=== PATIENT | male | born 1955 | race Two or more races ===

== ENCOUNTER 2020-10-28 10:43 | Emergency (ER) | payer MEDICARE, OTHER, SELFPAY ==
[2020-10-28 11:03] LABS: Glucose, Whole Blood 488 mg/dL (60-115)
[2020-10-28 11:08] VITALS: BP 146/73; PULSE 92; RESP 16; TEMP 36.8; O2SAT 98; BMI 29.0
[2020-10-28 11:12] VITALS: BP 146/73; PULSE 92; RESP 16; TEMP 36.8; O2SAT 98
--- NOTE | 2020-10-28 11:16 | CT_ITS ---
CT HEAD WITHOUT CONTRAST CLINICAL INFORMATION: Fall. Altered mental status. COMPARISON: None available. TECHNIQUE: Contiguous axial imaging was performed from the skull base to vertex without intravenous administration of contrast. This CT examination was performed using dose optimization techniques as appropriate, variously including the following: *Automated exposure control *Adjustment of mA and/or kV according to patient size (this includes techniques or standardized protocols for targeted exams where dose is matched to indication/reason for exam; i.e. extremities or head) *Use of iterative reconstruction technique FINDINGS: There is global cerebral volume loss and there is moderate chronic microangiopathy. There is no intracranial hemorrhage, hydrocephalus, extra-axial surface collection, midline shift, or other herniation pattern. Paul to white matter differentiation is diffusely maintained without evidence of an evolved acute territorial infarct. The basilar cisterns are preserved. No significant soft tissue abnormality. No acute osseous abnormality. The paranasal sinuses and the mastoid air cells are well aerated. Right-sided glaucoma reservoir. CT/CT head/brain wo con IMPRESSION: - No acute intracranial abnormality. - There is global cerebral volume loss and there is moderate chronic microangiopathy.
--- NOTE | 2020-10-28 11:16 | XR_ITS ---
EXAMINATION: XR KNEE, LEFT CLINICAL INFORMATION: Left knee pain status post fall COMPARISON: None TECHNIQUE: Four views of the left knee. FINDINGS: There is some soft tissue swelling seen about the anterior patella. No acute fracture or dislocation is evident. No effusion is seen. There is minimal spurring at the patellofemoral joint. There is a small calcific density seen about the medial joint space which may be related to medial collateral ligament injury which may be acute or chronic in nature with no definite adjacent soft tissue swelling likely making making this a chronic injury.. Prominent vascular calcifications are seen. XR/XR knee LT 4V IMPRESSION: No definite acute fracture or dislocation of the left knee with no left knee effusion. Small calcific density medial aspect of the left distal femur which may be secondary to medial collateral ligament injury.
--- NOTE | 2020-10-28 11:17 | ECG_ITS ---
Test Reason : AMS Blood Pressure : / mmHG Vent. Rate : 093 BPM Atrial Rate : 093 BPM P-R Int : 148 ms QRS Dur : 100 ms QT Int : 372 ms P-R-T Axes : 045 035 106 degrees QTc Int : 462 ms Normal sinus rhythm Low voltage QRS T wave abnormality, consider lateral ischemia Abnormal ECG When compared with ECG of 23-MAY-2002 09:19, Vent. rate has increased BY 31 BPM T wave inversion now evident in Lateral leads Referred By: Ricardo Briggs Electronically Signed By:AISHA UP MD
--- NOTE | 2020-10-28 11:17 | XR_ITS ---
EXAMINATION: XR CHEST CLINICAL INFORMATION: Fall COMPARISON: None TECHNIQUE: AP upright view of the chest was obtained. FINDINGS: No significant abnormality is noted involving the heart, lungs, mediastinum, bony thorax or soft tissues. XR/XR chest 1V IMPRESSION: No acute disease.
[2020-10-28] MEDS: 0.9 % Sodium Chloride 1,000 ML 999 ML IV ×2 (12:08→13:57)
[2020-10-28 12:14] LABS: MANUAL DIFF FLAG NO
[2020-10-28 12:18] LABS: Basophils Percent Auto 0.3 % (0-2); Eosinophils Absolute Auto 0.1 X10*3/uL (0.0-0.4); Eosinophils Percent Auto 0.4 % (0-4); Hematocrit 46.5 % (42-52); Hemoglobin 16.6 g/dl (14.0-18.0); Imm Gran Abs Auto 0.05 X10*3/uL (0.00-0.03); Imm Gran Pct Auto 0.4 % (0.0-0.4); Lymphocytes Absolute Auto 1.9 X10*3/uL (1.2-4.9); Lymphocytes Percent Auto 14.9 % (20-40); Mean Corpuscular HGB Conc 35.7 g/dl (31.0-36.0); Mean Corpuscular Hemoglobin 30.2 pg (27.0-33.0); Mean Corpuscular Volume 84.5 fL (80-98); Mean Platelet Volume 11.5 fL (9.4-12.4); Monocytes Absolute Auto 1.1 X10*3/uL (0.1-1.2); Monocytes Percent Auto 8.5 % (2-11); Neutrophils Absolute Auto 9.5 X10*3/uL (2.0-8.3); Neutrophils Percent Auto 75.5 % (45-73); Platelet Count 300 X10*3/uL (160-400); Red Cell Distribution Width 11.5 % (11.0-16.0); White Blood Count 12.7 X10*3/uL (4.8-10.8)
[2020-10-28 12:32] LABS: Prothrombin Time 11.7 SEC (10.8-13.0)
[2020-10-28 12:47] LABS: Acetaminophen LAB < 1 mcg/mL (<30); Alanine Aminotransferase 28 U/L (0-40); Albumin Level 4.6 g/dL (3.5-5.0); Alkaline Phosphatase 72 U/L (39-117); Anion Gap 20 (12-20); Aspartate Amino Transferase 18 U/L (5-37); Bilirubin Total 0.9 mg/dL (0.0-1.0); Blood Urea Nitrogen 28 mg/dL (9-16); Calcium 10.5 mg/dL (8.4-10.2); Carbon Dioxide 25 mmol/L (22-29); Chloride 92 mmol/L (96-108); Creatinine Clr Calc Pharmacy 41.6; Estimated Glomerular Filt Rate 39; Glucose Random 484 mg/dL (60-115); Sodium 132 mmol/L (135-145); Total Protein 7.9 g/dL (6.5-8.0)
[2020-10-28 12:48] LABS: Troponin-I High Sensitivity 9.1 ng/L (<3.5-35.0)
--- NOTE | 2020-10-28 13:49 | ED_ITS ---
HPI - General Adult General Chief complaint: Altered Mental Status Stated complaint: HBS Time Seen by Provider: 10/28/20 11:07 Source: EMS Mode of arrival: EMS Limitations: other (Poor historian) History of Present Illness HPI narrative: Mr. Arevalo is a 65-year-old male who goes by the name of Denis is a history of diabetes who apparently was at his house and had a fall. He is vague and poor historian mostly history gathered from his her daughter and granddaughter who report to me that he has a history of being very forgetful ?I think he might have dementia? he is part of a day program however that has been disrupted due to COVID-19 this morning he lives next door to his ex- who has a very good relationship with and they actually are to get her most of the time he went over there are 5 collecting morning to look for his wallet which is somewhat unusual and he fell. States after the fall he also reported to family that his blood sugars elevated that prompted them to bring to the emergency room. Although this altogether not too unusual for his blood sugars to be in the high 300s today was for e.d. at home. He reports he has not taking his medication today. Patient again very vague historian is alert and oriented x3 but somewhat slow to response. However family reports this is his baseline. He does have a abrasion to left side of forehead and left knee. Onset (ago): day(s) Location: head Severity: moderate Associated symptoms: denies other symptoms Treatments prior to arrival: none Related Data Allergies Allergy/AdvReac Type Severity Reaction Status Date / Time No Known Allergies Allergy Verified 10/28/20 11:16 Review of Systems Review of Systems: Constitutional: No Weight loss, No Fever, No Chills, No Night Sweats, No Fatigue, No Malaise ENT/Mouth: No Hearing loss, No Ear Pain, No Nasal Congestion, No Sinus Pain, No Hoarseness, No sore throat, No Rhinorrhea, No Swallowing Difficulty Eyes: No Eye Pain, No Swelling, No Redness, No Foreign Body, No Discharge, No Vision Changes Cardiovascular: No Chest Pain, No SOB, No Dyspnea on Exertion, No Orthopnea, No Edema, No Palpitations Respiratory: No Cough, No Sputum, No Wheezing, No Smoke Exposure, No Dyspnea Gastrointestinal: No Nausea, No Vomiting, No Diarrhea, No Constipation, No abdominal Pain, No Hematochezia, No Melena Genitourinary: No Dysuria, No Urinary Frequency, No Hematuria, No Urinary Incontinence, No Urgency, No Flank Pain Musculoskeletal: No joint pain, No Myalgias, No Joint Swelling Skin: No Skin Lesions, No rash Neuro: No Weakness, No Numbness, No Paresthesias, No Loss of Consciousness, No Dizziness, No Headache Psych: No Anxiety/Panic, No Depression, No SI/HI/AH/VH Heme/Lymph: No Bruising, No Bleeding,No Lymphadenopathy Endocrine: No Polyuria, No Polydipsia, No Temperature Intolerance Yes all other systems are reviewed and are negative [facility] Social History Social History Alcohol intake: never Smoked in Last 30 Days: No Use of substances other than those prescribed or required for medical reasons: No Advance Directives: Yes Advance Directives Information Provided: Yes Advance Directives on File: No Physical Exam Vital Signs: Vital Signs: Last Vital Signs Temp 98.3 F 10/28/20 16:35 Pulse 96 10/28/20 16:35 Resp 18 10/28/20 16:35 BP 181/84 H 10/28/20 16:35 Pulse Ox 98 10/28/20 16:35 Body Mass Index 29.0 Reviewed Const: General: cooperative and healthy appearing; No acute distress or intoxicated appearing Nutritional Appearance: average body habitus Orientation/consciousness: patient oriented x3 HENMT: Head: Yes normal to inspection Head images: 1. Slight area of abrasion. No swelling or erythema. Ears: hearing grossly normal bilaterally Eyes: General: appearance normal, both eyes and all related structures Visual Krueger: normal visual krueger by confrontation Neck: Neck: Yes normal visual inspection, No positive Brudzinski's sign, No positive Kernig's sign and No tender Thyroid: Thyroid normal Chest: Chest palpation & inspection: normal inspection of the chest Resp: Effort & Inspection: normal respiratory effort Cardio: Jugular venous distension: no JVD Rate: regular rate Rhythm: regular rhythm Heart sounds: S1 normal heart sound present and S2 normal heart sound present GI: Inspection: Yes normal to inspection Percussion: Yes normal to percussion Auscultation: normal bowel sounds : General: Yes no CVA tenderness Back/Spine/Pelvis: Back: no CVA tenderness Skin: General skin exam: no rashes or lesions noted Neuro: General: patient oriented x3 Extrem: General: Yes normal to inspection Upper/lower leg/hip images: 1. Abrasion NIH Stroke Scale Internal: Initial- Upon Arrival Level of Consciousness: Alert Level of Consciousness Questions: Answers both questions correctly Level of Consciousness Commands: Performs both tasks correctly Best Gaze: Normal Visual: No visual loss Facial Palsy: Normal Motor Arm (Right): No drift Motor Arm (Left): No drift Motor Leg (Right): No drift Motor Leg (Left): No drift Limb Ataxia: Absent Sensory: Normal Best Language: No aphasia Dysarthia: Normal Extinction and Inattention: No abnormality Score: 0 Course Course Course Narrative: Labs consistent with hyperosmolar hyperglycemia without evidence of diabetic ketoacidosis also [place] under sure if he has underlying CKD family is unsure of this most of the care is delivered by PCP and otherwise relatively independent they do get involved with his daily ADLs he was in a day program. He was given 2 L of fluid his glucose as well as his renal function improved. He is unsteady on his feet he was able to walk about 10 ft in the ED but very unsteady for this reason I brought in the daughter and the along with case management [facility] and recommended short-term rehab however patient adamantly declines this states he will be fine daughter is concerned that if we keep him here against his will for short-term rehab that he may have behavior outburst. States they will stay with him at all times in the meantime healthcare proxy was completed by [facility]. Consult place VNA services at home. I did instruct the patient is risk of going home and suffering a fall and worsening his condition resulting in serious life altering injury. He verbalized understanding. Shared decision making with patient as well as the family to bring him back if he changes mind or if anything happens. Medical Decision Making Lab Data Result diagrams: 10/28/20 11:56 10/28/20 15:11 Labs: Lab Results 10/28/20 10/28/20 10/28/20 Range/Units 10:59 11:56 11:56 WBC 12.7 H (4.8-10.8) X10*3/uL RBC 5.50 (4.60-5.80) X10*6/uL Hgb 16.6 (14.0-18.0) g/dl Hct 46.5 (42-52) % MCV 84.5 (80-98) fL MCH 30.2 (27.0-33.0) pg MCHC 35.7 (31.0-36.0) g/dl RDW 11.5 (11.0-16.0) % Plt Count 300 (160-400) X10*3/uL MPV 11.5 (9.4-12.4) fL Immature Gran % (Auto) 0.4 (0.0-0.4) % Neut % (Auto) 75.5 H (45-73) % Lymph % (Auto) 14.9 L (20-40) % [place] % (Auto) 8.5 (2-11) % Eos % (Auto) 0.4 (0-4) % Baso % (Auto) 0.3 (0-2) % Lymph # (Auto) 1.9 (1.2-4.9) X10*3/uL [place] # (Auto) 1.1 (0.1-1.2) X10*3/uL Eos # (Auto) 0.1 (0.0-0.4) X10*3/uL Baso # (Auto) 0.0 (0.0-0.2) X10*3/uL Abs Immat Gran (auto) 0.05 H (0.00-0.03) X10*3/uL Absolute Neuts (auto) 9.5 H (2.0-8.3) X10*3/uL Absolute Nucleated RBC 0.000 (0.0-0.012) X10*3/uL Nucleated RBC % (auto) 0.0 (0.0-0.2) /100WBC PT (10.8-13.0) SEC INR (0.9-1.1) APTT (24.1-38.0) SEC Sodium 132 L (135-145) mmol/L Potassium 5.0 (3.3-5.1) mmol/L Chloride 92 L (96-108) mmol/L Carbon Dioxide 25 (22-29) mmol/L Anion Gap 20 (12-20) BUN 28 H (9-16) mg/dL Creatinine 1.75 H (0.5-1.4) mg/dL Estim Creat Clear Calc 41.6 Estimated GFR 39 POC Glucose 488 H* (60-115) mg/dL Random Glucose 484 H* (60-115) mg/dL Calcium 10.5 H (8.4-10.2) mg/dL Total Bilirubin 0.9 (0.0-1.0) mg/dL AST 18 (5-37) U/L ALT 28 (0-40) U/L Alkaline Phosphatase 72 (39-117) U/L Troponin I High Sens (<3.5-35.0) ng/L Total Protein 7.9 (6.5-8.0) g/dL Albumin 4.6 (3.5-5.0) g/dL Urine Color Urine Appearance Urine pH (5.0-8.0) Ur Specific [place] (1.005-1.025) Urine Protein (NEG-TRACE) MG/DL Urine Glucose (UA) (NEG) MG/DL Urine Ketones (NEG) MG/DL Urine Blood (NEG) Urine Nitrite (NEG) Ur Leukocyte Esterase (NEG) Urine RBC (0) /HPF Urine WBC (0-4) /HPF Ur Squamous Epith Cells /LPF Amorphous Sediment /LPF Urine Bacteria /LPF Urine Opiates Screen (Not Detect) Acetaminophen < 1 (<30) mcg/mL Ur Barbiturates Screen (Not Detect) Ur Phencyclidine Scrn (Not Detect) Ur Amphetamines Screen (Not Detect) U Benzodiazepines Scrn (Not Detect) Urine Cocaine Screen (Not Detect) U Marijuana (THC) Screen (Not Detect) 10/28/20 10/28/20 10/28/20 Range/Units 11:56 11:56 13:59 WBC (4.8-10.8) X10*3/uL RBC (4.60-5.80) X10*6/uL Hgb (14.0-18.0) g/dl Hct (42-52) % MCV (80-98) fL MCH (27.0-33.0) pg MCHC (31.0-36.0) g/dl RDW (11.0-16.0) % Plt Count (160-400) X10*3/uL MPV (9.4-12.4) fL Immature Gran % (Auto) (0.0-0.4) % Neut % (Auto) (45-73) % Lymph % (Auto) (20-40) % [place] % (Auto) (2-11) % Eos % (Auto) (0-4) % Baso % (Auto) (0-2) % Lymph # (Auto) (1.2-4.9) X10*3/uL [place] # (Auto) (0.1-1.2) X10*3/uL Eos # (Auto) (0.0-0.4) X10*3/uL Baso # (Auto) (0.0-0.2) X10*3/uL Abs Immat Gran (auto) (0.00-0.03) X10*3/uL Absolute Neuts (auto) (2.0-8.3) X10*3/uL Absolute Nucleated RBC (0.0-0.012) X10*3/uL Nucleated RBC % (auto) (0.0-0.2) /100WBC PT 11.7 (10.8-13.0) SEC INR 1.0 (0.9-1.1) APTT 37.0 (24.1-38.0) SEC Sodium (135-145) mmol/L Potassium (3.3-5.1) mmol/L Chloride (96-108) mmol/L Carbon Dioxide (22-29) mmol/L Anion Gap (12-20) BUN (9-16) mg/dL Creatinine (0.5-1.4) mg/dL Estim Creat Clear Calc Estimated GFR POC Glucose (60-115) mg/dL Random Glucose (60-115) mg/dL Calcium (8.4-10.2) mg/dL Total Bilirubin (0.0-1.0) mg/dL AST (5-37) U/L ALT (0-40) U/L Alkaline Phosphatase (39-117) U/L Troponin I High Sens 9.1 (<3.5-35.0) ng/L Total Protein (6.5-8.0) g/dL Albumin (3.5-5.0) g/dL Urine Color YELLOW Urine Appearance CLEAR Urine pH 5.5 (5.0-8.0) Ur Specific [place] 1.025 (1.005-1.025) Urine Protein 2+ H (NEG-TRACE) MG/DL Urine Glucose (UA) >=1000 H (NEG) MG/DL Urine Ketones NEG (NEG) MG/DL Urine Blood 2+ H (NEG) Urine Nitrite NEG (NEG) Ur Leukocyte Esterase NEG (NEG) Urine RBC 5-9 H (0) /HPF Urine WBC 0-2 (0-4) /HPF Ur Squamous Epith Cells TRACE /LPF Amorphous Sediment 1+ /LPF Urine Bacteria NONE /LPF Urine Opiates Screen (Not Detect) Acetaminophen (<30) mcg/mL Ur Barbiturates Screen (Not Detect) Ur Phencyclidine Scrn (Not Detect) Ur Amphetamines Screen (Not Detect) U Benzodiazepines Scrn (Not Detect) Urine Cocaine Screen (Not Detect) U Marijuana (THC) Screen (Not Detect) 10/28/20 10/28/20 10/28/20 Range/Units 13:59 14:50 15:11 WBC (4.8-10.8) X10*3/uL RBC (4.60-5.80) X10*6/uL Hgb (14.0-18.0) g/dl Hct (42-52) % MCV (80-98) fL MCH (27.0-33.0) pg MCHC (31.0-36.0) g/dl RDW (11.0-16.0) % Plt Count (160-400) X10*3/uL MPV (9.4-12.4) fL Immature Gran % (Auto) (0.0-0.4) % Neut % (Auto) (45-73) % Lymph % (Auto) (20-40) % [place] % (Auto) (2-11) % Eos % (Auto) (0-4) % Baso % (Auto) (0-2) % Lymph # (Auto) (1.2-4.9) X10*3/uL [place] # (Auto) (0.1-1.2) X10*3/uL Eos # (Auto) (0.0-0.4) X10*3/uL Baso # (Auto) (0.0-0.2) X10*3/uL Abs Immat Gran (auto) (0.00-0.03) X10*3/uL Absolute Neuts (auto) (2.0-8.3) X10*3/uL Absolute Nucleated RBC (0.0-0.012) X10*3/uL Nucleated RBC % (auto) (0.0-0.2) /100WBC PT (10.8-13.0) SEC INR (0.9-1.1) APTT (24.1-38.0) SEC Sodium 136 (135-145) mmol/L Potassium 4.3 (3.3-5.1) mmol/L Chloride 100 (96-108) mmol/L Carbon Dioxide 26 (22-29) mmol/L Anion Gap 14 (12-20) BUN 24 H (9-16) mg/dL Creatinine 1.38 (0.5-1.4) mg/dL Estim Creat Clear Calc 52.8 Estimated GFR 52 POC Glucose 333 H (60-115) mg/dL Random Glucose 339 H (60-115) mg/dL Calcium 8.7 D (8.4-10.2) mg/dL Total Bilirubin (0.0-1.0) mg/dL AST (5-37) U/L ALT (0-40) U/L Alkaline Phosphatase (39-117) U/L Troponin I High Sens (<3.5-35.0) ng/L Total Protein (6.5-8.0) g/dL Albumin (3.5-5.0) g/dL Urine Color Urine Appearance Urine pH (5.0-8.0) Ur Specific [place] (1.005-1.025) Urine Protein (NEG-TRACE) MG/DL Urine Glucose (UA) (NEG) MG/DL Urine Ketones (NEG) MG/DL Urine Blood (NEG) Urine Nitrite (NEG) Ur Leukocyte Esterase (NEG) Urine RBC (0) /HPF Urine WBC (0-4) /HPF Ur Squamous Epith Cells /LPF Amorphous Sediment /LPF Urine Bacteria /LPF Urine Opiates Screen Not Detected (Not Detect) Acetaminophen (<30) mcg/mL Ur Barbiturates Screen Not Detected (Not Detect) Ur Phencyclidine Scrn Not Detected (Not Detect) Ur Amphetamines Screen Not Detected (Not Detect) U Benzodiazepines Scrn Not Detected (Not Detect) Urine Cocaine Screen Not Detected (Not Detect) U Marijuana (THC) Screen Not Detected (Not Detect) Imaging Data Head CT: Radiologist's impression: [address] [id number] Scan ReportSigned Patient: Ludwin Arevalo BMR#: [id number]: [id number]:[id number]/Sex: 65 / MADM Date: 10/28/20Loc: Deanna Dr: Ordering Physician: Ricardo Briggs NP Date of Service: 10/28/20 Procedure(s): CT head/brain wo con Accession Number(s): [id number] cc: Ricardo Briggs FASHION ILLUSTRATOR~ CT HEAD WITHOUT CONTRAST CLINICAL INFORMATION: Fall. Altered mental status. COMPARISON: None available. TECHNIQUE: Contiguous axial imaging was performed from the skull base to vertex without intravenous administration of contrast. This CT examination was performed using dose optimization techniques as appropriate, variously including the following: *Automated exposure control *Adjustment of mA and/or kV according to patient size (this includes techniques or standardized protocols for targeted exams where dose is matched to indication/reason for exam; i.e. extremities or head) *Use of iterative reconstruction technique FINDINGS: There is global cerebral volume loss and there is moderate chronic microangiopathy. There is no intracranial hemorrhage, hydrocephalus, extra-axial surface collection, midline shift, or other herniation pattern. Paul to white matter differentiation is diffusely maintained without evidence of an evolved acute territorial infarct. The basilar cisterns are preserved. No significant soft tissue abnormality. No acute osseous abnormality. The paranasal sinuses and the mastoid air cells are well aerated. Right-sided glaucoma reservoir. CT/CT head/brain wo con IMPRESSION: - No acute intracranial abnormality. - There is global cerebral volume loss and there is moderate chronic microangiopathy. Dictated By:JOSY REMY MDSigned By:<Electronically signed by JOSY REMY MD in OV>10/28/20 1155 DD/ 1116TD/TT: Physical Sciences Instructor: SYEDA Left knee x-ray: Radiologist's impression: [address] [id number] ReportSigned Patient: Ludwin Arevalo BMR#: [id number]: cct:[id number]/Sex: 65 / MADM Date: 10/28/20Loc: HO.EDAttending Dr: Ordering Physician: Ricardo Briggs NP Date of Service: 10/28/20 Procedure(s): XR knee LT 4V Accession Number(s): [id number] cc: Ricardo Briggs FASHION ILLUSTRATOR~ EXAMINATION: XR KNEE, LEFT CLINICAL INFORMATION: Left knee pain status post fall COMPARISON: None TECHNIQUE: Four views of the left knee. FINDINGS: There is some soft tissue swelling seen about the anterior patella. No acute fracture or dislocation is evident. No effusion is seen. There is minimal spurring at the patellofemoral joint. There is a small calcific density seen about the medial joint space which may be related to medial collateral ligament injury which may be acute or chronic in nature with no definite adjacent soft tissue swelling likely making making this a chronic injury.. Prominent vascular calcifications are seen. XR/XR knee LT 4V IMPRESSION: No definite acute fracture or dislocation of the left knee with no left knee effusion. Small calcific density medial aspect of the left distal femur which may be secondary to medial collateral ligament injury. Dictated By:CORY GEE V MDSigned By:<Electronically signed by CORY GEE MD in OV>10/28/20 1157 DD/ 1116TD/TT: Physical Sciences Instructor: ZAINAB Chest x-ray: Radiologist's impression: [address] [id number] ReportSigned Patient: Ludwin Arevalo BMR#: [id number]: 4Acct:[id number]/Sex: 65 / MADM Date: 10/28/20Loc: ANA.EDAttending Dr: Ordering Physician: Ricardo Briggs NP Date of Service: 10/28/20 Procedure(s): XR chest 1V Accession Number(s): [id number] cc: Ricardo Briggs FASHION ILLUSTRATOR~ EXAMINATION: XR CHEST CLINICAL INFORMATION: Fall COMPARISON: None TECHNIQUE: AP upright view of the chest was obtained. FINDINGS: No significant abnormality is noted involving the heart, lungs, mediastinum, bony thorax or soft tissues. XR/XR chest 1V IMPRESSION: No acute disease. Dictated By:CORY GEE V MDSigned By:<Electronically signed by CORY GEE MD in OV>10/28/20 1145 DD/ 1117TD/TT: Physical Sciences Instructor: ZAINAB ECG Data Interpretation: Normal sinus rhythm Low voltage QRS T wave abnormality, consider lateral ischemia Abnormal ECG When compared with ECG of 23-MAY-2002 09:19, Vent. rate has increased BY 31 BPM T wave inversion now evident in Lateral leads Discharge Plan Discharge Clinical Impression: Hyperglycemia, Fall, Abnormal gait, Contusion Patient Disposition: Home, Self-Care Instructions: Fall Prevention (ED), Fall Prevention for Older Adults (ED), Diabetic Hyperglycemia (ED) Additional Instructions: Today we have recommended stay in the hospital for further evaluation and treatment including the need for evaluation by our case management team and the need for possible physical therapy You have declined this You have agreed to stay with family at all times We have put a referral for home VNA services to assess her needs at home Follow-up with her primary care doctor closely Monitor sugar closely Take medication prescribed Return if any concerns or worsening symptoms Thank you Referrals: Physician,Unknown [Primary Care Provider] - 2 days
[2020-10-28 13:51] VITALS: BP 160/98; PULSE 98; RESP 15; O2SAT 99
[2020-10-28 14:16] LABS: Glucose Urine UA >=1000 MG/DL (NEG); Leukocyte Esterase Urine NEG (NEG); Nitrite Urine NEG (NEG); PH 5.5 (5.0-8.0); Specific Gravity - Urine 1.025 (1.005-1.025); Urine Blood 2+ (NEG); Urine Ketones NEG (NEG); Urine Protein 2+ MG/DL (NEG-TRACE)
[2020-10-28 14:17] LABS: Appearance Urine CLEAR; Color Urine YELLOW
[2020-10-28 14:26] LABS: Amorphous Sediment Urine 1+ /LPF; Squamous Epithelial Cell Urine TRACE /LPF; WBC Urine 0-2 /HPF (0-4)
[2020-10-28 14:40] LABS: Amphetamine Screen Urine Not Detected (Not Detect); Barbiturates, Urine Not Detected (Not Detect); Benzodiazepines Screen Urine Not Detected (Not Detect); Cannabinoid Screen Urine Not Detected (Not Detect); Cocaine Screen Urine Not Detected (Not Detect); Opiate Screen Urine Not Detected (Not Detect); Phencyclidine Screen Urine Not Detected (Not Detect)
[2020-10-28 14:53] LABS: Glucose, Whole Blood 333 mg/dL (60-115)
[2020-10-28 15:28] VITALS: BP 193/91; PULSE 90; RESP 17; TEMP 36.8; O2SAT 98
[2020-10-28 15:51] LABS: Anion Gap 14 (12-20); Blood Urea Nitrogen 24 mg/dL (9-16); Calcium 8.7 mg/dL (8.4-10.2); Carbon Dioxide 26 mmol/L (22-29); Chloride 100 mmol/L (96-108); Creatinine Clr Calc Pharmacy 52.8; Estimated Glomerular Filt Rate 52; Glucose Random 339 mg/dL (60-115); Potassium 4.3 mmol/L (3.3-5.1); Sodium 136 mmol/L (135-145)
[2020-10-28 16:35] VITALS: BP 181/84; PULSE 96; RESP 18; TEMP 36.8; O2SAT 98
--- NOTE | 2020-10-28 17:08 | PC.NURSE ---
Provider and family to bedside, family states they will stay with pt and follow with PCP and VNA as directed. Pt has unsteady gait, Pt refusing case management, family also refuses case management for placement. Family states they will stay with pt and are aware that his gait is unsteady. Family exited and await pt's discharge and will take hime home via private car.
--- NOTE | 2020-10-28 17:34 | MHC.CM.ED ---
CM Requested to see pt with Ricadro AUTOPSY PATHOLOGIST regarding PT with str vs VNA. Pt initally very unsteady when standing. AUTOPSY PATHOLOGIST and CM both recommended pt stay overnight for PT evaluation and possible STR. Pt adamantly refusing to stay overnight and definitely refusing STR, despite family encouragement. Ricardo AUTOPSY PATHOLOGIST states that patient ambulated, a bit unsteadily, but was able to ambulate 10 feet. CM did not witness ambulation. Family states they will stay with pt 17/04 or he will stay with ex- and family will be with him. AUTOPSY PATHOLOGIST explained how important it was for someone to stay with pt. Pt agreeable to HCP and to VNA referral. State HCP, daughterNeris ([phone]/ [phone]. Completed, signed and uploaded in [employer] and in [employer]. Pt states PCP is Dr. Azam Sanford in [place]. F2F completed and referral placed to NA. DaughterNeris and ex-, Tatyana Arevalo agree with plan of care. CM following for d/c needs. Pt to be d/c home with family
== END 2020-10-28 17:11 | disposition home or self-care (01) ==
PROVIDERS: Nurse Practitioner Primary Care; Emergency Provider Emergency Medicine; PCP Internal Medicine Hospice and Palliative Medicine
DX: E11.65 Type 2 diabetes mellitus with hyperglycemia (principal); R26.9 Unspecified abnormalities of gait and mobility; Z91.81 History of falling; S80.02XA Contusion of left knee, initial encounter; S00.81XA Abrasion of other part of head, initial encounter; W01.0XXA Fall on same level from slipping, tripping and stumbling without subsequent striking against object, initial encounter; N18.9 Chronic kidney disease, unspecified; Y93.9 Activity, unspecified; Y92.019 Unspecified place in single-family (private) house as the place of occurrence of the external cause; Y99.9 Unspecified external cause status
CPT/HCPCS: 36415; 70450; 71045; 73564; 80048; 80053; 80307; 81001; 82947; 84484; 85025; 85610; 85730; 90471; 90715; 93005; 96360; 96361; 99284; G0480

== ENCOUNTER 2020-10-29 15:32 | Emergency (ER) | payer MEDICARE, OTHER, SELFPAY ==
[2020-10-29 15:46] VITALS: BP 173/90; BP 180/100; PULSE 100; PULSE 96; RESP 20; TEMP 37.6; O2SAT 97; O2SAT 98; BMI 27.8
--- NOTE | 2020-10-29 16:11 | ED_ITS ---
HPI - Chest Pain General Chief Complaint: Chest Pain Stated Complaint: fall chest pain Time Seen by Provider: 10/29/20 16:10 Source: patient Mode of arrival: EMS Limitations: no limitations History of Present Illness HPI narrative: Patient with memory loss question early dementia , diabetes was seen here yesterday after mechanical fall head CT was negative head abrasion on the left knee sent home today he comes complaining of sore throat nonspecific complaints no fever no cough no chest pain also the abrasion on the left knee is getting slightly red patient received nitroglycerin and aspirin 324 mg by EMS patient denied any chest pain on arrival Related Data Previous Rx's Medication Instructions Recorded amoxicillin-pot clavulanate 1 tab PO BID #20 tab 10/29/20 [Augmentin] donepezil [Aricept] 10 mg PO BEDTIME #30 tab 10/29/20 Allergies Allergy/AdvReac Type Severity Reaction Status Date / Time No Known Allergies Allergy Verified 10/28/20 11:16 Review of Systems Review of Systems: Constitutional : No Weight loss, No Fever, No Chills ENT/Mouth : No sore throat, No Rhinorrhea Eyes: No Eye Pain, No Swelling Cardiovascular : No Chest Pain, no palpitations Respiratory : No Cough, No Sputum, no shortness of breath Gastrointestinal : no Nausea, No Vomiting, No Diarrhea, No abdominal Pain, no black stools Genitourinary : No Dysuria, No Urinary Frequency Musculoskeletal : No joint pain, No Myalgias, No Joint Swelling Skin : Abrasion on left knee is open slightly infected with surrounding erythema and purulent base abrasion to left forehead Neuro : No Weakness, No Numbness, No Dizziness, No Headache Psych : No Anxiety/Panic, No Depression Heme/Lymph: +Bruising, No Lymphadenopathy Endocrine : No Polyuria, No Polydipsia All other systems reviewed and are negative [facility] Social History Social History Alcohol intake: never Smoking Status: Never smoker Use of substances other than those prescribed or required for medical reasons: No Advance Directives: No Advance Directives Information Provided: Yes Physical Exam Vital Signs: Vital Signs: Last Vital Signs Temp 99.6 F 10/29/20 17:22 Pulse 96 10/29/20 17:22 Resp 18 10/29/20 17:22 BP 103/72 10/29/20 17:22 Pulse Ox 99 10/29/20 17:22 Body Mass Index 27.8 Appearance: Alert. Oriented X3. No acute distress. Eyes: Pupils equal, round and reactive to light. ENT: Pharynx normal. Neck: Normal inspection. Neck supple. CVS: Normal heart rate and rhythm. Pulses normal. Respiratory: No respiratory distress. Breath sounds normal. Abdomen: Soft and nontender. Bowel sounds are present, no mass palpable, no CVA tenderness Skin: Skin warm and dry. Normal skin color. Normal skin turgor. Extremities: No lower extremity edema. Neuro: Oriented X 3. No motor deficit. No sensory deficit. Extrem: Elbow/forearm/wrist images: 1. Deep abrasion with purulent base and surrounding erythema Course Course Course Narrative: Patient has early dementia came in for weakness spoke to the family do not want any placement at this time will take care of him at home follow-up with neurologist will start him on Aricept 10 mg daily also has a infected abrasion left knee after the fall will start him on Augmentin. Family aware that they will follow-up with neurologist for further workup MDM - Chest Pain Lab Data Result diagrams: 10/29/20 17:03 10/29/20 17:03 Labs: Lab Results 10/29/20 10/29/20 10/29/20 Range/Units 17:03 17:03 17:03 WBC 13.3 H (4.8-10.8) X10*3/uL RBC 4.88 (4.60-5.80) X10*6/uL Hgb 15.0 (14.0-18.0) g/dl Hct 41.9 L (42-52) % MCV 85.9 (80-98) fL MCH 30.7 (27.0-33.0) pg MCHC 35.8 (31.0-36.0) g/dl RDW 11.7 (11.0-16.0) % Plt Count 260 (160-400) X10*3/uL MPV 11.0 (9.4-12.4) fL Immature Gran % (Auto) 0.4 (0.0-0.4) % Neut % (Auto) 75.4 H (45-73) % Lymph % (Auto) 16.3 L (20-40) % [place] % (Auto) 7.2 (2-11) % Eos % (Auto) 0.5 (0-4) % Baso % (Auto) 0.2 (0-2) % Lymph # (Auto) 2.2 (1.2-4.9) X10*3/uL [place] # (Auto) 1.0 (0.1-1.2) X10*3/uL Eos # (Auto) 0.1 (0.0-0.4) X10*3/uL Baso # (Auto) 0.0 (0.0-0.2) X10*3/uL Abs Immat Gran (auto) 0.05 H (0.00-0.03) X10*3/uL Absolute Neuts (auto) 10.1 H (2.0-8.3) X10*3/uL Absolute Nucleated RBC 0.000 (0.0-0.012) X10*3/uL Nucleated RBC % (auto) 0.0 (0.0-0.2) /100WBC Sodium 133 L (135-145) mmol/L Potassium 4.4 (3.3-5.1) mmol/L Chloride 97 (96-108) mmol/L Carbon Dioxide 26 (22-29) mmol/L Anion Gap 14 (12-20) BUN 18 H (9-16) mg/dL Creatinine 1.24 (0.5-1.4) mg/dL Estim Creat Clear Calc 59.6 Estimated GFR 58 Random Glucose 264 H (60-115) mg/dL Calcium 9.1 (8.4-10.2) mg/dL Total Bilirubin 0.2 (0.0-1.0) mg/dL Direct Bilirubin 0.2 (0.0-0.5) mg/dL AST 44 H D (5-37) U/L ALT 28 (0-40) U/L Alkaline Phosphatase 64 (39-117) U/L Troponin I High Sens 12.9 (<3.5-35.0) ng/L Total Protein 6.7 (6.5-8.0) g/dL Albumin 3.9 (3.5-5.0) g/dL Discharge Plan Discharge Clinical Impression: Weakness Abrasion of knee, left Qualifiers: Encounter type: initial encounter Qualified Code(s): S80.212A - Abrasion, left knee, initial encounter Dementia Qualifiers: Dementia type: Alzheimer's Alzheimer's disease onset: late-onset Dementia behavioral disturbance: without behavioral disturbance Qualified Code(s): G30.1 - Alzheimer's disease with late onset Patient Disposition: Home, Self-Care Instructions: Alzheimer Disease (DC), Abrasion (ED), Weakness (ED) Additional Instructions: Drink plenty of fluids continue taking medications. Follow-up with neurolog ist/PCP Local care of wound as advised Prescriptions: New donepezil [Aricept] 10 mg tablet 10 mg PO BEDTIME Qty: 30 RF: 0 amoxicillin-pot clavulanate [Augmentin] 875-125 mg tablet 1 tab PO BID Qty: 20 RF: 0
--- NOTE | 2020-10-29 16:26 | ECG_ITS ---
Test Reason : CP Blood Pressure : / mmHG Vent. Rate : 099 BPM Atrial Rate : 099 BPM P-R Int : 142 ms QRS Dur : 100 ms QT Int : 438 ms P-R-T Axes : 051 -06 081 degrees QTc Int : 562 ms Normal sinus rhythm T wave abnormality, consider lateral ischemia Prolonged QT Abnormal ECG When compared with ECG of 28-OCT-2020 11:49, QT has lengthened Referred By: Phil De La Cruz Electronically Signed By:BO STEINBERG
[2020-10-29 17:09] LABS: Basophils Percent Auto 0.2 % (0-2); Eosinophils Absolute Auto 0.1 X10*3/uL (0.0-0.4); Eosinophils Percent Auto 0.5 % (0-4); Hematocrit 41.9 % (42-52); Imm Gran Abs Auto 0.05 X10*3/uL (0.00-0.03); Imm Gran Pct Auto 0.4 % (0.0-0.4); Lymphocytes Absolute Auto 2.2 X10*3/uL (1.2-4.9); Lymphocytes Percent Auto 16.3 % (20-40); Mean Corpuscular HGB Conc 35.8 g/dl (31.0-36.0); Mean Corpuscular Hemoglobin 30.7 pg (27.0-33.0); Mean Corpuscular Volume 85.9 fL (80-98); Monocytes Percent Auto 7.2 % (2-11); Neutrophils Absolute Auto 10.1 X10*3/uL (2.0-8.3); Neutrophils Percent Auto 75.4 % (45-73); Platelet Count 260 X10*3/uL (160-400); Red Blood Count 4.88 X10*6/uL (4.60-5.80); Red Cell Distribution Width 11.7 % (11.0-16.0); White Blood Count 13.3 X10*3/uL (4.8-10.8)
[2020-10-29 17:10] LABS: MANUAL DIFF FLAG NO
[2020-10-29 17:22] VITALS: BP 103/72; PULSE 96; RESP 18; TEMP 37.6; O2SAT 99
[2020-10-29 17:37] LABS: Alanine Aminotransferase 28 U/L (0-40); Albumin Level 3.9 g/dL (3.5-5.0); Alkaline Phosphatase 64 U/L (39-117); Anion Gap 14 (12-20); Aspartate Amino Transferase 44 U/L (5-37); Bilirubin Direct 0.2 mg/dL (0.0-0.5); Bilirubin Total 0.2 mg/dL (0.0-1.0); Blood Urea Nitrogen 18 mg/dL (9-16); Calcium 9.1 mg/dL (8.4-10.2); Carbon Dioxide 26 mmol/L (22-29); Chloride 97 mmol/L (96-108); Creatinine Clr Calc Pharmacy 59.6; Estimated Glomerular Filt Rate 58; Glucose Random 264 mg/dL (60-115); Potassium 4.4 mmol/L (3.3-5.1); Sodium 133 mmol/L (135-145); Total Protein 6.7 g/dL (6.5-8.0)
[2020-10-29] MEDS: Amoxicillin/Potassium Clav 875 MG TABLET PO (17:55)
--- NOTE | 2020-10-29 18:00 | PC.NURSE ---
spoke with pt's daughter, daughter is concern that pt lives by himself and not taking care of himself, that he does not take his medications appropriately especially his diabetic medications, that he is having falls at home and just overly weak. dr schafer aware of this concern and spoke with case management as well supportable pt was i the ed yesterday for the fall but refused to go to rehab
--- NOTE | 2020-10-29 18:10 | PC.NURSE ---
son's phone number [phone]
[2020-10-29 19:03] LABS: Troponin-I High Sensitivity 12.9 ng/L (<3.5-35.0)
== END 2020-10-29 19:55 | disposition home or self-care (01) ==
PROVIDERS: Emergency Provider Internal Medicine
DX: S80.212A Abrasion, left knee, initial encounter (principal); M25.562 Pain in left knee; G30.1 Alzheimer's disease with late onset; R07.9 Chest pain, unspecified; R53.1 Weakness; W01.0XXA Fall on same level from slipping, tripping and stumbling without subsequent striking against object, initial encounter; Y93.9 Activity, unspecified; Y92.9 Unspecified place or not applicable; Y99.9 Unspecified external cause status; Z23 Encounter for immunization
CPT/HCPCS: 36415; 80048; 80076; 84484; 85025; 87071; 87880; 90471; 90715; 93005; 99284

== ENCOUNTER 2020-11-03 13:07 | Inpatient (IN) | payer MEDICARE, OTHER, SELFPAY ==
[2020-11-03] VITALS (10 sets, daily range): BP systolic 130–179; BP diastolic 55–83; PULSE 86–96; RESP 12–21; TEMP 36.4–36.7; O2SAT 97–99; BMI 26.9; BMI 28.0
--- NOTE | ~2020-11-03 | XR_ITS ---
EXAMINATION: XR CHEST CLINICAL INFORMATION: Weakness COMPARISON: Previous chest x-ray October 28, 2020 TECHNIQUE: 2 views of the chest were obtained. FINDINGS: The cardiac and mediastinal contours are normal. The lungs are clear. There is no pleural effusion or pneumothorax. There are mild degenerative changes of the spine. There is evidence of previous surgery to the left shoulder. XR/XR chest 2V IMPRESSION: No evidence for acute disease in the chest.
[2020-11-03 13:35] LABS: Glucose, Whole Blood > 600 mg/dL (60-115)
[2020-11-03 13:35] LABS: Glucose, Whole Blood > 600 mg/dL (60-115)
--- NOTE | 2020-11-03 13:48 | ECG_ITS ---
Test Reason : DYSPNEA Blood Pressure : / mmHG Vent. Rate : 090 BPM Atrial Rate : 090 BPM P-R Int : 154 ms QRS Dur : 094 ms QT Int : 398 ms P-R-T Axes : 064 029 032 degrees QTc Int : 486 ms Normal sinus rhythm Prolonged QT Abnormal ECG When compared with ECG of 29-OCT-2020 15:45, T wave inversion no longer evident in Lateral leads QT has shortened Referred By: Terrie Capps Electronically Signed By:BO STEINBERG
--- NOTE | 2020-11-03 13:52 | ED_ITS ---
HPI - General Adult General Chief complaint: General Medical Stated complaint: HYPERGLYCEMIA Time Seen by Provider: 11/03/20 13:15 Source: EMS Mode of arrival: EMS Limitations: no limitations History of Present Illness HPI narrative: 65-year-old male with a past medical history of diabetes and dementia here with high blood sugars. History is limited from the patient as he is confused. Per stepdaughter who is health care proxy tells me the patient was seen here October 30 for high blood sugar and altered mental status. He was discharged home and was living with her for short time. However he left her house and went back to his own house. While he was there she tells me he ate little food and drink a little water and was not taking his insulin for 3 days. When she went to his house this morning he had several episodes of vomiting. She tells me that she could not get his insulin glucometer to work and therefore she did not give him his insulin today. She tells me he has many medications and she finds it difficult to manage at home and she is concerned that he may not be safe at home at this time. She was also worried that he is increasingly disoriented and confused from his baseline. Related Data Previous Rx's Medication Instructions Recorded amoxicillin-pot clavulanate 1 tab PO BID #20 tab 10/29/20 [Augmentin] donepezil [Aricept] 10 mg PO BEDTIME #30 tab 10/29/20 Allergies Allergy/AdvReac Type Severity Reaction Status Date / Time No Known Allergies Allergy Verified 11/03/20 13:31 Review of Systems Review of Systems: Yes all other systems are reviewed and are negative Constitutional: Constitutional: Reports no additional constitutional complaints, Denies body ache(s), Denies chills, Denies fever(s), Denies headache(s) and Denies weakness Eyes: Eyes: Reports no additional eye complaints and Denies change in vision ENT: Reports system reviewed and no additional complaints, except as documented, Denies dizziness, Denies headache(s), Denies nasal congestion, Denies nasal discharge and Denies neck pain Cardiovascular: Cardiovascular: Reports no additional cardiovascular complaints, Denies chest pain, Denies leg edema and Denies dyspnea Respiratory: Respiratory: Reports no additional respiratory complaints, Denies cough and Denies dyspnea Gastrointestinal: Gastrointestinal: Reports no additional gastrointestinal complaints, Denies abdominal pain, Denies diarrhea, Reports nausea and Reports vomiting Genitourinary: Genitourinary: Denies urinary incontinence Musculoskeletal: Musculoskeletal: Reports no additional musculoskeletal complaints, Denies back pain, Denies arthralgias, Denies joint swelling, Denies neck pain, Denies numbness and Denies tingling Integumentary/Breasts: Skin/Breast: Reports system reviewed and no additional complaints, except as docu and Denies rash Neurologic: Reports system reviewed and no additional complaints, except as documented, Denies Abnormal speech present, Reports confusion, Denies dizziness, Denies headache(s), Denies numbness, Denies tingling and Denies weakness Psychiatric: Psychiatric: Reports confusion PMFSH Past Medical History Attestation statement: The following information was validated with the patient. Source: old records reviewed and nursing notes reviewed Medical History (Updated 11/03/20 @ 15:38 by Terrie Capps NP) Dementia Diabetes Social History Social History Alcohol intake: never Smoking Status: Never smoker Smoked in Last 30 Days: No Use of substances other than those prescribed or required for medical reasons: No Advance Directives: No Advance Directives Information Provided: No Physical Exam Vital Signs: Vital Signs: Last Vital Signs Temp 98.0 F 11/03/20 13:31 Pulse 87 11/03/20 15:32 Resp 18 11/03/20 15:32 BP 169/83 H 11/03/20 15:32 Pulse Ox 99 11/03/20 15:32 Body Mass Index 28.0 Const: General: confusion Orientation/consciousness: oriented to person, oriented to place and confusion Limitations: no limitations HENMT: Head: Yes normal to inspection Ears: hearing grossly normal bilaterally General nose exam: Normal external nose present Face and sinus: Yes normal facial exam Mouth: Normal oral and palatal mucosa present Throat: Yes posterior oropharynx normal Eyes: General: appearance normal, both eyes and all related structures Pupils: Equal, round and reactive pupils present Neck: Neck: Yes normal visual inspection Chest: Chest palpation & inspection: normal inspection of the chest Resp: Effort & Inspection: normal respiratory effort Auscultation: clear to auscultation bilaterally Cardio: Rate: regular rate Rhythm: regular rhythm Peripheral pulses: Peripheral pulses 2+ throughout GI: Inspection: Yes normal to inspection Palpation (GI): Soft to palpation and nontender Auscultation: normal bowel sounds Back/Spine/Pelvis: Thoracic/Lumbar Spine: thoracic and lumbar spine normal to inspection Skin: General skin exam: no rashes or lesions noted Neuro: General: oriented to person, oriented to place and confusion Cranial nerves: Yes Equal, round and reactive pupils present Cognition (Neuro): normal cognition Speech: No Abnormal speech present Gait exam (Neuro): Normal gait present Motor exam (neuro): 5/5 motor strength present throughout Extrem: General: Yes normal to inspection Course Course Course Narrative: 65-year-old male with past medical history of diabetes and dementia here with high blood sugars and increasing confusion from baseline. Patient is a limited historian due to his confusion. Per family he has been noncompliant with his insulin for the last 3 days with little to eat or drink and has had increasing confusion from his baseline. On arrival the patient is alert and oriented x2, poor historian. Spoke to granddaughter Neris who tells me she is concerned for patient's safety at home and he will need placement if not admitted. Will check labs, EKG, chest x-ray, UA. Patient is only mildly confused and did have a CT October 29. There is no reports of recent falls or injuries I do not think that he needs additional imaging of his head today. 1530-labs are consistent with DKA. Venous blood sugar 731 with a gap of 29 and a bicarb of 15. Corrected sodium 137. Potassium 5.5, SULTANA. VBG is pending. Mildly elevated lactic acid which is secondary to dehydration and diabetic ketoacidosis and not from infection. Fluids ordered. Insulin drip ordered. Discussed with the welding machine feeder Dr. Trinidad who will admit patient. Step-daughter Neris [phone] updated on patient. Medical Decision Making MDM Narrative Medical decision making narrative: Progressive dementia, noncompliance of medication, ACS, underlying infection Lab Data Result diagrams: 11/03/20 14:14 11/03/20 14:14 Labs: Lab Results 11/03/20 11/03/20 11/03/20 Range/Units 13:26 13:28 14:06 WBC (4.8-10.8) X10*3/uL RBC (4.60-5.80) X10*6/uL Hgb (14.0-18.0) g/dl Hct (42-52) % MCV (80-98) fL MCH (27.0-33.0) pg MCHC (31.0-36.0) g/dl RDW (11.0-16.0) % Plt Count (160-400) X10*3/uL MPV (9.4-12.4) fL Immature Gran % (Auto) (0.0-0.4) % Neut % (Auto) (45-73) % Lymph % (Auto) (20-40) % [place] % (Auto) (2-11) % Eos % (Auto) (0-4) % Baso % (Auto) (0-2) % Lymph # (Auto) (1.2-4.9) X10*3/uL [place] # (Auto) (0.1-1.2) X10*3/uL Eos # (Auto) (0.0-0.4) X10*3/uL Baso # (Auto) (0.0-0.2) X10*3/uL Abs Immat Gran (auto) (0.00-0.03) X10*3/uL Absolute Neuts (auto) (2.0-8.3) X10*3/uL Absolute Nucleated RBC (0.0-0.012) X10*3/uL Nucleated RBC % (auto) (0.0-0.2) /100WBC PT (10.8-13.0) SEC INR (0.9-1.1) VBG pH (7.32-7.43) VBG pCO2 mmHg VBG pO2 mmHg VBG HCO3 mmol/L VBG O2 Saturation % VBG Base Excess mmol/L Sodium (135-145) mmol/L Potassium (3.3-5.1) mmol/L Chloride (96-108) mmol/L Carbon Dioxide (22-29) mmol/L Anion Gap (12-20) BUN (9-16) mg/dL Creatinine (0.5-1.4) mg/dL Estim Creat Clear Calc Estimated GFR POC Glucose > 600 H* > 600 H* (60-115) mg/dL Random Glucose (60-115) mg/dL Lactic Acid (0.5-2.0) mmol/L Calcium (8.4-10.2) mg/dL Magnesium (1.6-2.6) mg/dL Total Bilirubin (0.0-1.0) mg/dL Direct Bilirubin (0.0-0.5) mg/dL AST (5-37) U/L ALT (0-40) U/L Alkaline Phosphatase (39-117) U/L Troponin I High Sens (<3.5-35.0) ng/L Total Protein (6.5-8.0) g/dL Albumin (3.5-5.0) g/dL Urine Color Urine Appearance Urine pH (5.0-8.0) Ur Specific [place] (1.005-1.025) Urine Protein (NEG-TRACE) MG/DL Urine Glucose (UA) (NEG) MG/DL Urine Ketones (NEG) MG/DL Urine Blood (NEG) Urine Nitrite (NEG) Ur Leukocyte Esterase (NEG) Urine RBC (0) /HPF Urine WBC (0-4) /HPF Ur Squamous Epith Cells /LPF Urine Bacteria /LPF Acetone, Qual (Negative) COVID-19 ([facility]) Negative (Negative) COVID-19 Clin Com See Note 11/03/20 11/03/20 11/03/20 Range/Units 14:14 14:14 14:14 WBC 9.0 (4.8-10.8) X10*3/uL RBC 4.78 (4.60-5.80) X10*6/uL Hgb 14.4 (14.0-18.0) g/dl Hct 42.7 (42-52) % MCV 89.3 (80-98) fL MCH 30.1 (27.0-33.0) pg MCHC 33.7 (31.0-36.0) g/dl RDW 11.6 (11.0-16.0) % Plt Count 304 (160-400) X10*3/uL MPV 11.8 (9.4-12.4) fL Immature Gran % (Auto) 0.4 (0.0-0.4) % Neut % (Auto) 79.0 H (45-73) % Lymph % (Auto) 12.8 L (20-40) % [place] % (Auto) 7.5 (2-11) % Eos % (Auto) 0.0 (0-4) % Baso % (Auto) 0.3 (0-2) % Lymph # (Auto) 1.2 (1.2-4.9) X10*3/uL [place] # (Auto) 0.7 (0.1-1.2) X10*3/uL Eos # (Auto) 0.0 (0.0-0.4) X10*3/uL Baso # (Auto) 0.0 (0.0-0.2) X10*3/uL Abs Immat Gran (auto) 0.04 H (0.00-0.03) X10*3/uL Absolute Neuts (auto) 7.1 (2.0-8.3) X10*3/uL Absolute Nucleated RBC 0.000 (0.0-0.012) X10*3/uL Nucleated RBC % (auto) 0.0 (0.0-0.2) /100WBC PT (10.8-13.0) SEC INR (0.9-1.1) VBG pH (7.32-7.43) VBG pCO2 mmHg VBG pO2 mmHg VBG HCO3 mmol/L VBG O2 Saturation % VBG Base Excess mmol/L Sodium 127 L (135-145) mmol/L Potassium 5.5 H D (3.3-5.1) mmol/L Chloride 89 L (96-108) mmol/L Carbon Dioxide 15 L (22-29) mmol/L Anion Gap 29 H (12-20) BUN 63 H D (9-16) mg/dL Creatinine 2.58 H (0.5-1.4) mg/dL Estim Creat Clear Calc 27.8 Estimated GFR 25 POC Glucose (60-115) mg/dL Random Glucose 731 H* (60-115) mg/dL Lactic Acid (0.5-2.0) mmol/L Calcium 8.5 D (8.4-10.2) mg/dL Magnesium (1.6-2.6) mg/dL Total Bilirubin 0.4 (0.0-1.0) mg/dL Direct Bilirubin 0.2 (0.0-0.5) mg/dL AST 10 D (5-37) U/L ALT 20 (0-40) U/L Alkaline Phosphatase 74 (39-117) U/L Troponin I High Sens 5.7 D (<3.5-35.0) ng/L Total Protein 6.3 L (6.5-8.0) g/dL Albumin 3.6 (3.5-5.0) g/dL Urine Color Urine Appearance Urine pH (5.0-8.0) Ur Specific [place] (1.005-1.025) Urine Protein (NEG-TRACE) MG/DL Urine Glucose (UA) (NEG) MG/DL Urine Ketones (NEG) MG/DL Urine Blood (NEG) Urine Nitrite (NEG) Ur Leukocyte Esterase (NEG) Urine RBC (0) /HPF Urine WBC (0-4) /HPF Ur Squamous Epith Cells /LPF Urine Bacteria /LPF Acetone, Qual (Negative) COVID-19 ([facility]) (Negative) COVID-19 Clin Com 11/03/20 11/03/20 11/03/20 Range/Units 14:14 14:15 14:15 WBC (4.8-10.8) X10*3/uL RBC (4.60-5.80) X10*6/uL Hgb (14.0-18.0) g/dl Hct (42-52) % MCV (80-98) fL MCH (27.0-33.0) pg MCHC (31.0-36.0) g/dl RDW (11.0-16.0) % Plt Count (160-400) X10*3/uL MPV (9.4-12.4) fL Immature Gran % (Auto) (0.0-0.4) % Neut % (Auto) (45-73) % Lymph % (Auto) (20-40) % [place] % (Auto) (2-11) % Eos % (Auto) (0-4) % Baso % (Auto) (0-2) % Lymph # (Auto) (1.2-4.9) X10*3/uL [place] # (Auto) (0.1-1.2) X10*3/uL Eos # (Auto) (0.0-0.4) X10*3/uL Baso # (Auto) (0.0-0.2) X10*3/uL Abs Immat Gran (auto) (0.00-0.03) X10*3/uL Absolute Neuts (auto) (2.0-8.3) X10*3/uL Absolute Nucleated RBC (0.0-0.012) X10*3/uL Nucleated RBC % (auto) (0.0-0.2) /100WBC PT 11.9 (10.8-13.0) SEC INR 1.0 (0.9-1.1) VBG pH (7.32-7.43) VBG pCO2 mmHg VBG pO2 mmHg VBG HCO3 mmol/L VBG O2 Saturation % VBG Base Excess mmol/L Sodium (135-145) mmol/L Potassium (3.3-5.1) mmol/L Chloride (96-108) mmol/L Carbon Dioxide (22-29) mmol/L Anion Gap (12-20) BUN (9-16) mg/dL Creatinine (0.5-1.4) mg/dL Estim Creat Clear Calc Estimated GFR POC Glucose (60-115) mg/dL Random Glucose (60-115) mg/dL Lactic Acid 2.5 H* (0.5-2.0) mmol/L Calcium (8.4-10.2) mg/dL Magnesium 3.0 H (1.6-2.6) mg/dL Total Bilirubin (0.0-1.0) mg/dL Direct Bilirubin (0.0-0.5) mg/dL AST (5-37) U/L ALT (0-40) U/L Alkaline Phosphatase (39-117) U/L Troponin I High Sens (<3.5-35.0) ng/L Total Protein (6.5-8.0) g/dL Albumin (3.5-5.0) g/dL Urine Color Urine Appearance Urine pH (5.0-8.0) Ur Specific [place] (1.005-1.025) Urine Protein (NEG-TRACE) MG/DL Urine Glucose (UA) (NEG) MG/DL Urine Ketones (NEG) MG/DL Urine Blood (NEG) Urine Nitrite (NEG) Ur Leukocyte Esterase (NEG) Urine RBC (0) /HPF Urine WBC (0-4) /HPF Ur Squamous Epith Cells /LPF Urine Bacteria /LPF Acetone, Qual Moderate H (Negative) COVID-19 ([facility]) (Negative) COVID-19 Clin Com 02/09/21 02/09/21 Range/Units 14:50 15:50 WBC (4.8-10.8) X10*3/uL RBC (4.60-5.80) X10*6/uL Hgb (14.0-18.0) g/dl Hct (42-52) % MCV (80-98) fL MCH (27.0-33.0) pg MCHC (31.0-36.0) g/dl RDW (11.0-16.0) % Plt Count (160-400) X10*3/uL MPV (9.4-12.4) fL Immature Gran % (Auto) (0.0-0.4) % Neut % (Auto) (45-73) % Lymph % (Auto) (20-40) % [place] % (Auto) (2-11) % Eos % (Auto) (0-4) % Baso % (Auto) (0-2) % Lymph # (Auto) (1.2-4.9) X10*3/uL [place] # (Auto) (0.1-1.2) X10*3/uL Eos # (Auto) (0.0-0.4) X10*3/uL Baso # (Auto) (0.0-0.2) X10*3/uL Abs Immat Gran (auto) (0.00-0.03) X10*3/uL Absolute Neuts (auto) (2.0-8.3) X10*3/uL Absolute Nucleated RBC (0.0-0.012) X10*3/uL Nucleated RBC % (auto) (0.0-0.2) /100WBC PT (10.8-13.0) SEC INR (0.9-1.1) VBG pH 7.25 L (7.32-7.43) VBG pCO2 27 mmHg VBG pO2 59 mmHg VBG HCO3 12 mmol/L VBG O2 Saturation 81.0 % VBG Base Excess -12.9 mmol/L Sodium (135-145) mmol/L Potassium (3.3-5.1) mmol/L Chloride (96-108) mmol/L Carbon Dioxide (22-29) mmol/L Anion Gap (12-20) BUN (9-16) mg/dL Creatinine (0.5-1.4) mg/dL Estim Creat Clear Calc Estimated GFR POC Glucose (60-115) mg/dL Random Glucose (60-115) mg/dL Lactic Acid (0.5-2.0) mmol/L Calcium (8.4-10.2) mg/dL Magnesium (1.6-2.6) mg/dL Total Bilirubin (0.0-1.0) mg/dL Direct Bilirubin (0.0-0.5) mg/dL AST (5-37) U/L ALT (0-40) U/L Alkaline Phosphatase (39-117) U/L Troponin I High Sens (<3.5-35.0) ng/L Total Protein (6.5-8.0) g/dL Albumin (3.5-5.0) g/dL Urine Color YELLOW Urine Appearance CLEAR Urine pH 5.5 (5.0-8.0) Ur Specific [place] 1.020 (1.005-1.025) Urine Protein TRACE (NEG-TRACE) MG/DL Urine Glucose (UA) >=1000 H (NEG) MG/DL Urine Ketones >=80 (NEG) MG/DL Urine Blood TRACE (NEG) Urine Nitrite NEG (NEG) Ur Leukocyte Esterase NEG (NEG) Urine RBC 0 (0) /HPF Urine WBC 0 (0-4) /HPF Ur Squamous Epith Cells NONE /LPF Urine Bacteria TRACE /LPF Acetone, Qual (Negative) COVID-19 ([facility]) (Negative) COVID-19 Clin Com Imaging Data Chest x-ray: Attestation: I personally reviewed and interpreted this imaging study as follows: Radiologist's impression: EXAMINATION: XR CHEST CLINICAL INFORMATION: Weakness COMPARISON: Previous chest x-ray October 28, 2020 TECHNIQUE: 2 views of the chest were obtained. FINDINGS: The cardiac and mediastinal contours are normal. The lungs are clear. There is no pleural effusion or pneumothorax. There are mild degenerative changes of the spine. There is evidence of previous surgery to the left shoulder. XR/XR chest 2V IMPRESSION: No evidence for acute disease in the chest. ECG Data Attestation: I personally reviewed and interpreted this ECG as follows: Interpretation: Normal sinus rhythm with a rate of 90, normal NM, normal QRS, prolonged QTC 486 Critical Care Time Critical Care Time Critical Care Time: Yes Total Critical Care Time: 30 Attestation: Hyperglycemia requiring insulin drip, discussion with family several times, discussion with welding machine feeder for admission Discharge Plan Discharge Clinical Impression: DKA (diabetic ketoacidoses), SULTANA (acute kidney injury) Patient Disposition: Admitted As Inpatient
[2020-11-03 14:25] LABS: MANUAL DIFF FLAG NO
[2020-11-03 14:27] LABS: Basophils Percent Auto 0.3 % (0-2); Hematocrit 42.7 % (42-52); Hemoglobin 14.4 g/dl (14.0-18.0); Imm Gran Abs Auto 0.04 X10*3/uL (0.00-0.03); Imm Gran Pct Auto 0.4 % (0.0-0.4); Lymphocytes Absolute Auto 1.2 X10*3/uL (1.2-4.9); Lymphocytes Percent Auto 12.8 % (20-40); Mean Corpuscular HGB Conc 33.7 g/dl (31.0-36.0); Mean Corpuscular Hemoglobin 30.1 pg (27.0-33.0); Mean Corpuscular Volume 89.3 fL (80-98); Mean Platelet Volume 11.8 fL (9.4-12.4); Monocytes Absolute Auto 0.7 X10*3/uL (0.1-1.2); Monocytes Percent Auto 7.5 % (2-11); Neutrophils Absolute Auto 7.1 X10*3/uL (2.0-8.3); Platelet Count 304 X10*3/uL (160-400); Red Blood Count 4.78 X10*6/uL (4.60-5.80); Red Cell Distribution Width 11.6 % (11.0-16.0)
[2020-11-03 14:32] LABS: Prothrombin Time 11.9 SEC (10.8-13.0)
[2020-11-03 14:43] LABS: COVID-19 Test Negative (Negative); IDNOW Serial# 9DD0AD1C
[2020-11-03 14:55] LABS: Lactic Acid 2.5 mmol/L (0.5-2.0)
[2020-11-03 15:04] LABS: Glucose Urine UA >=1000 MG/DL (NEG); Leukocyte Esterase Urine NEG (NEG); Nitrite Urine NEG (NEG); PH 5.5 (5.0-8.0); Urine Blood TRACE (NEG); Urine Ketones >=80 MG/DL (NEG); Urine Protein TRACE MG/DL (NEG-TRACE)
[2020-11-03 15:05] LABS: Troponin-I High Sensitivity 5.7 ng/L (<3.5-35.0)
[2020-11-03 15:07] LABS: Appearance Urine CLEAR; Color Urine YELLOW
[2020-11-03 15:08] LABS: Alanine Aminotransferase 20 U/L (0-40); Albumin Level 3.6 g/dL (3.5-5.0); Alkaline Phosphatase 74 U/L (39-117); Anion Gap 29 (12-20); Aspartate Amino Transferase 10 U/L (5-37); Bilirubin Direct 0.2 mg/dL (0.0-0.5); Bilirubin Total 0.4 mg/dL (0.0-1.0); Blood Urea Nitrogen 63 mg/dL (9-16); Calcium 8.5 mg/dL (8.4-10.2); Carbon Dioxide 15 mmol/L (22-29); Chloride 89 mmol/L (96-108); Creatinine Clr Calc Pharmacy 27.8; Estimated Glomerular Filt Rate 25; Potassium 5.5 mmol/L (3.3-5.1); Sodium 127 mmol/L (135-145); Total Protein 6.3 g/dL (6.5-8.0)
[2020-11-03 15:09] LABS: Acetone, serum QL Moderate (Negative)
[2020-11-03 15:10] LABS: Bacteria Urine TRACE /LPF; RBC Urine 0 /HPF (0); WBC Urine 0 /HPF (0-4)
[2020-11-03 15:11] LABS: Glucose Random 731 mg/dL (60-115)
--- NOTE | 2020-11-03 15:32 | PC.NURSE ---
PT FOUND OUT OF BED, SATURATED WITH URINE, STILL USING URINAL WITH CYU OUT. STEADY ON FEET BUT NEEDING FREQUENT REDIRECTION TO RETURN AND STAY IN BED. PT AWARE OF PLAN FOR ADMISSION.
[2020-11-03] MEDS: Insulin Regular, Human 100 UNIT/ML 3 ML VIAL 10 UNIT IVPUSH (15:42)
[2020-11-03 16:06] LABS: PCO2 VBG 27 mmHg; pH VBG 7.25 (7.32-7.43)
[2020-11-03 16:07] LABS: Base Excess VBG -12.9 mmol/L; HCO3 VBG 12 mmol/L; PO2 VBG 59 mmHg
[2020-11-03] MEDS: Insulin Regular/NS 100 UNIT/100 ML PLAST..BAG 8 UNIT IVCONT (16:10)
--- NOTE | 2020-11-03 16:13 | P.HPCC_ITS ---
History of Present Illness Date of Service: 11/03/20 Chief Complaint: Weakness 65-year-old insulin-dependent type 2 diabetic stopped all medication and markedly diminished oral intake presents with weakness but afebrile and was noticed to be more confused than usual superimposed on his chronic dementia and in the emergency room noted to have severe metabolic disarray namely positive anion gap metabolic acidosis with significant urine ketones and and acute on chronic stage IV renal failure with pseudo hyponatremia and significant hyperkalemia all apparently due to diabetic ketoacidosis and marked volume deple tion Review of Systems Review of Systems: Yes Unobtainable due to mental status COUNTS INCLUDE 234 BEDS AT THE [facility] Past Medical History Medical History (Updated 11/03/20 @ 16:21 by Soha Trinidad MD) Dementia Diabetes Social History Social History Alcohol intake: never Smoking Status: Never smoker Smoked in Last 30 Days: No Use of substances other than those prescribed or required for medical reasons: No Advance Directives: No Advance Directives Information Provided: No Meds Allergies Allergy/AdvReac Type Severity Reaction Status Date / Time No Known Allergies Allergy Verified 11/03/20 13:31 Active Medications: Current Medications Generic Name Dose Route Start Last Admin Trade Name Freq PRN Reason Stop Dose Admin Sodium Chloride 2,400 mls @ 999 mls/hr 11/03/20 15:17 11/03/20 15:42 Ns IV 11/03/20 17:41 999 mls/hr .[id number] STA Administration Insulin Human Regular 100 unit in 100 mls @ 8 mls/hr 11/03/20 15:30 11/03/20 16:10 Myxredlin IVCONT 8 mls/hr .[id number] TRAMAINE Administration Protocol Sodium Chloride 1,000 mls @ 150 mls/hr 11/03/20 16:15 Ns IVCONT .[id number] [facility] Pharmacy Consult 1 each 11/03/20 15:20 Consult Rx Perform Med Rec MISCELLANE ONCE PRN Consult order Physical Exam Vital Signs: Vital Signs: Last Vital Signs Temp 98.0 F 11/03/20 13:31 Pulse 87 11/03/20 15:32 Resp 18 11/03/20 15:32 BP 169/83 H 11/03/20 15:32 Pulse Ox 99 02/09/21 15:32 Body Mass Index 28.0 On exam while receiving his 2nd L of normal saline he is awake and responsive and neurologically nonfocal but very little verbal capability Cardiac include bedside echo shows flat neck veins adequate bilateral carotid upstrokes excellent LV and RV systolic function and dimension with no pericardial effusion and no valve disease Chest percussed equally with clear chest x-ray EKG normal sinus rhythm otherwise within normal limits Abdomen soft benign no organomegaly and good bowel sounds Skin without active wound in other words no cellulitis no pressure sore no acrocyanosis Results Labs CBC and Chem 7: 11/03/20 14:14 11/03/20 14:14 Labs: Laboratory Results - last 24 hr 11/03/20 11/03/20 11/03/20 13:26 13:28 14:06 MCV MCH MCHC RDW Plt Count MPV Immature Gran % (Auto) Neut % (Auto) Lymph % (Auto) [place] % (Auto) Eos % (Auto) Baso % (Auto) Lymph # (Auto) [place] # (Auto) Eos # (Auto) Baso # (Auto) Abs Immat Gran (auto) Absolute Neuts (auto) Absolute Nucleated RBC Nucleated RBC % (auto) PT INR VBG pH VBG pCO2 VBG pO2 VBG HCO3 VBG O2 Saturation VBG Base Excess Anion Gap Estim Creat Clear Calc Estimated GFR POC Glucose > 600 H* > 600 H* Random Glucose Lactic Acid Calcium Magnesium Total Bilirubin Direct Bilirubin AST ALT Alkaline Phosphatase Troponin I High Sens Total Protein Albumin Urine Color Urine Appearance Urine pH Ur Specific [place] Urine Protein Urine Glucose (UA) Urine Ketones Urine Blood Urine Nitrite Ur Leukocyte Esterase Urine RBC Urine WBC Ur Squamous Epith Cells Urine Bacteria Acetone, Qual COVID-19 (KATINA) Negative COVID-19 Clin Com See Note 11/03/20 11/03/20 11/03/20 14:14 14:14 14:14 MCV 89.3 MCH 30.1 MCHC 33.7 RDW 11.6 Plt Count 304 MPV 11.8 Immature Gran % (Auto) 0.4 Neut % (Auto) 79.0 H Lymph % (Auto) 12.8 L [place] % (Auto) 7.5 Eos % (Auto) 0.0 Baso % (Auto) 0.3 Lymph # (Auto) 1.2 [place] # (Auto) 0.7 Eos # (Auto) 0.0 Baso # (Auto) 0.0 Abs Immat Gran (auto) 0.04 H Absolute Neuts (auto) 7.1 Absolute Nucleated RBC 0.000 Nucleated RBC % (auto) 0.0 PT INR VBG pH VBG pCO2 VBG pO2 VBG HCO3 VBG O2 Saturation VBG Base Excess Anion Gap 29 H Estim Creat Clear Calc 27.8 Estimated GFR 25 POC Glucose Random Glucose 731 H* Lactic Acid Calcium 8.5 D Magnesium Total Bilirubin 0.4 Direct Bilirubin 0.2 AST 10 D ALT 20 Alkaline Phosphatase 74 Troponin I High Sens 5.7 D Total Protein 6.3 L Albumin 3.6 Urine Color Urine Appearance Urine pH Ur Specific [place] Urine Protein Urine Glucose (UA) Urine Ketones Urine Blood Urine Nitrite Ur Leukocyte Esterase Urine RBC Urine WBC Ur Squamous Epith Cells Urine Bacteria Acetone, Qual COVID-19 (KATINA) COVIntegrated Ordering Systems 11/03/20 11/03/20 11/03/20 14:14 14:15 14:15 MCV MCH MCHC RDW Plt Count MPV Immature Gran % (Auto) Neut % (Auto) Lymph % (Auto) [place] % (Auto) Eos % (Auto) Baso % (Auto) Lymph # (Auto) [place] # (Auto) Eos # (Auto) Baso # (Auto) Abs Immat Gran (auto) Absolute Neuts (auto) Absolute Nucleated RBC Nucleated RBC % (auto) PT 11.9 INR 1.0 VBG pH VBG pCO2 VBG pO2 VBG HCO3 VBG O2 Saturation VBG Base Excess Anion Gap Estim Creat Clear Calc Estimated GFR POC Glucose Random Glucose Lactic Acid 2.5 H* Calcium Magnesium 3.0 H Total Bilirubin Direct Bilirubin AST ALT Alkaline Phosphatase Troponin I High Sens Total Protein Albumin Urine Color Urine Appearance Urine pH Ur Specific [place] Urine Protein Urine Glucose (UA) Urine Ketones Urine Blood Urine Nitrite Ur Leukocyte Esterase Urine RBC Urine WBC Ur Squamous Epith Cells Urine Bacteria Acetone, Qual Moderate H COVID-19 (KATINA) COVIDAthersys 11/03/20 11/03/20 14:50 15:50 MCV MCH MCHC RDW Plt Count MPV Immature Gran % (Auto) Neut % (Auto) Lymph % (Auto) [place] % (Auto) Eos % (Auto) Baso % (Auto) Lymph # (Auto) [place] # (Auto) Eos # (Auto) Baso # (Auto) Abs Immat Gran (auto) Absolute Neuts (auto) Absolute Nucleated RBC Nucleated RBC % (auto) PT INR VBG pH 7.25 L VBG pCO2 27 VBG pO2 59 VBG HCO3 12 VBG O2 Saturation 81.0 VBG Base Excess -12.9 Anion Gap Estim Creat Clear Calc Estimated GFR POC Glucose Random Glucose Lactic Acid Calcium Magnesium Total Bilirubin Direct Bilirubin AST ALT Alkaline Phosphatase Troponin I High Sens Total Protein Albumin Urine Color YELLOW Urine Appearance CLEAR Urine pH 5.5 Ur Specific [place] 1.020 Urine Protein TRACE Urine Glucose (UA) >=1000 H Urine Ketones >=80 Urine Blood TRACE Urine Nitrite NEG Ur Leukocyte Esterase NEG Urine RBC 0 Urine WBC 0 Ur Squamous Epith Cells NONE Urine Bacteria TRACE Acetone, Qual COVID-19 (KATINA) COVID-19 Clin Com Imaging Radiologist's Impressions: Impressions Chest X-Ray 11/03/20 13:48 IMPRESSION: No evidence for acute disease in the chest. Assessment and Plan (1) DKA (diabetic ketoacidoses): Status: Acute (2) SULTANA (acute kidney injury): Status: Acute (3) Acute hyperkalemia: Status: Acute (4) Acute hyponatremia: Status: Acute So plan is to aggressively hydrate initially with normal saline until potassium is normal and a sodium repairs into the mid 130s may switch to Ringer's lactate with possible potassium repletion at that point Follow blood gases and chemistries and 1 more repeat lactate to prove it is due to DKA
[2020-11-03 16:20] LABS: Reflex Lactate? Lactic Acid Added
--- NOTE | 2020-11-03 17:16 | PC.NURSE ---
late entry 1645: pt found to have urinated over bedrail, pulled both iv's, easily redirected, iv's reestablished, #20 each a/c and alatorre inserted. pt is alert. POC at 1700 was high and insulin drip titrated up to 12units/hr.
[2020-11-03 17:35] LABS: Glucose, Whole Blood > 600 mg/dL (60-115)
[2020-11-03] MEDS: Thiamine HCL 200 MG/2 ML VIAL 100 MG IVPUSH (17:49)
[2020-11-03 18:11] LABS: Glucose, Whole Blood 497 mg/dL (60-115)
--- NOTE | 2020-11-03 18:40 | PC.NURSE ---
ARRIVED VIA STRETCHER FROM ED AT 1730 W/ INSULIN GTT RUNNING AT 12 UNITS/HR, Q1HR POC. CALLED STEPDAUGHTER FOR ADMISSION QUESTIONS. PT ALERT TO SELF AND PLACE ONLY. LEFT KNEE NOTED TO HAVE ABRASIONS (INTACT/HEALING) FROM PREVIOUS FALL (VERIFIED WITH STEPDAUGHTER). TELESITTER PLACED BEDSIDE FOR SAFETY.
[2020-11-03 19:04] LABS: Glucose, Whole Blood 459 mg/dL (60-115)
[2020-11-03] MEDS: 0.9 % Sodium Chloride 1,000 ML 150 ML IVCONT (19:32)
[2020-11-03 20:14] LABS: Glucose, Whole Blood 365 mg/dL (60-115)
[2020-11-03 20:21] LABS: Base Excess VBG -7.6 mmol/L; HCO3 VBG 18 mmol/L; PCO2 VBG 36 mmHg; PO2 VBG 44 mmHg; pH VBG 7.29 (7.32-7.43)
[2020-11-03 20:45] LABS: Lactic Acid 2.2 mmol/L (0.5-2.0)
[2020-11-03 20:49] LABS: Anion Gap 23 (12-20); Blood Urea Nitrogen 56 mg/dL (9-16); Calcium 8.8 mg/dL (8.4-10.2); Carbon Dioxide 14 mmol/L (22-29); Chloride 100 mmol/L (96-108); Creatinine Clr Calc Pharmacy 33.4; Estimated Glomerular Filt Rate 31; Glucose Random 457 mg/dL (60-115); Sodium 132 mmol/L (135-145)
[2020-11-03 21:30] LABS: Glucose, Whole Blood 282 mg/dL (60-115)
[2020-11-03 22:17] LABS: Reflex Lactate? Lactic Acid Added
[2020-11-03 22:38] LABS: Glucose, Whole Blood 252 mg/dL (60-115)
[2020-11-03] MEDS: LORazepam 2 MG/ML VIAL 0.5 MG IVPUSH (23:18)
[2020-11-03 23:32] LABS: Glucose, Whole Blood 179 mg/dL (60-115)
[2020-11-04] VITALS (27 sets, daily range): BP systolic 111–194; BP diastolic 40–89; PULSE 76–128; RESP 11–20; TEMP 36.3–37.1; O2SAT 95–100; BMI 27.8
[2020-11-04] MEDS: KCl 20 mEq in 5% Dex/0.45% Sod 20 MEQ/1,000 ML IV.SOLN 150 MEQ IVCONT
[2020-11-04 01:07] LABS: Glucose, Whole Blood 164 mg/dL (60-115)
[2020-11-04 01:33] LABS: Anion Gap 12 (12-20); Blood Urea Nitrogen 46 mg/dL (9-16); Calcium 8.2 mg/dL (8.4-10.2); Carbon Dioxide 24 mmol/L (22-29); Chloride 105 mmol/L (96-108); Estimated Glomerular Filt Rate 40; Glucose Random 170 mg/dL (60-115); Sodium 137 mmol/L (135-145)
[2020-11-04 01:39] LABS: pH VBG 7.38 (7.32-7.43)
[2020-11-04 01:40] LABS: Base Excess VBG -2.5 mmol/L; HCO3 VBG 22 mmol/L; PCO2 VBG 36 mmHg; PO2 VBG 61 mmHg
[2020-11-04 02:01] LABS: Glucose, Whole Blood 148 mg/dL (60-115)
[2020-11-04 03:02] LABS: Glucose, Whole Blood 158 mg/dL (60-115)
[2020-11-04 03:45] LABS: Glucose, Whole Blood 187 mg/dL (60-115)
[2020-11-04] MEDS: Insulin Regular/NS 100 UNIT/100 ML PLAST..BAG IVCONT (04:25)
[2020-11-04 05:46] LABS: MANUAL DIFF FLAG NO
[2020-11-04 05:50] LABS: Basophils Percent Auto 0.4 % (0-2); Eosinophils Absolute Auto 0.1 X10*3/uL (0.0-0.4); Eosinophils Percent Auto 1.2 % (0-4); Hematocrit 40.8 % (42-52); Imm Gran Abs Auto 0.06 X10*3/uL (0.00-0.03); Imm Gran Pct Auto 0.5 % (0.0-0.4); Lymphocytes Absolute Auto 1.8 X10*3/uL (1.2-4.9); Lymphocytes Percent Auto 15.6 % (20-40); Mean Corpuscular HGB Conc 34.3 g/dl (31.0-36.0); Mean Corpuscular Hemoglobin 30.1 pg (27.0-33.0); Mean Corpuscular Volume 87.7 fL (80-98); Mean Platelet Volume 11.2 fL (9.4-12.4); Neutrophils Absolute Auto 8.3 X10*3/uL (2.0-8.3); Neutrophils Percent Auto 73.3 % (45-73); Platelet Count 267 X10*3/uL (160-400); Red Blood Count 4.65 X10*6/uL (4.60-5.80); Red Cell Distribution Width 11.8 % (11.0-16.0); White Blood Count 11.3 X10*3/uL (4.8-10.8)
[2020-11-04 05:57] LABS: Base Excess VBG -4.5 mmol/L; HCO3 VBG 20 mmol/L; PCO2 VBG 37 mmHg; PO2 VBG 46 mmHg; pH VBG 7.34 (7.32-7.43)
[2020-11-04 06:01] LABS: Glucose, Whole Blood 233 mg/dL (60-115)
[2020-11-04 06:17] LABS: Anion Gap 16 (12-20); Blood Urea Nitrogen 39 mg/dL (9-16); Calcium 8.2 mg/dL (8.4-10.2); Carbon Dioxide 17 mmol/L (22-29); Chloride 106 mmol/L (96-108); Estimated Glomerular Filt Rate 42; Glucose Random 243 mg/dL (60-115); Magnesium 2.5 mg/dL (1.6-2.6); Phosphorus 2.3 mg/dL (2.7-4.5); Potassium 4.2 mmol/L (3.3-5.1); Sodium 135 mmol/L (135-145)
--- NOTE | 2020-11-04 06:22 | PC.NURSE ---
ASSUMED CARE OF PT AT 1900. PT IS CONFUSED AND FORGETFUL. ON INSULIN DRIP PER DKA PROTOCOL AND ROSS QUINTANILLA ALSO OVERSEEING THE INSULIN DRIP AND DIRECTING CARE. PLEASE SEE INSULIN INFUSION FLOW SHEET. CHEM PROFILE AND VBG DRAWN AT 1999 AND 99 AND REVIEWED BY ROSS MAYEN. IV CHANGED FROM NS AT 150/HR TO D5 1/2 NS WITH 20 MEQ KCL AT 150/HR. PT TAKING PO FLUIDS. NO N OR V. URINE OUTPUT GOOD. VITAL SIGNS STABLE. MONITOR SHOWS SR-ST, NO ECTOPY NOTED.
[2020-11-04] MEDS: Acetaminophen 325 MG TABLET 650 MG PO (06:41)
[2020-11-04] MEDS: Haloperidol Lactate 5 MG/ML VIAL 1 MG IVPUSH (06:48)
[2020-11-04] MEDS: KCl 20 mEq in 5 % Dex/Lact Rin 20 MEQ/1,000 ML IV.SOLN 100 MEQ IVCONT (06:48)
[2020-11-04 07:22] LABS: Glucose, Whole Blood 287 mg/dL (60-115)
[2020-11-04 08:11] LABS: Glucose, Whole Blood 271 mg/dL (60-115)
[2020-11-04 09:00] LABS: Glucose, Whole Blood 238 mg/dL (60-115)
--- NOTE | 2020-11-04 09:02 | MHC.CDI.CONC ---
CDI Concurrent Query Service Date: 12/29/21 Documentation Clarification: Please clarify if you are treating a probable/suspected/likely or confirmed: Metabolic encephalopathy Toxic encephalopathy Please specify if known or other Provider Response: Metabolic Encephalopathy PLEASE DO NOT DELETE/MODIFY EXISTING CONTENT Additional information is needed in order to code to the highest accuracy and appropriate Severity of Illness (SOI). Please clarify the information noted below in your progress notes and discharge summary. Risk Factors/Clinical Indicators/Treatments ED: 11/03 - increasingly disoriented and confused from baseline. Noncompliant with insulin. LA mildly elevated from DKA and dehydration not infection. More confused than usual, severe metabolic disarray namely positive anion metabolic acidosis, significant urine ketones, pseudohyponatremia and hyperkalemia, DKA and volume depletion. CDS: Dora Atkinson [facility], CDIS Contact Number: [phone]. [phone] Please Review the information above and exercise your independent professional judgment in responding to the query. If you concur, pleas document in the PROGRESS NOTES and DISCHARGE SUMMARY. If you do not agree with the query, please document in the query above. Agree with probable metabolic encephalopathy superimposed on chronic dementia on the basis of mild diabetic ketoacidosis with dehydration and acute renal insufficiency largely really resolved with initial IV push of insulin and IV fluid bolus THIS QUERY IS PART OF THE PERMANENT MEDICAL RECORD
[2020-11-04 10:14] LABS: Glucose, Whole Blood 154 mg/dL (60-115)
[2020-11-04 11:05] LABS: Glucose, Whole Blood 131 mg/dL (60-115)
[2020-11-04 12:06] LABS: Glucose, Whole Blood 120 mg/dL (60-115)
--- NOTE | 2020-11-04 12:08 | MHC.CM.PN ---
Attempted to meet with patient in regards to discharge planning. Patient is currently confused. Spoke with patient's HCP, Ayla Reinosona via telephone at [phone]. When patient was discharged from the ER, ANIYAHA never called [facility]. T/W explained ALEXIA went to see the patient, and [facility] was already at the home and patient was active with their agency. At this time, he is not active. However a new referral has been made to [facility] and they are able to accept patient. After discharge from the ER, patient was staying with [facility]. He returned to his apartment 3 days prior to admission. He did not take his meds at that time. Per [facility], at discharge patient will be living with her manager maritime at [address] [place] [address] in [place]. [facility] has been provided this address. IMM explained and sent via certified mail. [facility] will provide transportation when medically stable. [facility] has no problem administering patient's oral medication. However, she has never given insulin and is requesting training with his prior to patient being discharged. She reports patient's glucometer is broken. She will bring it to the hospital when she comes for insulin education. Continue to monitor for d/c needs.
[2020-11-04 12:47] LABS: Anion Gap 12 (12-20); Blood Urea Nitrogen 35 mg/dL (9-16); Carbon Dioxide 25 mmol/L (22-29); Chloride 107 mmol/L (96-108); Creatinine Clr Calc Pharmacy 49.3; Estimated Glomerular Filt Rate 49; Glucose Random 122 mg/dL (60-115); Potassium 4.3 mmol/L (3.3-5.1); Sodium 140 mmol/L (135-145)
--- NOTE | 2020-11-04 12:54 | P.PNCC_ITS ---
Subjective Subjective Date of Service: 11/04/20 Interval History: 65-year-old with progressive and chronic dementia unable to understand to care for himself and is a longstanding diabetic who did not take medication for a while and oral intake became poor he became weak and was admitted for hyperglycemia with glucose in the 700s and the a positive anion gap metabolic acidosis consistent with diabetic ketoacidosis was treated with IV insulin and IV fluids and current bicarb is 25 with gap completely closed glucose well controlled renal function largely repair to baseline with a creati nine of 1.45 Physical Exam Vital Signs: Vital Signs: Last Vital Signs Temp 98.6 F 11/04/20 12:00 Pulse 90 11/04/20 12:00 Resp 15 11/04/20 12:00 BP 164/77 H 11/04/20 12:00 Pulse Ox 95 11/04/20 12:00 Body Mass Index 27.8 Const: Other: 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 due to degree of chronic dementia Cardiac exam with normal S1 and normal S2 and no gallops and no neck vein distension and good bilateral carotid upstrokes Chest is clear with no adventitious sounds Abdomen benign soft with good bowel sounds and no organomegaly Skin intact with no wounds and no acrocyanosis Objective Data Labs CBC & Chem 7: 11/04/20 05:39 11/04/20 11:47 Labs: Laboratory Results - last 24 hr 11/03/20 11/03/20 11/03/20 13:26 13:28 14:06 WBC RBC Hgb Hct MCV MCH MCHC RDW Plt Count MPV Immature Gran % (Auto) Neut % (Auto) Lymph % (Auto) [place] % (Auto) Eos % (Auto) Baso % (Auto) Lymph # (Auto) [place] # (Auto) Eos # (Auto) Baso # (Auto) Abs Immat Gran (auto) Absolute Neuts (auto) Absolute Nucleated RBC Nucleated RBC % (auto) PT INR VBG pH VBG pCO2 VBG pO2 VBG HCO3 VBG O2 Saturation VBG Base Excess Sodium Potassium Chloride Carbon Dioxide Anion Gap BUN Creatinine Estim Creat Clear Calc Estimated GFR POC Glucose > 600 H* > 600 H* Random Glucose Lactic Acid Calcium Phosphorus Magnesium Total Bilirubin Direct Bilirubin AST ALT Alkaline Phosphatase Troponin I High Sens Total Protein Albumin Urine Color Urine Appearance Urine pH Ur Specific [place] Urine Protein Urine Glucose (UA) Urine Ketones Urine Blood Urine Nitrite Ur Leukocyte Esterase Urine RBC Urine WBC Ur Squamous Epith Cells Urine Bacteria Acetone, Qual COVID-19 (KATINA) Negative COVID-19 Clin Com See Note 11/03/20 11/03/20 11/03/20 14:14 14:14 14:14 WBC 9.0 RBC 4.78 Hgb 14.4 Hct 42.7 MCV 89.3 MCH 30.1 MCHC 33.7 RDW 11.6 Plt Count 304 MPV 11.8 Immature Gran % (Auto) 0.4 Neut % (Auto) 79.0 H Lymph % (Auto) 12.8 L [place] % (Auto) 7.5 Eos % (Auto) 0.0 Baso % (Auto) 0.3 Lymph # (Auto) 1.2 [place] # (Auto) 0.7 Eos # (Auto) 0.0 Baso # (Auto) 0.0 Abs Immat Gran (auto) 0.04 H Absolute Neuts (auto) 7.1 Absolute Nucleated RBC 0.000 Nucleated RBC % (auto) 0.0 PT INR VBG pH VBG pCO2 VBG pO2 VBG HCO3 VBG O2 Saturation VBG Base Excess Sodium 127 L Potassium 5.5 H D Chloride 89 L Carbon Dioxide 15 L Anion Gap 29 H BUN 63 H D Creatinine 2.58 H Estim Creat Clear Calc 27.8 Estimated GFR 25 POC Glucose Random Glucose 731 H* Lactic Acid Calcium 8.5 D Phosphorus Magnesium Total Bilirubin 0.4 Direct Bilirubin 0.2 AST 10 D ALT 20 Alkaline Phosphatase 74 Troponin I High Sens 5.7 D Total Protein 6.3 L Albumin 3.6 Urine Color Urine Appearance Urine pH Ur Specific [place] Urine Protein Urine Glucose (UA) Urine Ketones Urine Blood Urine Nitrite Ur Leukocyte Esterase Urine RBC Urine WBC Ur Squamous Epith Cells Urine Bacteria Acetone, Qual COVID-19 (KATINA) COVID-19 Clin Com 11/03/20 11/03/20 11/03/20 14:14 14:15 14:15 WBC RBC Hgb Hct MCV MCH MCHC RDW Plt Count MPV Immature Gran % (Auto) Neut % (Auto) Lymph % (Auto) [place] % (Auto) Eos % (Auto) Baso % (Auto) Lymph # (Auto) [place] # (Auto) Eos # (Auto) Baso # (Auto) Abs Immat Gran (auto) Absolute Neuts (auto) Absolute Nucleated RBC Nucleated RBC % (auto) PT 11.9 INR 1.0 VBG pH VBG pCO2 VBG pO2 VBG HCO3 VBG O2 Saturation VBG Base Excess Sodium Potassium Chloride Carbon Dioxide Anion Gap BUN Creatinine Estim Creat Clear Calc Estimated GFR POC Glucose Random Glucose Lactic Acid 2.5 H* Calcium Phosphorus Magnesium 3.0 H Total Bilirubin Direct Bilirubin AST ALT Alkaline Phosphatase Troponin I High Sens Total Protein Albumin Urine Color Urine Appearance Urine pH Ur Specific [place] Urine Protein Urine Glucose (UA) Urine Ketones Urine Blood Urine Nitrite Ur Leukocyte Esterase Urine RBC Urine WBC Ur Squamous Epith Cells Urine Bacteria Acetone, Qual Moderate H COVID-19 (KATINA) COVID-19 [employer] 11/03/20 11/03/20 11/03/20 14:50 15:50 17:03 WBC RBC Hgb Hct MCV MCH MCHC RDW Plt Count MPV Immature Gran % (Auto) Neut % (Auto) Lymph % (Auto) [place] % (Auto) Eos % (Auto) Baso % (Auto) Lymph # (Auto) [place] # (Auto) Eos # (Auto) Baso # (Auto) Abs Immat Gran (auto) Absolute Neuts (auto) Absolute Nucleated RBC Nucleated RBC % (auto) PT INR VBG pH 7.25 L VBG pCO2 27 VBG pO2 59 VBG HCO3 12 VBG O2 Saturation 81.0 VBG Base Excess -12.9 Sodium Potassium Chloride Carbon Dioxide Anion Gap BUN Creatinine Estim Creat Clear Calc Estimated GFR POC Glucose > 600 H* Random Glucose Lactic Acid Calcium Phosphorus Magnesium Total Bilirubin Direct Bilirubin AST ALT Alkaline Phosphatase Troponin I High Sens Total Protein Albumin Urine Color YELLOW Urine Appearance CLEAR Urine pH 5.5 Ur Specific [place] 1.020 Urine Protein TRACE Urine Glucose (UA) >=1000 H Urine Ketones >=80 Urine Blood TRACE Urine Nitrite NEG Ur Leukocyte Esterase NEG Urine RBC 0 Urine WBC 0 Ur Squamous Epith Cells NONE Urine Bacteria TRACE Acetone, Qual COVID-19 (KATINA) COVID-19 [employer] 11/03/20 11/03/20 11/03/20 18:07 19:01 20:10 WBC RBC Hgb Hct MCV MCH MCHC RDW Plt Count MPV Immature Gran % (Auto) Neut % (Auto) Lymph % (Auto) [place] % (Auto) Eos % (Auto) Baso % (Auto) Lymph # (Auto) [place] # (Auto) Eos # (Auto) Baso # (Auto) Abs Immat Gran (auto) Absolute Neuts (auto) Absolute Nucleated RBC Nucleated RBC % (auto) PT INR VBG pH VBG pCO2 VBG pO2 VBG HCO3 VBG O2 Saturation VBG Base Excess Sodium 132 L Potassium 5.0 Chloride 100 Carbon Dioxide 14 L Anion Gap 23 H BUN 56 H Creatinine 2.15 H Estim Creat Clear Calc 33.4 Estimated GFR 31 POC Glucose 497 H* 459 H* Random Glucose 457 H* Lactic Acid Calcium 8.8 Phosphorus Magnesium Total Bilirubin Direct Bilirubin AST ALT Alkaline Phosphatase Troponin I High Sens Total Protein Albumin Urine Color Urine Appearance Urine pH Ur Specific [place] Urine Protein Urine Glucose (UA) Urine Ketones Urine Blood Urine Nitrite Ur Leukocyte Esterase Urine RBC Urine WBC Ur Squamous Epith Cells Urine Bacteria Acetone, Qual COVID-19 (KATINA) COVID-[employer] 11/03/20 11/03/20 11/03/20 20:10 20:10 20:10 WBC RBC Hgb Hct MCV MCH MCHC RDW Plt Count MPV Immature Gran % (Auto) Neut % (Auto) Lymph % (Auto) [place] % (Auto) Eos % (Auto) Baso % (Auto) Lymph # (Auto) [place] # (Auto) Eos # (Auto) Baso # (Auto) Abs Immat Gran (auto) Absolute Neuts (auto) Absolute Nucleated RBC Nucleated RBC % (auto) PT INR VBG pH 7.29 L VBG pCO2 36 VBG pO2 44 VBG HCO3 18 VBG O2 Saturation 68.0 VBG Base Excess -7.6 Sodium Potassium Chloride Carbon Dioxide Anion Gap BUN Creatinine Estim Creat Clear Calc Estimated GFR POC Glucose 365 H* Random Glucose Lactic Acid 2.2 H* Calcium Phosphorus Magnesium Total Bilirubin Direct Bilirubin AST ALT Alkaline Phosphatase Troponin I High Sens Total Protein Albumin Urine Color Urine Appearance Urine pH Ur Specific [place] Urine Protein Urine Glucose (UA) Urine Ketones Urine Blood Urine Nitrite Ur Leukocyte Esterase Urine RBC Urine WBC Ur Squamous Epith Cells Urine Bacteria Acetone, Qual COVID-19 (KATINA) COVID-19 [employer] 11/03/20 11/03/20 11/03/20 21:26 22:33 23:26 WBC RBC Hgb Hct MCV MCH MCHC RDW Plt Count MPV Immature Gran % (Auto) Neut % (Auto) Lymph % (Auto) [place] % (Auto) Eos % (Auto) Baso % (Auto) Lymph # (Auto) [place] # (Auto) Eos # (Auto) Baso # (Auto) Abs Immat Gran (auto) Absolute Neuts (auto) Absolute Nucleated RBC Nucleated RBC % (auto) PT INR VBG pH VBG pCO2 VBG pO2 VBG HCO3 VBG O2 Saturation VBG Base Excess Sodium Potassium Chloride Carbon Dioxide Anion Gap BUN Creatinine Estim Creat Clear Calc Estimated GFR POC Glucose 282 H 252 H 179 H Random Glucose Lactic Acid Calcium Phosphorus Magnesium Total Bilirubin Direct Bilirubin AST ALT Alkaline Phosphatase Troponin I High Sens Total Protein Albumin Urine Color Urine Appearance Urine pH Ur Specific [place] Urine Protein Urine Glucose (UA) Urine Ketones Urine Blood Urine Nitrite Ur Leukocyte Esterase Urine RBC Urine WBC Ur Squamous Epith Cells Urine Bacteria Acetone, Qual COVID-19 (KATINA) COVID-[employer] 11/04/20 11/04/20 11/04/20 00:50 00:52 01:17 WBC RBC Hgb Hct MCV MCH MCHC RDW Plt Count MPV Immature Gran % (Auto) Neut % (Auto) Lymph % (Auto) [place] % (Auto) Eos % (Auto) Baso % (Auto) Lymph # (Auto) [place] # (Auto) Eos # (Auto) Baso # (Auto) Abs Immat Gran (auto) Absolute Neuts (auto) Absolute Nucleated RBC Nucleated RBC % (auto) PT INR VBG pH 7.38 VBG pCO2 36 VBG pO2 61 VBG HCO3 22 VBG O2 Saturation 89.0 VBG Base Excess -2.5 Sodium 137 Potassium 4.0 Chloride 105 Carbon Dioxide 24 Anion Gap 12 BUN 46 H Creatinine 1.71 H Estim Creat Clear Calc 42.0 Estimated GFR 40 POC Glucose 164 H Random Glucose 170 H D Lactic Acid Calcium 8.2 L D Phosphorus Magnesium Total Bilirubin Direct Bilirubin AST ALT Alkaline Phosphatase Troponin I High Sens Total Protein Albumin Urine Color Urine Appearance Urine pH Ur Specific [place] Urine Protein Urine Glucose (UA) Urine Ketones Urine Blood Urine Nitrite Ur Leukocyte Esterase Urine RBC Urine WBC Ur Squamous Epith Cells Urine Bacteria Acetone, Qual COVID-19 (KATINA) COVID-[employer] 11/04/20 11/04/20 11/04/20 01:57 02:58 03:41 WBC RBC Hgb Hct MCV MCH MCHC RDW Plt Count MPV Immature Gran % (Auto) Neut % (Auto) Lymph % (Auto) [place] % (Auto) Eos % (Auto) Baso % (Auto) Lymph # (Auto) [place] # (Auto) Eos # (Auto) Baso # (Auto) Abs Immat Gran (auto) Absolute Neuts (auto) Absolute Nucleated RBC Nucleated RBC % (auto) PT INR VBG pH VBG pCO2 VBG pO2 VBG HCO3 VBG O2 Saturation VBG Base Excess Sodium Potassium Chloride Carbon Dioxide Anion Gap BUN Creatinine Estim Creat Clear Calc Estimated GFR POC Glucose 148 H 158 H 187 H Random Glucose Lactic Acid Calcium Phosphorus Magnesium Total Bilirubin Direct Bilirubin AST ALT Alkaline Phosphatase Troponin I High Sens Total Protein Albumin Urine Color Urine Appearance Urine pH Ur Specific [place] Urine Protein Urine Glucose (UA) Urine Ketones Urine Blood Urine Nitrite Ur Leukocyte Esterase Urine RBC Urine WBC Ur Squamous Epith Cells Urine Bacteria Acetone, Qual COVID-19 (KATINA) [employer] 11/04/20 11/04/20 11/04/20 05:39 05:39 05:39 WBC 11.3 H RBC 4.65 Hgb 14.0 Hct 40.8 L MCV 87.7 MCH 30.1 MCHC 34.3 RDW 11.8 Plt Count 267 MPV 11.2 Immature Gran % (Auto) 0.5 H Neut % (Auto) 73.3 H Lymph % (Auto) 15.6 L [place] % (Auto) 9.0 Eos % (Auto) 1.2 Baso % (Auto) 0.4 Lymph # (Auto) 1.8 [place] # (Auto) 1.0 Eos # (Auto) 0.1 Baso # (Auto) 0.0 Abs Immat Gran (auto) 0.06 H Absolute Neuts (auto) 8.3 Absolute Nucleated RBC 0.000 Nucleated RBC % (auto) 0.0 PT INR VBG pH 7.34 VBG pCO2 37 VBG pO2 46 VBG HCO3 20 VBG O2 Saturation 74.0 VBG Base Excess -4.5 Sodium 135 Potassium 4.2 Chloride 106 Carbon Dioxide 17 L Anion Gap 16 BUN 39 H Creatinine 1.66 H Estim Creat Clear Calc 43.0 Estimated GFR 42 POC Glucose Random Glucose 243 H D Lactic Acid Calcium 8.2 L Phosphorus 2.3 L Magnesium 2.5 Total Bilirubin Direct Bilirubin AST ALT Alkaline Phosphatase Troponin I High Sens Total Protein Albumin Urine Color Urine Appearance Urine pH Ur Specific [place] Urine Protein Urine Glucose (UA) Urine Ketones Urine Blood Urine Nitrite Ur Leukocyte Esterase Urine RBC Urine WBC Ur Squamous Epith Cells Urine Bacteria Acetone, Qual COVID-19 (KATINA) COVID-19 [employer] 11/04/20 11/04/2021 05:58 07:07 08:08 WBC RBC Hgb Hct MCV MCH MCHC RDW Plt Count MPV Immature Gran % (Auto) Neut % (Auto) Lymph % (Auto) [place] % (Auto) Eos % (Auto) Baso % (Auto) Lymph # (Auto) [place] # (Auto) Eos # (Auto) Baso # (Auto) Abs Immat Gran (auto) Absolute Neuts (auto) Absolute Nucleated RBC Nucleated RBC % (auto) PT INR VBG pH VBG pCO2 VBG pO2 VBG HCO3 VBG O2 Saturation VBG Base Excess Sodium Potassium Chloride Carbon Dioxide Anion Gap BUN Creatinine Estim Creat Clear Calc Estimated GFR POC Glucose 233 H 287 H 271 H Random Glucose Lactic Acid Calcium Phosphorus Magnesium Total Bilirubin Direct Bilirubin AST ALT Alkaline Phosphatase Troponin I High Sens Total Protein Albumin Urine Color Urine Appearance Urine pH Ur Specific [place] Urine Protein Urine Glucose (UA) Urine Ketones Urine Blood Urine Nitrite Ur Leukocyte Esterase Urine RBC Urine WBC Ur Squamous Epith Cells Urine Bacteria Acetone, Qual COVID-19 (KATINA) COVID-[employer] 11/04/20 11/04/20 11/04/20 08:57 10:10 11:02 WBC RBC Hgb Hct MCV MCH MCHC RDW Plt Count MPV Immature Gran % (Auto) Neut % (Auto) Lymph % (Auto) [place] % (Auto) Eos % (Auto) Baso % (Auto) Lymph # (Auto) [place] # (Auto) Eos # (Auto) Baso # (Auto) Abs Immat Gran (auto) Absolute Neuts (auto) Absolute Nucleated RBC Nucleated RBC % (auto) PT INR VBG pH VBG pCO2 VBG pO2 VBG HCO3 VBG O2 Saturation VBG Base Excess Sodium Potassium Chloride Carbon Dioxide Anion Gap BUN Creatinine Estim Creat Clear Calc Estimated GFR POC Glucose 238 H 154 H 131 H Random Glucose Lactic Acid Calcium Phosphorus Magnesium Total Bilirubin Direct Bilirubin AST ALT Alkaline Phosphatase Troponin I High Sens Total Protein Albumin Urine Color Urine Appearance Urine pH Ur Specific [place] Urine Protein Urine Glucose (UA) Urine Ketones Urine Blood Urine Nitrite Ur Leukocyte Esterase Urine RBC Urine WBC Ur Squamous Epith Cells Urine Bacteria Acetone, Qual COVID-19 (KATINA) COVID-[employer] 11/04/20 11/04/20 11:47 12:03 WBC RBC Hgb Hct MCV MCH MCHC RDW Plt Count MPV Immature Gran % (Auto) Neut % (Auto) Lymph % (Auto) [place] % (Auto) Eos % (Auto) Baso % (Auto) Lymph # (Auto) [place] # (Auto) Eos # (Auto) Baso # (Auto) Abs Immat Gran (auto) Absolute Neuts (auto) Absolute Nucleated RBC Nucleated RBC % (auto) PT INR VBG pH VBG pCO2 VBG pO2 VBG HCO3 VBG O2 Saturation VBG Base Excess Sodium 140 Potassium 4.3 Chloride 107 Carbon Dioxide 25 Anion Gap 12 BUN 35 H Creatinine 1.45 H Estim Creat Clear Calc 49.3 Estimated GFR 49 POC Glucose 120 H Random Glucose 122 H D Lactic Acid Calcium 8.0 L Phosphorus Magnesium Total Bilirubin Direct Bilirubin AST ALT Alkaline Phosphatase Troponin I High Sens Total Protein Albumin Urine Color Urine Appearance Urine pH Ur Specific [place] Urine Protein Urine Glucose (UA) Urine Ketones Urine Blood Urine Nitrite Ur Leukocyte Esterase Urine RBC Urine WBC Ur Squamous Epith Cells Urine Bacteria Acetone, Qual COVID-19 (KATINA) COVID-19 Clin Com Microbiology Microbiology Results: Microbiology 11/03/20 14:16 Blood - Venous Blood Culture - Preliminary Progress Note: A&P Assessment and plan (1) Acute hyponatremia: Status: Acute (2) Acute hyperkalemia: Status: Acute (3) DKA (diabetic ketoacidoses): Status: Acute (4) SULTANA (acute kidney injury): Status: Acute Assessment and Plan: At this point I can stop the IV insulin drip and change him to subcutaneous Time Spent With Patient Time: Total time spent is greater than 50% in coordination of care (as documented) at patient's floor/unit and/or counseling patient: Total time spent with greater than 50% in coordination of care (as documented) at patient's floor/unit and/or counseling patient:: 25
--- NOTE | 2020-11-04 12:59 | PC.NURSE ---
Addendum entered by Marisela Jacques RN 11/04/20 14:46: FAMILY UPDATED ON PTS CONDITION THROUGHOUT THE DAY, UPDATED ON PTS TRANSFER TO MED SURG AND GAVE NEW UNIT PHONE NUMBER. Original Note: INSULIN GTT AND IV FLUIDS TURNED OFF AT 1257.
[2020-11-04] MEDS: Lactated Ringers 1,000 ML 80 ML IVCONT (13:16)
[2020-11-04] MEDS: 0.9 % Sodium Chloride Flush 3 ML SYRINGE IVFLUSH ×2 (16:08→16:27)
[2020-11-04 16:23] LABS: Glucose, Whole Blood 293 mg/dL (60-115)
[2020-11-04] MEDS: Insulin Glargine,Hum.rec.anlog 100 UNIT/ML 10 ML VIAL 15 UNIT SUBCUT (16:26)
[2020-11-04] MEDS: Insulin Lispro 100 UNIT/ML 3 ML VIAL SUBCUT ×2 (17:33→21:00)
--- NOTE | 2020-11-04 17:38 | PC.NURSE ---
P-elevated BP 172/80, pulse [address] I-Dr. Wynne notified E-will monitor
[2020-11-04 20:26] LABS: Glucose, Whole Blood 289 mg/dL (60-115)
--- NOTE | 2020-11-04 20:26 | PC.NURSE ---
Addendum entered by Jaimie Laura RN 11/04/20 22:12: dose of Hydralazine was administered ,with no effect ,last BP 185/79 pulse 102,Dr. Burch was made aware,awaiting Lisinopril order,will monitor Original Note: P-BP elevated 188/87 pulse 99 I-Dr. Burch notified E-will monitor
[2020-11-04] MEDS: hydrALAZINE HCl 20 MG/ML VIAL 5 MG IVPUSH (20:58)
[2020-11-05] VITALS (7 sets, daily range): BP systolic 140–187; BP diastolic 65–89; PULSE 84–95; RESP 16–20; TEMP 36.3–37.2; O2SAT 96–98; BMI 28.2
[2020-11-05] MEDS: Lactated Ringers 1,000 ML 80 ML IVCONT (04:00)
[2020-11-05 07:25] LABS: Glucose, Whole Blood 245 mg/dL (60-115)
[2020-11-05] MEDS: Insulin Glargine,Hum.rec.anlog 100 UNIT/ML 10 ML VIAL 15 UNIT SUBCUT (07:39)
[2020-11-05] MEDS: Insulin Lispro 100 UNIT/ML 3 ML VIAL SUBCUT ×4 (07:39→21:52)
[2020-11-05] MEDS: 0.9 % Sodium Chloride Flush 3 ML SYRINGE IVFLUSH (07:55)
[2020-11-05 08:53] LABS: MANUAL DIFF FLAG NO
[2020-11-05 08:59] LABS: Basophils Percent Auto 0.4 % (0-2); Eosinophils Absolute Auto 0.1 X10*3/uL (0.0-0.4); Eosinophils Percent Auto 0.8 % (0-4); Hematocrit 41.1 % (42-52); Hemoglobin 13.9 g/dl (14.0-18.0); Imm Gran Pct Auto 1.3 % (0.0-0.4); Lymphocytes Absolute Auto 1.8 X10*3/uL (1.2-4.9); Lymphocytes Percent Auto 23.3 % (20-40); Mean Corpuscular HGB Conc 33.8 g/dl (31.0-36.0); Mean Corpuscular Hemoglobin 29.8 pg (27.0-33.0); Mean Corpuscular Volume 88.2 fL (80-98); Mean Platelet Volume 11.3 fL (9.4-12.4); Monocytes Absolute Auto 0.7 X10*3/uL (0.1-1.2); Monocytes Percent Auto 8.8 % (2-11); Neutrophils Percent Auto 65.4 % (45-73); Platelet Count 230 X10*3/uL (160-400); Red Blood Count 4.66 X10*6/uL (4.60-5.80); Red Cell Distribution Width 11.7 % (11.0-16.0); White Blood Count 7.6 X10*3/uL (4.8-10.8)
[2020-11-05 09:24] LABS: Estimated Average Glucose 298 mg/dL
[2020-11-05 09:28] LABS: Anion Gap 16 (12-20); Blood Urea Nitrogen 18 mg/dL (9-16); Carbon Dioxide 21 mmol/L (22-29); Chloride 103 mmol/L (96-108); Creatinine Clr Calc Pharmacy 55.8; Estimated Glomerular Filt Rate 56; Magnesium 1.9 mg/dL (1.6-2.6); Phosphorus 2.1 mg/dL (2.7-4.5); Potassium 4.6 mmol/L (3.3-5.1); Sodium 135 mmol/L (135-145)
[2020-11-05 09:40] LABS: Glucose Random 389 mg/dL (60-115)
[2020-11-05] MEDS: Cholecalciferol (Vitamin D3) 25 MCG TABLET 50 MCG PO (10:07)
[2020-11-05] MEDS: Loratadine 10 MG TABLET PO (10:07)
[2020-11-05] MEDS: Insulin Glargine,Hum.rec.anlog 100 UNIT/ML 10 ML VIAL SUBCUT (10:07)
[2020-11-05] MEDS: Escitalopram Oxalate 20 MG TABLET PO (10:07)
[2020-11-05] MEDS: Aspirin Enteric Coated 81 MG TABLET.DR PO (10:07)
--- NOTE | 2020-11-05 10:48 | PC.NURSE ---
F/C anton'pascual. DTV at 1700
[2020-11-05] MEDS: Brimonidine Tartrate 0.2% Oph 5 ML BOTTLE 1 DROP EYE-BOTH ×2 (11:10→21:56)
[2020-11-05 11:34] LABS: Glucose, Whole Blood 377 mg/dL (60-115)
--- NOTE | 2020-11-05 11:43 | HO.PM.IMPN ---
Subjective Subjective Date of Service: 11/05/20 Interval History: denies chest pain, dyspnea, abd pain, nausea, or vomiting denies insulin nonadherence but his A1c suggests otherwise not a reliable historian Physical Exam Vital Signs: Vital Signs: Last Vital Signs Temp 97.8 F 11/05/20 11:16 Pulse 87 11/05/20 11:16 Resp 18 11/05/20 11:16 BP 178/81 H 11/05/20 11:16 Pulse Ox 98 11/05/20 11:16 Body Mass Index 28.2 Gen: in no acute distress HEENT: sclera anicteric, moist mucus membranes Neck: supple Lungs: clear to auscultation bilaterally Heart: regular rate and rhythm, no murmurs Abd: soft, non-tender, non-distended Ext: no edema Skin: warm/well-perfused Neuro: disoriented Psych: impaired insight Objective Data Current Medications Generic Name Dose Route Start Last Admin Trade Name Freq PRN Reason Stop Dose Admin Aspirin 81 mg 11/05/20 09:00 11/05/20 10:07 Aspirin Enteric Coated 81 Mg Tablet. PO 81 mg DAILY TRAMAINE Administration Atorvastatin Calcium 20 mg 11/05/20 21:00 Atorvastatin Calcium 20 Mg Tablet PO BEDTIME TRAMAINE Brimonidine Tartrate 1 drop 11/05/20 09:00 11/05/20 11:10 Brimonidine Tartrate 0.2% Oph 5 Ml Bottle EYE-BOTH 1 drop BID TRAMAINE Administration Donepezil HCl 10 mg 11/05/20 21:00 Donepezil Hcl 10 Mg Tablet PO BEDTIME TRAMAINE Escitalopram Oxalate 20 mg 11/05/20 09:00 11/05/20 10:07 Escitalopram Oxalate 20 Mg Tablet PO 20 mg DAILY TRAMAINE Administration Lactated Ringer's 1,000 mls @ 80 mls/hr 11/04/20 13:15 11/05/20 04:00 Lr IVCONT 80 mls/hr .[id number] [facility] Administration Insulin Glargine 20 unit 11/05/20 15:00 Insulin Glargine,Hum.Rec.Anlog 100 Unit/Ml 10 Ml Vial SUBCUT BID@0800,1500 [facility] Insulin Human Lispro 0 unit 11/04/20 16:30 11/05/20 07:39 Insulin Lispro 100 Unit/Ml 3 Ml Vial SUBCUT 4 unit QIDACHS [facility] Administration Protocol Lisinopril 20 mg 11/04/20 22:20 11/05/20 07:59 Lisinopril 20 Mg Tablet PO 20 mg DAILY TRAMAINE Administration Protocol Loratadine 10 mg 11/05/20 09:00 11/05/20 10:07 Loratadine 10 Mg Tablet PO 10 mg DAILY TRAMAINE Administration Melatonin 6 mg 11/05/20 21:00 Melatonin 3 Mg Tablet PO BEDTIME [facility] Pharmacy Consult 1 each 11/03/20 15:20 Consult Rx Perform Med Rec MISCELLANE ONCE PRN Consult order Sodium Chloride 3 ml 11/04/20 16:00 11/05/20 07:55 0.9 % Sodium Chloride Flush 3 Ml Syringe IVFLUSH 3 ml QSHIFT [facility] Administration Vitamin D 50 mcg 11/05/20 09:00 11/05/20 10:07 Cholecalciferol (Vitamin D3) 25 Mcg Tablet PO 50 mcg DAILY TRAMAINE Administration Labs CBC & Chem 7: 11/05/20 08:46 11/05/20 08:49 Labs: Laboratory Results - last 24 hr 11/04/20 11/04/20 11/04/20 11:47 12:03 16:15 WBC RBC Hgb Hct MCV MCH MCHC RDW Plt Count MPV Immature Gran % (Auto) Neut % (Auto) Lymph % (Auto) [place] % (Auto) Eos % (Auto) Baso % (Auto) Lymph # (Auto) [place] # (Auto) Eos # (Auto) Baso # (Auto) Abs Immat Gran (auto) Absolute Neuts (auto) Absolute Nucleated RBC Nucleated RBC % (auto) Sodium 140 Potassium 4.3 Chloride 107 Carbon Dioxide 25 Anion Gap 12 BUN 35 H Creatinine 1.45 H Estim Creat Clear Calc 49.3 Estimated GFR 49 POC Glucose 120 H 293 H Random Glucose 122 H D Estimat Average Glucose Hemoglobin A1c % Calcium 8.0 L Phosphorus Magnesium 11/04/20 11/05/20 11/05/20 20:21 07:17 08:46 WBC 7.6 RBC 4.66 Hgb 13.9 L Hct 41.1 L MCV 88.2 MCH 29.8 MCHC 33.8 RDW 11.7 Plt Count 230 MPV 11.3 Immature Gran % (Auto) 1.3 H Neut % (Auto) 65.4 Lymph % (Auto) 23.3 [place] % (Auto) 8.8 Eos % (Auto) 0.8 Baso % (Auto) 0.4 Lymph # (Auto) 1.8 [place] # (Auto) 0.7 Eos # (Auto) 0.1 Baso # (Auto) 0.0 Abs Immat Gran (auto) 0.10 H Absolute Neuts (auto) 5.0 Absolute Nucleated RBC 0.000 Nucleated RBC % (auto) 0.0 Sodium Potassium Chloride Carbon Dioxide Anion Gap BUN Creatinine Estim Creat Clear Calc Estimated GFR POC Glucose 289 H 245 H Random Glucose Estimat Average Glucose Hemoglobin A1c % Calcium Phosphorus Magnesium 11/05/20 11/05/20 11/05/20 08:46 08:49 11:15 WBC RBC Hgb Hct MCV MCH MCHC RDW Plt Count MPV Immature Gran % (Auto) Neut % (Auto) Lymph % (Auto) [place] % (Auto) Eos % (Auto) Baso % (Auto) Lymph # (Auto) [place] # (Auto) Eos # (Auto) Baso # (Auto) Abs Immat Gran (auto) Absolute Neuts (auto) Absolute Nucleated RBC Nucleated RBC % (auto) Sodium 135 Potassium 4.6 Chloride 103 Carbon Dioxide 21 L Anion Gap 16 BUN 18 H Creatinine 1.29 Estim Creat Clear Calc 55.8 Estimated GFR 56 POC Glucose 377 H* Random Glucose 389 H* Estimat Average Glucose 298 Hemoglobin A1c % 12.0 Calcium 8.0 L Phosphorus 2.1 L Magnesium 1.9 Microbiology Microbiology Results: Microbiology 11/03/20 14:16 Blood - Venous Blood Culture - Final Coag negative Staphylococcus 11/03/20 14:14 Blood - Venous Blood Culture - Preliminary No growth after 24 hours. Assessment and Plan (1) DKA (diabetic ketoacidoses): Status: Acute (2) SULTANA (acute kidney injury): Status: Acute (3) Acute hyperkalemia: Status: Acute Assessment and Plan: hospital d#3 65yo M with uncontrolled DM2, HTN, dementia admitted to ICU for DKA precipitated by nonadherence with insulin x3-4d stepped down to M/S 11/04/20 # uncontrolled DM2, A1c 12 - basal/bolus insulin, diabetic diet, diabetes teaching. also on sitalgiptin + MTF as outpt # DKA # hyperK # SULTANA - resolved after fluids and insulin drip # hypoNa - pseudohyponatremia due to hyperglycemia, resolved # HTN - continue lisinopril # HLD - continue statin # dementia - continue donepezil, escitalopram # dispo - pt lives alone. pt needs 17/04 care. PT roxie Albert updated pt's daughter Neris Vance by phone [phone]. She says pt does his own thing and she was unaware of the diagnosis of dementia, though pt is on donepezil.
--- NOTE | 2020-11-05 11:54 | P.F2F_ITS ---
Service Date Service Date: 11/05/20 Encounter Date of encounter: 11/05/20 Reasons for Services Signs and symptoms assessed: uncontrolled DM2 balance/weakness issues cognitive impairment Reason for custodial: neurological assessment, administration of IV, SQ, or IM injection, diabetic teaching, monitoring of unstable blood sugar, medication management, medication treatment and teach disease management Reason for physical therapy: home safety and mobility, therapeutic exercises, gait/transfer training, assess need for DME, ADL training and energy conservation MD Overseeing Care: Azam Sanford Homebound: Leaving the home is medically contraindicated at this time without the asist of a device and/or another person due th the listed conditions above and below. Reason homebound: unsteady gait / fall risk, cognitively impaired / unsafe and weakness related to hospital stay Homebound supporting statement: Pt was [place] [facility] [place] for DKA related to nonadherence to insulin due to cognitive impairment. Certification: Based on the above findings, I certify that this patient is confined to the home and needs intermittent custodial care, physical the rapy and/or speech therapy, or continues to need occupational therapy. The patient is under my care, and I have initiated the establishment of the plan of care. The patient will be followed by a physician who will periodically review the plan of care.
[2020-11-05 13:28] LABS: Glucose, Whole Blood 496 mg/dL (60-115)
--- NOTE | 2020-11-05 14:17 | MHC.PIE ---
[address] Wynne notified. IV insulin ordered. 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
[2020-11-05 14:20] LABS: PCO2 VBG 29 mmHg; PO2 VBG 68 mmHg; pH VBG 7.38 (7.32-7.43)
[2020-11-05] MEDS: Insulin Regular, Human 100 UNIT/ML 3 ML VIAL 10 UNIT IVPUSH (14:20)
[2020-11-05 14:21] LABS: Base Excess VBG -5.7 mmol/L; HCO3 VBG 17 mmol/L
[2020-11-05 14:37] LABS: Acetone, serum QL Small (Negative)
[2020-11-05 14:44] LABS: Anion Gap 16 (12-20); Blood Urea Nitrogen 20 mg/dL (9-16); Calcium 8.3 mg/dL (8.4-10.2); Carbon Dioxide 21 mmol/L (22-29); Chloride 100 mmol/L (96-108); Creatinine Clr Calc Pharmacy 52.9; Estimated Glomerular Filt Rate 52; Potassium 4.4 mmol/L (3.3-5.1); Sodium 133 mmol/L (135-145)
[2020-11-05] MEDS: Insulin Glargine,Hum.rec.anlog 100 UNIT/ML 10 ML VIAL 20 UNIT SUBCUT (14:47)
[2020-11-05 14:48] LABS: Glucose, Whole Blood 453 mg/dL (60-115)
[2020-11-05 14:57] LABS: Glucose Random 513 mg/dL (60-115)
[2020-11-05 16:01] LABS: Glucose, Whole Blood 307 mg/dL (60-115)
[2020-11-05] MEDS: 0.9 % Sodium Chloride 1,000 ML 125 ML IVCONT (16:21)
[2020-11-05 17:30] LABS: Glucose, Whole Blood 351 mg/dL (60-115)
[2020-11-05 19:00] LABS: Glucose, Whole Blood 306 mg/dL (60-115)
[2020-11-05 20:21] LABS: Glucose, Whole Blood 241 mg/dL (60-115)
[2020-11-05 21:16] LABS: Glucose, Whole Blood 215 mg/dL (60-115)
[2020-11-05] MEDS: Melatonin 3 MG TABLET 6 MG PO (21:53)
[2020-11-05] MEDS: Insulin Glargine,Hum.rec.anlog 100 UNIT/ML 10 ML VIAL 25 UNIT SUBCUT (21:53)
[2020-11-05] MEDS: Donepezil HCl 10 MG TABLET PO (21:53)
[2020-11-05] MEDS: Atorvastatin Calcium 20 MG TABLET PO (21:53)
[2020-11-06] MEDS: 0.9 % Sodium Chloride 1,000 ML 125 ML IVCONT ×2 (01:23→09:54)
[2020-11-06 03:35] VITALS: BP 177/90; PULSE 77; RESP 16; TEMP 36.3; O2SAT 97
[2020-11-06 04:30] LABS: Glucose, Whole Blood 271 mg/dL (60-115)
[2020-11-06 06:00] VITALS: BMI 28.5
[2020-11-06 06:43] LABS: Anion Gap 13 (12-20); Blood Urea Nitrogen 14 mg/dL (9-16); Carbon Dioxide 25 mmol/L (22-29); Chloride 104 mmol/L (96-108); Creatinine Clr Calc Pharmacy 76.1; Estimated Glomerular Filt Rate > 60; Glucose Random 198 mg/dL (60-115); Potassium 3.9 mmol/L (3.3-5.1); Sodium 138 mmol/L (135-145)
[2020-11-06 07:14] VITALS: BP 185/94; PULSE 75; RESP 18; TEMP 36.4; O2SAT 99
[2020-11-06 07:26] LABS: Glucose, Whole Blood 177 mg/dL (60-115)
[2020-11-06] MEDS: Cholecalciferol (Vitamin D3) 25 MCG TABLET 50 MCG PO (07:47)
[2020-11-06] MEDS: amLODIPine Besylate 5 MG TABLET PO (07:47)
[2020-11-06] MEDS: Escitalopram Oxalate 20 MG TABLET PO (07:48)
[2020-11-06] MEDS: Aspirin Enteric Coated 81 MG TABLET.DR PO (07:48)
[2020-11-06] MEDS: Insulin Glargine,Hum.rec.anlog 100 UNIT/ML 10 ML VIAL 25 UNIT SUBCUT (07:48)
[2020-11-06] MEDS: Loratadine 10 MG TABLET PO (07:48)
[2020-11-06] MEDS: Insulin Lispro 100 UNIT/ML 3 ML VIAL SUBCUT ×2 (07:49→11:42)
[2020-11-06] MEDS: Brimonidine Tartrate 0.2% Oph 5 ML BOTTLE 1 DROP EYE-BOTH (07:50)
[2020-11-06 11:15] VITALS: BP 191/88; PULSE 75; RESP 18; TEMP 36.4; O2SAT 100
[2020-11-06 11:37] LABS: Glucose, Whole Blood 260 mg/dL (60-115)
--- NOTE | 2020-11-06 13:11 | PM.DS ---
DS: Providers Provider Date of Service: 11/06/20 Date of admission: 11/03/20 16:06 Primary care physician: Azam Sanford DO DS: Diagnosis Discharge Diagnosis (1) DKA (diabetic ketoacidoses): Status: Acute (2) SULTANA (acute kidney injury): Status: Acute (3) Acute hyperkalemia: Status: Acute (4) Uncontrolled type 2 diabetes mellitus: Status: Acute (5) Metabolic encephalopathy: Status: Acute DS: Medications Discharge Medications Home Medications: Home Medications Medication Instructions Recorded Confirmed aspirin 81 mg PO DAILY 11/03/20 11/03/20 atorvastatin 20 mg PO BEDTIME 11/03/20 11/03/20 brimonidine 1 drp OPHTHALMIC (EYE) BID 11/03/20 11/03/20 cholecalciferol (vitamin D3) 50 mcg PO DAILY 11/03/20 11/03/20 [Vitamin D3] escitalopram oxalate 20 mg PO DAILY 11/03/20 11/03/20 latanoprost 1 drp OPHTHALMIC-LEFT QPM 11/03/20 11/03/20 loratadine 10 mg PO DAILY 11/03/20 11/03/20 melatonin 6 mg PO BEDTIME 11/03/20 11/03/20 Previous Rx's Medication Instructions Recorded donepezil [Aricept] 10 mg PO BEDTIME #30 tab 10/29/20 Januvia 100 mg PO DAILY #30 tab 11/06/20 Lantus Solostar U-100 Insulin 46 unit SUBCUT BID #10 ea 11/06/20 amlodipine 5 mg PO DAILY #30 tab 11/06/20 blood pressure monitor [Blood #1 ea 11/06/20 Pressure Kit] blood sugar diagnostic [FreeStyle #100 ea 11/06/20 Lite Strips] blood-glucose meter [FreeStyle #1 ea 11/06/20 Lite Meter] insulin lispro [Humalog KwikPen 16 unit SUBCUT BID #4 ea 11/06/20 Insulin] lancets [FreeStyle Lancets] #100 ea 11/06/20 lisinopril 20 mg PO DAILY #30 tab 11/06/20 metformin 1,000 mg PO BID #60 tab 11/06/20 pen needle, diabetic #100 ea 11/06/20 DS: Summary Hospital Course Hospital Course: from documentation by emergency department ROSS Capps, 11/04/20: Per stepdaughter who is health care proxy tells me the patient was seen here October 30 for high blood sugar and altered mental status. He was discharged home and was living with her for short time. However he left her house and went back to his own house. While he was there she tells me he ate little food and drink a little water and was not taking his insulin for 3 days. When she went to his house this morning he had several episodes of vomiting. She tells me that she could not get his insulin glucometer to work and therefore she did not give him his insulin today. She tells me he has many medications and she finds it difficult to manage at home and she is concerned that he may not be safe at home at this time. She was also worried that he is increasingly disoriented and confused from his baseline. 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 Soha Trinidad, 11/04/20: 65-year-old insulin-dependent type 2 diabetic stopped all medication and markedly diminished oral intake presents with weakness but afebrile and was noticed to be more confused than usual superimposed on his chronic dementia and in the emergency room noted to have severe metabolic disarray namely positive anion gap metabolic acidosis with significant urine ketones and and acute on chronic stage IV renal failure with pseudo hyponatremia and significant hyperkalemia all apparently due to diabetic ketoacidosis and marked volume depletion The patient was admitted to the ICU for DKA clearly precipitated by non-adherence with insulin. He was given insulin infusion and IV fluids. Hyperkalemia resolved and creatinine returned to baseline. He was transitioned to subcutaneous basal/bolus insulin and stepped down to the medical/surgical floor. A1c was 12 indicating longstanding poor glycemic control. His mental status improved to baseline; he does have a history of dementia. Given concerns about his ability to care for himself, he was discharged to the home of his stepfather. VNA services will be arranged and he will be referred to [facility] Endocrinology. He was counseled on the importance of glycemic control. Amlodipine was added to lisinopril for control of his blood pressure. Time Spent with Patient Time attestation: Total time spent providing and/or coordinating discharge services: 40 Discharge coordination time: Greater than 30 minutes Physical Exam Vital Signs: Vital Signs: Last Vital Signs Temp 97.6 F 11/06/20 11:15 Pulse 75 11/06/20 11:15 Resp 18 11/06/20 11:15 BP 191/88 H 11/06/20 11:15 Pulse Ox 100 11/06/20 11:15 Body Mass Index 28.5 Gen: in no acute distress HEENT: sclera anicteric, moist mucus membranes Neck: supple Lungs: clear to auscultation bilaterally Heart: regular rate and rhythm, no murmurs Abd: soft, non-tender, non-distended Ext: no edema Skin: warm/well-perfused Neuro: alert and oriented x3, no focal findings Psych: appropriate affect DS: Data Data Completed and Pending Labs on day of discharge: Laboratory Results WBC 7.6 X10*3/uL (4.8-10.8) 11/05/20 08:46 RBC 4.66 X10*6/uL (4.60-5.80) 11/05/20 08:46 Hgb 13.9 g/dl (14.0-18.0) L 11/05/20 08:46 Hct 41.1 % (42-52) L 11/05/20 08:46 MCV 88.2 fL (80-98) 11/05/20 08:46 MCH 29.8 pg (27.0-33.0) 11/05/20 08:46 MCHC 33.8 g/dl (31.0-36.0) 11/05/20 08:46 RDW 11.7 % (11.0-16.0) 11/05/20 08:46 Plt Count 230 X10*3/uL (160-400) 11/05/20 08:46 MPV 11.3 fL (9.4-12.4) 11/05/20 08:46 Immature Gran % (Auto) 1.3 % (0.0-0.4) H 11/05/20 08:46 Neut % (Auto) 65.4 % (45-73) 11/05/20 08:46 Lymph % (Auto) 23.3 % (20-40) 11/05/20 08:46 [place] % (Auto) 8.8 % (2-11) 11/05/20 08:46 Eos % (Auto) 0.8 % (0-4) 11/05/20 08:46 Baso % (Auto) 0.4 % (0-2) 11/05/20 08:46 Lymph # (Auto) 1.8 X10*3/uL (1.2-4.9) 11/05/20 08:46 [place] # (Auto) 0.7 X10*3/uL (0.1-1.2) 11/05/20 08:46 Eos # (Auto) 0.1 X10*3/uL (0.0-0.4) 11/05/20 08:46 Baso # (Auto) 0.0 X10*3/uL (0.0-0.2) 11/05/20 08:46 Abs Immat Gran (auto) 0.10 X10*3/uL (0.00-0.03) H 11/05/20 08:46 Absolute Neuts (auto) 5.0 X10*3/uL (2.0-8.3) 11/05/20 08:46 Absolute Nucleated RBC 0.000 X10*3/uL (0.0-0.012) 11/05/20 08:46 Nucleated RBC % (auto) 0.0 /100WBC (0.0-0.2) 11/05/20 08:46 PT 11.9 SEC (10.8-13.0) 11/03/20 14:15 INR 1.0 (0.9-1.1) 11/03/20 14:15 VBG pH 7.38 (7.32-7.43) 11/05/20 14:10 VBG pCO2 29 mmHg 11/05/20 14:10 VBG pO2 68 mmHg 11/05/20 14:10 VBG HCO3 17 mmol/L 11/05/20 14:10 VBG O2 Saturation 93.0 % 11/05/20 14:10 VBG Base Excess -5.7 mmol/L 11/05/20 14:10 Sodium 138 mmol/L (135-145) 11/06/20 05:38 Potassium 3.9 mmol/L (3.3-5.1) 11/06/20 05:38 Chloride 104 mmol/L (96-108) 11/06/20 05:38 Carbon Dioxide 25 mmol/L (22-29) 11/06/20 05:38 Anion Gap 13 (12-20) 11/06/20 05:38 BUN 14 mg/dL (9-16) 11/06/20 05:38 Creatinine 0.95 mg/dL (0.5-1.4) 11/06/20 05:38 Estim Creat Clear Calc 76.1 11/06/20 05:38 Estimated GFR > 60 11/06/20 05:38 POC Glucose 260 mg/dL (60-115) H 11/06/20 11:14 Random Glucose 198 mg/dL (60-115) H D 11/06/20 05:38 Estimat Average Glucose 298 mg/dL 11/05/20 08:46 Hemoglobin A1c % 12.0 % 11/05/20 08:46 Lactic Acid 2.2 mmol/L (0.5-2.0) H* 11/03/20 20:10 Calcium 8.0 mg/dL (8.4-10.2) L 11/06/20 05:38 Phosphorus 2.1 mg/dL (2.7-4.5) L 11/05/20 08:49 Magnesium 1.9 mg/dL (1.6-2.6) 11/05/20 08:49 Total Bilirubin 0.4 mg/dL (0.0-1.0) 11/03/20 14:14 Direct Bilirubin 0.2 mg/dL (0.0-0.5) 11/03/20 14:14 AST 10 U/L (5-37) D 11/03/20 14:14 ALT 20 U/L (0-40) 11/03/20 14:14 Alkaline Phosphatase 74 U/L (39-117) 11/03/20 14:14 Troponin I High Sens 5.7 ng/L (<3.5-35.0) D 11/03/20 14:14 Total Protein 6.3 g/dL (6.5-8.0) L 11/03/20 14:14 Albumin 3.6 g/dL (3.5-5.0) 11/03/20 14:14 Urine Color YELLOW 11/03/20 14:50 Urine Appearance CLEAR 11/03/20 14:50 Urine pH 5.5 (5.0-8.0) 11/03/20 14:50 Ur Specific [place] 1.020 (1.005-1.025) 11/03/20 14:50 Urine Protein TRACE MG/DL (NEG-TRACE) 11/03/20 14:50 Urine Glucose (UA) >=1000 MG/DL (NEG) H 11/03/20 14:50 Urine Ketones >=80 MG/DL (NEG) 11/03/20 14:50 Urine Blood TRACE (NEG) 11/03/20 14:50 Urine Nitrite NEG (NEG) 11/03/20 14:50 Ur Leukocyte Esterase NEG (NEG) 11/03/20 14:50 Urine RBC 0 /HPF (0) 11/03/20 14:50 Urine WBC 0 /HPF (0-4) 11/03/20 14:50 Ur Squamous Epith Cells NONE /LPF 11/03/20 14:50 Urine Bacteria TRACE /LPF 11/03/20 14:50 Acetone, Qual Small (Negative) H 11/05/20 14:10 COVID-19 (KATINA) Negative (Negative) 11/03/20 14:06 COVID-19 Clin Com See Note 11/03/20 14:06 Impressions Chest X-Ray 11/03/20 13:48 IMPRESSION: No evidence for acute disease in the chest. Discharge Plan Discharge Patient Disposition: Home Health Service Referrals: [facility] ph: [phone] [Other] Azam Sanford DO [Primary Care Provider] - Robin Latham MD [Physician] - (A1c 12 ) Discharge Medications: New amlodipine 5 mg Tablet 5 mg PO DAILY Qty: 30 RF: 0 (DME) pen needle, diabetic 31 gauge x 3/16 needle See Rx Instructions .ROUTE .MEDSUPPLY Qty: 100 RF: 11 (DME) FreeStyle Lite Strips Strip See Rx Instructions .ROUTE .MEDSUPPLY Qty: 100 RF: 0 (DME) blood-glucose meter [FreeStyle Lite Meter] Kit See Rx Instructions .ROUTE .MEDSUPPLY Qty: 1 RF: 0 (DME) lancets [FreeStyle Lancets] 28 gauge misc See Rx Instructions .ROUTE .MEDSUPPLY Qty: 100 RF: 11 (DME) blood pressure monitor [Blood Pressure Kit] Kit See Rx Instructions .ROUTE .MEDSUPPLY Qty: 1 RF: 0 Continued donepezil [Aricept] 10 mg tablet 10 mg PO BEDTIME Qty: 30 RF: 0 latanoprost 0.005 % Drops 1 drp ophthalmic-Left QPM RF: 0 atorvastatin 20 mg Tablet 20 mg PO BEDTIME RF: 0 melatonin 3 mg Tablet 6 mg PO BEDTIME RF: 0 aspirin 81 mg Tablet,Delayed Release (Dr/Ec) 81 mg PO DAILY RF: 0 brimonidine 0.2 % Drops 1 drp OPHTHALMIC (EYE) BID RF: 0 loratadine 10 mg Tablet 10 mg PO DAILY RF: 0 escitalopram oxalate 20 mg Tablet 20 mg PO DAILY RF: 0 cholecalciferol (vitamin D3) [Vitamin D3] 50 mcg (2,000 unit) Capsule 50 mcg PO DAILY RF: 0 lisinopril 20 mg Tablet 20 mg PO DAILY Qty: 30 RF: 0 metformin 1,000 mg Tablet 1,000 mg PO BID Qty: 60 RF: 0 insulin lispro [Humalog KwikPen Insulin] 100 unit/mL Insulin Pen 16 unit SUBCUT BID Qty: 4 RF: 0 Januvia 100 mg Tablet 100 mg PO DAILY Qty: 30 RF: 0 Lantus Solostar U-100 Insulin 100 unit/mL (3 mL) Insulin Pen 46 unit SUBCUT BID Qty: 10 RF: 0 Discontinued amoxicillin-pot clavulanate [Augmentin] 875-125 mg tablet 1 tab PO BID Qty: 20 RF: 0 Discharge Orders: Discharge Order (Routine); Ordered 11/06/20 Ordered By: Lizeth Wynne Diet: diabetic diet and low salt diet Activity on Discharge: As tolerated Stand Alone Forms: Patient Portal Discharge page Care Plan Goals: control of blood sugar and avoidance of complications of diabetes and blood pressure Health Concerns: uncontrolled type 2 diabetes [A1c is 12] non-adherence resulting in diabetic ketoacidosis Plan of Treatment: follow a diabetic diet. avoid sugar and simple carbohydrates/starches take your medication: Januvia 100 mg daily, metformin 1000 mg twice daily, Humalog 16 units twice daily, Lantus 46 units twice daily check your blood sugar every morning; goal is 80-140 check your blood sugar 2 hours after each meal; goal is 80-200 check your A1c in 3 months; goal is 8 or less follow up with your primary care doctor in 1 week follow up with [facility] Endocrinology in 2 weeks: [address] [place] [address], [address], [place] [address] continue lisinopril 20 mg daily; add amlodipine 5 mg daily. check blood pressure daily. Patient Instructions: Insulin Glargine (By injection), Insulin Lispro (By injection), Diabetic Ketoacidosis (DC), Foot Care for People with Diabetes (DC), How to Give an Insulin Injection (DC), Insulin Pens (DC), Hemoglobin A1c (GEN), Type 2 Diabetes in the Older Adult (DC), How to Check your Blood Sugar (DC)
--- NOTE | 2020-11-06 13:20 | MHC.CM.PN ---
pt is being dc'd today. he will be staying at his step daughters [place]. she [place] at [place]. pt is active c [facility], [place] ph: [phone]. this is a PACE program and they will be providing the nsg svcs in the home at [place] for DM teaching / monitoring. a call x2 c message left was made to this agency informing them of pt's dc today, home nsg needs on [place] and my return call contact #. i also spoke c patient's step daughter informing her of [facility] PACE program. at this time i have not heard back from [facility]. cm to cont. to follow.
--- NOTE | 2020-11-06 13:44 | MHC.INPTTRAN ---
needs help with insulin and blood sugars Also had elevated blood pressure, amlodipine added to meds FU with PCP Nash diet no pain
--- NOTE | 2020-11-06 14:10 | MHC.CM.PN ---
pt is being dc'd today. he will be staying at his step daughters for [place] at [place]. she will be [place] him at [place]. pt is active c [facility] , [facility], [place] ph: [phone]. this is a PACE program and they will be providing the nsg svcs in the home at [place] for DM teaching / monitoring. a call was made to this agency , spoke vanessa aragon) informing them of pt's dc today, home nsg needs (vna) on [place] and i faxed a dc summary to them, fax # - [phone]. they will provide all home nsg needs as they authorize and see appropriate. i also spoke c patient's step daughter informing her of [facility] PACE program. cm to cont. to follow
== END 2020-11-06 16:12 | disposition home health service (06) | DRG 637 ==
LOC: HO.ED 15:38 → HO.EDOVER 16:15 → HO.ICU 16:21 → HO.S3 11-04 13:07
PROVIDERS: Family Medicine; Nurse Practitioner Family; Physician Assistant; Admitting Provider Internal Medicine Cardiovascular Disease; Emergency Provider Emergency Medicine Emergency Medical Services; PCP Internal Medicine Hospice and Palliative Medicine; Visit Provider Internal Medicine Cardiovascular Disease
DX: E11.10 Type 2 diabetes mellitus with ketoacidosis without coma (principal); G93.41 Metabolic encephalopathy; N17.9 Acute kidney failure, unspecified; E87.1 Hypo-osmolality and hyponatremia; E87.5 Hyperkalemia; F03.90 Unspecified dementia, unspecified severity, without behavioral disturbance, psychotic disturbance, mood disturbance, and anxiety; Z20.822 Contact with and (suspected) exposure to COVID-19; Z79.4 Long term (current) use of insulin; Z79.82 Long term (current) use of aspirin; Z79.899 Other long term (current) drug therapy
CPT/HCPCS: 36415; 71046; 80048; 80076; 81001; 81003; 82009; 82803; 82947; 83036; 83605; 83735; 84100; 84484; 85025; 85610; 87040; 87147; 87205; 87635; 93005; 96365; 96375; 97110; 97116; 97162; 99285; 99291; J2060; J3411

== ENCOUNTER 2020-11-07 17:29 | Emergency (ER) | payer MEDICARE, OTHER, SELFPAY ==
--- NOTE | ~2020-11-07 | CT_ITS ---
EXAMINATION: CT ABDOMEN AND PELVIS WITHOUT CONTRAST CLINICAL INFORMATION: Painless hematuria. COMPARISON: None TECHNIQUE: Multidetector volumetric imaging was performed from the superior aspect of the liver through the pubic symphysis. Sagittal and coronal reformatted images were obtained on the technologist's workstation. This CT examination was performed using dose optimization techniques as appropriate, variously including the following: *Automated exposure control. *Adjustment of mA and/or kV according to patient size (this includes techniques or standardized protocols for targeted exams where dose is matched to indication/reason for exam; i.e. extremities or head). *Use of iterative reconstruction technique. DLP: 484 mGy-cm FINDINGS: LUNG BASES: The visualized lung bases are unremarkable. LIVER, GALLBLADDER, AND BILIARY TREE: The liver is normal in size, shape, and attenuation. No focal hepatic lesion or biliary ductal dilatation is present. The gallbladder is unremarkable with no evidence of radiopaque gallstones, gallbladder wall thickening, or obvious pericholecystic inflammatory changes. PANCREAS: Mildly atrophic. No associated inflammatory change. SPLEEN: Unremarkable. ADRENAL GLANDS: Unremarkable. KIDNEYS AND URETERS: The kidneys are normal in size, shape, and attenuation. Left mid/lower pole renal stone measuring 0.7 x 0.6 cm and 1085 Hounsfield units. This is located approximately 7.9 cm from the posterior axillary line. No additional renal or ureteral stone. No hydronephrosis or hydroureter. No perinephric stranding. BLADDER: Circumferential urinary bladder wall thickening, most prominent along the dorsal aspect of the bladder. Small amount of intraluminal free air. Findings may represent an infectious or inflammatory process. An underlying lesion cannot be excluded. GASTROINTESTINAL TRACT: Moderate stool throughout the colon. No small or large bowel obstruction. No bowel wall thickening or associated inflammatory change. Unremarkable appendix. PERITONEAL CAVITY: No intra-abdominal free air or free fluid. No intra-abdominal mass or organized fluid collection/abscess. ABDOMINAL WALL: No significant hernia is appreciated. LYMPH NODES: No significant lymphadenopathy. VASCULAR: No abdominal aortic dilatation. Scattered atherosclerotic calcifications. PELVIC VISCERA: Mild prostatomegaly. OSSEOUS STRUCTURES: No concerning lytic or blastic osseous lesion. CT/CT abdomen pelvis wo con IMPRESSION: 1. Wall thickening of the urinary bladder, most prominent dorsally. Mild adjacent inflammatory change. Small amount of air within the bladder lumen. Findings are consistent with cystitis and may be related to an infectious or inflammatory process. An underlying lesion cannot be excluded. 2. No hydronephrosis or hydroureter. Left mid/lower pole renal stone measuring up to 0.7 cm. No additional renal or ureteral stone. 3. Moderate stool burden. No small or large bowel obstruction. No bowel wall thickening or associated inflammatory change. Unremarkable appendix. 4. Mild prostatomegaly.
--- NOTE | ~2020-11-07 | XR_ITS ---
EXAMINATION: PORTABLE CHEST 1 VIEW CLINICAL INFORMATION: Change mental status rule out pneumonia . COMPARISON: 11/03/2020. TECHNIQUE: Portable frontal view of the chest was obtained. FINDINGS: The lungs are hypoexpanded. No focal infiltrate, effusion, edema, or pneumothorax. Cardiac and mediastinal silhouettes are within normal limits for technique. No acute bony abnormality seen. XR/XR chest 1V IMPRESSION: No evidence of acute disease.
[2020-11-07 17:40] VITALS: BP 161/73; PULSE 95; RESP 16; TEMP 36.6; O2SAT 98; BMI 27.9
--- NOTE | 2020-11-07 17:54 | ECG_ITS ---
Test Reason : Change mental status rule out pneumonia Blood Pressure : / mmHG Vent. Rate : 089 BPM Atrial Rate : 089 BPM P-R Int : 134 ms QRS Dur : 102 ms QT Int : 370 ms P-R-T Axes : 049 011 088 degrees QTc Int : 450 ms Normal sinus rhythm Nonspecific T wave abnormality Abnormal ECG When compared with ECG of 03-NOV-2020 14:09, No significant change was found Referred By: Roger Mcclellan Electronically Signed By:AISHA UP MD
--- NOTE | 2020-11-07 18:40 | ED.MALEGU ---
HPI - Male Genitourinary General Chief complaint: Urogenital-Male Stated complaint: Confusion Time Seen by Provider: 11/07/20 17:50 Source: patient and old records reviewed Mode of arrival: ambulatory Limitations: no limitations History of Present Illness HPI Narrative: 65-year-old male with history of insulin-dependent diabetes, DKA, brought in by significant other for increase confusion (patient has baseline confusion), also patient stated that he has been peeing blood for the past day, no no pain, no nausea, no vomiting. Related Data Home Medications Medication Instructions Recorded Confirmed aspirin 81 mg PO DAILY 11/03/20 11/07/20 atorvastatin 20 mg PO BEDTIME 11/03/20 11/07/20 brimonidine 1 drp OPHTHALMIC (EYE) BID 11/03/20 11/07/20 cholecalciferol (vitamin D3) 50 mcg PO DAILY 11/03/20 11/07/20 [Vitamin D3] escitalopram oxalate 20 mg PO DAILY 11/03/20 11/07/20 latanoprost 1 drp OPHTHALMIC-LEFT QPM 11/03/20 11/07/20 loratadine 10 mg PO DAILY 11/03/20 11/07/20 melatonin 6 mg PO BEDTIME 11/03/20 11/07/20 Previous Rx's Medication Instructions Recorded donepezil [Aricept] 10 mg PO BEDTIME #30 tab 10/29/20 Januvia 100 mg PO DAILY #30 tab 11/06/20 Lantus Solostar U-100 Insulin 46 unit SUBCUT BID #10 ea 11/06/20 amlodipine 5 mg PO DAILY #30 tab 11/06/20 blood pressure monitor [Blood #1 ea 11/06/20 Pressure Kit] blood sugar diagnostic [FreeStyle #100 ea 11/06/20 Lite Strips] blood-glucose meter [FreeStyle #1 ea 11/06/20 Lite Meter] insulin lispro [Humalog KwikPen 16 unit SUBCUT BID #4 ea 11/06/20 Insulin] lancets [FreeStyle Lancets] #100 ea 11/06/20 lisinopril 20 mg PO DAILY #30 tab 11/06/20 metformin 1,000 mg PO BID #60 tab 11/06/20 pen needle, diabetic #100 ea 11/06/20 cefuroxime axetil 500 mg PO BID #14 tab 11/07/20 Allergies Allergy/AdvReac Type Severity Reaction Status Date / Time No Known Allergies Allergy Verified 11/07/20 17:45 Review of Systems Review of Systems: All other systems are reviewed and are negative Constitutional: Reports as per HPI and Reports no additional constitutional complaints Eyes: Reports as per HPI and Reports no additional eye complaints Reports system reviewed and no additional complaints, except as documented Cardiovascular: Reports as per HPI and Reports no additional cardiovascular complaints Respiratory: Reports as per HPI and Reports no additional respiratory complaints Gastrointestinal: Reports as per HPI and Reports no additional gastrointestinal complaints Genitourinary: Reports no additional female genitourinary complaints Musculoskeletal: Reports no additional musculoskeletal complaints Skin/Breast: Reports system reviewed and no additional complaints, except as docu Psychiatric: Reports no additional psychiatric complaints Endocrine: Reports no additional endocrine complaints Hematologic/Lymphatic: Reports no additional hematologic/lymphatic complaints Allergic/Immunologic: Reports no additional allergic/immunologic complaints Reports system reviewed and no additional complaints, except as documented and Reports Abnormal speech present [facility] Past Medical History Medical History Dementia Diabetes Uncontrolled type 2 diabetes mellitus Social History Social History Household Members: None Housing: Apartment Alcohol intake: unknown Smoking Status: Unknown if ever smoked Use of substances other than those prescribed or required for medical reasons: Unknown Advance Directives: No Advance Directives Information Provided: Yes service: No Current occupational status: retired Physical Exam Vital Signs: Vital Signs: Last Vital Signs Temp 97.9 F 11/07/20 17:40 Pulse 81 11/07/20 21:22 Resp 13 11/07/20 21:22 BP 192/83 H 11/07/20 21:22 Pulse Ox 100 11/07/20 21:22 Body Mass Index 27.9 Vital signs have been reviewed as normal and appeared to be correct. Blood pressure in the high range. Heart rate normal. Respiration rate normal. Temperature normal. Oxygen saturation normal. Appearance: Alert.No acute distress. Oriented x3, no confusion is appreciated Head: Normal external exam. Normocephalic. Atraumatic. No Reyes signs noted. No raccoon eyes noted Eyes: PERRLA. EOMI. Conjunctiva and sclera normal. Eyelids normal. ENT: TM's Normal. Pharynx normal. Uvula midline. Moist mucous membranes. No trismus noted. No drooling noted. No muffled voice noted. Neck: Normal inspection. Neck supple. FROM. No adenopathy. Thyroid Normal. No meningeal signs. No neck mass noted. CVS: Normal heart rate and rhythm. Heart sound normal. No murmurs noted. Pulses normal throughout. Respiratory: No respiratory distress. Painless inspiration. Breath sounds normal. No wheezes/rales/rhonchi noted. Chest nontender. No accessory muscle usage noted or decreased air movement noted. Abdomen: Soft and nontender. Bowel sounds normal in all 4 quadrants. No distention noted. No organomegaly noted. No visible injury noted. Back: No CVA tenderness. Full range of motion noted. Skin: Skin warm and dry. Normal skin color. Normal skin turgor. No rashes/lesions/lacerations noted. Extremities: No lower extremity edema. Extremities exhibit normal range of motion. Extremities nontender. Neuro: No motor deficit. No sensory deficit. Reflexes normal. Course Course Course Narrative: Assessment and plan. 65-year-old male history of insulin-dependent diabetes and DKA, came in by family for assessment of painless hematuria, CT of the abdomen pelvis is more consistent with cystitis, patient remain in the emergency department now with urinating clear urine. Findings today is not suggesting DKA, patient is not confused. After discussed with the family patient will be going home with p.o. antibiotic and follow up with PCP. MDM - Male Genitourinary Lab Data Attestation: I reviewed the patient's lab results. Result diagrams: 11/07/20 18:54 11/07/20 18:54 Labs: Lab Results 11/07/20 11/07/20 11/07/20 Range/Units 18:54 18:54 18:54 WBC 7.6 (4.8-10.8) X10*3/uL RBC 4.70 (4.60-5.80) X10*6/uL Hgb 14.2 (14.0-18.0) g/dl Hct 41.1 L (42-52) % MCV 87.4 (80-98) fL MCH 30.2 (27.0-33.0) pg MCHC 34.5 (31.0-36.0) g/dl RDW 11.6 (11.0-16.0) % Plt Count 256 (160-400) X10*3/uL MPV 11.5 (9.4-12.4) fL Immature Gran % (Auto) 0.5 H (0.0-0.4) % Neut % (Auto) 64.9 (45-73) % Lymph % (Auto) 23.0 (20-40) % Iron % (Auto) 9.6 (2-11) % Eos % (Auto) 1.7 (0-4) % Baso % (Auto) 0.3 (0-2) % Lymph # (Auto) 1.8 (1.2-4.9) X10*3/uL Iron # (Auto) 0.7 (0.1-1.2) X10*3/uL Eos # (Auto) 0.1 (0.0-0.4) X10*3/uL Baso # (Auto) 0.0 (0.0-0.2) X10*3/uL Abs Immat Gran (auto) 0.04 H (0.00-0.03) X10*3/uL Absolute Neuts (auto) 4.9 (2.0-8.3) X10*3/uL Absolute Nucleated RBC 0.000 (0.0-0.012) X10*3/uL Nucleated RBC % (auto) 0.0 (0.0-0.2) /100WBC Sodium 137 (135-145) mmol/L Potassium 4.1 (3.3-5.1) mmol/L Chloride 100 (96-108) mmol/L Carbon Dioxide 30 H (22-29) mmol/L Anion Gap 11 L (12-20) BUN 17 H (9-16) mg/dL Creatinine 1.12 (0.5-1.4) mg/dL Estim Creat Clear Calc 63.9 Estimated GFR > 60 Random Glucose 117 H D (60-115) mg/dL Lactic Acid (0.5-2.0) mmol/L Calcium 8.9 D (8.4-10.2) mg/dL Total Bilirubin 0.5 (0.0-1.0) mg/dL Direct Bilirubin < 0.2 (0.0-0.5) mg/dL AST 23 D (5-37) U/L ALT 21 (0-40) U/L Alkaline Phosphatase 70 (39-117) U/L Troponin I High Sens 8.1 (<3.5-35.0) ng/L B-Natriuretic Peptide 36 (<100) pg/mL Total Protein 6.5 (6.5-8.0) g/dL Albumin 3.4 L (3.5-5.0) g/dL Lipase 29 (8-78) U/L Urine Color Urine Appearance Urine pH (5.0-8.0) Ur Specific Klemme (1.005-1.025) Urine Protein (NEG-TRACE) MG/DL Urine Glucose (UA) (NEG) MG/DL Urine Ketones (NEG) MG/DL Urine Blood (NEG) Urine Nitrite (NEG) Ur Leukocyte Esterase (NEG) Urine RBC (0) /HPF Urine WBC (0-4) /HPF Ur Squamous Epith Cells /LPF Urine Bacteria /LPF COVID-19 ([facility]) (Negative) COVID-19 Clin Com 11/07/20 11/07/20 11/07/20 Range/Units 18:54 18:54 18:54 WBC (4.8-10.8) X10*3/uL RBC (4.60-5.80) X10*6/uL Hgb (14.0-18.0) g/dl Hct (42-52) % MCV (80-98) fL MCH (27.0-33.0) pg MCHC (31.0-36.0) g/dl RDW (11.0-16.0) % Plt Count (160-400) X10*3/uL MPV (9.4-12.4) fL Immature Gran % (Auto) (0.0-0.4) % Neut % (Auto) (45-73) % Lymph % (Auto) (20-40) % Iron % (Auto) (2-11) % Eos % (Auto) (0-4) % Baso % (Auto) (0-2) % Lymph # (Auto) (1.2-4.9) X10*3/uL Iron # (Auto) (0.1-1.2) X10*3/uL Eos # (Auto) (0.0-0.4) X10*3/uL Baso # (Auto) (0.0-0.2) X10*3/uL Abs Immat Gran (auto) (0.00-0.03) X10*3/uL Absolute Neuts (auto) (2.0-8.3) X10*3/uL Absolute Nucleated RBC (0.0-0.012) X10*3/uL Nucleated RBC % (auto) (0.0-0.2) /100WBC Sodium (135-145) mmol/L Potassium (3.3-5.1) mmol/L Chloride (96-108) mmol/L Carbon Dioxide (22-29) mmol/L Anion Gap (12-20) BUN (9-16) mg/dL Creatinine (0.5-1.4) mg/dL Estim Creat Clear Calc Estimated GFR Random Glucose (60-115) mg/dL Lactic Acid 2.2 H* (0.5-2.0) mmol/L Calcium (8.4-10.2) mg/dL Total Bilirubin (0.0-1.0) mg/dL Direct Bilirubin (0.0-0.5) mg/dL AST (5-37) U/L ALT (0-40) U/L Alkaline Phosphatase (39-117) U/L Troponin I High Sens (<3.5-35.0) ng/L B-Natriuretic Peptide (<100) pg/mL Total Protein (6.5-8.0) g/dL Albumin (3.5-5.0) g/dL Lipase (8-78) U/L Urine Color RED Urine Appearance TURBID Urine pH 6.0 (5.0-8.0) Ur Specific Klemme >= 1.030 H (1.005-1.025) Urine Protein 3+ H (NEG-TRACE) MG/DL Urine Glucose (UA) 100 H (NEG) MG/DL Urine Ketones 15 (NEG) MG/DL Urine Blood 3+ H (NEG) Urine Nitrite POS H (NEG) Ur Leukocyte Esterase NEG (NEG) Urine RBC TNTC H (0) /HPF Urine WBC 1-4 (0-4) /HPF Ur Squamous Epith Cells NONE /LPF Urine Bacteria NONE /LPF COVID-19 ([facility]) Negative (Negative) COVID-19 Clin Com See Note Imaging Data CT scan - abdomen: Radiologist's impression: 1. Wall thickening of the urinary bladder, most prominent dorsally. Mild adjacent inflammatory change. Small amount of air within the bladder lumen. Findings are consistent with cystitis and may be related to an infectious or inflammatory process. An underlying lesion cannot be excluded. 2. No hydronephrosis or hydroureter. Left mid/lower pole renal stone measuring up to 0.7 cm. No additional renal or ureteral stone. 3. Moderate stool burden. No small or large bowel obstruction. No bowel wall thickening or associated inflammatory change. Unremarkable appendix. 4. Mild prostatomegaly. ECG Data Interpretation: Normal sinus rhythm at 89 beats per minutes, normal intervals, nonspecific T-wave changes. Discharge Plan Discharge Clinical Impression: Cystitis Patient Disposition: Home, Self-Care Instructions: Interstitial Cystitis (ED) Prescriptions: New cefuroxime axetil 500 mg tablet 500 mg PO BID Qty: 14 RF: 0 No Action donepezil [Aricept] 10 mg tablet 10 mg PO BEDTIME Qty: 30 RF: 0 latanoprost 0.005 % Drops 1 drp ophthalmic-Left QPM RF: 0 atorvastatin 20 mg Tablet 20 mg PO BEDTIME RF: 0 melatonin 3 mg Tablet 6 mg PO BEDTIME RF: 0 aspirin 81 mg Tablet,Delayed Release (Dr/Ec) 81 mg PO DAILY RF: 0 brimonidine 0.2 % Drops 1 drp OPHTHALMIC (EYE) BID RF: 0 loratadine 10 mg Tablet 10 mg PO DAILY RF: 0 escitalopram oxalate 20 mg Tablet 20 mg PO DAILY RF: 0 cholecalciferol (vitamin D3) [Vitamin D3] 50 mcg (2,000 unit) Capsule 50 mcg PO DAILY RF: 0 amlodipine 5 mg Tablet 5 mg PO DAILY Qty: 30 RF: 0 (DME) pen needle, diabetic 31 gauge x 3/16 needle See Rx Instructions .ROUTE .MEDSUPPLY Qty: 100 RF: 11 (DME) FreeStyle Lite Strips Strip See Rx Instructions .ROUTE .MEDSUPPLY Qty: 100 RF: 0 (DME) blood-glucose meter [FreeStyle Lite Meter] Kit See Rx Instructions .ROUTE .MEDSUPPLY Qty: 1 RF: 0 (DME) lancets [FreeStyle Lancets] 28 gauge misc See Rx Instructions .ROUTE .MEDSUPPLY Qty: 100 RF: 11 lisinopril 20 mg Tablet 20 mg PO DAILY Qty: 30 RF: 0 metformin 1,000 mg Tablet 1,000 mg PO BID Qty: 60 RF: 0 insulin lispro [Humalog KwikPen Insulin] 100 unit/mL Insulin Pen 16 unit SUBCUT BID Qty: 4 RF: 0 Januvia 100 mg Tablet 100 mg PO DAILY Qty: 30 RF: 0 Lantus Solostar U-100 Insulin 100 unit/mL (3 mL) Insulin Pen 46 unit SUBCUT BID Qty: 10 RF: 0 (DME) blood pressure monitor [Blood Pressure Kit] Kit See Rx Instructions .ROUTE .MEDSUPPLY Qty: 1 RF: 0 Referrals: Physician,Unknown [Primary Care Provider] - 2 days
[2020-11-07 19:02] LABS: MANUAL DIFF FLAG NO
[2020-11-07 19:03] LABS: Basophils Percent Auto 0.3 % (0-2); Eosinophils Absolute Auto 0.1 X10*3/uL (0.0-0.4); Eosinophils Percent Auto 1.7 % (0-4); Hematocrit 41.1 % (42-52); Hemoglobin 14.2 g/dl (14.0-18.0); Imm Gran Abs Auto 0.04 X10*3/uL (0.00-0.03); Imm Gran Pct Auto 0.5 % (0.0-0.4); Lymphocytes Absolute Auto 1.8 X10*3/uL (1.2-4.9); Mean Corpuscular HGB Conc 34.5 g/dl (31.0-36.0); Mean Corpuscular Hemoglobin 30.2 pg (27.0-33.0); Mean Corpuscular Volume 87.4 fL (80-98); Mean Platelet Volume 11.5 fL (9.4-12.4); Monocytes Absolute Auto 0.7 X10*3/uL (0.1-1.2); Monocytes Percent Auto 9.6 % (2-11); Neutrophils Absolute Auto 4.9 X10*3/uL (2.0-8.3); Neutrophils Percent Auto 64.9 % (45-73); Platelet Count 256 X10*3/uL (160-400); Red Cell Distribution Width 11.6 % (11.0-16.0); White Blood Count 7.6 X10*3/uL (4.8-10.8)
[2020-11-07 19:23] LABS: Glucose Urine UA 100 MG/DL (NEG); Leukocyte Esterase Urine NEG (NEG); Nitrite Urine POS (NEG); Specific Gravity - Urine >= 1.030 (1.005-1.025); UACC Culture Trigger YES; Urine Blood 3+ (NEG); Urine Ketones 15 MG/DL (NEG); Urine Protein 3+ MG/DL (NEG-TRACE)
[2020-11-07 19:27] LABS: Appearance Urine TURBID; Color Urine RED
[2020-11-07 19:28] LABS: RBC Urine TNTC /HPF (0)
[2020-11-07 19:30] LABS: COVID-19 Test Negative (Negative)
[2020-11-07 19:44] LABS: B Type Natriuretic Peptide 36 pg/mL (<100); Troponin-I High Sensitivity 8.1 ng/L (<3.5-35.0)
--- NOTE | 2020-11-07 19:56 | PC.NURSE ---
RAMAKRISHNA METCALF [phone] DAUGHTER IN LAW. CALLED TO ASK FOR UPDATE, 4TH VISIT IN WEEKS. QUESTIONING IF SHORT TERM REHAB WOULD BE AN OPTION. PT NON COMPLIANT WITH MEDS, AGGRSSIVE THIS MORNING.
[2020-11-07 20:00] LABS: Alanine Aminotransferase 21 U/L (0-40); Albumin Level 3.4 g/dL (3.5-5.0); Alkaline Phosphatase 70 U/L (39-117); Anion Gap 11 (12-20); Aspartate Amino Transferase 23 U/L (5-37); Bilirubin Direct < 0.2 mg/dL (0.0-0.5); Bilirubin Total 0.5 mg/dL (0.0-1.0); Blood Urea Nitrogen 17 mg/dL (9-16); Calcium 8.9 mg/dL (8.4-10.2); Carbon Dioxide 30 mmol/L (22-29); Chloride 100 mmol/L (96-108); Creatinine Clr Calc Pharmacy 63.9; Estimated Glomerular Filt Rate > 60; Glucose Random 117 mg/dL (60-115); Lipase 29 U/L (8-78); Potassium 4.1 mmol/L (3.3-5.1); Sodium 137 mmol/L (135-145); Total Protein 6.5 g/dL (6.5-8.0)
[2020-11-07 20:02] LABS: Lactic Acid 2.2 mmol/L (0.5-2.0)
[2020-11-07 20:04] VITALS: BP 156/69; PULSE 79; RESP 14; O2SAT 100
[2020-11-07] MEDS: 0.9 % Sodium Chloride 1,000 ML 999 ML IVCONT ×2 (20:05→21:24)
--- NOTE | 2020-11-07 20:56 | PC.NURSE ---
pt requested meal, provided with sandwich, chips and diet soda. no trouble swallowing. pt used urinal x 2, urine clear yellow.
[2020-11-07 21:01] LABS: Reflex Lactate? Lactic Acid Added
[2020-11-07 21:22] VITALS: BP 192/83; PULSE 81; RESP 13; O2SAT 100
[2020-11-07] MEDS: cefTRIAXone sodium 1 GM in 0.9 % Sodium Chloride 50 ML IV (21:25)
[2020-11-07] MEDS: Atorvastatin Calcium 20 MG TABLET PO (21:34)
[2020-11-07] MEDS: Donepezil HCl 10 MG TABLET PO (21:35)
[2020-11-07] MEDS: metFORMIN HCl 1,000 MG TABLET 1000 MG PO (21:35)
[2020-11-07 22:05] LABS: ~Lactic Acid-LAB USE ONLY 1.3 mmol/L (0.5-2.0)
[2020-11-07 22:43] VITALS: PULSE 85; RESP 12; O2SAT 99
[2020-11-07 22:44] VITALS: BP 197/97
--- NOTE | 2020-11-07 22:56 | PC.NURSE ---
This RN spoke with pt's step daughter Neris, provided information regarding DC instructions, new RX medication, and plan for follow up with CM and diabetic counseling. Neris expresses understanding of DC teachings.
== END 2020-11-07 23:23 | disposition home or self-care (01) ==
PROVIDERS: Emergency Provider Emergency Medicine
DX: N30.10 Interstitial cystitis (chronic) without hematuria (principal); Z20.822 Contact with and (suspected) exposure to COVID-19; N20.0 Calculus of kidney; E11.9 Type 2 diabetes mellitus without complications; F03.90 Unspecified dementia, unspecified severity, without behavioral disturbance, psychotic disturbance, mood disturbance, and anxiety; Z79.4 Long term (current) use of insulin
CPT/HCPCS: 36415; 71045; 74176; 80048; 80076; 81001; 81003; 83605; 83690; 83880; 84484; 85025; 87040; 87086; 87088; 87186; 87635; 93005; 96361; 96365; 99284; J0696

== ENCOUNTER 2021-03-01 05:08 | Inpatient (IN) | payer MEDICARE, OTHER, SELFPAY ==
[2021-03-01] VITALS (17 sets, daily range): BP systolic 96–191; BP diastolic 49–90; PULSE 82–105; RESP 12–23; TEMP 36.4–37.1; O2SAT 93–99; BMI 28.3
--- NOTE | ~2021-03-01 | XR_ITS ---
EXAMINATION: XR CHEST CLINICAL INFORMATION: Cough. COMPARISON: None TECHNIQUE: Frontal view of the chest was obtained. FINDINGS: No significant abnormality is noted involving the heart, lungs, mediastinum, bony thorax or soft tissues. XR/XR chest 1V IMPRESSION: Unremarkable chest examination.
--- NOTE | ~2021-03-01 | CT_ITS ---
EXAMINATION: CT BRAIN AND CT CERVICAL SPINE WITHOUT CONTRAST. CLINICAL INFORMATION: Fall. COMPARISON: None TECHNIQUE: 5 mm thin axial and reformatted 2 mm thin sagittal and coronal images of brain were obtained. Subsequently axial 3 mm thin and reformatted 2 mm thin sagittal and coronal images of cervical spine were obtained. DLP 1301 FINDINGS: There is no acute intra-axial, extra-axial bleed, masses or midline shift. There is no acute infarction in evolution. The lateral ventricles are symmetrical in size and configuration without enlargement. There is diffuse periventricular hypodensity consistent with chronic small ischemic disease. There is a punctate hypodensity in the left basal ganglia, most likely small calcification small lacunar infarction is seen in genu of left internal capsule. Bone windows reveal no calvarial abnormality. There is no scalp soft tissue abnormality. Bilateral pattern nasal sinuses and mastoid air cells are well-aerated. Cervical spine: On sagittal reconstructed images there is mild straightening of cervical lordosis. The vertebral heights, alignment and disc heights are normal. The craniovertebral junction and the C1-C2 alignment is normal. Moderate superior spurring C1-C2 alignment is noted. There is moderate ventral spondylosis mid and lower cervical spine. There is no visible acute fracture, dislocation or subluxation seen. The prevertebral and paravertebral soft tissues are normal. The lung apices are clear. CT/CT head/brain wo con IMPRESSION: No acute intracranial process seen. Age-related cerebral volume loss with chronic small vessel ischemic changes. There is mild straightening of cervical lordosis. No visible acute fracture, dislocation or subluxation seen. There is moderate ventral spondylosis mid and lower cervical spine..
--- NOTE | ~2021-03-01 | CT_ITS ---
EXAMINATION: CT BRAIN AND CT CERVICAL SPINE WITHOUT CONTRAST. CLINICAL INFORMATION: Fall. COMPARISON: None TECHNIQUE: 5 mm thin axial and reformatted 2 mm thin sagittal and coronal images of brain were obtained. Subsequently axial 3 mm thin and reformatted 2 mm thin sagittal and coronal images of cervical spine were obtained. DLP 1301 FINDINGS: There is no acute intra-axial, extra-axial bleed, masses or midline shift. There is no acute infarction in evolution. The lateral ventricles are symmetrical in size and configuration without enlargement. There is diffuse periventricular hypodensity consistent with chronic small ischemic disease. There is a punctate hypodensity in the left basal ganglia, most likely small calcification small lacunar infarction is seen in genu of left internal capsule. Bone windows reveal no calvarial abnormality. There is no scalp soft tissue abnormality. Bilateral pattern nasal sinuses and mastoid air cells are well-aerated. Cervical spine: On sagittal reconstructed images there is mild straightening of cervical lordosis. The vertebral heights, alignment and disc heights are normal. The craniovertebral junction and the C1-C2 alignment is normal. Moderate superior spurring C1-C2 alignment is noted. There is moderate ventral spondylosis mid and lower cervical spine. There is no visible acute fracture, dislocation or subluxation seen. The prevertebral and paravertebral soft tissues are normal. The lung apices are clear. CT/CT cervical spine wo con IMPRESSION: No acute intracranial process seen. Age-related cerebral volume loss with chronic small vessel ischemic changes. There is mild straightening of cervical lordosis. No visible acute fracture, dislocation or subluxation seen. There is moderate ventral spondylosis mid and lower cervical spine..
[2021-03-01 05:17] LABS: Glucose, Whole Blood > 600 mg/dL (60-115)
[2021-03-01 05:40] LABS: Basophils Percent Auto 0.2 % (0-2); Hematocrit 50.7 % (42-52); Imm Gran Abs Auto 0.05 X10*3/uL (0.00-0.03); Imm Gran Pct Auto 0.4 % (0.0-0.4); Lymphocytes Absolute Auto 1.4 X10*3/uL (1.2-4.9); MANUAL DIFF FLAG NO; Mean Corpuscular HGB Conc 33.5 g/dl (31.0-36.0); Mean Corpuscular Hemoglobin 30.4 pg (27.0-33.0); Mean Corpuscular Volume 90.5 fL (80-98); Mean Platelet Volume 11.4 fL (9.4-12.4); Monocytes Absolute Auto 0.8 X10*3/uL (0.1-1.2); Monocytes Percent Auto 6.4 % (2-11); Neutrophils Absolute Auto 10.2 X10*3/uL (2.0-8.3); Platelet Count 298 X10*3/uL (160-400); Red Cell Distribution Width 11.9 % (11.0-16.0); White Blood Count 12.4 X10*3/uL (4.8-10.8)
[2021-03-01] MEDS: 0.9 % Sodium Chloride 2,000 ML 999 ML IV (05:40)
--- NOTE | 2021-03-01 05:40 | ED.GENADULT ---
HPI - General Adult General Chief complaint: General Medical Stated complaint: HYPERGLYCEMIA Time Seen by Provider: 03/01/21 05:14 Source: patient and musician instrumental Mode of arrival: EMS History of Present Illness HPI narrative: Is a 65-year-old male who is brought in by EMS after having pulled the medical alarm in his apartment building. On arrival EMS noted that patient was minimally responsive and administered 0.4 mg of Narcan as they found him lying on the ground. Due to unknown whether not he had fallen they placed a C-collar as well. Patient denies any pain at this time. Related Data Home Medications Medication Instructions Recorded Confirmed aspirin 81 mg PO DAILY 11/03/20 11/07/20 atorvastatin 20 mg PO BEDTIME 11/03/20 11/07/20 brimonidine 1 drp OPHTHALMIC (EYE) BID 11/03/20 11/07/20 cholecalciferol (vitamin D3) 50 mcg PO DAILY 11/03/20 11/07/20 [Vitamin D3] escitalopram oxalate 20 mg PO DAILY 11/03/20 11/07/20 latanoprost 1 drp OPHTHALMIC-LEFT QPM 11/03/20 11/07/20 loratadine 10 mg PO DAILY 11/03/20 11/07/20 melatonin 6 mg PO BEDTIME 11/03/20 11/07/20 Previous Rx's Medication Instructions Recorded donepezil [Aricept] 10 mg PO BEDTIME #30 tab 10/29/20 Januvia 100 mg PO DAILY #30 tab 11/06/20 Lantus Solostar U-100 Insulin 46 unit SUBCUT BID #10 ea 11/06/20 amlodipine 5 mg PO DAILY #30 tab 11/06/20 blood pressure monitor [Blood #1 ea 11/06/20 Pressure Kit] blood sugar diagnostic [FreeStyle #100 ea 11/06/20 Lite Strips] blood-glucose meter [FreeStyle #1 ea 11/06/20 Lite Meter] insulin lispro [Humalog KwikPen 16 unit SUBCUT BID #4 ea 11/06/20 Insulin] lancets [FreeStyle Lancets] #100 ea 11/06/20 lisinopril 20 mg PO DAILY #30 tab 11/06/20 metformin 1,000 mg PO BID #60 tab 11/06/20 pen needle, diabetic #100 ea 11/06/20 cefuroxime axetil 500 mg PO BID #14 tab 11/07/20 Allergies Allergy/AdvReac Type Severity Reaction Status Date / Time No Known Allergies Allergy Verified 11/07/20 17:45 Review of Systems Review of Systems: Pertinent positives and negatives as stated in HPI 10 point review of systems is otherwise negative. [facility] Past Medical History Source: nursing notes reviewed Medical History Dementia Diabetes Uncontrolled type 2 diabetes mellitus Social History Social History Household Members: None Household Members Other:: lives alone per stepdaughter Housing: Apartment Housing Other:: elderly apartments Do you presently have visiting nurse or other home services: No Alcohol intake: unknown Advance Directives: No Advance Directives Information Provided: No service: No Current occupational status: retired Physical Exam Vital Signs: Vital Signs: Last Vital Signs Temp 98.8 F 03/01/21 05:09 Pulse 105 H 03/01/21 05:32 Resp 22 H 03/01/21 05:32 BP 191/86 H 03/01/21 05:09 Pulse Ox 95 03/01/21 05:32 Body Mass Index 28.3 VITAL SIGNS: Reviewed. GENERAL: Well developed, well nourished, in no acute distress. HEAD: Normocephalic/atraumatic EYES: PERRLA, EOMI EARS: Ext canals without abnormality NOSE: Nares patent bilateral OROPHARYNX: no oral lesions noted, posterior pharynx clear NECK: Supple, no adenopathy LUNGS: Normal breath sounds. No adventitious sounds or accessory muscle use. SpO2<99> CARDIOVASCULAR: Regular rate and rhythm without noted murmurs, no JVD or lower extremity edema. ABDOMEN: Soft, non-tender, non-distended with bowel sounds. MUSCULOSKELETAL: No tenderness, deformities, or effusions noted on gross inspection. EXTREMITIES: No cyanosis, clubbing or edema. SKIN: Inspection of the skin reveals no rashes NEUROLOGIC: Alert and oriented x 2. Strength and sensation to light touch were grossly intact x 4. Course Course Course Narrative: This is a 65-year-old male with history and clinical presentation consistent with DKA, and on review of all investigations the findings are not attributable to sepsis. Patient was treated with subcutaneous insulin as well as starting an insulin drip, fluid resuscitation was initiated and this case was discussed with the clutch inspector who accepts this patient for admission. C-collar was able to be cleared after review head and cervical spine CT. Medical Decision Making Lab Data Result diagrams: 03/01/21 05:27 03/01/21 05:27 Labs: Lab Results 03/01/21 03/01/21 03/01/21 Range/Units 05:12 05:27 05:27 WBC 12.4 H (4.8-10.8) X10*3/uL RBC 5.60 (4.60-5.80) X10*6/uL Hgb 17.0 (14.0-18.0) g/dl Hct 50.7 D (42-52) % MCV 90.5 (80-98) fL MCH 30.4 (27.0-33.0) pg MCHC 33.5 (31.0-36.0) g/dl RDW 11.9 (11.0-16.0) % Plt Count 298 (160-400) X10*3/uL MPV 11.4 (9.4-12.4) fL Immature Gran % (Auto) 0.4 (0.0-0.4) % Neut % (Auto) 82.0 H (45-73) % Lymph % (Auto) 11.0 L (20-40) % [place] % (Auto) 6.4 (2-11) % Eos % (Auto) 0.0 (0-4) % Baso % (Auto) 0.2 (0-2) % Lymph # (Auto) 1.4 (1.2-4.9) X10*3/uL [place] # (Auto) 0.8 (0.1-1.2) X10*3/uL Eos # (Auto) 0.0 (0.0-0.4) X10*3/uL Baso # (Auto) 0.0 (0.0-0.2) X10*3/uL Abs Immat Gran (auto) 0.05 H (0.00-0.03) X10*3/uL Absolute Neuts (auto) 10.2 H (2.0-8.3) X10*3/uL Absolute Nucleated RBC 0.000 (0.0-0.012) X10*3/uL Nucleated RBC % (auto) 0.0 (0.0-0.2) /100WBC PT (10.8-13.0) SEC INR (0.9-1.1) VBG pH (7.32-7.43) VBG pCO2 mmHg VBG pO2 mmHg VBG HCO3 (22-26) mmol/L VBG O2 Saturation % VBG Base Excess mmol/L Sodium 139 (135-145) mmol/L Potassium 5.7 H D (3.3-5.1) mmol/L Chloride 97 (96-108) mmol/L Carbon Dioxide 15 L (22-29) mmol/L Anion Gap 33 H (12-20) BUN 54 H D (9-16) mg/dL Creatinine 2.53 H (0.5-1.4) mg/dL Estim Creat Clear Calc 26.6 Estimated GFR 26 POC Glucose > 600 H* (60-115) mg/dL Random Glucose 684 H* (60-115) mg/dL Lactic Acid (0.5-2.0) mmol/L Calcium 10.0 D (8.4-10.2) mg/dL Magnesium (1.6-2.6) mg/dL Total Bilirubin 0.9 (0.0-1.0) mg/dL AST 11 D (5-37) U/L ALT 23 (0-40) U/L Alkaline Phosphatase 75 (39-117) U/L Total Protein 7.5 (6.5-8.0) g/dL Albumin 4.4 D (3.5-5.0) g/dL Lipase 9 (8-78) U/L Ethyl Alcohol mg/dL COVID-19 (KATINA) (Negative) COVID-19 Clin Com 03/01/21 03/01/21 03/01/21 Range/Units 05:27 05:27 05:27 WBC (4.8-10.8) X10*3/uL RBC (4.60-5.80) X10*6/uL Hgb (14.0-18.0) g/dl Hct (42-52) % MCV (80-98) fL MCH (27.0-33.0) pg MCHC (31.0-36.0) g/dl RDW (11.0-16.0) % Plt Count (160-400) X10*3/uL MPV (9.4-12.4) fL Immature Gran % (Auto) (0.0-0.4) % Neut % (Auto) (45-73) % Lymph % (Auto) (20-40) % [place] % (Auto) (2-11) % Eos % (Auto) (0-4) % Baso % (Auto) (0-2) % Lymph # (Auto) (1.2-4.9) X10*3/uL [place] # (Auto) (0.1-1.2) X10*3/uL Eos # (Auto) (0.0-0.4) X10*3/uL Baso # (Auto) (0.0-0.2) X10*3/uL Abs Immat Gran (auto) (0.00-0.03) X10*3/uL Absolute Neuts (auto) (2.0-8.3) X10*3/uL Absolute Nucleated RBC (0.0-0.012) X10*3/uL Nucleated RBC % (auto) (0.0-0.2) /100WBC PT 13.2 H (10.8-13.0) SEC INR 1.1 (0.9-1.1) VBG pH (7.32-7.43) VBG pCO2 mmHg VBG pO2 mmHg VBG HCO3 (22-26) mmol/L VBG O2 Saturation % VBG Base Excess mmol/L Sodium (135-145) mmol/L Potassium (3.3-5.1) mmol/L Chloride (96-108) mmol/L Carbon Dioxide (22-29) mmol/L Anion Gap (12-20) BUN (9-16) mg/dL Creatinine (0.5-1.4) mg/dL Estim Creat Clear Calc Estimated GFR POC Glucose (60-115) mg/dL Random Glucose (60-115) mg/dL Lactic Acid 2.5 H* (0.5-2.0) mmol/L Calcium (8.4-10.2) mg/dL Magnesium 2.6 (1.6-2.6) mg/dL Total Bilirubin (0.0-1.0) mg/dL AST (5-37) U/L ALT (0-40) U/L Alkaline Phosphatase (39-117) U/L Total Protein (6.5-8.0) g/dL Albumin (3.5-5.0) g/dL Lipase (8-78) U/L Ethyl Alcohol mg/dL COVID-19 (KATINA) (Negative) COVID-19 Clin Com 03/01/21 03/01/21 03/01/21 Range/Units 05:27 05:27 05:36 WBC (4.8-10.8) X10*3/uL RBC (4.60-5.80) X10*6/uL Hgb (14.0-18.0) g/dl Hct (42-52) % MCV (80-98) fL MCH (27.0-33.0) pg MCHC (31.0-36.0) g/dl RDW (11.0-16.0) % Plt Count (160-400) X10*3/uL MPV (9.4-12.4) fL Immature Gran % (Auto) (0.0-0.4) % Neut % (Auto) (45-73) % Lymph % (Auto) (20-40) % [place] % (Auto) (2-11) % Eos % (Auto) (0-4) % Baso % (Auto) (0-2) % Lymph # (Auto) (1.2-4.9) X10*3/uL [place] # (Auto) (0.1-1.2) X10*3/uL Eos # (Auto) (0.0-0.4) X10*3/uL Baso # (Auto) (0.0-0.2) X10*3/uL Abs Immat Gran (auto) (0.00-0.03) X10*3/uL Absolute Neuts (auto) (2.0-8.3) X10*3/uL Absolute Nucleated RBC (0.0-0.012) X10*3/uL Nucleated RBC % (auto) (0.0-0.2) /100WBC PT (10.8-13.0) SEC INR (0.9-1.1) VBG pH 7.21 L (7.32-7.43) VBG pCO2 32 mmHg VBG pO2 123 mmHg VBG HCO3 13 L (22-26) mmol/L VBG O2 Saturation 98.0 % VBG Base Excess -12.8 mmol/L Sodium (135-145) mmol/L Potassium (3.3-5.1) mmol/L Chloride (96-108) mmol/L Carbon Dioxide (22-29) mmol/L Anion Gap (12-20) BUN (9-16) mg/dL Creatinine (0.5-1.4) mg/dL Estim Creat Clear Calc Estimated GFR POC Glucose (60-115) mg/dL Random Glucose (60-115) mg/dL Lactic Acid (0.5-2.0) mmol/L Calcium (8.4-10.2) mg/dL Magnesium (1.6-2.6) mg/dL Total Bilirubin (0.0-1.0) mg/dL AST (5-37) U/L ALT (0-40) U/L Alkaline Phosphatase (39-117) U/L Total Protein (6.5-8.0) g/dL Albumin (3.5-5.0) g/dL Lipase (8-78) U/L Ethyl Alcohol < 10 mg/dL COVID-19 (KATIAN) Negative (Negative) COVID-19 Clin Com See Note Critical Care Time Critical Care Time Critical Care Time: Yes Total Critical Care Time: 30 Attestation: I personally attest to this time spent taking care of the patient. Discharge Plan Discharge Clinical Impression: DKA (diabetic ketoacidoses), SULTANA (acute kidney injury), Dementia Patient Disposition: Admitted As Inpatient
[2021-03-01 05:44] LABS: VBG Base Excess -12.8 mmol/L; VBG HCO3 13 mmol/L (22-26); VBG pCO2 32 mmHg; VBG pH 7.21 (7.32-7.43); VBG pO2 123 mmHg
[2021-03-01 05:44] LABS: Venous Blood Gas Refer to POC result
[2021-03-01 05:45] LABS: INTERNATIONAL NORM RATIO 1.1 (0.9-1.1); Prothrombin Time 13.2 SEC (10.8-13.0)
[2021-03-01 05:53] LABS: COVID-19 Test Negative (Negative); IDNOW Serial# 9DD0AD1C
[2021-03-01 06:01] LABS: Ethanol < 10 mg/dL
[2021-03-01 06:03] LABS: Magnesium 2.6 mg/dL (1.6-2.6)
[2021-03-01 06:17] LABS: Lactic Acid 2.5 mmol/L (0.5-2.0)
[2021-03-01 06:19] LABS: Alanine Aminotransferase 23 U/L (0-40); Albumin Level 4.4 g/dL (3.5-5.0); Alkaline Phosphatase 75 U/L (39-117); Anion Gap 33 (12-20); Aspartate Amino Transferase 11 U/L (5-37); Bilirubin Total 0.9 mg/dL (0.0-1.0); Blood Urea Nitrogen 54 mg/dL (9-16); Carbon Dioxide 15 mmol/L (22-29); Chloride 97 mmol/L (96-108); Creatinine Clr Calc Pharmacy 26.6; Estimated Glomerular Filt Rate 26; Glucose Random 684 mg/dL (60-115); Lipase 9 U/L (8-78); Potassium 5.7 mmol/L (3.3-5.1); Sodium 139 mmol/L (135-145); Total Protein 7.5 g/dL (6.5-8.0)
[2021-03-01] MEDS: Insulin Regular, Human 100 UNIT/ML 3 ML VIAL 10 UNIT SUBCUT (06:42)
--- NOTE | 2021-03-01 06:42 | PC.NURSE ---
PT REMOVED CCOLLAR BY SELF. MEDICATED WITH 10 UNITS INSULIN PER MAR PRIOR TO BE TAKEN TO CT SCAN. AWAITING RETURN FOR ADDITIONAL INTERSTATE BUS DISPATCHER.
[2021-03-01 07:30] LABS: Cancel Lactic Acid Canceled
[2021-03-01] MEDS: Insulin Regular/NS 100 UNIT/100 ML PLAST..BAG 10 UNIT IVCONT ×2 (07:30→14:48)
[2021-03-01] MEDS: Lactated Ringers 2,000 ML 999 ML IV (07:32)
[2021-03-01 07:35] LABS: Glucose Urine UA >=1000 MG/DL (NEG); Leukocyte Esterase Urine NEG (NEG); Nitrite Urine NEG (NEG); PH 5.5 (5.0-8.0); Specific Gravity - Urine 1.025 (1.005-1.025); Urine Blood 1+ (NEG); Urine Ketones >=80 MG/DL (NEG); Urine Protein 2+ MG/DL (NEG-TRACE)
[2021-03-01 07:36] LABS: Appearance Urine CLEAR; Color Urine YELLOW
[2021-03-01 07:41] LABS: Glucose, Whole Blood > 600 mg/dL (60-115)
[2021-03-01 07:45] LABS: Bacteria Urine TRACE /LPF; Squamous Epithelial Cell Urine TRACE /LPF; WBC Urine 0-2 /HPF (0-4)
[2021-03-01 07:55] LABS: Acetone, serum QL Moderate (Negative)
--- NOTE | 2021-03-01 07:55 | PM.CCN ---
Critical Care Event Note Summary Date of Service: 03/01/21 Code activated: No Narrative: This is a remote note. 65 yo M presents to the ED with recurrent DKA, hypovolemia, and SULTANA on that basis. Not septic. Will admit to ICU for metabolic management. Critical Care Time (minutes): 0
[2021-03-01 08:00] LABS: Amphetamine Screen Urine Not Detected (Not Detect); Barbiturates, Urine Not Detected (Not Detect); Benzodiazepines Screen Urine Not Detected (Not Detect); Cannabinoid Screen Urine Not Detected (Not Detect); Cocaine Screen Urine Not Detected (Not Detect); Opiate Screen Urine Not Detected (Not Detect); Phencyclidine Screen Urine Not Detected (Not Detect)
[2021-03-01 08:07] LABS: Cancel Lactic Acid Canceled
[2021-03-01] MEDS: Sodium Chloride 0.45 % 1,000 ML 250 ML IVCONT ×3 (08:07→14:38)
--- NOTE | 2021-03-01 08:12 | ECG_ITS ---
Test Reason : ALTERED MENTAL Blood Pressure : / mmHG Vent. Rate : 104 BPM Atrial Rate : 104 BPM P-R Int : 134 ms QRS Dur : 094 ms QT Int : 380 ms P-R-T Axes : 061 000 088 degrees QTc Int : 499 ms Sinus tachycardia Low voltage QRS Nonspecific ST and T wave abnormality Abnormal ECG When compared with ECG of 07-NOV-2020 18:19, Nonspecific T wave abnormality no longer evident in Inferior leads Referred By: Rebecca Gonzalez Electronically Signed By:AISHA UP MD
[2021-03-01 08:15] LABS: Troponin-I High Sensitivity 12.9 ng/L (<3.5-35.0)
[2021-03-01 08:30] LABS: Glucose, Whole Blood > 600 mg/dL (60-115)
[2021-03-01 08:36] LABS: Glucose, Whole Blood 525 mg/dL (60-115)
[2021-03-01 09:15] LABS: Glucose, Whole Blood 537 mg/dL (60-115)
[2021-03-01 09:15] LABS: Glucose, Whole Blood 588 mg/dL (60-115)
[2021-03-01 10:02] LABS: Glucose, Whole Blood 462 mg/dL (60-115)
[2021-03-01 10:50] LABS: Anion Gap 22 (12-20); Blood Urea Nitrogen 52 mg/dL (9-16); Calcium 9.3 mg/dL (8.4-10.2); Carbon Dioxide 17 mmol/L (22-29); Chloride 107 mmol/L (96-108); Creatinine Clr Calc Pharmacy 29.5; Estimated Glomerular Filt Rate 29; Magnesium 2.7 mg/dL (1.6-2.6); Phosphorus 3.9 mg/dL (2.7-4.5); Potassium 4.3 mmol/L (3.3-5.1); Sodium 142 mmol/L (135-145)
[2021-03-01 11:00] LABS: Glucose, Whole Blood 404 mg/dL (60-115)
--- NOTE | 2021-03-01 11:04 | P.HPCC_ITS ---
History of Present Illness Date of Service: 03/01/21 Mr. Arevalo was admitted to the ICU this morning with DKA. The patient is a 65-year-old insulin-dependent type 2 diabetic w CKD who is noncompliant with meds and has some dementia or cognitive defect. Was admitted to [facility] in Oct with a similar episode. He reportedly lives alone in elderly housing. Per Dr. Mason in the ED, the patient was BIBA to the ED early this morning after having pulled the medical alarm in his apartment building. At the scene, EMS noted that patient was lying on the ground and minimally responsive. Narcan 0.4mg was administered with unclear result. In the ED, the patient denied pain. In the ED the patient was afebrile. Heart rate was 105, blood pressure 191/86, respiratory rate was 22, with a sat of 95% on room air. The general physical exam was unremarkable. And the patient was reportedly alert and oriented x2. Labs in the ED were notable for a white count of 12.4, hemoglobin of 17 (baseline 14), venous pH 7.2, pCO2 32, base excess -12, sodium 139, potassium 5.7, bicarb 15, BUN and creatinine 54/2.5 (baseline 1.0), glucose 684, lactic acid 2.5, normal LFTs, albumin 4.4 (baseline 3.4). Patient was given 2 L of normal saline, subcutaneous insulin, and then started an insulin drip. He was then admitted to the ICU. On my exam, the patient is clearly awake but does not answer my questions. He is fidgeting and pulling at his IVs and his clothing. We gave him 2 mg of Haldol without much effect. Heart rate is about 97, blood pressure 148/70, respiratory rate about 20, with a sat of 95% on room air. No JVD with the head of the bed at 30 degrees. Chest is clear to auscultation, with normal expiratory phase. Heart rate and rhythm are regular with normal-sounding S1-S2 without any murmur or gallop. The abdomen is benign. I do not feel any liver. He has no edema. LABORATORY DATA: Follow-up labs and 07 09 show sodium 142, potassium 4.3, bicarb up to 17, BUN and creatinine down to 52/2.2, glucose down to 499, phosph orus 3.9, magnesium 2.7. IMPRESSION: 1. Underlying dementia. 2. DKA undoubtedly secondary to medication noncompliance. I spoke with the patient's personal physician who confirmed the patient has frequent noncompliance, mainly because of poor understanding and insight. Usual management with fluid resuscitation, intravenous insulin, and electrolytes as needed. 3. No sepsis. 4. Acute kidney injury. Secondary to hypovolemia. Continue volume resuscitation. [facility] Past Medical History Medical History Dementia Diabetes Uncontrolled type 2 diabetes mellitus Social History Social History Household Members: None Household Members Other:: lives alone per stepdaughter Housing: Apartment Housing Other:: elderly apartments Alcohol intake: unknown Advance Directives: No Advance Directives Information Provided: No Do you have thoughts of harming others: None Do you have a plan to hurt others: No Plan Recently lost weight without trying: Unsure Eating poorly because of decreased appetite: No Nutrition Risks: Diabetes new onset/Uncontrolled Poor oral hygiene: No service: No Current occupational status: retired [employer] Allergies Allergy/AdvReac Type Severity Reaction Status Date / Time No Known Allergies Allergy Verified 11/07/20 17:45 Active Medications: Current Medications Generic Name Dose Route Start Last Admin Trade Name Noé PRN Reason Stop Dose Admin Insulin Human Regular 100 unit in 100 mls @ 10 mls/hr 03/01/21 06:30 03/01/21 07:30 Myxredlin IVCONT 10 unit/hr .Q10H TRAMAINE 10 mls/hr Administration Protocol 10 UNIT/HR Sodium Chloride 1,000 mls @ 250 mls/hr 03/01/21 08:00 03/01/21 08:07 IVCONT 250 mls/hr .Q4H TRAMAINE Administration Home Medications Medication Instructions Recorded Confirmed Last Taken Type aspirin 81 mg PO DAILY 11/03/20 03/01/21 02/25/21 History atorvastatin 20 mg PO BEDTIME 11/03/20 03/01/21 02/24/21 History brimonidine 1 drp OPHTHALMIC (EYE) BID 11/03/20 03/01/21 02/25/21 History cholecalciferol (vitamin D3) 50 mcg PO DAILY 11/03/20 03/01/2121 History [Vitamin D3] escitalopram oxalate 20 mg PO DAILY 11/03/20 03/01/21 02/25/21 History latanoprost 1 drp OPHTHALMIC-LEFT QPM 11/03/20 03/01/21 02/24/21 History loratadine 10 mg PO DAILY 11/03/20 03/01/21 02/25/21 History melatonin 6 mg PO BEDTIME 11/03/20 03/01/21 02/24/21 History fluticasone propionate [Flonase] 1 spray INTRANASAL DAILY 03/01/21 03/01/21 02/25/21 History gabapentin 300 mg PO BEDTIME 03/01/21 03/01/21 02/24/21 History insulin lispro [Humalog KwikPen 20 unit SUBCUT BID 03/01/21 03/01/21 02/25/21 History Insulin] lisinopril 40 mg PO DAILY 03/01/21 03/01/21 02/25/21 History Physical Exam Vital Signs: Vital Signs: Last Vital Signs Temp 98.8 F 03/01/21 05:09 Pulse 97 03/01/21 11:00 Resp 21 H 03/01/21 11:00 BP 145/80 H 03/01/21 11:00 Pulse Ox 93 03/01/21 11:00 Body Mass Index 28.3 Results Labs CBC and Chem 7: 03/01/21 05:27 03/01/21 16:46 Labs: Laboratory Results - last 24 hr 03/01/21 03/01/21 03/01/21 05:12 05:13 05:25 MCV MCH MCHC RDW Plt Count MPV Immature Gran % (Auto) Neut % (Auto) Lymph % (Auto) [place] % (Auto) Eos % (Auto) Baso % (Auto) Lymph # (Auto) [place] # (Auto) Eos # (Auto) Baso # (Auto) Abs Immat Gran (auto) Absolute Neuts (auto) Absolute Nucleated RBC Nucleated RBC % (auto) PT INR VBG pH VBG pCO2 VBG pO2 VBG HCO3 VBG O2 Saturation VBG Base Excess Anion Gap Estim Creat Clear Calc Estimated GFR POC Glucose > 600 H* > 600 H* Random Glucose Lactic Acid Calcium Phosphorus Magnesium Total Bilirubin AST ALT Alkaline Phosphatase Troponin I High Sens 12.9 Total Protein Albumin Lipase Urine Color Urine Appearance Urine pH Ur Specific [place] Urine Protein Urine Glucose (UA) Urine Ketones Urine Blood Urine Nitrite Ur Leukocyte Esterase Urine RBC Urine WBC Ur Squamous Epith Cells Urine Bacteria Urine Yeast Urine Opiates Screen Ur Barbiturates Screen Ur Phencyclidine Scrn Ur Amphetamines Screen U Benzodiazepines Scrn Urine Cocaine Screen U Marijuana (THC) Screen Ethyl Alcohol Acetone, Qual COVID-19 (KATINA) COVID-19 [employer] 03/01/21 03/01/21 03/01/21 05:27 05:27 05:27 MCV 90.5 MCH 30.4 MCHC 33.5 RDW 11.9 Plt Count 298 MPV 11.4 Immature Gran % (Auto) 0.4 Neut % (Auto) 82.0 H Lymph % (Auto) 11.0 L [place] % (Auto) 6.4 Eos % (Auto) 0.0 Baso % (Auto) 0.2 Lymph # (Auto) 1.4 [place] # (Auto) 0.8 Eos # (Auto) 0.0 Baso # (Auto) 0.0 Abs Immat Gran (auto) 0.05 H Absolute Neuts (auto) 10.2 H Absolute Nucleated RBC 0.000 Nucleated RBC % (auto) 0.0 PT 13.2 H INR 1.1 VBG pH VBG pCO2 VBG pO2 VBG HCO3 VBG O2 Saturation VBG Base Excess Anion Gap 33 H Estim Creat Clear Calc 26.6 Estimated GFR 26 POC Glucose Random Glucose 684 H* Lactic Acid Calcium 10.0 D Phosphorus Magnesium Total Bilirubin 0.9 AST 11 D ALT 23 Alkaline Phosphatase 75 Troponin I High Sens Total Protein 7.5 Albumin 4.4 D Lipase 9 Urine Color Urine Appearance Urine pH Ur Specific [place] Urine Protein Urine Glucose (UA) Urine Ketones Urine Blood Urine Nitrite Ur Leukocyte Esterase Urine RBC Urine WBC Ur Squamous Epith Cells Urine Bacteria Urine Yeast Urine Opiates Screen Ur Barbiturates Screen Ur Phencyclidine Scrn Ur Amphetamines Screen U Benzodiazepines Scrn Urine Cocaine Screen U Marijuana (THC) Screen Ethyl Alcohol Acetone, Qual COVID-19 (KATINA) COVID-19 [employer] 03/01/21 03/01/21 03/01/21 05:27 05:27 05:27 MCV MCH MCHC RDW Plt Count MPV Immature Gran % (Auto) Neut % (Auto) Lymph % (Auto) [place] % (Auto) Eos % (Auto) Baso % (Auto) Lymph # (Auto) [place] # (Auto) Eos # (Auto) Baso # (Auto) Abs Immat Gran (auto) Absolute Neuts (auto) Absolute Nucleated RBC Nucleated RBC % (auto) PT INR VBG pH VBG pCO2 VBG pO2 VBG HCO3 VBG O2 Saturation VBG Base Excess Anion Gap Estim Creat Clear Calc Estimated GFR POC Glucose Random Glucose Lactic Acid 2.5 H* Calcium Phosphorus Magnesium 2.6 Total Bilirubin AST ALT Alkaline Phosphatase Troponin I High Sens Total Protein Albumin Lipase Urine Color Urine Appearance Urine pH Ur Specific [place] Urine Protein Urine Glucose (UA) Urine Ketones Urine Blood Urine Nitrite Ur Leukocyte Esterase Urine RBC Urine WBC Ur Squamous Epith Cells Urine Bacteria Urine Yeast Urine Opiates Screen Ur Barbiturates Screen Ur Phencyclidine Scrn Ur Amphetamines Screen U Benzodiazepines Scrn Urine Cocaine Screen U Marijuana (THC) Screen Ethyl Alcohol < 10 Acetone, Qual Moderate H COVID-19 (KATINA) COVID-[employer] Com 03/01/21 03/01/21 03/01/21 05:27 05:36 07:17 MCV MCH MCHC RDW Plt Count MPV Immature Gran % (Auto) Neut % (Auto) Lymph % (Auto) [place] % (Auto) Eos % (Auto) Baso % (Auto) Lymph # (Auto) [place] # (Auto) Eos # (Auto) Baso # (Auto) Abs Immat Gran (auto) Absolute Neuts (auto) Absolute Nucleated RBC Nucleated RBC % (auto) PT INR VBG pH 7.21 L VBG pCO2 32 VBG pO2 123 VBG HCO3 13 L VBG O2 Saturation 98.0 VBG Base Excess -12.8 Anion Gap Estim Creat Clear Calc Estimated GFR POC Glucose > 600 H* Random Glucose Lactic Acid Calcium Phosphorus Magnesium Total Bilirubin AST ALT Alkaline Phosphatase Troponin I High Sens Total Protein Albumin Lipase Urine Color Urine Appearance Urine pH Ur Specific [place] Urine Protein Urine Glucose (UA) Urine Ketones Urine Blood Urine Nitrite Ur Leukocyte Esterase Urine RBC Urine WBC Ur Squamous Epith Cells Urine Bacteria Urine Yeast Urine Opiates Screen Ur Barbiturates Screen Ur Phencyclidine Scrn Ur Amphetamines Screen U Benzodiazepines Scrn Urine Cocaine Screen U Marijuana (THC) Screen Ethyl Alcohol Acetone, Qual COVID-19 (KATINA) Negative COVID-19 [employer] Com See Note 03/01/21 03/01/21 03/01/21 07:27 07:27 08:32 MCV MCH MCHC RDW Plt Count MPV Immature Gran % (Auto) Neut % (Auto) Lymph % (Auto) [place] % (Auto) Eos % (Auto) Baso % (Auto) Lymph # (Auto) [place] # (Auto) Eos # (Auto) Baso # (Auto) Abs Immat Gran (auto) Absolute Neuts (auto) Absolute Nucleated RBC Nucleated RBC % (auto) PT INR VBG pH VBG pCO2 VBG pO2 VBG HCO3 VBG O2 Saturation VBG Base Excess Anion Gap Estim Creat Clear Calc Estimated GFR POC Glucose 525 H* Random Glucose Lactic Acid Calcium Phosphorus Magnesium Total Bilirubin AST ALT Alkaline Phosphatase Troponin I High Sens Total Protein Albumin Lipase Urine Color YELLOW Urine Appearance CLEAR Urine pH 5.5 Ur Specific [place] 1.025 Urine Protein 2+ H Urine Glucose (UA) >=1000 H Urine Ketones >=80 Urine Blood 1+ H Urine Nitrite NEG Ur Leukocyte Esterase NEG Urine RBC 1-4 Urine WBC 0-2 Ur Squamous Epith Cells TRACE Urine Bacteria TRACE Urine Yeast 1+ Urine Opiates Screen Not Detected Ur Barbiturates Screen Not Detected Ur Phencyclidine Scrn Not Detected Ur Amphetamines Screen Not Detected U Benzodiazepines Scrn Not Detected Urine Cocaine Screen Not Detected U Marijuana (THC) Screen Not Detected Ethyl Alcohol Acetone, Qual COVID-19 (KATINA) COVID-19 Clin Com 03/01/21 03/01/21 03/01/21 09:07 09:09 09:57 MCV MCH MCHC RDW Plt Count MPV Immature Gran % (Auto) Neut % (Auto) Lymph % (Auto) [place] % (Auto) Eos % (Auto) Baso % (Auto) Lymph # (Auto) [place] # (Auto) Eos # (Auto) Baso # (Auto) Abs Immat Gran (auto) Absolute Neuts (auto) Absolute Nucleated RBC Nucleated RBC % (auto) PT INR VBG pH VBG pCO2 VBG pO2 VBG HCO3 VBG O2 Saturation VBG Base Excess Anion Gap Estim Creat Clear Calc Estimated GFR POC Glucose 537 H* 588 H* 462 H* Random Glucose Lactic Acid Calcium Phosphorus Magnesium Total Bilirubin AST ALT Alkaline Phosphatase Troponin I High Sens Total Protein Albumin Lipase Urine Color Urine Appearance Urine pH Ur Specific [place] Urine Protein Urine Glucose (UA) Urine Ketones Urine Blood Urine Nitrite Ur Leukocyte Esterase Urine RBC Urine WBC Ur Squamous Epith Cells Urine Bacteria Urine Yeast Urine Opiates Screen Ur Barbiturates Screen Ur Phencyclidine Scrn Ur Amphetamines Screen U Benzodiazepines Scrn Urine Cocaine Screen U Marijuana (THC) Screen Ethyl Alcohol Acetone, Qual COVID-19 (KATINA) COVID-19 Clin [facility] 03/01/21 03/01/21 10:15 10:56 MCV MCH MCHC RDW Plt Count MPV Immature Gran % (Auto) Neut % (Auto) Lymph % (Auto) [place] % (Auto) Eos % (Auto) Baso % (Auto) Lymph # (Auto) [place] # (Auto) Eos # (Auto) Baso # (Auto) Abs Immat Gran (auto) Absolute Neuts (auto) Absolute Nucleated RBC Nucleated RBC % (auto) PT INR VBG pH VBG pCO2 VBG pO2 VBG HCO3 VBG O2 Saturation VBG Base Excess Anion Gap 22 H Estim Creat Clear Calc 29.5 Estimated GFR 29 POC Glucose 404 H* Random Glucose 499 H* Lactic Acid Calcium 9.3 D Phosphorus 3.9 Magnesium 2.7 H Total Bilirubin AST ALT Alkaline Phosphatase Troponin I High Sens Total Protein Albumin Lipase Urine Color Urine Appearance Urine pH Ur Specific [place] Urine Protein Urine Glucose (UA) Urine Ketones Urine Blood Urine Nitrite Ur Leukocyte Esterase Urine RBC Urine WBC Ur Squamous Epith Cells Urine Bacteria Urine Yeast Urine Opiates Screen Ur Barbiturates Screen Ur Phencyclidine Scrn Ur Amphetamines Screen U Benzodiazepines Scrn Urine Cocaine Screen U Marijuana (THC) Screen Ethyl Alcohol Acetone, Qual COVID-19 (KATINA) COVID-19 Clin Com Imaging Radiologist's Impressions: Impressions Chest X-Ray 03/01/21 05:14 IMPRESSION: Unremarkable chest examination. Cervical Spine CT 03/01/21 06:24 IMPRESSION: No acute intracranial process seen. Age-related cerebral volume loss with chronic small vessel ischemic changes. There is mild straightening of cervical lordosis. No visible acute fracture, dislocation or subluxation seen. There is moderate ventral spondylosis mid and lower cervical spine.. Head CT 03/01/21 06:24
[2021-03-01] MEDS: Haloperidol Lactate 5 MG/ML VIAL 2 MG IV (11:31)
[2021-03-01 11:45] LABS: Glucose, Whole Blood 457 mg/dL (60-115)
[2021-03-01 12:16] LABS: Glucose, Whole Blood 350 mg/dL (60-115)
[2021-03-01 12:26] LABS: Glucose Random 499 mg/dL (60-115)
[2021-03-01 14:06] LABS: Glucose, Whole Blood 290 mg/dL (60-115)
[2021-03-01 16:00] LABS: Glucose, Whole Blood 149 mg/dL (60-115)
[2021-03-01] MEDS: Lactated Ringers 1,000 ML 150 ML IVCONT (17:08)
[2021-03-01 17:25] LABS: Anion Gap 15 (12-20); Blood Urea Nitrogen 50 mg/dL (9-16); Calcium 9.1 mg/dL (8.4-10.2); Carbon Dioxide 23 mmol/L (22-29); Chloride 109 mmol/L (96-108); Creatinine Clr Calc Pharmacy 38.6; Estimated Glomerular Filt Rate 39; Glucose Random 139 mg/dL (60-115); Magnesium 2.5 mg/dL (1.6-2.6); Potassium 4.1 mmol/L (3.3-5.1); Sodium 143 mmol/L (135-145)
[2021-03-01] MEDS: lisinopriL 40 MG TABLET PO (17:35)
[2021-03-01 17:36] LABS: Phosphorus 2.4 mg/dL (2.7-4.5)
[2021-03-01 19:28] LABS: Glucose, Whole Blood 169 mg/dL (60-115)
[2021-03-01 20:22] LABS: Glucose, Whole Blood 220 mg/dL (60-115)
[2021-03-01] MEDS: Sodium,Potassium Phosphates POWD.PACK 2 PACKET PO (20:49)
[2021-03-01] MEDS: Melatonin 3 MG TABLET 6 MG PO (20:49)
[2021-03-01] MEDS: Insulin Lispro 100 UNIT/ML 3 ML VIAL SUBCUT (20:49)
[2021-03-01] MEDS: Atorvastatin Calcium 20 MG TABLET PO (20:49)
[2021-03-01] MEDS: Brimonidine Tartrate 0.2% Oph 5 ML BOTTLE 1 DROP EYE-BOTH (21:43)
[2021-03-01] MEDS: Latanoprost 0.005 % Ophth Sol 2.5 ML DROPS 1 DROP EYE-LEFT (21:43)
[2021-03-02] VITALS (7 sets, daily range): BP systolic 140–177; BP diastolic 62–85; PULSE 76–87; RESP 16–18; TEMP 36.2–36.8; O2SAT 95–100
[2021-03-02 01:24] LABS: Glucose, Whole Blood 207 mg/dL (60-115)
[2021-03-02] MEDS: Insulin Lispro 100 UNIT/ML 3 ML VIAL SUBCUT ×5 (01:57→20:39)
[2021-03-02] MEDS: Lactated Ringers 1,000 ML 150 ML IVCONT (01:59)
[2021-03-02] MEDS: SITagliptin Phosphate 100 MG TABLET PO (07:42)
[2021-03-02] MEDS: Brimonidine Tartrate 0.2% Oph 5 ML BOTTLE 1 DROP EYE-BOTH ×2 (07:42→20:40)
[2021-03-02] MEDS: Escitalopram Oxalate 20 MG TABLET PO (07:42)
[2021-03-02] MEDS: Loratadine 10 MG TABLET PO (07:42)
[2021-03-02] MEDS: Aspirin Enteric Coated 81 MG TABLET.DR PO (07:42)
[2021-03-02] MEDS: lisinopriL 40 MG TABLET PO (07:42)
[2021-03-02] MEDS: Cholecalciferol (Vitamin D3) 25 MCG TABLET 50 MCG PO (07:42)
[2021-03-02 08:03] LABS: Glucose, Whole Blood 177 mg/dL (60-115)
--- NOTE | 2021-03-02 08:52 | P.PNIM_ITS ---
Subjective Subjective Date of Service: 03/02/21 Interval History: Seen f/u for DKA, treated in ICU and [facility], DKA resolved, confused but proably at baseline Review of Systems Review of Systems: Yes Unobtainable due to mental status Physical Exam Vital Signs: Vital Signs: Last Vital Signs Temp 97.8 F 03/02/21 07:14 Pulse 78 03/02/21 07:42 Resp 17 03/02/21 07:14 BP 159/85 H 03/02/21 07:42 Pulse Ox 95 03/02/21 07:14 Body Mass Index 28.3 Const: Other: General: oriented to self only, no acute distress Resp: CTA bilateral CVS: S1,S2,RRR GI: +BS, NT, no distention Skin: No rash Neuro: motor grossly intact Psych: appropriate affect Objective Data Current Medications Generic Name Dose Route Start Last Admin Trade Name Freq PRN Reason Stop Dose Admin Aspirin 81 mg 03/02/21 09:00 03/02/21 07:42 Aspirin Enteric Coated 81 Mg Tablet. PO 81 mg DAILY TRAMAINE Administration Atorvastatin Calcium 20 mg 03/01/21 21:00 03/01/21 20:49 Atorvastatin Calcium 20 Mg Tablet PO 20 mg BEDTIME TRAMAINE Administration Brimonidine Tartrate 1 drop 03/01/21 21:00 03/02/21 07:42 Brimonidine Tartrate 0.2% Oph 5 Ml Bottle EYE-BOTH 1 drop BID TRAMAINE Administration Escitalopram Oxalate 20 mg 03/02/21 09:00 03/02/21 07:42 Escitalopram Oxalate 20 Mg Tablet PO 20 mg DAILY TRAMAINE Administration Fluticasone Propionate 1 spray 03/02/21 09:00 Fluticasone Propionate Nasal 16 Gm [place] NOSTRIL-B DAILY TRAMAINE Lactated Ringer's 1,000 mls @ 100 mls/hr 03/01/21 17:15 03/02/21 08:40 Lr IVCONT Infused .Q10H TRAMAINE Infusion Insulin Human Lispro 0 unit 03/01/21 19:00 03/02/21 07:41 Insulin Lispro 100 Unit/Ml 3 Ml Vial SUBCUT 4 unit Q6H TRAMAINE Administration Protocol Latanoprost 1 drop 03/01/21 21:00 03/01/21 21:43 Latanoprost 0.005 % Ophth Danielle 2.5 Ml Drops EYE-LEFT 1 drop BEDTIME TRAMAINE Administration Lisinopril 40 mg 03/01/21 17:25 03/02/21 07:42 Lisinopril 40 Mg Tablet PO 40 mg DAILY TRAMAINE Administration Protocol Loratadine 10 mg 03/02/21 09:00 03/02/21 07:42 Loratadine 10 Mg Tablet PO 10 mg DAILY TRAMAINE Administration Melatonin 6 mg 03/01/21 21:00 03/01/21 20:49 Melatonin 3 Mg Tablet PO 6 mg BEDTIME TRAMAINE Administration Sitagliptin Phosphate 100 mg 03/02/21 09:00 03/02/21 07:42 Sitagliptin Phosphate 100 Mg Tablet PO 100 mg DAILY TRAMAINE Administration Vitamin D 50 mcg 03/02/21 09:00 03/02/21 07:42 Cholecalciferol (Vitamin D3) 25 Mcg Tablet PO 50 mcg DAILY TRAMAINE Administration Labs CBC & Chem 7: 03/02/21 10:57 03/02/21 10:57 Microbiology Microbiology Results: Microbiology 03/01/21 05:36 Blood - Venous Blood Culture - Preliminary No growth after 24 hours. 03/01/21 05:34 Blood - Venous Blood Culture - Preliminary No growth after 24 hours. Assessment and Plan (1) DKA (diabetic ketoacidoses): Status: Acute (2) SULTANA (acute kidney injury): Status: Acute (3) Dementia: Status: Acute Assessment and Plan: 65yo M with uncontrolled DM2, HTN, dementia admitted to ICU for DKA precipitated by nonadherence DKA--d/t non-compliance, resolved DM--he is on Metformin, januvia at home--it is not clear if these are his actual meds and if he takes them Will have social investiagate home situation and how he takes meds, he seems pretty demented and I don't hink he has good understanding SULTANA--resolving, continue IVF # hyperK--resolved. # hypoNa - pseudohyponatremia due to hyperglycemia, resolved # HTN - continue lisinopril # HLD - continue statin # dementia--he has been donepezil, escitalopram in past not on med list now # dispo pt's daughter Neris Vance by phone [phone]. S
[2021-03-02] MEDS: Fluticasone Propionate Nasal 16 GM SPRAY 1 SPRAY NOSTRIL-B (09:18)
--- NOTE | 2021-03-02 10:08 | MHC.CM.PN ---
IMM 03/02/21, PT ADMITTED TO ICU W/DKA AND SULTANA, CM MET W/PT WHO IS A&O, PT REPORTS HE LIVES ALONE IN AN ELDER APT AND HAS DAILY VNA FOR DIABETES MANAGEMENT, PT ALSO REPORTS HE HAS A THERAPEUTIC RECREATION SPECIALIST FOR ASISTANCE W/ADL'S AND REPORTS HE CLEANS AND COOKS HIMSELF, CM CONTACTED PT'S STEP DTR/HCP WHO REPORTED HE DOES HAVE A VNA, NO THERAPEUTIC RECREATION SPECIALIST AND THAT PT WAS NOT OPENING DOOR FOR VNA WHO CALLED HER A FEW TIMES IN THE LAST WEEK, PT'S DTR/HCP WOULD LIKE PT TO GO TO [facility] AND NEEDS TO REGAIN HIS STRENGTH BACK. PER DTR SHE AND FAMILY WOULD LIKE HIM TO STAY LOCAL AND ONLY GO FOR A SHORT TIME, CM WILL START REFERRAL PROCESS AND REQUEST PT EVAL IF NOT ORDERED. DTR IS WORKING ON THERAPEUTIC RECREATION SPECIALIST SERVICES FOR PT. D/C PLAN: HOME W/RESUMP OF [facility] DAILY VISITS AND FAMILY VS BLS TRANSPORT PCP: JESSICA SCHMIDT MD AT [facility]
[2021-03-02] MEDS: Lactated Ringers 1,000 ML 100 ML IVCONT ×2 (11:02→20:39)
[2021-03-02 11:17] LABS: MANUAL DIFF FLAG NO
[2021-03-02 11:24] LABS: Glucose, Whole Blood 363 mg/dL (60-115)
[2021-03-02 12:00] LABS: Basophils Percent Auto 0.2 % (0-2); Eosinophils Absolute Auto 0.1 X10*3/uL (0.0-0.4); Eosinophils Percent Auto 1.2 % (0-4); Hematocrit 41.4 % (42-52); Imm Gran Abs Auto 0.04 X10*3/uL (0.00-0.03); Imm Gran Pct Auto 0.4 % (0.0-0.4); Lymphocytes Absolute Auto 2.2 X10*3/uL (1.2-4.9); Lymphocytes Percent Auto 20.9 % (20-40); Mean Corpuscular HGB Conc 33.8 g/dl (31.0-36.0); Mean Corpuscular Hemoglobin 30.6 pg (27.0-33.0); Mean Corpuscular Volume 90.4 fL (80-98); Mean Platelet Volume 11.4 fL (9.4-12.4); Monocytes Absolute Auto 0.7 X10*3/uL (0.1-1.2); Monocytes Percent Auto 7.1 % (2-11); Neutrophils Absolute Auto 7.3 X10*3/uL (2.0-8.3); Neutrophils Percent Auto 70.2 % (45-73); Platelet Count 229 X10*3/uL (160-400); Red Blood Count 4.58 X10*6/uL (4.60-5.80); Red Cell Distribution Width 11.9 % (11.0-16.0); White Blood Count 10.4 X10*3/uL (4.8-10.8)
[2021-03-02 14:02] LABS: Anion Gap 13 (12-20); Blood Urea Nitrogen 35 mg/dL (9-16); Calcium 8.5 mg/dL (8.4-10.2); Carbon Dioxide 24 mmol/L (22-29); Chloride 102 mmol/L (96-108); Creatinine Clr Calc Pharmacy 45.7; Estimated Glomerular Filt Rate 48; Glucose Random 405 mg/dL (60-115); Phosphorus 2.4 mg/dL (2.7-4.5); Potassium 4.4 mmol/L (3.3-5.1); Sodium 135 mmol/L (135-145)
--- NOTE | 2021-03-02 14:16 | PC.NURSE ---
1130- Pt POC was 370. Scheduled insulin due at 1300. made aware. Changed SSI from Q6 to QIDACHS. Pt given insulin per sliding scale, 18 units SSI. Pt ate lunch. No additional orders at this time.
[2021-03-02 17:04] LABS: Glucose, Whole Blood 260 mg/dL (60-115)
[2021-03-02 20:21] LABS: Glucose, Whole Blood 194 mg/dL (60-115)
[2021-03-02] MEDS: Atorvastatin Calcium 20 MG TABLET PO (20:39)
[2021-03-02] MEDS: Melatonin 3 MG TABLET 6 MG PO (20:39)
[2021-03-02] MEDS: Latanoprost 0.005 % Ophth Sol 2.5 ML DROPS 1 DROP EYE-LEFT (20:40)
[2021-03-02 23:24] LABS: Glucose, Whole Blood 86 mg/dL (60-115)
[2021-03-03 04:00] VITALS: BP 159/77; PULSE 78; RESP 15; TEMP 36.4; O2SAT 97
[2021-03-03] MEDS: Lactated Ringers 1,000 ML 100 ML IVCONT ×2 (05:44→15:52)
[2021-03-03 06:55] LABS: Anion Gap 12 (12-20); Blood Urea Nitrogen 22 mg/dL (9-16); Calcium 8.4 mg/dL (8.4-10.2); Carbon Dioxide 26 mmol/L (22-29); Chloride 103 mmol/L (96-108); Creatinine Clr Calc Pharmacy 61.4; Estimated Glomerular Filt Rate > 60; Glucose Random 318 mg/dL (60-115); Potassium 4.1 mmol/L (3.3-5.1); Sodium 137 mmol/L (135-145)
[2021-03-03 07:18] VITALS: BP 168/85; PULSE 78; RESP 16; TEMP 36.5; O2SAT 97
[2021-03-03 07:29] LABS: Glucose, Whole Blood 267 mg/dL (60-115)
[2021-03-03] MEDS: Insulin Lispro 100 UNIT/ML 3 ML VIAL SUBCUT ×4 (07:54→20:56)
[2021-03-03] MEDS: Cholecalciferol (Vitamin D3) 25 MCG TABLET 50 MCG PO (07:55)
[2021-03-03] MEDS: lisinopriL 40 MG TABLET PO (07:55)
[2021-03-03] MEDS: Loratadine 10 MG TABLET PO (07:55)
[2021-03-03] MEDS: Escitalopram Oxalate 20 MG TABLET PO (07:55)
[2021-03-03] MEDS: Aspirin Enteric Coated 81 MG TABLET.DR PO (07:56)
[2021-03-03] MEDS: Fluticasone Propionate Nasal 16 GM SPRAY 1 SPRAY NOSTRIL-B (07:56)
[2021-03-03] MEDS: Brimonidine Tartrate 0.2% Oph 5 ML BOTTLE 1 DROP EYE-BOTH ×2 (07:56→20:58)
[2021-03-03] MEDS: SITagliptin Phosphate 100 MG TABLET PO (07:58)
[2021-03-03 09:23] VITALS: BP 168/85; PULSE 78; O2SAT 97
--- NOTE | 2021-03-03 09:36 | MHC.CM.PN ---
PT EVAL AND ACTIVE MEDICATION LIST SENT TO [facility] VIA [facility]. CASE MANAGEMENT CONTINUING TO FOLLOW FOR DC
--- NOTE | 2021-03-03 10:22 | HO.PM.IMPN ---
Subjective Subjective Date of Service: 03/03/21 Interval History: Seen f/u for DKA, treated in ICU and [facility], DKA resolved, at baseline, blood sugar is better Physical Exam Vital Signs: Vital Signs: Last Vital Signs Temp 97.7 F 03/03/21 07:18 Pulse 78 03/03/21 09:23 Resp 16 03/03/21 07:18 BP 168/85 H 03/03/21 09:23 Pulse Ox 97 03/03/21 09:23 Body Mass Index 28.3 Const: Other: General: oriented to self only, no acute distress Resp: CTA bilateral CVS: S1,S2,RRR GI: +BS, NT, no distention Skin: No rash Neuro: motor grossly intact Psych: appropriate affect Objective Data Current Medications Generic Name Dose Route Start Last Admin Trade Name Freq PRN Reason Stop Dose Admin Aspirin 81 mg 03/02/21 09:00 03/03/21 07:56 Aspirin Enteric Coated 81 Mg Tablet. PO 81 mg DAILY TRAMAINE Administration Atorvastatin Calcium 20 mg 03/01/21 21:00 03/02/21 20:39 Atorvastatin Calcium 20 Mg Tablet PO 20 mg BEDTIME TRAMAINE Administration Brimonidine Tartrate 1 drop 03/01/21 21:00 03/03/21 07:56 Brimonidine Tartrate 0.2% Oph 5 Ml Bottle EYE-BOTH 1 drop BID TRAMAINE Administration Escitalopram Oxalate 20 mg 03/02/21 09:00 03/03/21 07:55 Escitalopram Oxalate 20 Mg Tablet PO 20 mg DAILY TRAMAINE Administration Fluticasone Propionate 1 spray 03/02/21 09:00 03/03/21 07:56 Fluticasone Propionate Nasal 16 Gm [place] NOSTRIL-B 1 spray DAILY TRAMAINE Administration Lactated Ringer's 1,000 mls @ 100 mls/hr 03/01/21 17:15 03/03/21 05:44 Lr IVCONT 100 mls/hr .Q10H TRAMAINE Administration Insulin Human Lispro 0 unit 03/02/21 16:30 03/03/21 07:54 Insulin Lispro 100 Unit/Ml 3 Ml Vial SUBCUT 12 unit QIDACHS TRAMAINE Administration Protocol Latanoprost 1 drop 03/01/21 21:00 03/02/21 20:40 Latanoprost 0.005 % Ophth Danielle 2.5 Ml Drops EYE-LEFT 1 drop BEDTIME TRAMAINE Administration Lisinopril 40 mg 03/01/21 17:25 03/03/21 07:55 Lisinopril 40 Mg Tablet PO 40 mg DAILY TRAMAINE Administration Protocol Loratadine 10 mg 03/02/21 09:00 03/03/21 07:55 Loratadine 10 Mg Tablet PO 10 mg DAILY TRAMAINE Administration Melatonin 6 mg 03/01/21 21:00 03/02/21 20:39 Melatonin 3 Mg Tablet PO 6 mg BEDTIME TRAMAINE Administration Sitagliptin Phosphate 100 mg 03/02/21 09:00 03/03/21 07:58 Sitagliptin Phosphate 100 Mg Tablet PO 100 mg DAILY TRAMAINE Administration Vitamin D 50 mcg 03/02/21 09:00 03/03/21 07:55 Cholecalciferol (Vitamin D3) 25 Mcg Tablet PO 50 mcg DAILY TRAMAINE Administration Labs CBC & Chem 7: 03/02/21 10:57 03/03/21 05:56 Microbiology Microbiology Results: Microbiology 03/01/21 05:36 Blood - Venous Blood Culture - Preliminary No growth after 48 hours. 03/01/21 05:34 Blood - Venous Blood Culture - Preliminary No growth after 48 hours. Assessment and Plan (1) DKA (diabetic ketoacidoses): Status: Acute (2) SULTANA (acute kidney injury): Status: Acute (3) Dementia: Status: Acute Assessment and Plan: 65yo M with uncontrolled DM2, HTN, dementia admitted to ICU for DKA precipitated by nonadherence DKA--d/t non-compliance and lack of understaning of how to take meds. He was treated in ICU with IV and insulin per DKA protocol and once DKA improved he was sent to to the the medical floor and continue treatment with IVF insulin and DKA is now completly resolved. DM--he is on Metformin, januvia at home--These can be resume upon discharge SULTANA--resolving, continue IVF # hyperK--resolved. # hypoNa - pseudohyponatremia due to hyperglycemia, resolved # HTN - continue lisinopril # HLD - continue statin # dementia--he has been donepezil, escitalopram in past not on med list now # Short term rehab
[2021-03-03 11:21] VITALS: BP 173/79; PULSE 75; RESP 17; TEMP 36.2; O2SAT 98
[2021-03-03 11:36] LABS: Glucose, Whole Blood 316 mg/dL (60-115)
[2021-03-03 15:17] VITALS: BP 165/79; PULSE 74; RESP 16; TEMP 36.4; O2SAT 96
--- NOTE | 2021-03-03 16:15 | MHC.CM.PN ---
DANIEL ([facility] EDUCATIONAL PSYCHOLOGY PROFESSOR) [phone]. DANIEL IS AWARE THAT POTENTIAL DC TOMORROW. IF PATIENT RETURN'S HOME, HE IS ACTIVE WITH [facility]. IF HE DC TO SNF, DANIEL IS ASKING FOR A REFERRAL TO [facility], IT WOULD BE CLOSER FOR FAMILY THAN THE OTHER CONTRACTED FACILITIES. DANIEL IS AWARE THAT FAMILY CHOICE WAS [facility], AND A REFERRAL IS PLACED. DANIEL WILL REMIND FAMILY OF CONTRACTED FACILITIES DANIEL REMINDED OF PATIENT CHOICE. CASE MANAGEMENT TO FOLLOW UP ON MONDAY. CASE MANAGEMENT TO SPEAK DIRECTLY TO PATIENT ABOUT CHOICE AND PLAN
[2021-03-03 16:27] LABS: Glucose, Whole Blood 262 mg/dL (60-115)
[2021-03-03 19:12] VITALS: BP 188/83; PULSE 84; RESP 16; TEMP 36.3; O2SAT 97
--- NOTE | 2021-03-03 20:17 | PC.NURSE ---
P BP 188/83 pulse 84,RSR on a panel monitor,patient has no complaints I Dr. Ruiz notified of the above E will monitor
[2021-03-03 20:43] LABS: Glucose, Whole Blood 197 mg/dL (60-115)
[2021-03-03] MEDS: Melatonin 3 MG TABLET 6 MG PO (20:57)
[2021-03-03] MEDS: Atorvastatin Calcium 20 MG TABLET PO (20:57)
[2021-03-03] MEDS: Latanoprost 0.005 % Ophth Sol 2.5 ML DROPS 1 DROP EYE-LEFT (20:58)
[2021-03-04] VITALS (7 sets, daily range): BP systolic 128–176; BP diastolic 65–86; PULSE 74–78; RESP 16–20; TEMP 36.1–36.6; O2SAT 96–99
[2021-03-04] MEDS: Lactated Ringers 1,000 ML 100 ML IVCONT (02:39)
[2021-03-04 07:49] LABS: Glucose, Whole Blood 274 mg/dL (60-115)
[2021-03-04] MEDS: Insulin Lispro 100 UNIT/ML 3 ML VIAL SUBCUT ×5 (08:08→20:31)
[2021-03-04] MEDS: lisinopriL 40 MG TABLET PO (08:09)
[2021-03-04] MEDS: Escitalopram Oxalate 20 MG TABLET PO (08:09)
[2021-03-04] MEDS: Loratadine 10 MG TABLET PO (08:09)
[2021-03-04] MEDS: Aspirin Enteric Coated 81 MG TABLET.DR PO (08:09)
[2021-03-04] MEDS: SITagliptin Phosphate 100 MG TABLET PO (08:09)
[2021-03-04] MEDS: Cholecalciferol (Vitamin D3) 25 MCG TABLET 50 MCG PO (08:09)
[2021-03-04] MEDS: Brimonidine Tartrate 0.2% Oph 5 ML BOTTLE 1 DROP EYE-BOTH ×2 (08:10→20:34)
[2021-03-04] MEDS: Fluticasone Propionate Nasal 16 GM SPRAY 1 SPRAY NOSTRIL-B (08:10)
--- NOTE | 2021-03-04 09:48 | MHC.CM.PN ---
CALL TO DANIEL ARRIAGA @ [phone] CASE MANAGEMENT ATTEMPTING TO SECURE A HCP DOCUMENTATION. 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
[2021-03-04 11:17] LABS: Glucose, Whole Blood 318 mg/dL (60-115)
--- NOTE | 2021-03-04 12:40 | P.DS_ITS ---
DS: Providers Provider Date of Service: 03/05/21 Date of admission: 03/01/21 07:59 Primary care physician: Azam Sanford DO DS: Diagnosis Discharge Diagnosis (1) DKA (diabetic ketoacidoses): Status: Acute (2) SULTANA (acute kidney injury): Status: Acute (3) Dementia: Status: Acute DS: Medications Discharge Medications Home Medications: Home Medications Medication Instructions Recorded Confirmed aspirin 81 mg PO DAILY 11/03/20 03/01/21 atorvastatin 20 mg PO BEDTIME 11/03/20 03/01/21 brimonidine 1 drp OPHTHALMIC (EYE) BID 11/03/20 03/01/21 cholecalciferol (vitamin D3) 50 mcg PO DAILY 11/03/20 03/01/21 [Vitamin D3] escitalopram oxalate 20 mg PO DAILY 11/03/20 03/01/21 latanoprost 1 drp OPHTHALMIC-LEFT QPM 11/03/20 03/01/21 loratadine 10 mg PO DAILY 11/03/20 03/01/21 melatonin 6 mg PO BEDTIME 11/03/20 03/01/21 fluticasone propionate [Flonase] 1 spray INTRANASAL DAILY 03/01/21 03/01/21 gabapentin 300 mg PO BEDTIME 03/01/21 03/01/21 insulin lispro [Humalog KwikPen 20 unit SUBCUT BID 03/01/21 03/01/21 Insulin] lisinopril 40 mg PO DAILY 03/01/21 03/01/21 Previous Rx's Medication Instructions Recorded Januvia 100 mg PO DAILY #30 tab 11/06/20 Lantus Solostar U-100 Insulin 46 unit SUBCUT BID #10 ea 11/06/20 blood pressure monitor [Blood #1 ea 11/06/20 Pressure Kit] blood sugar diagnostic [FreeStyle #100 ea 11/06/20 Lite Strips] blood-glucose meter [FreeStyle #1 ea 11/06/20 Lite Meter] lancets [FreeStyle Lancets] #100 ea 11/06/20 metformin 1,000 mg PO BID #60 tab 11/06/20 pen needle, diabetic #100 ea 11/06/20 DS: Summary Hospital Course Hospital Course: HPI by ICU provider The patient is a 65-year-old insulin-dependent type 2 diabetic w CKD who is noncompliant with meds and has some dementia or cognitive defect. Was admitted to [facility] in Oct with a similar episode. He reportedly lives alone in elderly housing. Per Dr. Mason in the ED, the patient was BIBA to the ED early this morning after having pulled the medical alarm in his apartment building. At the scene, EMS noted that patient was lying on the ground and minimally responsive. Narcan 0.4mg was administered with unclear result. In the ED, the patient denied pain. In the ED the patient was afebrile. Heart rate was 105, blood pressure 191/86, respiratory rate was 22, with a sat of 95% on room air. The general physical exam was unremarkable. And the patient was reportedly alert and oriented x2. Labs in the ED were notable for a white count of 12.4, hemoglobin of 17 (baseline 14), venous pH 7.2, pCO2 32, base excess -12, sodium 139, potassium 5.7, bicarb 15, BUN and creatinine 54/2.5 (baseline 1.0), glucose 684, lactic acid 2.5, normal LFTs, albumin 4.4 (baseline 3.4). Patient was given 2 L of normal saline, subcutaneous insulin, and then started an insulin drip. He was then admitted to the ICU. On my exam, the patient is clearly awake but does not answer my questions. He is fidgeting and pulling at his IVs and his clothing. We gave him 2 mg of Haldol without much effect. Heart rate is about 97, blood pressure 148/70, respiratory rate about 20, with a sat of 95% on room air. No JVD with the head of the bed at 30 degrees. Chest is clear to auscultation, with normal expiratory phase. Heart rate and rhythm are regular with normal-sounding S1-S2 without any murmur or gallop. The abdomen is benign. I do not feel any liver. He has no edema. LABORATORY DATA: Follow-up labs and 07 09 show sodium 142, potassium 4.3, bicarb up to 17, BUN and creatinine down to 52/2.2, glucose down to 499, phosphorus 3.9, magnesium 2.7. He was admitted to ICU for the mangement of the following 1. Underlying dementia. 2. DKA undoubtedly secondary to medication noncompliance. I spoke with the patient's personal physician who confirmed the patient has frequent noncomplian ce, mainly because of poor understanding and insight. Usual management with fluid resuscitation, intravenous insulin, and electrolytes as needed. 3. No sepsis. 4. Acute kidney injury. Secondary to hypovolemia. Continue volume resuscitation. Hospital course: The patient was admittd to the ICU and treated with with IV fluid and IV insulin per DKA protocaol with resolution of DKA, it is likely that he is non-compliant with meds at home or has poor understand of meds at home. His renal failure corrected with IVF. He is been discharge to restart his home meds. Furthermore he has been debilated from hospitalization and PT recommend short term rehab Time Spent with Patient Time attestation: Total time spent providing and/or coordinating discharge services: Discharge coordination time: Greater than 30 minutes Quality: Stroke Does the patient have a stroke diagnosis?: No Physical Exam Vital Signs: Vital Signs: Selected Entries 03/05/21 07:41 Temperature 96.9 F Pulse Rate 77 Respiratory Rate 18 Blood Pressure 159/81 H Pulse Oximetry 98 Oxygen Delivery Me thod Room Air Body Mass Index 28.3 Constitutional Awake and Alert, No apparent distress Neck Supple, No lymphadenopathy Cardiovascular RRR, No M/R/G, S1 S2, No S3 S4, No pedal edema Respiratory Lungs clear, No respiratory distress Gastrointestinal Non tender, Non-distended Skin No rash Neurological Alert & oriented x2 Psychological Appropriate affect DS: Data Data Completed and Pending Labs on day of discharge: Laboratory Results - last 24 hr 03/03/21 03/03/21 03/04/21 16:17 20:35 07:09 POC Glucose 262 H 197 H 274 H 03/04/21 11:10 POC Glucose 318 H Preliminary micro results at discharge 03/01/21 05:36 Blood Culture - Preliminary Blood - Venous No growth after 48 hours. 03/01/21 05:34 Blood Culture - Preliminary Blood - Venous No growth after 48 hours. Discharge Plan Discharge Anticipated Discharge Date/Time: 03/05/21 07:48 Patient Disposition: Xfer SNF Discharge Diagnosis: DKA Referrals: Azam Sanford DO [Primary Care Provider] - 1 Week Discharge Medications: Continued latanoprost 0.005 % Drops 1 drp ophthalmic-Left QPM RF: 0 atorvastatin 20 mg Tablet 20 mg PO BEDTIME RF: 0 melatonin 3 mg Tablet 6 mg PO BEDTIME RF: 0 aspirin 81 mg Tablet,Delayed Release (Dr/Ec) 81 mg PO DAILY RF: 0 brimonidine 0.2 % Drops 1 drp OPHTHALMIC (EYE) BID RF: 0 loratadine 10 mg Tablet 10 mg PO DAILY RF: 0 escitalopram oxalate 20 mg Tablet 20 mg PO DAILY RF: 0 cholecalciferol (vitamin D3) [Vitamin D3] 50 mcg (2,000 unit) Capsule 50 mcg PO DAILY RF: 0 (DME) pen needle, diabetic 31 gauge x 3/16 needle See Rx Instructions .ROUTE .MEDSUPPLY Qty: 100 RF: 11 (DME) FreeStyle Lite Strips Strip See Rx Instructions .ROUTE .MEDSUPPLY Qty: 100 RF: 0 (DME) blood-glucose meter [FreeStyle Lite Meter] Kit See Rx Instructions .ROUTE .MEDSUPPLY Qty: 1 RF: 0 (DME) lancets [FreeStyle Lancets] 28 gauge misc See Rx Instructions .ROUTE .MEDSUPPLY Qty: 100 RF: 11 metformin 1,000 mg Tablet 1,000 mg PO BID Qty: 60 RF: 0 Januvia 100 mg Tablet 100 mg PO DAILY Qty: 30 RF: 0 (DME) blood pressure monitor [Blood Pressure Kit] Kit See Rx Instructions .ROUTE .MEDSUPPLY Qty: 1 RF: 0 gabapentin 300 mg capsule 300 mg PO BEDTIME RF: 0 lisinopril 40 mg tablet 40 mg PO DAILY RF: 0 insulin lispro [Humalog KwikPen Insulin] 100 unit/mL insulin pen 20 unit SUBCUT BID RF: 0 fluticasone propionate 50 mcg/actuation [place],Suspension 1 spray INTRANASAL DAILY RF: 0 Changed Lantus Solostar U-100 Insulin 100 unit/mL (3 mL) Insulin Pen 30 unit SUBCUT BID Qty: 10 RF: 0 Discharge Orders: Discharge Order (Routine); Ordered 03/04/21 Ordered By: Patrick Son Diet: advance to usual diet Activity on Discharge: As tolerated Stand Alone Forms: Patient Portal Discharge page Care Plan Goals: Prevent rehospitalization, prevent DKA Health Concerns: diabetes with DKA Plan of Treatment: Take all your medications as directed, please note that Solostar has been reduced from 46bid to 30 bid Assessment: See above Discharge Date/Time: 03/05/21 13:05
[2021-03-04 13:00] LABS: Glucose, Whole Blood 409 mg/dL (60-115)
[2021-03-04] MEDS: Insulin Glargine,Hum.rec.anlog 100 UNIT/ML 10 ML VIAL 30 UNIT SUBCUT ×2 (13:17→20:30)
--- NOTE | 2021-03-04 13:34 | MHC.CM.PN ---
John Strauss attempting authorization. Patient possible 1800 DC to facility today.
[2021-03-04 13:54] LABS: Glucose, Whole Blood 375 mg/dL (60-115)
--- NOTE | 2021-03-04 14:55 | MHC.CM.PN ---
PATIENT TO REMAIN TONIGHT AND LIKELY DC TO [facility] MONDAY. SNF MADE AWARE.
--- NOTE | 2021-03-04 15:00 | MHC.CM.PN ---
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 HE STATES I MAKE UP MY OWN MIND .
[2021-03-04 15:38] LABS: Glucose, Whole Blood 336 mg/dL (60-115)
--- NOTE | 2021-03-04 15:45 | P.PNIM_ITS ---
Subjective Subjective Date of Service: 03/04/21 Interval History: Seen f/u for DKA, treated in ICU and [facility], DKA resolved, at baseline, blood sugars are very high today, over 400 Review of Systems no chest pain, no sob, no fever Physical Exam Vital Signs: Vital Signs: Last Vital Signs Temp 97 F 03/04/21 15:11 Pulse 75 03/04/21 15:11 Resp 18 03/04/21 15:11 BP 162/77 H 03/04/21 15:11 Pulse Ox 99 03/04/21 15:11 Body Mass Index 28.3 Const: Other: General: oriented to self only, no acute distress Resp: CTA bilateral CVS: S1,S2,RRR GI: +BS, NT, no distention Skin: No rash Neuro: motor grossly intact Psych: appropriate affect Objective Data Current Medications Generic Name Dose Route Start Last Admin Trade Name Freq PRN Reason Stop Dose Admin Aspirin 81 mg 03/02/21 09:00 03/04/21 08:09 Aspirin Enteric Coated 81 Mg Tablet. PO 81 mg DAILY TRAMAINE Administration Atorvastatin Calcium 20 mg 03/01/21 21:00 03/03/21 20:57 Atorvastatin Calcium 20 Mg Tablet PO 20 mg BEDTIME TRAMAINE Administration Brimonidine Tartrate 1 drop 03/01/21 21:00 03/04/21 08:10 Brimonidine Tartrate 0.2% Oph 5 Ml Bottle EYE-BOTH 1 drop BID TRAMAINE Administration Escitalopram Oxalate 20 mg 03/02/21 09:00 03/04/21 08:09 Escitalopram Oxalate 20 Mg Tablet PO 20 mg DAILY TRAMAINE Administration Fluticasone Propionate 1 spray 03/02/21 09:00 03/04/21 08:10 Fluticasone Propionate Nasal 16 Gm [place] NOSTRIL-B 1 spray DAILY TRAMAINE Administration Lactated Ringer's 1,000 mls @ 100 mls/hr 03/01/21 17:15 03/04/21 12:54 Lr IVCONT Not Given .Q10H TRAMAINE Insulin Glargine 30 unit 03/04/21 14:00 03/04/21 13:17 Insulin Glargine,Hum.Rec.Anlog 100 Unit/Ml 10 Ml Vial SUBCUT 30 unit BID TRAMAINE Administration Insulin Human Lispro 0 unit 03/02/21 16:30 03/04/21 11:36 Insulin Lispro 100 Unit/Ml 3 Ml Vial SUBCUT 15 unit QIDACHS TRAMAINE Administration Protocol Latanoprost 1 drop 03/01/21 21:00 03/03/21 20:58 Latanoprost 0.005 % Ophth Danielle 2.5 Ml Drops EYE-LEFT 1 drop BEDTIME TRAMAINE Administration Lisinopril 40 mg 03/01/21 17:25 03/04/21 08:09 Lisinopril 40 Mg Tablet PO 40 mg DAILY TRAMAINE Administration Protocol Loratadine 10 mg 03/02/21 09:00 03/04/21 08:09 Loratadine 10 Mg Tablet PO 10 mg DAILY TRAMAINE Administration Melatonin 6 mg 03/01/21 21:00 03/03/21 20:57 Melatonin 3 Mg Tablet PO 6 mg BEDTIME TRAMAINE Administration Sitagliptin Phosphate 100 mg 03/02/21 09:00 03/04/21 08:09 Sitagliptin Phosphate 100 Mg Tablet PO 100 mg DAILY TRAMAINE Administration Vitamin D 50 mcg 03/02/21 09:00 03/04/21 08:09 Cholecalciferol (Vitamin D3) 25 Mcg Tablet PO 50 mcg DAILY TRAMAINE Administration Labs CBC & Chem 7: 03/02/21 10:57 03/03/21 05:56 Microbiology Microbiology Results: Microbiology 03/01/21 05:36 Blood - Venous Blood Culture - Preliminary No growth after 48 hours. 03/01/21 05:34 Blood - Venous Blood Culture - Preliminary No growth after 48 hours. Assessment and Plan (1) DKA (diabetic ketoacidoses): Status: Acute (2) SULTANA (acute kidney injury): Status: Acute (3) Dementia: Status: Acute Assessment and Plan: 65yo M with uncontrolled DM2, HTN, dementia admitted to ICU for DKA precipitated by nonadherence DKA--d/t non-compliance and lack of understaning of how to take meds. He was treated in ICU with IV and insulin per DKA protocol and once DKA improved he was sent to to the the medical floor and continue treatment with IVF insulin and DKA is now completly resolved. DM--he is on Metformin, januvia and solostart 46 bid --add Lantus 30 bid -resume Metformin, sliding scale SULTANA--resolved, dc IVF # hyperK--resolved. # hypoNa--resolved # HTN - continue lisinopril # HLD - continue statin # dementia--he has been donepezil, escitalopram in past not on med list now # Short term rehab tomorrow
[2021-03-04 16:46] LABS: Glucose, Whole Blood 265 mg/dL (60-115)
[2021-03-04] MEDS: metFORMIN HCl 500 MG TABLET PO (16:54)
[2021-03-04 20:07] LABS: Glucose, Whole Blood 177 mg/dL (60-115)
[2021-03-04] MEDS: Melatonin 3 MG TABLET 6 MG PO (20:31)
[2021-03-04] MEDS: Atorvastatin Calcium 20 MG TABLET PO (20:31)
[2021-03-04] MEDS: Latanoprost 0.005 % Ophth Sol 2.5 ML DROPS 1 DROP EYE-LEFT (20:35)
[2021-03-05 03:13] VITALS: BP 172/80; PULSE 73; RESP 17; TEMP 36.1; O2SAT 97
[2021-03-05 07:41] VITALS: BP 159/81; PULSE 77; RESP 18; TEMP 36.1; O2SAT 98
[2021-03-05 08:01] LABS: Glucose, Whole Blood 256 mg/dL (60-115)
[2021-03-05] MEDS: Insulin Lispro 100 UNIT/ML 3 ML VIAL SUBCUT ×2 (08:11→12:18)
[2021-03-05] MEDS: Insulin Glargine,Hum.rec.anlog 100 UNIT/ML 10 ML VIAL 30 UNIT SUBCUT (08:14)
[2021-03-05] MEDS: Loratadine 10 MG TABLET PO (08:14)
[2021-03-05] MEDS: Escitalopram Oxalate 20 MG TABLET PO (08:14)
[2021-03-05 08:15] VITALS: BP 159/84; PULSE 77
[2021-03-05] MEDS: metFORMIN HCl 500 MG TABLET PO (08:15)
[2021-03-05] MEDS: lisinopriL 40 MG TABLET PO (08:15)
[2021-03-05] MEDS: Aspirin Enteric Coated 81 MG TABLET.DR PO (08:15)
[2021-03-05] MEDS: SITagliptin Phosphate 100 MG TABLET PO (08:15)
[2021-03-05] MEDS: Cholecalciferol (Vitamin D3) 25 MCG TABLET 50 MCG PO (08:16)
[2021-03-05] MEDS: Brimonidine Tartrate 0.2% Oph 5 ML BOTTLE 1 DROP EYE-BOTH (08:19)
--- NOTE | 2021-03-05 08:54 | MHC.CM.PN ---
PATIENT TO TRANSFER TO [facility] TODAY. RN AND UNIT AWARE OF PLAN. 1100 TRANSPORT REQUESTED OF [facility]
--- NOTE | 2021-03-05 08:57 | MHC.CM.PN ---
MEHUL PIO COORDINATOR FOR [facility] [phone] NICO MADE AWARE OF PLAN. DC SUMMARY FAXED TO [phone] PER BRENDA'S REQUEST
[2021-03-05 11:41] LABS: Glucose, Whole Blood 194 mg/dL (60-115)
== END 2021-03-05 13:05 | disposition skilled nursing facility (03) | DRG 638 ==
LOC: HO.ED 07:29 → HO.ICU 08:05 → HO.S3 19:19
PROVIDERS: Admitting Provider Anesthesiology; Emergency Provider Student in an Organized Health Care Education/Training Program; PCP Internal Medicine Hospice and Palliative Medicine; Visit Provider Internal Medicine
DX: E11.10 Type 2 diabetes mellitus with ketoacidosis without coma (principal); N17.9 Acute kidney failure, unspecified; E87.1 Hypo-osmolality and hyponatremia; F03.90 Unspecified dementia, unspecified severity, without behavioral disturbance, psychotic disturbance, mood disturbance, and anxiety; E11.22 Type 2 diabetes mellitus with diabetic chronic kidney disease; E87.5 Hyperkalemia; Z91.14 Patient's other noncompliance with medication regimen; N18.9 Chronic kidney disease, unspecified; E86.1 Hypovolemia; Z20.822 Contact with and (suspected) exposure to COVID-19; Z79.4 Long term (current) use of insulin; Z79.51 Long term (current) use of inhaled steroids; Z79.82 Long term (current) use of aspirin; Z79.899 Other long term (current) drug therapy
CPT/HCPCS: 36415; 70450; 71045; 72125; 80048; 80053; 80307; 81001; 82009; 82077; 82947; 83605; 83690; 83735; 84100; 84484; 85025; 85610; 87040; 87635; 93005; 97162; 99284

== ENCOUNTER 2021-05-14 16:43 | Emergency (ER) | payer MEDICARE, MEDICAID, SELFPAY ==
--- NOTE | 2021-05-14 | ECG_ITS ---
Test Reason : GENERAL Blood Pressure : / mmHG Vent. Rate : 083 BPM Atrial Rate : 083 BPM P-R Int : 150 ms QRS Dur : 104 ms QT Int : 396 ms P-R-T Axes : 051 005 120 degrees QTc Int : 465 ms Normal sinus rhythm Low voltage QRS T wave abnormality, consider lateral ischemia Prolonged QT Abnormal ECG When compared with ECG of 01-MAR-2021 05:17, No significant change was found Referred By: Generic ED Physician Electronically Signed By:BOBBY VAUGHAN
[2021-05-14 16:58] LABS: Glucose, Whole Blood 80 mg/dL (60-115)
[2021-05-14 17:02] VITALS: BP 190/87; PULSE 89; RESP 16; TEMP 35.9; O2SAT 99; BMI 25.8
[2021-05-14 17:21] LABS: Glucose, Whole Blood 132 mg/dL (60-115)
[2021-05-14 18:00] VITALS: BP 144/79; PULSE 74; RESP 16; TEMP 36.4; O2SAT 99
[2021-05-14 18:40] VITALS: BP 156/65; PULSE 75; RESP 16; O2SAT 98
[2021-05-14 19:44] LABS: MANUAL DIFF FLAG NO
[2021-05-14 19:46] LABS: Basophils Percent Auto 0.3 % (0-2); Eosinophils Absolute Auto 0.1 X10*3/uL (0.0-0.4); Eosinophils Percent Auto 1.2 % (0-4); Hematocrit 42.4 % (42-52); Hemoglobin 14.5 g/dl (14.0-18.0); Imm Gran Abs Auto 0.05 X10*3/uL (0.00-0.03); Imm Gran Pct Auto 0.5 % (0.0-0.4); Lymphocytes Absolute Auto 2.1 X10*3/uL (1.2-4.9); Lymphocytes Percent Auto 21.4 % (20-40); Mean Corpuscular HGB Conc 34.2 g/dl (31.0-36.0); Mean Corpuscular Hemoglobin 30.5 pg (27.0-33.0); Mean Corpuscular Volume 89.3 fL (80-98); Mean Platelet Volume 10.8 fL (9.4-12.4); Monocytes Absolute Auto 0.7 X10*3/uL (0.1-1.2); Monocytes Percent Auto 7.6 % (2-11); Neutrophils Absolute Auto 6.7 X10*3/uL (2.0-8.3); Platelet Count 216 X10*3/uL (160-400); Red Blood Count 4.75 X10*6/uL (4.60-5.80); Red Cell Distribution Width 12.2 % (11.0-16.0); White Blood Count 9.7 X10*3/uL (4.8-10.8)
[2021-05-14 20:14] LABS: Anion Gap 14 (12-20); Blood Urea Nitrogen 20 mg/dL (9-16); Calcium 9.3 mg/dL (8.4-10.2); Carbon Dioxide 24 mmol/L (22-29); Chloride 107 mmol/L (96-108); Creatinine Clr Calc Pharmacy 62.1; Estimated Glomerular Filt Rate > 60; Glucose Random 111 mg/dL (60-115); Sodium 141 mmol/L (135-145)
--- NOTE | 2021-05-14 20:34 | ED_ITS ---
HPI - General Adult General Chief complaint: General Medical Stated complaint: confusion/hypoglycemia Time Seen by Provider: 05/14/21 19:03 History of Present Illness HPI narrative: Patient is diabetic and took his insulin this morning and then complained that he felt dizzy and weak and EMS was called and he was found to have a sugar of 40, was given glucose and felt improved and right now he is without complaint He says he only uses the insulin twice a day he did take the morning insulin he does not use any oral hypoglycemic and is hungry now Related Data Home Medications Medication Instructions Recorded Confirmed aspirin 81 mg tablet,delayed 81 mg PO DAILY 11/03/20 03/01/21 release atorvastatin 20 mg tablet 20 mg PO BEDTIME 11/03/20 03/01/21 brimonidine 0.2 % eye drops 1 drp OPHTHALMIC (EYE) BID 11/03/20 03/01/21 cholecalciferol (vitamin D3) 50 50 mcg PO DAILY 11/03/20 03/01/21 mcg (2,000 unit) capsule (Vitamin D3) escitalopram oxalate 20 mg tablet 20 mg PO DAILY 11/03/20 03/01/21 latanoprost 0.005 % eye drops 1 drp OPHTHALMIC-LEFT QPM 11/03/20 03/01/21 loratadine 10 mg tablet 10 mg PO DAILY 11/03/20 03/01/21 melatonin 3 mg tablet 6 mg PO BEDTIME 11/03/20 03/01/21 fluticasone propionate 50 1 spray INTRANASAL DAILY 03/01/21 03/01/21 mcg/actuation nasal spray,suspension gabapentin 300 mg capsule 300 mg PO BEDTIME 03/01/21 03/01/21 insulin lispro 100 unit/mL 20 unit SUBCUT BID 03/01/21 03/01/21 subcutaneous pen (Humalog KwikPen (U-100) Insulin) lisinopril 40 mg tablet 40 mg PO DAILY 03/01/21 03/01/21 Previous Rx's Medication Instructions Recorded blood pressure monitor (Blood #1 ea 11/06/20 Pressure Kit) blood sugar diagnostic (FreeStyle #100 ea 11/06/20 Lite Strips) blood-glucose meter (FreeStyle #1 ea 11/06/20 Lite Meter) lancets 28 gauge (FreeStyle #100 ea 11/06/20 Lancets) metformin 1,000 mg tablet 1,000 mg PO BID #60 tab 11/06/20 pen needle, diabetic 31 gauge x #100 ea 11/06/20 3/16 sitagliptin 100 mg tablet (Januvia) 100 mg PO DAILY #30 tab 11/06/20 insulin glargine 100 unit/mL (3 30 unit SUBCUT BID #10 ea 03/04/21 mL) subcutaneous pen (Lantus Solostar U-100 Insulin) Allergies Allergy/AdvReac Type Severity Reaction Status Date / Time No Known Allergies Allergy Verified 11/07/20 17:45 Review of Systems Review of Systems: Positive for resolved episode of dizziness and weakness Negatives no dizziness or weakness now no fainting or feeling faint now no headache no neck pain no chest pain no shortness of breath no palpitations no ab dominal pain no confusion Yes all other systems are reviewed and are negative FOR[facility]LY [facility] Past Medical History Source: nursing notes reviewed Medical History Dementia Diabetes Uncontrolled type 2 diabetes mellitus Social History Social History Household Members: None Household Members Other:: lives alone per stepdaughter Housing: Apartment Housing Other:: elderly apartments Alcohol intake: unknown Advance Directives: No Advance Directives Information Provided: No service: No Current occupational status: retired Physical Exam Vital Signs: Vital Signs: Last Vital Signs Temp 97.9 F 05/14/21 20:42 Pulse 99 05/14/21 20:42 Resp 16 05/14/21 20:42 BP 191/101 H 05/14/21 20:42 Pulse Ox 98 05/14/21 20:42 Body Mass Index 25.8 General appearance no acute distress Pupils equal round reactive to light extraocular motions are intact The neck is supple Chest clear to auscultation bilateral Heart no murmur Abdomen soft nontender Extremities full range of motion x4 Neuro interaction both comprehension and expression are normal, gait and balance are normal, cranial nerves 2-12 intact as tested, motor is 5/5 x4 and sensation intact and symmetrical Course Course Course Narrative: Patient was given several sandwiches to eat and drank apple juice, electrolyte testing and CBC did not indicate any acute abnormality Repeat fingersticks showed improving glucose any was discharged with a glucose of 152, advised not to take his insulin tonight and to resume normal insulin use and make sure he eats after taking his insulin and advised to check his fingersticks He is well-appearing with no dizziness and was discharged Medical Decision Making Lab Data Result diagrams: 05/14/21 19:41 05/14/21 19:41 Labs: Lab Results 05/14/21 05/14/21 05/14/21 Range/Units 16:54 17:16 19:41 WBC 9.7 (4.8-10.8) X10*3/uL RBC 4.75 (4.60-5.80) X10*6/uL Hgb 14.5 (14.0-18.0) g/dl Hct 42.4 (42-52) % MCV 89.3 (80-98) fL MCH 30.5 (27.0-33.0) pg MCHC 34.2 (31.0-36.0) g/dl RDW 12.2 (11.0-16.0) % Plt Count 216 (160-400) X10*3/uL MPV 10.8 (9.4-12.4) fL Immature Gran % (Auto) 0.5 H (0.0-0.4) % Neut % (Auto) 69.0 (45-73) % Lymph % (Auto) 21.4 (20-40) % [place] % (Auto) 7.6 (2-11) % Eos % (Auto) 1.2 (0-4) % Baso % (Auto) 0.3 (0-2) % Lymph # (Auto) 2.1 (1.2-4.9) X10*3/uL [place] # (Auto) 0.7 (0.1-1.2) X10*3/uL Eos # (Auto) 0.1 (0.0-0.4) X10*3/uL Baso # (Auto) 0.0 (0.0-0.2) X10*3/uL Abs Immat Gran (auto) 0.05 H (0.00-0.03) X10*3/uL Absolute Neuts (auto) 6.7 (2.0-8.3) X10*3/uL Absolute Nucleated RBC 0.000 (0.0-0.012) X10*3/uL Nucleated RBC % (auto) 0.0 (0.0-0.2) /100WBC Sodium (135-145) mmol/L Potassium (3.3-5.1) mmol/L Chloride (96-108) mmol/L Carbon Dioxide (22-29) mmol/L Anion Gap (12-20) BUN (9-16) mg/dL Creatinine (0.5-1.4) mg/dL Estim Creat Clear Calc Estimated GFR POC Glucose 80 132 H (60-115) mg/dL Random Glucose (60-115) mg/dL Calcium (8.4-10.2) mg/dL 05/14/21 05/14/21 Range/Units 19:41 20:36 WBC (4.8-10.8) X10*3/uL RBC (4.60-5.80) X10*6/uL Hgb (14.0-18.0) g/dl Hct (42-52) % MCV (80-98) fL MCH (27.0-33.0) pg MCHC (31.0-36.0) g/dl RDW (11.0-16.0) % Plt Count (160-400) X10*3/uL MPV (9.4-12.4) fL Immature Gran % (Auto) (0.0-0.4) % Neut % (Auto) (45-73) % Lymph % (Auto) (20-40) % [place] % (Auto) (2-11) % Eos % (Auto) (0-4) % Baso % (Auto) (0-2) % Lymph # (Auto) (1.2-4.9) X10*3/uL [place] # (Auto) (0.1-1.2) X10*3/uL Eos # (Auto) (0.0-0.4) X10*3/uL Baso # (Auto) (0.0-0.2) X10*3/uL Abs Immat Gran (auto) (0.00-0.03) X10*3/uL Absolute Neuts (auto) (2.0-8.3) X10*3/uL Absolute Nucleated RBC (0.0-0.012) X10*3/uL Nucleated RBC % (auto) (0.0-0.2) /100WBC Sodium 141 (135-145) mmol/L Potassium 4.0 (3.3-5.1) mmol/L Chloride 107 (96-108) mmol/L Carbon Dioxide 24 (22-29) mmol/L Anion Gap 14 (12-20) BUN 20 H (9-16) mg/dL Creatinine 1.04 (0.5-1.4) mg/dL Estim Creat Clear Calc 62.1 Estimated GFR > 60 POC Glucose 156 H (60-115) mg/dL Random Glucose 111 D (60-115) mg/dL Calcium 9.3 D (8.4-10.2) mg/dL Discharge Plan Discharge Clinical Impression: Hypoglycemia Patient Disposition: Home, Self-Care Additional Instructions: Do not take your insulin tonight Checked the sugar in the morning before you take your next insulin and then resume regular insulin and eating schedule Return to ER any time any worse condition or any concerns Prescriptions: No [facility] latanoprost 0.005 % Drops 1 drp ophthalmic-Left QPM RF: 0 atorvastatin 20 mg Tablet 20 mg PO BEDTIME RF: 0 melatonin 3 mg Tablet 6 mg PO BEDTIME RF: 0 aspirin 81 mg Tablet,Delayed Release (Dr/Ec) 81 mg PO DAILY RF: 0 brimonidine 0.2 % Drops 1 drp OPHTHALMIC (EYE) BID RF: 0 loratadine 10 mg Tablet 10 mg PO DAILY RF: 0 escitalopram oxalate 20 mg Tablet 20 mg PO DAILY RF: 0 cholecalciferol (vitamin D3) [Vitamin D3] 50 mcg (2,000 unit) Capsule 50 mcg PO DAILY RF: 0 (DME) pen needle, diabetic 31 gauge x 3/16 needle See Rx Instructions .ROUTE .MEDSUPPLY Qty: 100 RF: 11 (DME) FreeStyle Lite Strips Strip See Rx Instructions .ROUTE .MEDSUPPLY Qty: 100 RF: 0 (DME) blood-glucose meter [FreeStyle Lite Meter] Kit See Rx Instructions .ROUTE .MEDSUPPLY Qty: 1 RF: 0 (DME) lancets [FreeStyle Lancets] 28 gauge misc See Rx Instructions .ROUTE .MEDSUPPLY Qty: 100 RF: 11 metformin 1,000 mg Tablet 1,000 mg PO BID Qty: 60 RF: 0 Januvia 100 mg Tablet 100 mg PO DAILY Qty: 30 RF: 0 (DME) blood pressure monitor [Blood Pressure Kit] Kit See Rx Instructions .ROUTE .MEDSUPPLY Qty: 1 RF: 0 gabapentin 300 mg capsule 300 mg PO BEDTIME RF: 0 lisinopril 40 mg tablet 40 mg PO DAILY RF: 0 insulin lispro [Humalog KwikPen Insulin] 100 unit/mL insulin pen 20 unit SUBCUT BID RF: 0 fluticasone propionate 50 mcg/actuation [place],Suspension 1 spray INTRANASAL DAILY RF: 0 Lantus Solostar U-100 Insulin 100 unit/mL (3 mL) Insulin Pen 30 unit SUBCUT BID Qty: 10 RF: 0 Interventions: ED Discharge Assessment Last Done: 05/14/21 21:41 Discharge Date/Time: 05/14/21 21:42
[2021-05-14 20:40] LABS: Glucose, Whole Blood 156 mg/dL (60-115)
[2021-05-14 20:42] VITALS: BP 191/101; PULSE 99; RESP 16; TEMP 36.6; O2SAT 98
== END 2021-05-14 21:42 | disposition home or self-care (01) ==
PROVIDERS: Physician Assistant Medical; Emergency Provider Emergency Medicine
DX: E11.649 Type 2 diabetes mellitus with hypoglycemia without coma (principal); R42 Dizziness and giddiness; Z79.82 Long term (current) use of aspirin; Z79.02 Long term (current) use of antithrombotics/antiplatelets; Z79.899 Other long term (current) drug therapy; Z79.4 Long term (current) use of insulin
CPT/HCPCS: 36415; 80048; 82947; 85025; 93005; 99283; 99284

== ENCOUNTER 2021-06-19 10:49 | Emergency (ER) | payer MEDICARE, MEDICAID, SELFPAY ==
--- NOTE | ~2021-06-19 | CT_ITS ---
EXAMINATION: CT HEAD WITHOUT CONTRAST CLINICAL INFORMATION: Hit head. Blurry vision. COMPARISON: CT scan of the head 03/01/2021. TECHNIQUE: Contiguous axial imaging was performed from the skull base to vertex without intravenous administration of contrast. This CT examination was performed using dose optimization techniques as appropriate, variously including the following: *Automated exposure control *Adjustment of mA and/or kV according to patient size (this includes techniques or standardized protocols for targeted exams where dose is matched to indication/reason for exam; i.e. extremities or head) *Use of iterative reconstruction technique DLP: 790 mGy-cm FINDINGS: There are scattered nonspecific foci of hypoattenuation within the periventricular white matter that most likely represent a chronic manifestation of small vessel ischemia. A few small chronic lacunar infarcts are also visualized within the basal ganglia and thalami. Paul-white matter differentiation is otherwise preserved and there is no evidence of acute territorial infarct. There is no acute hemorrhage or abnormal extra-axial collection. No intracranial mass effect or midline shift. Lateral and third ventricles are normal. No hydrocephalus. The calvarium and skull base are intact. Mastoid air cells and middle ear cavities are well aerated. No active paranasal sinus disease. There is a hyperdense foreign body presumably representing a glaucoma reservoir located over the upper medial surface of the right globe. CT/CT head/brain wo con IMPRESSION: There are scattered chronic small vessel ischemic changes within the periventricular white matter and there are a few tiny chronic lacunar infarcts within the basal ganglia and thalami. No evidence of acute territorial infarct or hemorrhage.
[2021-06-19 11:06] VITALS: BP 167/87; PULSE 81; O2SAT 98
[2021-06-19 11:17] VITALS: BP 156/85; PULSE 80; RESP 16; O2SAT 99; BMI 27.3
[2021-06-19 11:41] LABS: MANUAL DIFF FLAG NO
[2021-06-19 11:43] LABS: Basophils Percent Auto 0.3 % (0-2); Eosinophils Absolute Auto 0.3 X10*3/uL (0.0-0.4); Eosinophils Percent Auto 3.6 % (0-4); Hemoglobin 14.8 g/dl (14.0-18.0); Imm Gran Abs Auto 0.03 X10*3/uL (0.00-0.03); Imm Gran Pct Auto 0.4 % (0.0-0.4); Lymphocytes Absolute Auto 2.2 X10*3/uL (1.2-4.9); Lymphocytes Percent Auto 31.8 % (20-40); Mean Corpuscular HGB Conc 33.6 g/dl (31.0-36.0); Mean Corpuscular Hemoglobin 30.5 pg (27.0-33.0); Mean Corpuscular Volume 90.5 fL (80-98); Mean Platelet Volume 11.6 fL (9.4-12.4); Monocytes Absolute Auto 0.7 X10*3/uL (0.1-1.2); Monocytes Percent Auto 9.3 % (2-11); Neutrophils Absolute Auto 3.8 X10*3/uL (2.0-8.3); Neutrophils Percent Auto 54.6 % (45-73); Platelet Count 220 X10*3/uL (160-400); Red Blood Count 4.86 X10*6/uL (4.60-5.80); Red Cell Distribution Width 11.8 % (11.0-16.0)
--- NOTE | 2021-06-19 11:44 | ED.GENADULT ---
HPI - General Adult General Chief complaint: Eye Problems Stated complaint: vision problem in L eye Time Seen by Provider: 06/19/21 11:14 Source: patient Mode of arrival: EMS Limitations: no limitations History of Present Illness HPI narrative: 66-year-old male with past medical history of metabolic encephalopathy, control diabetes, hypertension is here today for complaints of left eye vision change that happened 2 days ago. Patient reports that he sees everything that is around the light red. Seen his eye doctor 2 weeks ago and was told that his eyes were leaking. Patient was supposed to go for treatment. He is very poor historian. Patient denies any dizziness any neurological problems. Reports that he did hit his head 3 days ago. Patient reports that he walked into the wall and banged his head. Patient denies any dizziness prior or after the incident. No nausea, vomiting. Denies any other symptoms. Onset (ago): day(s) Location: eyes Related Data Home Medications Medication Instructions Recorded Confirmed aspirin 81 mg tablet,delayed 81 mg PO DAILY 11/03/20 03/01/21 release atorvastatin 20 mg tablet 20 mg PO BEDTIME 11/03/20 03/01/21 brimonidine 0.2 % eye drops 1 drp OPHTHALMIC (EYE) BID 11/03/20 03/01/21 cholecalciferol (vitamin D3) 50 50 mcg PO DAILY 11/03/20 03/01/21 mcg (2,000 unit) capsule (Vitamin D3) escitalopram oxalate 20 mg tablet 20 mg PO DAILY 11/03/20 03/01/21 latanoprost 0.005 % eye drops 1 drp OPHTHALMIC-LEFT QPM 11/03/20 03/01/21 loratadine 10 mg tablet 10 mg PO DAILY 11/03/20 03/01/21 melatonin 3 mg tablet 6 mg PO BEDTIME 11/03/20 03/01/21 fluticasone propionate 50 1 spray INTRANASAL DAILY 03/01/21 03/01/21 mcg/actuation nasal spray,suspension gabapentin 300 mg capsule 300 mg PO BEDTIME 03/01/21 03/01/21 insulin lispro 100 unit/mL 20 unit SUBCUT BID 03/01/21 03/01/21 subcutaneous pen (Humalog KwikPen (U-100) Insulin) lisinopril 40 mg tablet 40 mg PO DAILY 03/01/21 03/01/21 Previous Rx's Medication Instructions Recorded blood pressure monitor (Blood #1 ea 11/06/20 Pressure Kit) blood sugar diagnostic (FreeStyle #100 ea 11/06/20 Lite Strips) blood-glucose meter (FreeStyle #1 ea 11/06/20 Lite Meter) lancets 28 gauge (FreeStyle #100 ea 11/06/20 Lancets) metformin 1,000 mg tablet 1,000 mg PO BID #60 tab 11/06/20 pen needle, diabetic 31 gauge x #100 ea 11/06/2012/08 sitagliptin 100 mg tablet (Januvia) 100 mg PO DAILY #30 tab 11/06/20 insulin glargine 100 unit/mL (3 30 unit SUBCUT BID #10 ea 03/04/21 mL) subcutaneous pen (Lantus Solostar U-100 Insulin) erythromycin 5 mg/gram (0.5 %) eye 0.5 inch OPHTHALMIC (EYE) TID 7 06/19/21 ointment Days #1 g Allergies Allergy/AdvReac Type Severity Reaction Status Date / Time No Known Allergies Allergy Verified 11/07/20 17:45 Review of Systems Review of Systems: Constitutional : No Weight loss, No Fever, No Chills, No Night Sweats, No Fatigue, No Malaise ENT/Mouth : No Hearing loss, No Ear Pain, No Nasal Congestion, No Sinus Pain, No Hoarseness, No sore throat, No Rhinorrhea, No Swallowing Difficulty Eyes: No Eye Pain, No Swelling, No Redness, No Foreign Body, No Discharge, Vision Changes Cardiovascular : No Chest Pain, No SOB, No Dyspnea on Exertion, No Orthopnea, No Edema, No Palpitations Respiratory : No Cough, No Sputum, No Wheezing, No Smoke Exposure, No Dyspnea Gastrointestinal : No Nausea, No Vomiting, No Diarrhea, No Constipation, No abdominal Pain, No Hematochezia, No Melena Genitourinary : no irregular bleeding, No Dysuria, No Urinary Frequency, No Hematuria, No Urinary Incontinence, No Urgency, No Flank Pain, No Urinary Flow Changes, No Hesitancy Musculoskeletal : No joint pain, No Myalgias, No Joint Swelling Skin : No Skin Lesions, No rash Neuro : No Weakness, No Numbness, No Paresthesias, No Loss of Consciousness, No Dizziness, No Headache Psych : No Anxiety/Panic, No Depression, No SI/HI/AH/VH, No Social Issues, Yes all other systems are reviewed and are negative [facility] Past Medical History Medical History Dementia Diabetes Uncontrolled type 2 diabetes mellitus Social History Social History Household Members: None Household Members Other:: lives alone per stepdaughter Housing: Apartment Housing Other:: elderly apartments Alcohol intake: unknown Advance Directives: No Advance Directives Information Provided: No service: No Current occupational status: retired Physical Exam Vital Signs: Vital Signs: Last Vital Signs Pulse 82 06/19/21 15:20 Resp 18 06/19/21 15:20 BP 138/77 06/19/21 15:20 Pulse Ox 99 06/19/21 11:17 Body Mass Index 27.3 Course Course Course Narrative: 66-year-old male with past medical history of metabolic encephalopathy, uncontrolled diabetes, hypertension is here today for complaining left eye vision changes. He reports that everything that he sees it is red, however he is able to distinguish that the nurse is wearing a red shirt and provider is wearing blue shirt he knows that the wall is green, however he states that the air is red we will do ultrasound to check for retinal detachment, we will check pressure in the eye, visual acuity, basic labs. Patient reports that he did hit his head so we will do CT of the head Reevaluation(s) Reevaluation #1: Patient is unable to see vitor chart, left eye pressure is 15, ultrasound was used to check for retinal detachment and none found. Reevaluation #2: Potassium 5.3. Will recheck question if that one hemolyzed. Patient has normal kidney function. Call placed to Dr. Magaña's office Time: 13:25 Reevaluation #3: No call from Dr. saranya ballesteros office yet. Potassium 4.6. On-call physician from [facility] called to check on the patient. who reported to me that patient had similar symptoms back in December and saw Dr. Shakir Crum the retina specialist. He has not had a follow-up with him since. Patient's left eye pressure then was 10. Today his eye pressure is 15 which is still normal. Left eye ultrasound showed no retinal detachment. Will send patient home. His bilateral sclera are red, will give him erythroid myosin appointment and send him home on that. Patient was instructed not to it his eyes. Patient denies any pain any itchiness or dryness of the eyes. Patient will follow up with his retinal specialist on Monday. His PCP is aware that he is here and will be sent home. Time: 15:10 Medical Decision Making Lab Data Result diagrams: 06/19/21 11:35 06/19/21 13:59 Labs: Lab Results 06/19/21 06/19/21 06/19/21 Range/Units 11:35 11:35 13:59 WBC 7.0 (4.8-10.8) X10*3/uL RBC 4.86 (4.60-5.80) X10*6/uL Hgb 14.8 (14.0-18.0) g/dl Hct 44.0 (42-52) % MCV 90.5 (80-98) fL MCH 30.5 (27.0-33.0) pg MCHC 33.6 (31.0-36.0) g/dl RDW 11.8 (11.0-16.0) % Plt Count 220 (160-400) X10*3/uL MPV 11.6 (9.4-12.4) fL Immature Gran % (Auto) 0.4 (0.0-0.4) % Neut % (Auto) 54.6 (45-73) % Lymph % (Auto) 31.8 (20-40) % [place] % (Auto) 9.3 (2-11) % Eos % (Auto) 3.6 (0-4) % Baso % (Auto) 0.3 (0-2) % Lymph # (Auto) 2.2 (1.2-4.9) X10*3/uL [place] # (Auto) 0.7 (0.1-1.2) X10*3/uL Eos # (Auto) 0.3 (0.0-0.4) X10*3/uL Baso # (Auto) 0.0 (0.0-0.2) X10*3/uL Abs Immat Gran (auto) 0.03 (0.00-0.03) X10*3/uL Absolute Neuts (auto) 3.8 (2.0-8.3) X10*3/uL Absolute Nucleated RBC 0.000 (0.0-0.012) X10*3/uL Nucleated RBC % (auto) 0.0 (0.0-0.2) /100WBC Sodium 137 (135-145) mmol/L Potassium 5.3 H D 4.6 (3.3-5.1) mmol/L Chloride 107 (96-108) mmol/L Carbon Dioxide 21 L (22-29) mmol/L Anion Gap 14 (12-20) BUN 13 (9-16) mg/dL Creatinine 1.13 (0.5-1.4) mg/dL Estim Creat Clear Calc 64.0 Estimated GFR > 60 Random Glucose 231 H D (60-115) mg/dL Calcium 9.2 (8.4-10.2) mg/dL Imaging Data CT scan - head: Radiologist's impression: FINDINGS: There are scattered nonspecific foci of hypoattenuation within the periventricular white matter that most likely represent a chronic manifestation of small vessel ischemia. A few small chronic lacunar infarcts are also visualized within the basal ganglia and thalami. Paul-white matter differentiation is otherwise preserved and there is no evidence of acute territorial infarct. There is no acute hemorrhage or abnormal extra-axial collection. No intracranial mass effect or midline shift. Lateral and third ventricles are normal. No hydrocephalus. The calvarium and skull base are intact. Mastoid air cells and middle ear cavities are well aerated. No active paranasal sinus disease. There is a hyperdense foreign body presumably representing a glaucoma reservoir located over the upper medial surface of the right globe. Discharge Plan Discharge Clinical Impression: Type 2 diabetes mellitus Qualifiers: Diabetes mellitus mcfp insulin use: unspecified mcfp insulin use status Diabetes mellitus complication status: with ophthalmic complications Diabetes mellitus complication detail: with diabetic retinopathy Diabetic retinopathy severity: with unspecified retinopathy severity Diabetes mellitus macular edema: macular edema presence unspecified Laterality: left Qualified Code(s): E11.319 - Type 2 diabetes mellitus with unspecified diabetic retinopathy without macular edema Subconjunctival hemorrhage Qualifiers: Laterality: bilateral Qualified Code(s): H11.33 - Conjunctival hemorrhage, bilateral Patient Disposition: Home, Self-Care Instructions: Subconjunctival Hemorrhage (ED) Additional Instructions: . You were seen here today for decreased vision in your eyes. Your CT scan was negative. We spoke with your primary care provider who will see you on Monday. Your eyes were red and you were given antibiotic. Please use as directed in both eyes. You may return to emergency department if your symptoms will get worse or if you experience any additional concerning symptoms. Please make sure you check your blood sugar frequently and follow-up with your eyelet maker on Monday Prescriptions: New erythromycin 5 mg/gram (0.5 %) ointment 0.5 inch ophthalmic (eye) TID 7 Days Qty: 1 RF: 0 No Action latanoprost 0.005 % Drops 1 drp ophthalmic-Left QPM RF: 0 atorvastatin 20 mg Tablet 20 mg PO BEDTIME RF: 0 melatonin 3 mg Tablet 6 mg PO BEDTIME RF: 0 aspirin 81 mg Tablet,Delayed Release (Dr/Ec) 81 mg PO DAILY RF: 0 brimonidine 0.2 % Drops 1 drp OPHTHALMIC (EYE) BID RF: 0 loratadine 10 mg Tablet 10 mg PO DAILY RF: 0 escitalopram oxalate 20 mg Tablet 20 mg PO DAILY RF: 0 cholecalciferol (vitamin D3) [Vitamin D3] 50 mcg (2,000 unit) Capsule 50 mcg PO DAILY RF: 0 (DME) pen needle, diabetic 31 gauge x 3/16 needle See Rx Instructions .ROUTE .MEDSUPPLY Qty: 100 RF: 11 (DME) FreeStyle Lite Strips Strip See Rx Instructions .ROUTE .MEDSUPPLY Qty: 100 RF: 0 (DME) blood-glucose meter [FreeStyle Lite Meter] Kit See Rx Instructions .ROUTE .MEDSUPPLY Qty: 1 RF: 0 (DME) lancets [FreeStyle Lancets] 28 gauge misc See Rx Instructions .ROUTE .MEDSUPPLY Qty: 100 RF: 11 metformin 1,000 mg Tablet 1,000 mg PO BID Qty: 60 RF: 0 Januvia 100 mg Tablet 100 mg PO DAILY Qty: 30 RF: 0 (DME) blood pressure monitor [Blood Pressure Kit] Kit See Rx Instructions .ROUTE .MEDSUPPLY Qty: 1 RF: 0 gabapentin 300 mg capsule 300 mg PO BEDTIME RF: 0 lisinopril 40 mg tablet 40 mg PO DAILY RF: 0 insulin lispro [Humalog KwikPen Insulin] 100 unit/mL insulin pen 20 unit SUBCUT BID RF: 0 fluticasone propionate 50 mcg/actuation [place],Suspension 1 spray INTRANASAL DAILY RF: 0 Lantus Solostar U-100 Insulin 100 unit/mL (3 mL) Insulin Pen 30 unit SUBCUT BID Qty: 10 RF: 0 Referrals: Azam Sanford DO [Primary Care Provider] - 2 days Shakir Crum MD [Physician] - 2 days (Decreased vision in left eye) Interventions: ED Discharge Assessment Last Done: 06/19/21 15:25 Discharge Date/Time: 06/19/21 16:23
--- NOTE | 2021-06-19 11:59 | PC.NURSE ---
Pt not able to see even the largest number at 20ft on the snellen chart with his left eye while right eye is covered. Pt states that he is unable to see my eye color when I am about 3 ft from patient and states that my pink shirt is orange. He is a poor historian and his history that he has provided thus far regarding his eye history, symptom history, and history present illness has been very inconsistent.
[2021-06-19 12:08] LABS: Anion Gap 14 (12-20); Blood Urea Nitrogen 13 mg/dL (9-16); Calcium 9.2 mg/dL (8.4-10.2); Carbon Dioxide 21 mmol/L (22-29); Chloride 107 mmol/L (96-108); Estimated Glomerular Filt Rate > 60; Glucose Random 231 mg/dL (60-115); Potassium 5.3 mmol/L (3.3-5.1); Sodium 137 mmol/L (135-145)
[2021-06-19 14:19] LABS: Potassium 4.6 mmol/L (3.3-5.1)
[2021-06-19] MEDS: Erythromycin Base 0.5% Oph Oin 1 GM TUBE 1 CM EYE-BOTH (15:19)
[2021-06-19 15:20] VITALS: BP 138/77; PULSE 82; RESP 18
--- NOTE | 2021-06-19 15:24 | PC.NURSE ---
Bilateral conjunctiva reddened. 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 Erythromycin prescribed.
== END 2021-06-19 16:23 | disposition home or self-care (01) ==
PROVIDERS: Nurse Practitioner Family; Emergency Provider Emergency Medicine Emergency Medical Services; PCP Internal Medicine Hospice and Palliative Medicine
DX: E11.319 Type 2 diabetes mellitus with unspecified diabetic retinopathy without macular edema (principal); H11.33 Conjunctival hemorrhage, bilateral; Z79.899 Other long term (current) drug therapy; Z79.4 Long term (current) use of insulin
CPT/HCPCS: 36415; 70450; 80048; 84132; 85025; 99284

== ENCOUNTER 2021-07-11 12:43 | Inpatient (IN) | payer MEDICARE, SELFPAY ==
[2021-07-11] VITALS (15 sets, daily range): BP systolic 149–198; BP diastolic 71–99; PULSE 76–98; RESP 12–28; TEMP 36.3–37.1; O2SAT 92–98; BMI 27.6
--- NOTE | 2021-07-11 12:52 | ECG_ITS ---
Test Reason : HYPOGLYCAMIA Blood Pressure : / mmHG Vent. Rate : 098 BPM Atrial Rate : 098 BPM P-R Int : 158 ms QRS Dur : 096 ms QT Int : 378 ms P-R-T Axes : 053 036 079 degrees QTc Int : 482 ms Normal sinus rhythm Nonspecific ST abnormality Prolonged QT Abnormal ECG Heart rate has decreased Referred By: Omar Moncada Electronically Signed By:GREER DENNISON MD
[2021-07-11 13:07] LABS: Glucose, Whole Blood > 600 mg/dL (60-115)
[2021-07-11 13:07] LABS: Glucose, Whole Blood > 600 mg/dL (60-115)
--- NOTE | 2021-07-11 13:14 | ED.GENADULT ---
HPI - General Adult General Chief complaint: Fall Stated complaint: mechanical fall Time Seen by Provider: 07/11/21 13:57 Source: patient Mode of arrival: ambulatory Limitations: no limitations History of Present Illness HPI narrative: Patient presents to ED for fall. Patient states he was walking outside and felt dizzy and then he fell. Patient states describes dizziness as feeling fatigued. Patient denies sensation of room spinning. Patient denied having any chest pain, headache, abdominal pain before falling. Patient states he did not hit his head. Patient fell onto outstretched hands and did not hit his head on the ground. Patient denies any loss of consciousness. Patient denies any pain in the body. Patient states he has been without insulin for 5 days. Patient usually a nurse comes to his house to and inject a medication for him, patient states no nurse has come to the house for the past 5 days. Patient states increased thirst and increased urinary frequency. Patient thinks his sugar is high. EMS states patient's fingerstick glucose 480. Related Data Home Medications Medication Instructions Recorded Confirmed aspirin 81 mg tablet,delayed 81 mg PO DAILY 11/03/20 03/01/21 release atorvastatin 20 mg tablet 20 mg PO BEDTIME 11/03/20 03/01/21 brimonidine 0.2 % eye drops 1 drp OPHTHALMIC (EYE) BID 11/03/20 03/01/21 cholecalciferol (vitamin D3) 50 50 mcg PO DAILY 11/03/20 03/01/21 mcg (2,000 unit) capsule (Vitamin D3) escitalopram oxalate 20 mg tablet 20 mg PO DAILY 11/03/20 03/01/21 latanoprost 0.005 % eye drops 1 drp OPHTHALMIC-LEFT QPM 11/03/20 03/01/21 loratadine 10 mg tablet 10 mg PO DAILY 11/03/20 03/01/21 melatonin 3 mg tablet 6 mg PO BEDTIME 11/03/20 03/01/21 fluticasone propionate 50 1 spray INTRANASAL DAILY 03/01/21 03/01/21 mcg/actuation nasal spray,suspension gabapentin 300 mg capsule 300 mg PO BEDTIME 03/01/21 03/01/21 insulin lispro 100 unit/mL 20 unit SUBCUT BID 03/01/21 03/01/21 subcutaneous pen (Humalog KwikPen (U-100) Insulin) lisinopril 40 mg tablet 40 mg PO DAILY 03/01/21 03/01/21 Previous Rx's Medication Instructions Recorded blood pressure monitor (Blood #1 ea 11/06/20 Pressure Kit) blood sugar diagnostic (FreeStyle #100 ea 11/06/20 Lite Strips) blood-glucose meter (FreeStyle #1 ea 11/06/20 Lite Meter) lancets 28 gauge (FreeStyle #100 ea 11/06/20 Lancets) metformin 1,000 mg tablet 1,000 mg PO BID #60 tab 11/06/20 pen needle, diabetic 31 gauge x #100 ea 11/06/20/16 sitagliptin 100 mg tablet (Januvia) 100 mg PO DAILY #30 tab 11/06/20 insulin glargine 100 unit/mL (3 30 unit SUBCUT BID #10 ea 03/04/21 mL) subcutaneous pen (Lantus Solostar U-100 Insulin) erythromycin 5 mg/gram (0.5 %) eye 0.5 inch OPHTHALMIC (EYE) TID 7 06/19/21 ointment Days #1 g Allergies Allergy/AdvReac Type Severity Reaction Status Date / Time No Known Allergies Allergy Verified 11/07/20 17:45 Review of Systems Review of Systems: Yes all other systems are reviewed and are negative Constitutional: Constitutional: Reports as per HPI and Reports no additional constitutional complaints Eyes: Eyes: Reports as per HPI and Reports no additional eye complaints ENT: Reports system reviewed and no additional complaints, except as documented, Reports as per HPI and Reports dizziness (Described as fatigue) Cardiovascular: Cardiovascular: Reports as per HPI and Reports no additional cardiovascular complaints Respiratory: Respiratory: Reports as per HPI and Reports no additional respiratory complaints Gastrointestinal: Gastrointestinal: Reports as per HPI and Reports no additional gastrointestinal complaints Genitourinary: Genitourinary: Reports no additional male genitourinary complaints and Reports as per HPI Musculoskeletal: Musculoskeletal: Reports no additional musculoskeletal complaints and Reports as per HPI Comments: fall. no complaints. Integumentary/Breasts: Comments: Polyuria polydipsia Neurologic: Reports system reviewed and no additional complaints, except as documented, Reports as per HPI and Reports dizziness (Described as fatigue) [facility] Past Medical History Medical History Dementia Diabetes Uncontrolled type 2 diabetes mellitus Social History Social History Household Members: None Household Members Other:: lives alone per stepdaughter Housing: Apartment Housing Other:: elderly apartments Alcohol intake: never Patient Tobacco Use Status: Never used Tobacco Use of substances other than those prescribed or required for medical reasons: No Advance Directives: Yes Advance Directives on File: Yes Advance Directives Date on File: 10/28/20 service: No Current occupational status: retired Physical Exam Vital Signs: Vital Signs: Last Vital Signs Temp 97.3 F 07/11/21 15:11 Pulse 96 07/11/21 15:11 Resp 20 07/11/21 15:11 BP 194/93 H 07/11/21 15:11 Pulse Ox 96 07/11/21 15:11 Body Mass Index 27.6 Const: General: cooperative, healthy appearing, comfortable, no acute distress, well developed, alert and awake Orientation/consciousness: patient oriented x3 HENMT: Head: Yes normal to inspection, Yes No palpable skull fracture present, Yes normocephalic, Yes atraumatic, No abrasion, No Acrocyanosis present, No Reyes's sign, No contusion, No cranial bruits, No hematoma, No laceration, No occipital foramen tenderness, No palpable skull fracture, No raccoon eyes, No scalp lesion, No scalp tenderness, No Temporal artery tenderness present and No periorbital ecchymosis Eyes: General: appearance normal, both eyes and all related structures Neck: Neck: Yes normal visual inspection, Yes full ROM, Yes no lymphadenopathy, Yes no meningeal signs, Yes trachea midline, Yes supple and No tender Chest: Chest palpation & inspection: normal inspection of the chest and normal palpation of entire chest wall Resp: Effort & Inspection: normal respiratory effort and able to speak in complete sentences Auscultation: clear to auscultation bilaterally Cardio: Jugular venous distension: no JVD Heart sounds: S1 normal heart sound present and S2 normal heart sound present GI: Inspection: Yes normal to inspection and No abdominal wall ecchymosis Palpation (GI): Soft to palpation, not firm, nontender, no guarding and not rigid : General: No CVA tenderness and Yes no CVA tenderness Back/Spine/Pelvis: Back: no CVA tenderness, No CVA tenderness and No back tenderness Skin: General skin exam: no rashes or lesions noted and elasticity normal Neuro: Other: Negative facial droop. Negative slurred speech. Negative for any drift. All extremities equal strength 5+. [id number] and rapid hand movement intact. General: patient oriented x3, gait normal, no meningeal signs and CN's II-XI intact bilaterally Cranial nerves: Yes CN's II-XII intact bilaterally Extrem: General: Yes normal to inspection and Yes full ROM Psych: Appearance: grossly normal, well kempt and not disheveled Course Course Course Narrative: Fingerstick over 600. Dizziness most likely due to hyperglycemia. Will send labs to rule out DKA. Patient ordered fluids. Insulin ordered. EKG ordered. Reevaluation(s) Reevaluation #1: Patient's blood glucose over 700. Anion gap 25. Negative ketones. Repeat fingerstick after 20 units of IV insulin and 3 L of normal saline fluid bolus was still over 600. Patient placed on insulin drip. Dr. Madsen spoke with Dr. Do for admission to ICU for managment of hyperglycemia. Patient to be treated as Hyper Osmolar Hyperglycemia. Patient states feeling better. EKG negative STEMI Time: 15:22 Medical Decision Making MDM Narrative Medical decision making narrative: Hyperosmolar Hyperglycemia. Lab Data Result diagrams: 07/11/21 13:19 07/11/21 13:19 Labs: Lab Results 07/11/21 07/11/21 07/11/21 Range/Units 12:53 12:55 13:19 WBC 9.9 (4.8-10.8) X10*3/uL RBC 5.36 (4.60-5.80) X10*6/uL Hgb 16.1 (14.0-18.0) g/dl Hct 45.8 (42-52) % MCV 85.4 (80-98) fL MCH 30.0 (27.0-33.0) pg MCHC 35.2 (31.0-36.0) g/dl RDW 11.7 (11.0-16.0) % Plt Count 290 D (160-400) X10*3/uL MPV 11.5 (9.4-12.4) fL Immature Gran % (Auto) 0.4 (0.0-0.4) % Neut % (Auto) 70.6 (45-73) % Lymph % (Auto) 20.6 (20-40) % [place] % (Auto) 7.3 (2-11) % Eos % (Auto) 0.8 (0-4) % Baso % (Auto) 0.3 (0-2) % Lymph # (Auto) 2.0 (1.2-4.9) X10*3/uL [place] # (Auto) 0.7 (0.1-1.2) X10*3/uL Eos # (Auto) 0.1 (0.0-0.4) X10*3/uL Baso # (Auto) 0.0 (0.0-0.2) X10*3/uL Abs Immat Gran (auto) 0.04 H (0.00-0.03) X10*3/uL Absolute Neuts (auto) 7.0 (2.0-8.3) X10*3/uL Absolute Nucleated RBC 0.000 (0.0-0.012) X10*3/uL Nucleated RBC % (auto) 0.0 (0.0-0.2) /100WBC Sodium (135-145) mmol/L Potassium (3.3-5.1) mmol/L Chloride (96-108) mmol/L Carbon Dioxide (22-29) mmol/L Anion Gap (12-20) BUN (9-16) mg/dL Creatinine (0.5-1.4) mg/dL Estim Creat Clear Calc Estimated GFR POC Glucose > 600 H* > 600 H* (60-115) mg/dL Random Glucose (60-115) mg/dL Calcium (8.4-10.2) mg/dL Total Bilirubin (0.0-1.0) mg/dL AST (5-37) U/L ALT (0-40) U/L Alkaline Phosphatase (39-117) U/L Troponin I High Sens (<3.5-35.0) ng/L Total Protein (6.5-8.0) g/dL Albumin (3.5-5.0) g/dL Urine Color Urine Appearance Urine pH (5.0-8.0) Ur Specific [place] (1.005-1.025) Urine Protein (NEG-TRACE) MG/DL Urine Glucose (UA) (NEG) MG/DL Urine Ketones (NEG) MG/DL Urine Blood (NEG) Urine Nitrite (NEG) Ur Leukocyte Esterase (NEG) Urine RBC (0) /HPF Urine WBC (0-4) /HPF Ur Squamous Epith Cells /LPF Urine Bacteria /LPF Acetone, Qual (Negative) 07/11/21 07/11/21 07/11/21 Range/Units 13:19 13:19 13:56 WBC (4.8-10.8) X10*3/uL RBC (4.60-5.80) X10*6/uL Hgb (14.0-18.0) g/dl Hct (42-52) % MCV (80-98) fL MCH (27.0-33.0) pg MCHC (31.0-36.0) g/dl RDW (11.0-16.0) % Plt Count (160-400) X10*3/uL MPV (9.4-12.4) fL Immature Gran % (Auto) (0.0-0.4) % Neut % (Auto) (45-73) % Lymph % (Auto) (20-40) % [place] % (Auto) (2-11) % Eos % (Auto) (0-4) % Baso % (Auto) (0-2) % Lymph # (Auto) (1.2-4.9) X10*3/uL [place] # (Auto) (0.1-1.2) X10*3/uL Eos # (Auto) (0.0-0.4) X10*3/uL Baso # (Auto) (0.0-0.2) X10*3/uL Abs Immat Gran (auto) (0.00-0.03) X10*3/uL Absolute Neuts (auto) (2.0-8.3) X10*3/uL Absolute Nucleated RBC (0.0-0.012) X10*3/uL Nucleated RBC % (auto) (0.0-0.2) /100WBC Sodium 131 L (135-145) mmol/L Potassium 5.6 H D (3.3-5.1) mmol/L Chloride 90 L (96-108) mmol/L Carbon Dioxide 22 (22-29) mmol/L Anion Gap 25 H (12-20) BUN 34 H D (9-16) mg/dL Creatinine 2.08 H (0.5-1.4) mg/dL Estim Creat Clear Calc 34.9 Estimated GFR 32 POC Glucose (60-115) mg/dL Random Glucose 782 H* (60-115) mg/dL Calcium 10.1 D (8.4-10.2) mg/dL Total Bilirubin 1.1 H (0.0-1.0) mg/dL AST 14 (5-37) U/L ALT 38 (0-40) U/L Alkaline Phosphatase 73 (39-117) U/L Troponin I High Sens 7.1 (<3.5-35.0) ng/L Total Protein 7.2 (6.5-8.0) g/dL Albumin 4.3 (3.5-5.0) g/dL Urine Color YELLOW Urine Appearance CLEAR Urine pH 6.0 (5.0-8.0) Ur Specific [place] 1.010 (1.005-1.025) Urine Protein 1+ H (NEG-TRACE) MG/DL Urine Glucose (UA) >=1000 H (NEG) MG/DL Urine Ketones 15 (NEG) MG/DL Urine Blood 1+ H (NEG) Urine Nitrite NEG (NEG) Ur Leukocyte Esterase NEG (NEG) Urine RBC 0-2 (0) /HPF Urine WBC 0-2 (0-4) /HPF Ur Squamous Epith Cells NONE /LPF Urine Bacteria NONE /LPF Acetone, Qual Negative (Negative) 07/11/21 Range/Units 14:33 WBC (4.8-10.8) X10*3/uL RBC (4.60-5.80) X10*6/uL Hgb (14.0-18.0) g/dl Hct (42-52) % MCV (80-98) fL MCH (27.0-33.0) pg MCHC (31.0-36.0) g/dl RDW (11.0-16.0) % Plt Count (160-400) X10*3/uL MPV (9.4-12.4) fL Immature Gran % (Auto) (0.0-0.4) % Neut % (Auto) (45-73) % Lymph % (Auto) (20-40) % [place] % (Auto) (2-11) % Eos % (Auto) (0-4) % Baso % (Auto) (0-2) % Lymph # (Auto) (1.2-4.9) X10*3/uL [place] # (Auto) (0.1-1.2) X10*3/uL Eos # (Auto) (0.0-0.4) X10*3/uL Baso # (Auto) (0.0-0.2) X10*3/uL Abs Immat Gran (auto) (0.00-0.03) X10*3/uL Absolute Neuts (auto) (2.0-8.3) X10*3/uL Absolute Nucleated RBC (0.0-0.012) X10*3/uL Nucleated RBC % (auto) (0.0-0.2) /100WBC Sodium (135-145) mmol/L Potassium (3.3-5.1) mmol/L Chloride (96-108) mmol/L Carbon Dioxide (22-29) mmol/L Anion Gap (12-20) BUN (9-16) mg/dL Creatinine (0.5-1.4) mg/dL Estim Creat Clear Calc Estimated GFR POC Glucose > 600 H* (60-115) mg/dL Random Glucose (60-115) mg/dL Calcium (8.4-10.2) mg/dL Total Bilirubin (0.0-1.0) mg/dL AST (5-37) U/L ALT (0-40) U/L Alkaline Phosphatase (39-117) U/L Troponin I High Sens (<3.5-35.0) ng/L Total Protein (6.5-8.0) g/dL Albumin (3.5-5.0) g/dL Urine Color Urine Appearance Urine pH (5.0-8.0) Ur Specific [place] (1.005-1.025) Urine Protein (NEG-TRACE) MG/DL Urine Glucose (UA) (NEG) MG/DL Urine Ketones (NEG) MG/DL Urine Blood (NEG) Urine Nitrite (NEG) Ur Leukocyte Esterase (NEG) Urine RBC (0) /HPF Urine WBC (0-4) /HPF Ur Squamous Epith Cells /LPF Urine Bacteria /LPF Acetone, Qual (Negative) ECG Data Interpretation: Normal sinus rhythm. Ventricular rate 83. Pr interval 150. QRS 104 per QTC 465. Negative STEMI Critical Care Time Critical Care Time Critical Care Time: Yes Total Critical Care Time: 45 Attestation: Patient hyperglycemic hyperosmolar. Fingerstick over 600. Patient started on insulin drip. Dr. Madsen spoke with Dr. Do of ICU who accepted case. Discharge Plan Discharge Clinical Impression: Hyperosmolar non-ketotic state due to type 2 diabetes mellitus Patient Disposition: Admitted As Inpatient
[2021-07-11 13:24] LABS: MANUAL DIFF FLAG NO
[2021-07-11 13:25] LABS: Basophils Percent Auto 0.3 % (0-2); Eosinophils Absolute Auto 0.1 X10*3/uL (0.0-0.4); Eosinophils Percent Auto 0.8 % (0-4); Hematocrit 45.8 % (42-52); Hemoglobin 16.1 g/dl (14.0-18.0); Imm Gran Abs Auto 0.04 X10*3/uL (0.00-0.03); Imm Gran Pct Auto 0.4 % (0.0-0.4); Lymphocytes Percent Auto 20.6 % (20-40); Mean Corpuscular HGB Conc 35.2 g/dl (31.0-36.0); Mean Corpuscular Volume 85.4 fL (80-98); Mean Platelet Volume 11.5 fL (9.4-12.4); Monocytes Absolute Auto 0.7 X10*3/uL (0.1-1.2); Monocytes Percent Auto 7.3 % (2-11); Neutrophils Percent Auto 70.6 % (45-73); Platelet Count 290 X10*3/uL (160-400); Red Blood Count 5.36 X10*6/uL (4.60-5.80); Red Cell Distribution Width 11.7 % (11.0-16.0); White Blood Count 9.9 X10*3/uL (4.8-10.8)
[2021-07-11] MEDS: Insulin Regular, Human 100 UNIT/ML 3 ML VIAL 10 UNIT IVPUSH ×2 (13:27→14:35)
[2021-07-11] MEDS: 0.9 % Sodium Chloride 1,000 ML 999 ML IV ×3 (13:28→14:40)
[2021-07-11 13:32] LABS: Acetone, serum QL Negative (Negative)
[2021-07-11 13:45] LABS: Alanine Aminotransferase 38 U/L (0-40); Albumin Level 4.3 g/dL (3.5-5.0); Alkaline Phosphatase 73 U/L (39-117); Aspartate Amino Transferase 14 U/L (5-37); Bilirubin Total 1.1 mg/dL (0.0-1.0); Blood Urea Nitrogen 34 mg/dL (9-16); Calcium 10.1 mg/dL (8.4-10.2); Creatinine Clr Calc Pharmacy 34.9; Estimated Glomerular Filt Rate 32; Total Protein 7.2 g/dL (6.5-8.0)
[2021-07-11 13:46] LABS: Troponin-I High Sensitivity 7.1 ng/L (<3.5-35.0)
[2021-07-11 13:57] LABS: Anion Gap 25 (12-20); Carbon Dioxide 22 mmol/L (22-29); Chloride 90 mmol/L (96-108); Glucose Random 782 mg/dL (60-115); Potassium 5.6 mmol/L (3.3-5.1); Sodium 131 mmol/L (135-145)
[2021-07-11 14:03] LABS: Appearance Urine CLEAR; Color Urine YELLOW; Glucose Urine UA >=1000 MG/DL (NEG); Leukocyte Esterase Urine NEG (NEG); Nitrite Urine NEG (NEG); UACC Culture Trigger NO; Urine Blood 1+ (NEG); Urine Ketones 15 MG/DL (NEG); Urine Protein 1+ MG/DL (NEG-TRACE)
[2021-07-11 14:33] LABS: RBC Urine 0-2 /HPF (0); WBC Urine 0-2 /HPF (0-4)
[2021-07-11 14:40] LABS: Glucose, Whole Blood > 600 mg/dL (60-115)
[2021-07-11] MEDS: Insulin Regular/NS 100 UNIT/100 ML PLAST..BAG IVCONT (14:59)
[2021-07-11 15:50] LABS: Venous Blood Gas Refer to POC result
[2021-07-11 15:54] LABS: VBG Base Excess -4.3 mmol/L; VBG HCO3 20 mmol/L (22-26); VBG pCO2 38 mmHg; VBG pH 7.34 (7.32-7.43); VBG pO2 66 mmHg
[2021-07-11 16:12] LABS: Anion Gap 17 (12-20); Blood Urea Nitrogen 32 mg/dL (9-16); Carbon Dioxide 22 mmol/L (22-29); Chloride 101 mmol/L (96-108); Creatinine Clr Calc Pharmacy 42.5; Estimated Glomerular Filt Rate 40; Potassium 4.7 mmol/L (3.3-5.1); Sodium 135 mmol/L (135-145)
[2021-07-11 16:18] LABS: Glucose Random 620 mg/dL (60-115)
--- NOTE | 2021-07-11 16:24 | PC.NURSE ---
pt refusing poc states someone just took it. no documentation. additional staff to try.
[2021-07-11 16:33] LABS: Glucose, Whole Blood 476 mg/dL (60-115)
[2021-07-11 17:20] LABS: Glucose, Whole Blood 424 mg/dL (60-115)
[2021-07-11] MEDS: Insulin Regular/NS 100 UNIT/100 ML PLAST..BAG 8 UNIT IVCONT (17:51)
[2021-07-11] MEDS: Lactated Ringers 1,000 ML 200 ML IVCONT ×2 (17:51→22:29)
--- NOTE | 2021-07-11 17:56 | PM.CCHP ---
History of Present Illness Date of Service: 07/11/21 Attending physician on admission: Ralph Do Mr. Arevalo was admitted to the ICU this evening with HHS. The patient is a 65-year-old insulin-dependent type 2 diabetic w CKD (baseline probably about 20/1.1) who is noncompliant with meds and has some dementia or cognitive defect.? Was [place] [facility] [place] in February with DKA. ??Had an ED visit for hypoglycemia in April.? He reportedly lives alone in elderly housing. Per ED staff, the patient presented ambulatory to the ED bec of dizziness leading to a fall. ?He fell onto outstretched hands and did not hit his head on the ground.? Denied LOC.? Stated that he had been without insulin for 5 days bec the nurse that gives him his insulin did not show up.? He admitted to increased thirst and increased urinary frequency. In the emergency department, his vital signs were unremarkable.? He was afebrile and hypertensive.? He was breathing easy with respiratory rate of 20 and sat of 96% on room air.? He was in no distress, healthy appearing, well kempt, and oriented x3.? General physical exam was unremarkable. Fingerstick glucose was greater than 600. CBC was unremarkable although hemoglobin was high.? History showed sodium was 131, potassium 5.6, bicarb 22, BUN/creatinine 34/2.0, random glucose 782, albumin was 4.3. He was given 4 L of normal saline and started on an insulin drip.? Follow-up labs at 2-1/2 hours showed a sodium up to 135, BUN/creatinine down to 32/1.7, potassium down to 4.7, bicarb 22, glucose down to 620.? The patient was admitted to the ICU. On my exam, he is not toxic or acutely ill appearing, but he is chronically ill-appearing.? 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 ?He speaks easily and answers questions appropriately. ?HR is 94, BP 170/86.? He?s breathing easy w RR 18, Sat is 96%.? No JVD at 30 degrees, chest clear to auscultation.? Heart rate and rhythm regular, with normal-sounding S1 and S2, with no murmur or gallops. ?Abdomen is benign.? He has multiple bruises on his lower extremities.? Neuro exam is otherwise grossly intact. POC glucose was 424. IMPRESSION: 1. Underlying dementia. 2. HHS undoubtedly secondary to medication noncompliance.? Last time he was in the hospital, I spoke with the patient's personal physician who confirmed the patient has frequent noncompliance, mainly because of poor understanding and insight.? Usual management with fluid resuscitation, intravenous insulin, and electrolytes as needed. 3. No sepsis. 4. Acute kidney injury.? Secondary to hypovolemia.? Continue volume resuscitation. Time (including extended rev of old chart):? . [facility] Past Medical History Medical History Dementia Diabetes Uncontrolled type 2 diabetes mellitus Social History Social History Household Members: None Household Members Other:: lives alone per stepdaughter Housing: Apartment Housing Other:: elderly apartments Alcohol intake: never Patient Tobacco Use Status: Never used Tobacco Use of substances other than those prescribed or required for medical reasons: No Advance Directives: Yes Advance Directives on File: Yes Advance Directives Date on File: 10/28/20 service: No Current occupational status: retired Meds Allergies Allergy/AdvReac Type Severity Reaction Status Date / Time No Known Allergies Allergy Verified 11/07/20 17:45 Active Medications: Current Medications Insulin Human Regular (Myxredlin) 100 unit in 100 mls @ 8 mls/hr IVCONT .[id number] [facility] Lactated Ringer's (Lr) 1,000 mls @ 200 mls/hr IVCONT .Q5H [facility] Home Medications Medication Instructions Recorded Confirmed Last Taken Type aspirin 81 mg tablet,delayed 81 mg PO DAILY 11/03/20 03/01/21 02/25/21 History release atorvastatin 20 mg tablet 20 mg PO BEDTIME 11/03/20 03/01/21 02/24/21 History brimonidine 0.2 % eye drops 1 drp OPHTHALMIC (EYE) BID 11/03/20 03/01/21 02/25/21 History cholecalciferol (vitamin D3) 50 50 mcg PO DAILY 11/03/20 03/01/21 02/25/21 History mcg (2,000 unit) capsule (Vitamin D3) escitalopram oxalate 20 mg tablet 20 mg PO DAILY 11/03/20 03/01/21 02/25/21 History latanoprost 0.005 % eye drops 1 drp OPHTHALMIC-LEFT QPM 11/03/20 03/01/21 02/24/21 History loratadine 10 mg tablet 10 mg PO DAILY 11/03/20 03/01/21 02/25/21 History melatonin 3 mg tablet 6 mg PO BEDTIME 11/03/20 03/01/21 02/24/21 History fluticasone propionate 50 1 spray INTRANASAL DAILY 03/01/21 03/01/21 02/25/21 History mcg/actuation nasal spray,suspension gabapentin 300 mg capsule 300 mg PO BEDTIME 03/01/21 03/01/21 02/24/21 History insulin lispro 100 unit/mL 20 unit SUBCUT BID 03/01/21 03/01/21 02/25/21 History subcutaneous pen (Humalog KwikPen (U-100) Insulin) lisinopril 40 mg tablet 40 mg PO DAILY 03/01/21 03/01/21 02/25/21 History Physical Exam Vital Signs: Vital Signs: Last Vital Signs Temp 97.3 F 07/11/21 15:11 Pulse 89 07/11/21 17:15 Resp 19 07/11/21 17:15 BP 170/86 H 07/11/21 17:15 Pulse Ox 93 07/11/21 17:15 Body Mass Index 27.6 Results Labs CBC and Chem 7: 07/11/21 13:19 07/11/21 15:45 Labs: Laboratory Results - last 24 hr 07/11/21 07/11/21 07/11/21 12:53 12:55 13:19 MCV 85.4 MCH 30.0 MCHC 35.2 RDW 11.7 Plt Count 290 D MPV 11.5 Immature Gran % (Auto) 0.4 Neut % (Auto) 70.6 Lymph % (Auto) 20.6 [place] % (Auto) 7.3 Eos % (Auto) 0.8 Baso % (Auto) 0.3 Lymph # (Auto) 2.0 [place] # (Auto) 0.7 Eos # (Auto) 0.1 Baso # (Auto) 0.0 Abs Immat Gran (auto) 0.04 H Absolute Neuts (auto) 7.0 Absolute Nucleated RBC 0.000 Nucleated RBC % (auto) 0.0 VBG pH VBG pCO2 VBG pO2 VBG HCO3 VBG O2 Saturation VBG Base Excess Anion Gap Estim Creat Clear Calc Estimated GFR POC Glucose > 600 H* > 600 H* Random Glucose Calcium Total Bilirubin AST ALT Alkaline Phosphatase Troponin I High Sens Total Protein Albumin Urine Color Urine Appearance Urine pH Ur Specific [place] Urine Protein Urine Glucose (UA) Urine Ketones Urine Blood Urine Nitrite Ur Leukocyte Esterase Urine RBC Urine WBC Ur Squamous Epith Cells Urine Bacteria Acetone, Qual 07/11/21 07/11/21 07/11/21 13:19 13:19 13:56 MCV MCH MCHC RDW Plt Count MPV Immature Gran % (Auto) Neut % (Auto) Lymph % (Auto) [place] % (Auto) Eos % (Auto) Baso % (Auto) Lymph # (Auto) [place] # (Auto) Eos # (Auto) Baso # (Auto) Abs Immat Gran (auto) Absolute Neuts (auto) Absolute Nucleated RBC Nucleated RBC % (auto) VBG pH VBG pCO2 VBG pO2 VBG HCO3 VBG O2 Saturation VBG Base Excess Anion Gap 25 H Estim Creat Clear Calc 34.9 Estimated GFR 32 POC Glucose Random Glucose 782 H* Calcium 10.1 D Total Bilirubin 1.1 H AST 14 ALT 38 Alkaline Phosphatase 73 Troponin I High Sens 7.1 Total Protein 7.2 Albumin 4.3 Urine Color YELLOW Urine Appearance CLEAR Urine pH 6.0 Ur Specific [place] 1.010 Urine Protein 1+ H Urine Glucose (UA) >=1000 H Urine Ketones 15 Urine Blood 1+ H Urine Nitrite NEG Ur Leukocyte Esterase NEG Urine RBC 0-2 Urine WBC 0-2 Ur Squamous Epith Cells NONE Urine Bacteria NONE Acetone, Qual Negative 07/11/21 07/11/21 07/11/21 14:33 15:45 15:48 MCV MCH MCHC RDW Plt Count MPV Immature Gran % (Auto) Neut % (Auto) Lymph % (Auto) [place] % (Auto) Eos % (Auto) Baso % (Auto) Lymph # (Auto) [place] # (Auto) Eos # (Auto) Baso # (Auto) Abs Immat Gran (auto) Absolute Neuts (auto) Absolute Nucleated RBC Nucleated RBC % (auto) VBG pH 7.34 VBG pCO2 38 VBG pO2 66 VBG HCO3 20 L VBG O2 Saturation 88.0 VBG Base Excess -4.3 Anion Gap 17 Estim Creat Clear Calc 42.5 Estimated GFR 40 POC Glucose > 600 H* Random Glucose 620 H* Calcium 9.0 D Total Bilirubin AST ALT Alkaline Phosphatase Troponin I High Sens Total Protein Albumin Urine Color Urine Appearance Urine pH Ur Specific [place] Urine Protein Urine Glucose (UA) Urine Ketones Urine Blood Urine Nitrite Ur Leukocyte Esterase Urine RBC Urine WBC Ur Squamous Epith Cells Urine Bacteria Acetone, Qual 07/11/21 07/11/21 16:28 17:14 MCV MCH MCHC RDW Plt Count MPV Immature Gran % (Auto) Neut % (Auto) Lymph % (Auto) [place] % (Auto) Eos % (Auto) Baso % (Auto) Lymph # (Auto) [place] # (Auto) Eos # (Auto) Baso # (Auto) Abs Immat Gran (auto) Absolute Neuts (auto) Absolute Nucleated RBC Nucleated RBC % (auto) VBG pH VBG pCO2 VBG pO2 VBG HCO3 VBG O2 Saturation VBG Base Excess Anion Gap Estim Creat Clear Calc Estimated GFR POC Glucose 476 H* 424 H* Random Glucose Calcium Total Bilirubin AST ALT Alkaline Phosphatase Troponin I High Sens Total Protein Albumin Urine Color Urine Appearance Urine pH Ur Specific [place] Urine Protein Urine Glucose (UA) Urine Ketones Urine Blood Urine Nitrite Ur Leukocyte Esterase Urine RBC Urine WBC Ur Squamous Epith Cells Urine Bacteria Acetone, Qual
[2021-07-11 19:13] LABS: Glucose, Whole Blood 304 mg/dL (60-115)
--- NOTE | 2021-07-11 19:35 | PC.NURSE ---
pt pulled out IV. pt uncooperative with assessment, responding vaguely and not answering questions. Pt would get agitated with assessment questions and refuse to answer saying staff does not know what they are doing and you guys are practicing Pt was only able to answer a&o questions for person and place. Pt refused to participate in the other assessment questions.
[2021-07-11 20:34] LABS: Anion Gap 12 (12-20); Blood Urea Nitrogen 27 mg/dL (9-16); Calcium 9.2 mg/dL (8.4-10.2); Carbon Dioxide 27 mmol/L (22-29); Chloride 104 mmol/L (96-108); Creatinine Clr Calc Pharmacy 52.7; Estimated Glomerular Filt Rate 51; Glucose Random 277 mg/dL (60-115); Potassium 4.4 mmol/L (3.3-5.1); Sodium 139 mmol/L (135-145)
[2021-07-11] MEDS: lisinopriL 40 MG TABLET PO (21:05)
[2021-07-11] MEDS: Insulin Glargine,Hum.rec.anlog 100 UNIT/ML 10 ML VIAL 35 UNIT SUBCUT (21:05)
[2021-07-11] MEDS: Insulin Lispro 100 UNIT/ML 3 ML VIAL SUBCUT (22:25)
[2021-07-12] VITALS (8 sets, daily range): BP systolic 165–185; BP diastolic 72–92; PULSE 74–81; RESP 16–20; TEMP 36.2–36.9; O2SAT 96–98; BMI 29.0
[2021-07-12 00:51] LABS: Glucose, Whole Blood 230 mg/dL (60-115)
[2021-07-12] MEDS: Lactated Ringers 1,000 ML 200 ML IVCONT ×2 (03:25→08:07)
[2021-07-12 07:13] LABS: Glucose, Whole Blood 331 mg/dL (60-115)
[2021-07-12] MEDS: Insulin Lispro 100 UNIT/ML 3 ML VIAL SUBCUT ×3 (08:07→15:13)
[2021-07-12] MEDS: Insulin Glargine,Hum.rec.anlog 100 UNIT/ML 10 ML VIAL 35 UNIT SUBCUT (08:08)
--- NOTE | 2021-07-12 08:58 | MHC.CM.PN ---
Patient has a diagnosis of Dementia; CM spoke with Daughter./HCP/Neris at [phone]. Patient lives alone and has a walker to assist with mobility. Patient is active with [facility] (RN BID to administer Insulin); STR is the goal for dc and CM has initiated and will follow for dc planning. IMM addressed over the phone with Neris and will be mailed out certified letter to her new address ([address] [place] [address]). PCP is . Azam Sanford.Neris indicated that she is working with [facility] to obtain a VALET ATTENDANT for Patient. [facility] is first choice SNF and [place] is second- referral will be made.
[2021-07-12] MEDS: amLODIPine Besylate 5 MG TABLET PO (09:05)
[2021-07-12] MEDS: lisinopriL 40 MG TABLET PO (09:05)
--- NOTE | 2021-07-12 09:20 | MHC.CM.PN ---
[phone] Patient was dc from this [facility] on 07/06/21 r/t Patient's Daughter/HCP/Neris changing Patient's insurance from [employer] to [employer] as of 06/25/21. [facility] apparently became aware of this change on 06/30/21 and was having difficulty with Patient's Long history of non-compliance and getting orders from PCP.Goal for dc is STR and CM will continue to follow.
--- NOTE | 2021-07-12 10:42 | PHA.MEDREC ---
Pharmacy Consult ? Medication Reconciliation Pharmacy has completed the medication reconciliation. Spoke with Naima at [facility] who patient was previosuly with. She faxed over a medication list. Samaria Kruse, PharmD
[2021-07-12 11:22] LABS: Glucose, Whole Blood 314 mg/dL (60-115)
--- NOTE | 2021-07-12 12:22 | P.PNIM_ITS ---
Subjective Subjective Date of Service: 07/12/21 Interval History: Seen in f/u for hyperglycemia, hyperosmolar coma. Reported he switched insurance and present [employer] company discharged him so that he has not been getting insulin for nearly a week. He was admitted to the ICU and treated for hyperglycemia and sugars are better but still high, BP is high Review of Systems Gen: no fever Resp: no sob, no cough CV: no chest, no ESPARZA, no leg edema GI: No n/v, no abd pain Neuro: No confusion Physical Exam Vital Signs: Vital Signs: Last Vital Signs Temp 97.5 F 07/12/21 11:27 Pulse 79 07/12/21 11:27 Resp 18 07/12/21 11:27 BP 183/92 H 07/12/21 11:27 Pulse Ox 97 07/12/21 11:27 Body Mass Index 29.0 General: AO X 3, no acute distress Resp: CTA bilateral CVS: S1,S2,RRR GI: +BS, NT, no distention Skin: No rash Neuro: motor grossly intact Psych: appropriate affect Objective Data Active Medications Amlodipine Besylate (Amlodipine Besylate 5 Mg Tablet) 5 mg PO DAILY [facility]; Protocol Last Admin: 07/12/21 09:05 Dose: 5 mg Documented by: ZENIA Insulin Glargine (Insulin Glargine,Hum.Rec.Anlog 100 Unit/Ml 10 Ml Vial) 35 unit SUBCUT BID [facility] Last Admin: 07/12/21 08:08 Dose: 35 unit Documented by: ZENIA Insulin Human Lispro (Insulin Lispro 100 Unit/Ml 3 Ml Vial) 0 unit SUBCUT QIDACHS [facility]; Protocol Last Admin: 07/12/21 12:02 Dose: 8 unit Documented by: ZENIA Lisinopril (Lisinopril 40 Mg Tablet) 40 mg PO DAILY [facility]; Protocol Last Admin: 07/12/21 09:08 Dose: Not Given Documented by: ZENIA Non-Admin Reason: already admin Pharmacy Consult (Consult Rx Perform Med Rec) 1 each MISCELLANE ONCE PRN PRN Reason: Consult order Labs CBC & Chem 7: 07/11/21 13:19 07/11/21 20:09 Labs: Laboratory Results - last 24 hr 10/17/21 10/17/21 10/17/21 12:53 12:55 13:19 MCV 85.4 MCH 30.0 MCHC 35.2 RDW 11.7 Plt Count 290 D MPV 11.5 Immature Gran % (Auto) 0.4 Neut % (Auto) 70.6 Lymph % (Auto) 20.6 [place] % (Auto) 7.3 Eos % (Auto) 0.8 Baso % (Auto) 0.3 Lymph # (Auto) 2.0 [place] # (Auto) 0.7 Eos # (Auto) 0.1 Baso # (Auto) 0.0 Abs Immat Gran (auto) 0.04 H Absolute Neuts (auto) 7.0 Absolute Nucleated RBC 0.000 Nucleated RBC % (auto) 0.0 VBG pH VBG pCO2 VBG pO2 VBG HCO3 VBG O2 Saturation VBG Base Excess Anion Gap Estim Creat Clear Calc Estimated GFR POC Glucose > 600 H* > 600 H* Random Glucose Calcium Total Bilirubin AST ALT Alkaline Phosphatase Troponin I High Sens Total Protein Albumin Urine Color Urine Appearance Urine pH Ur Specific [place] Urine Protein Urine Glucose (UA) Urine Ketones Urine Blood Urine Nitrite Ur Leukocyte Esterase Urine RBC Urine WBC Ur Squamous Epith Cells Urine Bacteria Acetone, Qual 07/11/21 07/11/21 07/11/21 13:19 13:19 13:56 MCV MCH MCHC RDW Plt Count MPV Immature Gran % (Auto) Neut % (Auto) Lymph % (Auto) [place] % (Auto) Eos % (Auto) Baso % (Auto) Lymph # (Auto) [place] # (Auto) Eos # (Auto) Baso # (Auto) Abs Immat Gran (auto) Absolute Neuts (auto) Absolute Nucleated RBC Nucleated RBC % (auto) VBG pH VBG pCO2 VBG pO2 VBG HCO3 VBG O2 Saturation VBG Base Excess Anion Gap 25 H Estim Creat Clear Calc 34.9 Estimated GFR 32 POC Glucose Random Glucose 782 H* Calcium 10.1 D Total Bilirubin 1.1 H AST 14 ALT 38 Alkaline Phosphatase 73 Troponin I High Sens 7.1 Total Protein 7.2 Albumin 4.3 Urine Color YELLOW Urine Appearance CLEAR Urine pH 6.0 Ur Specific [place] 1.010 Urine Protein 1+ H Urine Glucose (UA) >=1000 H Urine Ketones 15 Urine Blood 1+ H Urine Nitrite NEG Ur Leukocyte Esterase NEG Urine RBC 0-2 Urine WBC 0-2 Ur Squamous Epith Cells NONE Urine Bacteria NONE Acetone, Qual Negative 07/11/21 07/11/21 07/11/21 14:33 15:45 15:48 MCV MCH MCHC RDW Plt Count MPV Immature Gran % (Auto) Neut % (Auto) Lymph % (Auto) [place] % (Auto) Eos % (Auto) Baso % (Auto) Lymph # (Auto) [place] # (Auto) Eos # (Auto) Baso # (Auto) Abs Immat Gran (auto) Absolute Neuts (auto) Absolute Nucleated RBC Nucleated RBC % (auto) VBG pH 7.34 VBG pCO2 38 VBG pO2 66 VBG HCO3 20 L VBG O2 Saturation 88.0 VBG Base Excess -4.3 Anion Gap 17 Estim Creat Clear Calc 42.5 Estimated GFR 40 POC Glucose > 600 H* Random Glucose 620 H* Calcium 9.0 D Total Bilirubin AST ALT Alkaline Phosphatase Troponin I High Sens Total Protein Albumin Urine Color Urine Appearance Urine pH Ur Specific [place] Urine Protein Urine Glucose (UA) Urine Ketones Urine Blood Urine Nitrite Ur Leukocyte Esterase Urine RBC Urine WBC Ur Squamous Epith Cells Urine Bacteria Acetone, Qual 07/11/21 07/11/21 07/11/21 16:28 17:14 19:08 MCV MCH MCHC RDW Plt Count MPV Immature Gran % (Auto) Neut % (Auto) Lymph % (Auto) [place] % (Auto) Eos % (Auto) Baso % (Auto) Lymph # (Auto) [place] # (Auto) Eos # (Auto) Baso # (Auto) Abs Immat Gran (auto) Absolute Neuts (auto) Absolute Nucleated RBC Nucleated RBC % (auto) VBG pH VBG pCO2 VBG pO2 VBG HCO3 VBG O2 Saturation VBG Base Excess Anion Gap Estim Creat Clear Calc Estimated GFR POC Glucose 476 H* 424 H* 304 H Random Glucose Calcium Total Bilirubin AST ALT Alkaline Phosphatase Troponin I High Sens Total Protein Albumin Urine Color Urine Appearance Urine pH Ur Specific [place] Urine Protein Urine Glucose (UA) Urine Ketones Urine Blood Urine Nitrite Ur Leukocyte Esterase Urine RBC Urine WBC Ur Squamous Epith Cells Urine Bacteria Acetone, Qual 07/11/21 07/11/21 07/12/21 20:09 22:22 07:07 MCV MCH MCHC RDW Plt Count MPV Immature Gran % (Auto) Neut % (Auto) Lymph % (Auto) [place] % (Auto) Eos % (Auto) Baso % (Auto) Lymph # (Auto) [place] # (Auto) Eos # (Auto) Baso # (Auto) Abs Immat Gran (auto) Absolute Neuts (auto) Absolute Nucleated RBC Nucleated RBC % (auto) VBG pH VBG pCO2 VBG pO2 VBG HCO3 VBG O2 Saturation VBG Base Excess Anion Gap 12 Estim Creat Clear Calc 52.7 Estimated GFR 51 POC Glucose 230 H 331 H Random Glucose 277 H D Calcium 9.2 Total Bilirubin AST ALT Alkaline Phosphatase Troponin I High Sens Total Protein Albumin Urine Color Urine Appearance Urine pH Ur Specific [place] Urine Protein Urine Glucose (UA) Urine Ketones Urine Blood Urine Nitrite Ur Leukocyte Esterase Urine RBC Urine WBC Ur Squamous Epith Cells Urine Bacteria Acetone, Qual 07/12/21 11:07 MCV MCH MCHC RDW Plt Count MPV Immature Gran % (Auto) Neut % (Auto) Lymph % (Auto) [place] % (Auto) Eos % (Auto) Baso % (Auto) Lymph # (Auto) [place] # (Auto) Eos # (Auto) Baso # (Auto) Abs Immat Gran (auto) Absolute Neuts (auto) Absolute Nucleated RBC Nucleated RBC % (auto) VBG pH VBG pCO2 VBG pO2 VBG HCO3 VBG O2 Saturation VBG Base Excess Anion Gap Estim Creat Clear Calc Estimated GFR POC Glucose 314 H Random Glucose Calcium Total Bilirubin AST ALT Alkaline Phosphatase Troponin I High Sens Total Protein Albumin Urine Color Urine Appearance Urine pH Ur Specific [place] Urine Protein Urine Glucose (UA) Urine Ketones Urine Blood Urine Nitrite Ur Leukocyte Esterase Urine RBC Urine WBC Ur Squamous Epith Cells Urine Bacteria Acetone, Qual Assessment and Plan (1) Metabolic encephalopathy: Status: Acute (2) Hyperosmolar non-ketotic state due to type 2 diabetes mellitus: Status: Acute (3) Uncontrolled type 2 diabetes mellitus: Status: Acute (4) Essential hypertension: Status: Acute (5) Type 2 diabetes mellitus: Status: Acute Assessment and Plan: 66/m with dementia, diabetes, HTN, typically non-compliant with meds and here with diabetic hyperosmolar com, SULTANA--VNA usually gives him insulin but VNA stopped because of change in insurance and doesn't have new VNA yet 1/Diabetes--blood sugars still high (At home Lantus 46, humalog 20 bid, Januvia 100 daily and metformin 1 gm bid) 2/Hyperosmolar coma--resolved -Restart Metformin and Januvia -Continue Lantus 35 right now -Add Pre-meal humalog t unit and SSSI follow gluocose closely 2/HTN--BP remains very high -Continue Lisinpril 40 daily -Norvasc 5 added 3/Neuropathy--Gabapentin 4/HLD--Lipitor 5/Metabolic encephalopathy--resolved, at baseline now 5/ PT is recommending STR Quality Stroke Does the patient have a stroke diagnosis?: No VTE Prior VTE?: No VTE Risk Level:: Medical - low VTE Device Contraindication: N/A - Device Ordered VTE Drug Contraindication: N/A - Med Ordered
--- NOTE | 2021-07-12 12:32 | MHC.CDI.CONC ---
CDI Concurrent Query Documentation Clarification: PHYSICIAN'S DOCUMENTATION REQUEST Date of Query: 07/12/21 1232 Patient Name: Ludwin Arevalo Admit Date: 07/11/21 Dear Doctor, A review of the medical record indicates additional documentation may be needed. Please review below and update the documentation accordingly. Clinical Indicators: Risk Factors/Clinical Indicators/Treatments LABS potassium 5.6 H IV fluids, potassium level down to 4.7 Based on the above, could you clarify in the Progress Notes the appropriate diagnosis, if significant, that supports the above abnormalities and additional evaluation, monitoring, and/or treatment rendered: Hyperkalemia or other Labs indicate a diagnosis of (please specify) Other (please specify) Unable to determine Use of terms such as suspected, likely, concern for, or probable (associated with a specific diagnosis that is being evaluated, monitored, or treated as if it exists) are acceptable and can be coded in the inpatient setting, when documented at the time of discharge. Thank you, Dora Atkinson [facility], CDIS Extension: [phone] Please use your independent medical judgment in providing your response. THIS QUERY IS PART OF THE PERMANENT MEDICAL RECORD Provider Response: Other Other Diagnosis: Hyperkalemia
[2021-07-12] MEDS: Aspirin Enteric Coated 81 MG TABLET.DR PO (13:47)
[2021-07-12] MEDS: metFORMIN HCl 1,000 MG TABLET 1000 MG PO (13:48)
[2021-07-12] MEDS: Escitalopram Oxalate 20 MG TABLET PO (13:48)
[2021-07-12] MEDS: Cholecalciferol (Vitamin D3) 25 MCG TABLET 50 MCG PO (13:48)
[2021-07-12] MEDS: SITagliptin Phosphate 100 MG TABLET PO (13:48)
[2021-07-12] MEDS: Loratadine 10 MG TABLET PO (13:48)
[2021-07-12] MEDS: Enoxaparin Sodium 40 MG/0.4 ML SYRINGE SUBCUT (13:48)
--- NOTE | 2021-07-12 14:48 | MHC.CM.PN ---
Patient has been medically cleared for dc to STR/SNF today. Patient will dc to [facility] today at 4PM, via [facility]. Patient/Daughter/HCP/Neris at [phone] are aware of and in agreement with the dc plan. IMM addressed this morning.
[2021-07-12 15:06] LABS: Glucose, Whole Blood 351 mg/dL (60-115)
[2021-07-12 15:34] LABS: COVID-19 Test Negative (Negative); IDNOW Serial# 9DD0AD1C
[2021-07-12 16:31] LABS: Glucose, Whole Blood 274 mg/dL (60-115)
--- NOTE | 2021-07-12 16:31 | PM.DS ---
DS: Providers Provider Date of Service: 07/12/21 Date of admission: 07/11/21 15:04 Primary care physician: Azam Sanford DO DS: Diagnosis Discharge Diagnosis (1) Metabolic encephalopathy: Status: Acute (2) Hyperosmolar non-ketotic state due to type 2 diabetes mellitus: Status: Acute (3) Uncontrolled type 2 diabetes mellitus: Status: Acute (4) Essential hypertension: Status: Acute (5) Type 2 diabetes mellitus: Status: Acute DS: Summary Hospital Course Hospital Course: ICU course The patient is a 65-year-old insulin-dependent type 2 diabetic w CKD (baseline probably about 14/10.1) who is noncompliant with meds and has some dementia or cognitive defect.? Was [place] [facility] [place] and in February with DKA. ??Had an ED visit for hypoglycemia in April.? He reportedly lives alone in elderly housing. Per ED staff, the patient presented ambulatory to the ED bec of dizziness leading to a fall. ?He fell onto outstretched hands and did not hit his head on the ground.? Denied LOC.? Stated that he had been without insulin for 5 days bec the nurse that gives him his insulin did not show up.? He admitted to increased thirst and increased urinary frequency. In the emergency department, his vital signs were unremarkable.? He was afebrile and hypertensive.? He was breathing easy with respiratory rate of 20 and sat of 96% on room air.? He was in no distress, healthy appearing, well kempt, and oriented x3.? General physical exam was unremarkable. Fingerstick glucose was greater than 600. CBC was unremarkable although hemoglobin was high.? History showed sodium was 131, potassium 5.6, bicarb 22, BUN/creatinine 34/2.0, random glucose 782, albumin was 4.3. He was given 4 L of normal saline and started on an insulin drip.? Follow-up labs at 2-1/2 hours showed a sodium up to 135, BUN/creatinine down to 32/1.7, potassium down to 4.7, bicarb 22, glucose down to 620.? The patient was admitted to the ICU. additional hospital course Additional hospital course: once patient blood sugar improved he was transfered out of ICU and blood sugars continue to improve at this time and will be restarted on all his home medications. It turned that patient is giving insulin by a VNA service but he recently changed insurance and as result the VNA service discharged him and so he has not been getting insulin for nearly a week and has does not have a new VNA with his new insurance. His blood pressure has also been very high as medication were on hold in the ICU but has been restarted on all his medications. He had acute renal failure that has resolved with IVF, as has hyperkalemia. Metabolic encephalopathy also resolved. Patient will be resumed on all home medication and additionally Norvasc 5 mg is been given for better blood pressure controll. Final Diagnoses: ?1. Underlying dementia. ?2. Hyperosmolar Nonketotic come 3. Metabolic encephalopathy ?4. Acute kidney injury 5. hyperKalemia. Time Spent with Patient Time attestation: Total time spent providing and/or coordinating discharge services: Discharge coordination time: Greater than 30 minutes Quality: Stroke Does the patient have a stroke diagnosis?: No Physical Exam Vital Signs: Vital Signs: Last Vital Signs Temp 98.4 F 07/12/21 15:03 Pulse 81 07/12/21 15:03 Resp 16 07/12/21 15:03 BP 165/86 H 07/12/21 15:03 Pulse Ox 96 07/12/21 15:03 Body Mass Index 29.0 General: AO X 2, no acute distress Resp: CTA bilateral CVS: S1,S2,RRR GI: +BS, NT, no distention Skin: No rash Neuro: motor grossly intact Psych: appropriate affect DS: Data Data Completed and Pending Labs on day of discharge: Laboratory Results - last 24 hr 07/11/21 07/11/21 07/11/21 16:28 17:14 19:08 Sodium Potassium Chloride Carbon Dioxide Anion Gap BUN Creatinine Estim Creat Clear Calc Estimated GFR POC Glucose 476 H* 424 H* 304 H Random Glucose Calcium COVID-19 (KATINA) COVIDFreeCharge 07/11/21 07/11/21 07/12/21 20:09 22:22 07:07 Sodium 139 Potassium 4.4 Chloride 104 Carbon Dioxide 27 Anion Gap 12 BUN 27 H Creatinine 1.38 Estim Creat Clear Calc 52.7 Estimated GFR 51 POC Glucose 230 H 331 H Random Glucose 277 H D Calcium 9.2 COVID-19 (KATINA) COVIDFreeCharge 07/12/21 07/12/21 07/12/21 11:07 15:00 15:15 Sodium Potassium Chloride Carbon Dioxide Anion Gap BUN Creatinine Estim Creat Clear Calc Estimated GFR POC Glucose 314 H 351 H* Random Glucose Calcium COVID-19 (KATINA) Negative COVID-19 Clin Com See Note Discharge Plan Discharge Anticipated Discharge Date/Time: 07/12/21 16:20 Patient Disposition: Xfer SNF Discharge Diagnosis: Uncontrolled Diabetes, Referrals: [facility] [Outside] - 1 Week Azam Sanford DO [Primary Care Provider] - 1 Week Discharge Medications: New amlodipine 5 mg Tablet 5 mg PO DAILY Qty: 30 RF: 0 Continued latanoprost 0.005 % Drops 1 drp ophthalmic-Left QPM RF: 0 atorvastatin 20 mg Tablet 20 mg PO BEDTIME RF: 0 melatonin 3 mg Tablet 6 mg PO BEDTIME RF: 0 aspirin 81 mg Tablet,Delayed Release (Dr/Ec) 81 mg PO DAILY RF: 0 brimonidine 0.2 % Drops 1 drp OPHTHALMIC (EYE) BID RF: 0 loratadine 10 mg Tablet 10 mg PO DAILY RF: 0 escitalopram oxalate 20 mg Tablet 20 mg PO DAILY RF: 0 cholecalciferol (vitamin D3) [Vitamin D3] 50 mcg (2,000 unit) Capsule 50 mcg PO DAILY RF: 0 (DME) pen needle, diabetic 31 gauge x 3/16 needle See Rx Instructions .ROUTE .MEDSUPPLY Qty: 100 RF: 11 (DME) FreeStyle Lite Strips Strip See Rx Instructions .ROUTE .MEDSUPPLY Qty: 100 RF: 0 (DME) blood-glucose meter [FreeStyle Lite Meter] Kit See Rx Instructions .ROUTE .MEDSUPPLY Qty: 1 RF: 0 (DME) lancets [FreeStyle Lancets] 28 gauge misc See Rx Instructions .ROUTE .MEDSUPPLY Qty: 100 RF: 11 metformin 1,000 mg Tablet 1,000 mg PO BID Qty: 60 RF: 0 Januvia 100 mg Tablet 100 mg PO DAILY Qty: 30 RF: 0 (DME) blood pressure monitor [Blood Pressure Kit] Kit See Rx Instructions .ROUTE .MEDSUPPLY Qty: 1 RF: 0 gabapentin 300 mg capsule 300 mg PO BEDTIME RF: 0 lisinopril 40 mg tablet 40 mg PO DAILY RF: 0 insulin lispro [Humalog KwikPen Insulin] 100 unit/mL insulin pen 20 unit SUBCUT BID RF: 0 Lantus Solostar U-100 Insulin 100 unit/mL (3 mL) insulin pen 46 unit SUBCUT BID RF: 0 ofloxacin 0.3 % Drops 1 drp ophthalmic-Left QID RF: 0 Discharge Orders: Discharge Order (Routine); Ordered 07/12/21 Ordered By: Patrick Son Diet: advance to usual diet and diabetic diet Activity on Discharge: As tolerated Stand Alone Forms: Patient Portal Discharge page Care Plan Goals: prevent rehospitalization, control of diabetes Health Concerns: Uncontrolled diabetes, and uncontrolled high blood pressure Plan of Treatment: Take all your medications as prescribed and follow up with your Doctor in a week Assessment: as above Discharge Date/Time: 07/12/21 17:30
--- NOTE | 2021-07-12 16:34 | PC.NURSE ---
This morning systolic BP trending in the 180s. Patient asymptomatic. notified. Home medications ordered and given. BP recheck in the afternoon trending down, 165/85. notified. This morning glucose POC trending in the 300s. Patient asymptomatic. Schedule Lantus and SSI given per orders. Dr. Son made aware. Home medication and additional SSI given per order/MD. Recheck glucose POC this evening 274. notified. Plan for discharge to [place] at 1730. Rapid COVID negative for facility.
[2021-07-13 07:52] LABS: Glucose, Whole Blood > 600 mg/dL (60-115)
== END 2021-07-12 17:30 | disposition skilled nursing facility (03) | DRG 637 ==
LOC: HO.ED 14:44 → HO.EDOVER 15:14 → HO.ICU 15:53 → HO.IMC 21:59
PROVIDERS: Physician Assistant; Admitting Provider Anesthesiology; Emergency Provider Student in an Organized Health Care Education/Training Program; PCP Internal Medicine Hospice and Palliative Medicine; Visit Provider Internal Medicine
DX: E11.01 Type 2 diabetes mellitus with hyperosmolarity with coma (principal); G93.41 Metabolic encephalopathy; I10 Essential (primary) hypertension; E87.5 Hyperkalemia; E11.42 Type 2 diabetes mellitus with diabetic polyneuropathy; F03.90 Unspecified dementia, unspecified severity, without behavioral disturbance, psychotic disturbance, mood disturbance, and anxiety; Z20.822 Contact with and (suspected) exposure to COVID-19; Z91.14 Patient's other noncompliance with medication regimen; Z79.4 Long term (current) use of insulin; Z79.82 Long term (current) use of aspirin; Z79.899 Other long term (current) drug therapy
CPT/HCPCS: 36415; 80048; 80053; 81001; 81003; 82009; 82803; 82947; 84484; 85025; 87635; 93005; 97162; 99285; J1650

== ENCOUNTER 2021-08-13 17:47 | Emergency (ER) | payer MEDICARE, SELFPAY ==
--- NOTE | 2021-08-13 18:09 | ECG_ITS ---
Test Reason : HYPERGLYCEMIA Blood Pressure : / mmHG Vent. Rate : 093 BPM Atrial Rate : 093 BPM P-R Int : 146 ms QRS Dur : 100 ms QT Int : 366 ms P-R-T Axes : 043 007 107 degrees QTc Int : 455 ms Normal sinus rhythm Low voltage QRS T wave abnormality, consider lateral ischemia Nonspecific ST abnormality Anteroseptal leads Abnormal ECG When compared with ECG of 11-JUL-2021 13:00, T wave inversion more evident in Lateral leads Nonspecific ST abnormality Anteroseptal leads is new Referred By: An Esquivel Electronically Signed By:GREER DENNISON MD
[2021-08-13 18:10] VITALS: BP 188/85; PULSE 93; RESP 18; TEMP 36.6; O2SAT 97; BMI 29.0
--- NOTE | 2021-08-13 18:20 | ED.GENADULT ---
HPI - General Adult General Chief complaint: General Medical Stated complaint: od Time Seen by Provider: 08/13/21 17:58 History of Present Illness HPI narrative: Patient is a 66-year-old male with a baseline history of diabetes. Baseline supposed to take 20 units of Humalog. 20 units of Lantus in the morning. In addition patient is supposed to take 20 units of Lantus at night. Instead took 43 units of Lantus in the evening additional 20 units of Humalog in the evening. Patient's sugar was noted to be high. Paramedics was at the same because of the high sugar. Patient denies any chest pain no abdominal pain or nausea no vomiting no diaphoresis no systemic complaints. P Related Data Home Medications Medication Instructions Recorded Confirmed aspirin 81 mg tablet,delayed 81 mg PO DAILY 11/03/20 08/13/21 release atorvastatin 20 mg tablet 20 mg PO BEDTIME 11/03/20 08/13/21 brimonidine 0.2 % eye drops 1 drp OPHTHALMIC (EYE) BID 11/03/20 08/13/21 cholecalciferol (vitamin D3) 50 50 mcg PO DAILY 11/03/20 08/13/21 mcg (2,000 unit) capsule (Vitamin D3) escitalopram oxalate 20 mg tablet 20 mg PO DAILY 11/03/20 08/13/21 latanoprost 0.005 % eye drops 1 drp OPHTHALMIC-LEFT QPM 11/03/20 08/13/21 loratadine 10 mg tablet 10 mg PO DAILY 11/03/20 08/13/21 melatonin 3 mg tablet 6 mg PO BEDTIME 11/03/20 08/13/21 gabapentin 300 mg capsule 300 mg PO BEDTIME 03/01/21 08/13/21 insulin lispro 100 unit/mL 20 unit SUBCUT BID 03/01/21 08/13/21 subcutaneous pen (Humalog KwikPen (U-100) Insulin) lisinopril 40 mg tablet 40 mg PO DAILY 03/01/21 08/13/21 insulin glargine 100 unit/mL (3 46 unit SUBCUT BID 07/11/21 08/13/21 mL) subcutaneous pen (Lantus Solostar U-100 Insulin) ofloxacin 0.3 % eye drops 1 drp OPHTHALMIC-LEFT QID 07/12/21 08/13/21 Previous Rx's Medication Instructions Recorded metformin 1,000 mg tablet 1,000 mg PO BID #60 tab 11/06/20 sitagliptin 100 mg tablet (Januvia) 100 mg PO DAILY #30 tab 11/06/20 amlodipine 5 mg tablet 5 mg PO DAILY #30 tab 07/12/21 Allergies Allergy/AdvReac Type Severity Reaction Status Date / Time No Known Allergies Allergy Verified 11/07/20 17:45 Review of Systems Review of Systems: No fever no chills no chest pain or shortness of breath Yes all other systems are reviewed and are negative [facility] Past Medical History Attestation statement: The following information was validated with the patient. Medical History Dementia Dementia Diabetes Essential hypertension Type 2 diabetes mellitus Uncontrolled type 2 diabetes mellitus Social History Social History Household Members: None Household Members Other:: lives alone per stepdaughter Housing: Apartment Housing Other:: elderly apartments Do you presently have visiting nurse or other home services: Yes Alcohol intake: never Patient Tobacco Use Status: Never used Tobacco Advance Directives: Yes Advance Directives on File: Yes Advance Directives Date on File: 10/28/20 service: No Current occupational status: disabled Physical Exam Vital Signs: Vital Signs: Last Vital Signs Temp 97.9 F 08/13/21 18:10 Pulse 93 08/13/21 18:10 Resp 18 08/13/21 18:10 BP 188/85 H 08/13/21 18:10 Pulse Ox 97 08/13/21 18:10 Body Mass Index 29.0 Appearance: Alert. Oriented X3. No acute distress. Eyes: Pupils equal, round and reactive to light. ENT: Pharynx normal. Neck: Normal inspection. Neck supple. No lymph nodes noted. No crepitus CVS: Normal heart rate and rhythm. Pulses normal. Normal S1 and S2 Respiratory: No respiratory distress. Breath sounds normal. No Wheezing. No rales Abdomen: Soft and nontender. No rigidity. No distention. good BS x4 Skin: Skin warm and dry. Normal skin color. Normal skin turgor. Extremities: No lower extremity edema. Neurovascular intact to all extremities. No Lacerations. No Rash Neuro: Oriented X 3. No motor deficit. No sensory deficit. Moving all extermities. No slurred speech Medical Decision Making MDM Narrative Medical decision making narrative: Patient baseline is on 20 units of Humalog in the morning 20 units of Lantus in the evening. Instead patient took 43 units of Lantus along with an additional 20 units of Humalog. Patient initial sugar was elevated. Given the extended release Lantus insulin. Will admit patient for observation overnight for frequent sugar check. In stable condition. Case discussed with the hospitalist team. Patient has no suicidal homic Lab Data Result diagrams: 08/13/21 18:29 08/13/21 18:29 Labs: Lab Results 08/13/21 08/13/21 08/13/21 Range/Units 18:29 18:29 20:08 WBC 7.8 (4.8-10.8) X10*3/uL RBC 4.82 (4.60-5.80) X10*6/uL Hgb 14.5 (14.0-18.0) g/dl Hct 41.9 L (42.0-52.0) % MCV 86.9 (80.0-98.0) fL MCH 30.1 (27.0-33.0) pg MCHC 34.6 (31.0-36.0) g/dl RDW 11.9 (11.0-16.0) % Plt Count 239 (160-400) X10*3/uL MPV 11.0 (9.4-12.4) fL Immature Gran % (Auto) 0.6 H (0.0-0.4) % Neut % (Auto) 57.3 (45-73) % Lymph % (Auto) 29.8 (20-40) % [place] % (Auto) 9.0 (2-11) % Eos % (Auto) 3.0 (0-4) % Baso % (Auto) 0.3 (0-2) % Lymph # (Auto) 2.3 (1.2-4.9) X10*3/uL [place] # (Auto) 0.7 (0.1-1.2) X10*3/uL Eos # (Auto) 0.2 (0.0-0.4) X10*3/uL Baso # (Auto) 0.0 (0.0-0.2) X10*3/uL Abs Immat Gran (auto) 0.05 H (0.00-0.03) X10*3/uL Absolute Neuts (auto) 4.4 (2.0-8.3) x10*3/uL Absolute Nucleated RBC 0.000 (0.0-0.012) X10*3/uL Nucleated RBC % (auto) 0.0 (0.0-0.2) /100WBC Sodium 137 (135-145) mmol/L Potassium 4.2 (3.3-5.1) mmol/L Chloride 103 (96-108) mmol/L Carbon Dioxide 25 (22-29) mmol/L Anion Gap 13 (12-20) BUN 23 H (9-16) mg/dL Creatinine 1.54 H (0.5-1.4) mg/dL Estim Creat Clear Calc 48.2 Estimated GFR 45 POC Glucose 180 H (60-115) mg/dL Random Glucose 356 H* (60-115) mg/dL Calcium 9.6 (8.4-10.2) mg/dL Total Bilirubin 0.3 (0.0-1.0) mg/dL Direct Bilirubin < 0.2 (0.0-0.5) mg/dL AST 15 (5-37) U/L ALT 31 (0-40) U/L Alkaline Phosphatase 59 (39-117) U/L Total Protein 6.7 (6.5-8.0) g/dL Albumin 4.0 (3.5-5.0) g/dL Discharge Plan Discharge Clinical Impression: Insulin overdose Patient Disposition: Admitted As Inpatient Prescriptions: No Action latanoprost 0.005 % Drops 1 drp ophthalmic-Left QPM RF: 0 atorvastatin 20 mg Tablet 20 mg PO BEDTIME RF: 0 melatonin 3 mg Tablet 6 mg PO BEDTIME RF: 0 aspirin 81 mg Tablet,Delayed Release (Dr/Ec) 81 mg PO DAILY RF: 0 brimonidine 0.2 % Drops 1 drp OPHTHALMIC (EYE) BID RF: 0 loratadine 10 mg Tablet 10 mg PO DAILY RF: 0 escitalopram oxalate 20 mg Tablet 20 mg PO DAILY RF: 0 cholecalciferol (vitamin D3) [Vitamin D3] 50 mcg (2,000 unit) Capsule 50 mcg PO DAILY RF: 0 metformin 1,000 mg Tablet 1,000 mg PO BID Qty: 60 RF: 0 Januvia 100 mg Tablet 100 mg PO DAILY Qty: 30 RF: 0 gabapentin 300 mg capsule 300 mg PO BEDTIME RF: 0 lisinopril 40 mg tablet 40 mg PO DAILY RF: 0 insulin lispro [Humalog KwikPen Insulin] 100 unit/mL insulin pen 20 unit SUBCUT BID RF: 0 Lantus Solostar U-100 Insulin 100 unit/mL (3 mL) insulin pen 46 unit SUBCUT BID RF: 0 ofloxacin 0.3 % Drops 1 drp ophthalmic-Left QID RF: 0 amlodipine 5 mg Tablet 5 mg PO DAILY Qty: 30 RF: 0
[2021-08-13 18:33] LABS: MANUAL DIFF FLAG NO
[2021-08-13 18:50] LABS: Basophils Percent Auto 0.3 % (0-2); Eosinophils Absolute Auto 0.2 X10*3/uL (0.0-0.4); Hematocrit 41.9 % (42.0-52.0); Hemoglobin 14.5 g/dl (14.0-18.0); Imm Gran Abs Auto 0.05 X10*3/uL (0.00-0.03); Imm Gran Pct Auto 0.6 % (0.0-0.4); Lymphocytes Absolute Auto 2.3 X10*3/uL (1.2-4.9); Lymphocytes Percent Auto 29.8 % (20-40); Mean Corpuscular HGB Conc 34.6 g/dl (31.0-36.0); Mean Corpuscular Hemoglobin 30.1 pg (27.0-33.0); Mean Corpuscular Volume 86.9 fL (80.0-98.0); Monocytes Absolute Auto 0.7 X10*3/uL (0.1-1.2); Neutrophils Absolute Auto 4.4 x10*3/uL (2.0-8.3); Neutrophils Percent Auto 57.3 % (45-73); Platelet Count 239 X10*3/uL (160-400); Red Blood Count 4.82 X10*6/uL (4.60-5.80); Red Cell Distribution Width 11.9 % (11.0-16.0); White Blood Count 7.8 X10*3/uL (4.8-10.8)
[2021-08-13 18:56] LABS: Alanine Aminotransferase 31 U/L (0-40); Alkaline Phosphatase 59 U/L (39-117); Anion Gap 13 (12-20); Aspartate Amino Transferase 15 U/L (5-37); Bilirubin Direct < 0.2 mg/dL (0.0-0.5); Bilirubin Total 0.3 mg/dL (0.0-1.0); Blood Urea Nitrogen 23 mg/dL (9-16); Calcium 9.6 mg/dL (8.4-10.2); Carbon Dioxide 25 mmol/L (22-29); Chloride 103 mmol/L (96-108); Creatinine Clr Calc Pharmacy 48.2; Estimated Glomerular Filt Rate 45; Glucose Random 356 mg/dL (60-115); Potassium 4.2 mmol/L (3.3-5.1); Sodium 137 mmol/L (135-145); Total Protein 6.7 g/dL (6.5-8.0)
--- NOTE | 2021-08-13 20:08 | PHA.MEDREC ---
Pharmacy Consult ? Medication Reconciliation Pharmacy has completed the medication reconciliation. Patient does not know what medications he takes, but does confirm he uses [facility]. He requested we call them to get a list. He does have a NEWS AGENT, Marion (?) but he did not have her number in his phone and also stated she would not want to talk to me. Patient also stated that he could only confirm insulin and eye drops since he is blind and cannot read the bottles of anything else. Claude Prasad
[2021-08-13 20:13] LABS: Glucose, Whole Blood 180 mg/dL (60-115)
--- NOTE | 2021-08-13 20:54 | ED.GENADULT ---
HPI - General Adult General Chief complaint: General Medical Stated complaint: od Time Seen by Provider: 08/13/21 17:58 Related Data Home Medications Medication Instructions Recorded Confirmed aspirin 81 mg tablet,delayed 81 mg PO DAILY 11/03/20 08/13/21 release atorvastatin 20 mg tablet 20 mg PO BEDTIME 11/03/20 08/13/21 brimonidine 0.2 % eye drops 1 drp OPHTHALMIC (EYE) BID 11/03/20 08/13/21 cholecalciferol (vitamin D3) 50 50 mcg PO DAILY 11/03/20 08/13/21 mcg (2,000 unit) capsule (Vitamin D3) escitalopram oxalate 20 mg tablet 20 mg PO DAILY 11/03/20 08/13/21 latanoprost 0.005 % eye drops 1 drp OPHTHALMIC-LEFT QPM 11/03/20 08/13/21 loratadine 10 mg tablet 10 mg PO DAILY 11/03/20 08/13/21 melatonin 3 mg tablet 6 mg PO BEDTIME 11/03/20 08/13/21 gabapentin 300 mg capsule 300 mg PO BEDTIME 03/01/21 08/13/21 insulin lispro 100 unit/mL 20 unit SUBCUT BID 03/01/21 08/13/21 subcutaneous pen (Humalog KwikPen (U-100) Insulin) lisinopril 40 mg tablet 40 mg PO DAILY 03/01/21 08/13/21 insulin glargine 100 unit/mL (3 46 unit SUBCUT BID 07/11/21 08/13/21 mL) subcutaneous pen (Lantus Solostar U-100 Insulin) ofloxacin 0.3 % eye drops 1 drp OPHTHALMIC-LEFT QID 07/12/21 08/13/21 Previous Rx's Medication Instructions Recorded metformin 1,000 mg tablet 1,000 mg PO BID #60 tab 11/06/20 sitagliptin 100 mg tablet (Januvia) 100 mg PO DAILY #30 tab 11/06/20 amlodipine 5 mg tablet 5 mg PO DAILY #30 tab 07/12/21 Allergies Allergy/AdvReac Type Severity Reaction Status Date / Time No Known Allergies Allergy Verified 11/07/20 17:45 [facility] Past Medical History Medical History Dementia Dementia Diabetes Essential hypertension Type 2 diabetes mellitus Uncontrolled type 2 diabetes mellitus Social History Social History Household Members: None Household Members Other:: lives alone per stepdaughter Housing: Apartment Housing Other:: elderly apartments Do you presently have visiting nurse or other home services: Yes Alcohol intake: never Patient Tobacco Use Status: Never used Tobacco Advance Directives: Yes Advance Directives on File: Yes Advance Directives Date on File: 10/28/20 service: No Current occupational status: disabled Physical Exam Vital Signs: Vital Signs: Last Vital Signs Temp 97.9 F 08/13/21 18:10 Pulse 93 08/13/21 18:10 Resp 18 08/13/21 18:10 BP 188/85 H 08/13/21 18:10 Pulse Ox 97 08/13/21 18:10 Body Mass Index 29.0 Medical Decision Making Lab Data Result diagrams: 08/13/21 18:29 08/13/21 18:29 Labs: Lab Results 08/13/21 08/13/21 08/13/21 Range/Units 18:29 18:29 20:08 WBC 7.8 (4.8-10.8) X10*3/uL RBC 4.82 (4.60-5.80) X10*6/uL Hgb 14.5 (14.0-18.0) g/dl Hct 41.9 L (42.0-52.0) % MCV 86.9 (80.0-98.0) fL MCH 30.1 (27.0-33.0) pg MCHC 34.6 (31.0-36.0) g/dl RDW 11.9 (11.0-16.0) % Plt Count 239 (160-400) X10*3/uL MPV 11.0 (9.4-12.4) fL Immature Gran % (Auto) 0.6 H (0.0-0.4) % Neut % (Auto) 57.3 (45-73) % Lymph % (Auto) 29.8 (20-40) % [place] % (Auto) 9.0 (2-11) % Eos % (Auto) 3.0 (0-4) % Baso % (Auto) 0.3 (0-2) % Lymph # (Auto) 2.3 (1.2-4.9) X10*3/uL [place] # (Auto) 0.7 (0.1-1.2) X10*3/uL Eos # (Auto) 0.2 (0.0-0.4) X10*3/uL Baso # (Auto) 0.0 (0.0-0.2) X10*3/uL Abs Immat Gran (auto) 0.05 H (0.00-0.03) X10*3/uL Absolute Neuts (auto) 4.4 (2.0-8.3) x10*3/uL Absolute Nucleated RBC 0.000 (0.0-0.012) X10*3/uL Nucleated RBC % (auto) 0.0 (0.0-0.2) /100WBC Sodium 137 (135-145) mmol/L Potassium 4.2 (3.3-5.1) mmol/L Chloride 103 (96-108) mmol/L Carbon Dioxide 25 (22-29) mmol/L Anion Gap 13 (12-20) BUN 23 H (9-16) mg/dL Creatinine 1.54 H (0.5-1.4) mg/dL Estim Creat Clear Calc 48.2 Estimated GFR 45 POC Glucose 180 H (60-115) mg/dL Random Glucose 356 H* (60-115) mg/dL Calcium 9.6 (8.4-10.2) mg/dL Total Bilirubin 0.3 (0.0-1.0) mg/dL Direct Bilirubin < 0.2 (0.0-0.5) mg/dL AST 15 (5-37) U/L ALT 31 (0-40) U/L Alkaline Phosphatase 59 (39-117) U/L Total Protein 6.7 (6.5-8.0) g/dL Albumin 4.0 (3.5-5.0) g/dL Discharge Plan Discharge Clinical Impression: Insulin overdose Patient Disposition: Home, Self-Care Instructions: Hypoglycemia in a Person with Diabetes (ED), Insulin NPH (By injection) Additional Instructions: Please monitor your sugar very carefully. Please take your insulin carefully. Please follow-up closely with your doctor. At least check your sugar 4 times a day for the next 2 days. Prescriptions: No Action latanoprost 0.005 % Drops 1 drp ophthalmic-Left QPM RF: 0 atorvastatin 20 mg Tablet 20 mg PO BEDTIME RF: 0 melatonin 3 mg Tablet 6 mg PO BEDTIME RF: 0 aspirin 81 mg Tablet,Delayed Release (Dr/Ec) 81 mg PO DAILY RF: 0 brimonidine 0.2 % Drops 1 drp OPHTHALMIC (EYE) BID RF: 0 loratadine 10 mg Tablet 10 mg PO DAILY RF: 0 escitalopram oxalate 20 mg Tablet 20 mg PO DAILY RF: 0 cholecalciferol (vitamin D3) [Vitamin D3] 50 mcg (2,000 unit) Capsule 50 mcg PO DAILY RF: 0 metformin 1,000 mg Tablet 1,000 mg PO BID Qty: 60 RF: 0 Januvia 100 mg Tablet 100 mg PO DAILY Qty: 30 RF: 0 gabapentin 300 mg capsule 300 mg PO BEDTIME RF: 0 lisinopril 40 mg tablet 40 mg PO DAILY RF: 0 insulin lispro [Humalog KwikPen Insulin] 100 unit/mL insulin pen 20 unit SUBCUT BID RF: 0 Lantus Solostar U-100 Insulin 100 unit/mL (3 mL) insulin pen 46 unit SUBCUT BID RF: 0 ofloxacin 0.3 % Drops 1 drp ophthalmic-Left QID RF: 0 amlodipine 5 mg Tablet 5 mg PO DAILY Qty: 30 RF: 0 Referrals: Azam Sanford DO [Primary Care Provider] - 1 day
[2021-08-13 20:59] LABS: COVID-19 Test Negative (Negative)
[2021-08-13 21:16] VITALS: BP 156/87; PULSE 93; RESP 15; TEMP 36.6; O2SAT 97
[2021-08-13 21:18] LABS: Glucose, Whole Blood 122 mg/dL (60-115)
[2021-08-13 21:22] LABS: Acetone, serum QL Negative (Negative)
[2021-08-13 22:10] LABS: Glucose, Whole Blood 112 mg/dL (60-115)
[2021-08-13 23:15] LABS: Glucose, Whole Blood 124 mg/dL (60-115)
[2021-08-14 00:46] VITALS: BP 152/79; PULSE 79; RESP 14; O2SAT 97
[2021-08-14 00:50] LABS: Glucose, Whole Blood 90 mg/dL (60-115)
[2021-08-14 01:26] LABS: Glucose, Whole Blood 89 mg/dL (60-115)
[2021-08-14 02:14] LABS: Glucose, Whole Blood 165 mg/dL (60-115)
[2021-08-14 03:00] LABS: Glucose, Whole Blood 253 mg/dL (60-115)
== END 2021-08-14 03:42 | disposition home or self-care (01) ==
PROVIDERS: Emergency Provider Emergency Medicine Emergency Medical Services; PCP Internal Medicine Hospice and Palliative Medicine
DX: T38.3X1A Poisoning by insulin and oral hypoglycemic [antidiabetic] drugs, accidental (unintentional), initial encounter (principal); E11.65 Type 2 diabetes mellitus with hyperglycemia; Y92.9 Unspecified place or not applicable; I10 Essential (primary) hypertension; F03.90 Unspecified dementia, unspecified severity, without behavioral disturbance, psychotic disturbance, mood disturbance, and anxiety; Z79.4 Long term (current) use of insulin; Z79.82 Long term (current) use of aspirin; Z79.899 Other long term (current) drug therapy; Z20.822 Contact with and (suspected) exposure to COVID-19
CPT/HCPCS: 36415; 80048; 80076; 82009; 82947; 85025; 87635; 93005; 99284

== ENCOUNTER 2021-10-31 07:13 | Inpatient (IN) | payer MEDICARE, SELFPAY ==
--- NOTE | ~2021-10-31 | CT_ITS ---
EXAMINATION: CT ABDOMEN AND PELVIS WITHOUT CONTRAST CLINICAL INFORMATION: Abdominal pain COMPARISON: CT of the abdomen and pelvis 11/07/2020 TECHNIQUE: Multidetector volumetric imaging was performed from the superior aspect of the liver through the pubic symphysis. Sagittal and coronal reformatted images were obtained on the technologist's workstation. This CT examination was performed using dose optimization techniques as appropriate, variously including the following: *Automated exposure control *Adjustment of mA and/or kV according to patient size (this includes techniques or standardized protocols for targeted exams where dose is matched to indication/reason for exam; i.e. extremities or head) *Use of iterative reconstruction technique DLP: 581 mGy-cm FINDINGS: LUNG BASES: The visualized lung bases are unremarkable. LIVER, GALLBLADDER, AND BILIARY TREE: There is mildly decreased attenuation of the hepatic parenchyma which may be due to hepatic steatosis. No focal lesion. No intrahepatic biliary duct dilatation. The gallbladder is unremarkable with no evidence of radiopaque gallstones, gallbladder wall thickening, or obvious pericholecystic inflammatory changes. PANCREAS: Mild atrophy. No focal lesion. No inflammatory change. SPLEEN: Unremarkable. ADRENAL GLANDS: Unremarkable. KIDNEYS AND URETERS: The kidneys are normal in size, shape, and attenuation. No hydronephrosis or hydroureter. Again demonstrated is a 0.7 cm nonobstructive calculus in the left mid to lower pole. No perinephric stranding. BLADDER: Unremarkable. GASTROINTESTINAL TRACT: The stomach and small bowel are not dilated. No evidence for obstruction. Normal appendix. Moderate amount of stool within the colon. No pericolonic inflammatory change. ABDOMINAL WALL: Small fat-containing umbilical hernia. LYMPH NODES: No significant lymphadenopathy. VASCULAR: Normal caliber of the abdominal aorta. Scattered atherosclerotic calcifications. PELVIC VISCERA: There is mild enlargement of the prostate gland, unchanged. OSSEOUS STRUCTURES: No acute or suspicious osseous abnormality. Multilevel degenerative changes of the spine. CT/CT abdomen pelvis wo con IMPRESSION: No CT evidence for acute intra-abdominal pathology. No evidence for bowel obstruction. Normal appendix. Moderate amount of stool in the colon. Stable appearance of 0.7 cm nonobstructive calculus in the mid to lower pole of the left kidney. Stable prostatomegaly.
--- NOTE | ~2021-10-31 | XR_ITS ---
EXAMINATION: XR CHEST CLINICAL INFORMATION: Chest pain COMPARISON: March 01, 2021 TECHNIQUE: AP portable view of the chest was obtained. FINDINGS: No significant abnormality is noted involving the heart, lungs, mediastinum, bony thorax or soft tissues. Status post left shoulder surgery. XR/XR chest 1V IMPRESSION: No acute disease.
[2021-10-31 07:17] VITALS: BP 189/102; PULSE 88; RESP 20; TEMP 36.8; O2SAT 98; BMI 28.3
--- NOTE | 2021-10-31 07:20 | ECG_ITS ---
Test Reason : ABDOMINAL PAIN Blood Pressure : / mmHG Vent. Rate : 087 BPM Atrial Rate : 087 BPM P-R Int : 154 ms QRS Dur : 096 ms QT Int : 392 ms P-R-T Axes : 061 008 093 degrees QTc Int : 471 ms Normal sinus rhythm Nonspecific ST and T wave abnormality Abnormal ECG When compared with ECG of 13-AUG-2021 18:23, No significant change was found Referred By: Mark Peñaloza Electronically Signed By:BO STEINBERG
--- NOTE | 2021-10-31 07:29 | ED_ITS ---
HPI - General Adult General Chief complaint: General Medical Stated complaint: ABD PAIN,GEN WEAKNESS X'S 1 WEAK Time Seen by Provider: 10/31/21 07:20 Related Data Home Medications Medication Instructions Recorded Confirmed aspirin 81 mg tablet,delayed 81 mg PO DAILY 11/03/20 08/13/21 release atorvastatin 20 mg tablet 20 mg PO BEDTIME 11/03/20 08/13/21 brimonidine 0.2 % eye drops 1 drp OPHTHALMIC (EYE) BID 11/03/20 08/13/21 cholecalciferol (vitamin D3) 50 mcg PO DAILY 11/03/20 08/13/21 50 mcg (2,000 unit) capsule (Vitamin D3) escitalopram oxalate 20 mg 20 mg PO DAILY 11/03/20 08/13/21 tablet latanoprost 0.005 % eye drops 1 drp OPHTHALMIC-LEFT QPM 11/03/20 08/13/21 loratadine 10 mg tablet 10 mg PO DAILY 11/03/20 08/13/21 melatonin 3 mg tablet 6 mg PO BEDTIME 11/03/20 08/13/21 gabapentin 300 mg capsule 300 mg PO BEDTIME 03/01/21 08/13/21 insulin lispro 100 unit/mL 20 unit SUBCUT BID 03/01/21 08/13/21 subcutaneous pen (Humalog KwikPen (U-100) Insulin) lisinopril 40 mg tablet 40 mg PO DAILY 03/01/21 08/13/21 insulin glargine 100 unit/mL 46 unit SUBCUT BID 07/11/21 08/13/21 (3 mL) subcutaneous pen (Lantus Solostar U-100 Insulin) ofloxacin 0.3 % eye drops 1 drp OPHTHALMIC-LEFT QID 07/12/21 08/13/21 Previous Rx's Medication Instructions Recorded metformin 1,000 mg tablet 1,000 mg PO BID #60 tab 11/06/20 sitagliptin 100 mg tablet (Januvia) 100 mg PO DAILY #30 tab 11/06/20 amlodipine 5 mg tablet 5 mg PO DAILY #30 tab 07/12/21 blood sugar diagnostic (FreeStyle #50 ea 08/14/21 Lite Strips) Allergies Allergy/AdvReac Type Severity Reaction Status Date / Time No Known Allergies Allergy Verified 11/07/20 17:45 [facility] Past Medical History Medical History (Updated 08/15/21 @ 00:02 by Background Daemon) Dementia Dementia Diabetes Essential hypertension Type 2 diabetes mellitus Uncontrolled type 2 diabetes mellitus Social History Social History Household Members: None Household Members Other:: lives alone per stepdaughter Housing: Apartment Housing Other:: elderly apartments Do you presently have visiting nurse or other home services: Yes Alcohol intake: never Patient Tobacco Use Status: Never used Tobacco Advance Directives Date on File: 10/28/20 service: No Current occupational status: disabled Physical Exam Verdana 4l Vital Signs: Verdana 4d Verdana 4d Vital Signs: Verdana 4d Verdana 4Bd Last Vital Signs Verdana 4d [employer] New 4d [employer] New 4d Temp 98.2 F 10/31/21 07:17 [employer] New 4d Pulse 88 10/31/21 07:17 [employer] New 4d Resp 20 10/31/21 07:17 BP 189/102 H 10/31/21 07:17 Pulse Ox 98 10/31/21 07:17 BMI result Body Mass Index 28.3 Discharge Plan Discharge Prescriptions: No Action latanoprost 0.005 % Drops 1 drp ophthalmic-Left QPM 0RF atorvastatin 20 mg Tablet 20 mg PO BEDTIME 0RF melatonin 3 mg Tablet 6 mg PO BEDTIME 0RF aspirin 81 mg Tablet,Delayed Release (Dr/Ec) 81 mg PO DAILY 0RF brimonidine 0.2 % Drops 1 drp OPHTHALMIC (EYE) BID 0RF loratadine 10 mg Tablet 10 mg PO DAILY 0RF escitalopram oxalate 20 mg Tablet 20 mg PO DAILY 0RF cholecalciferol (vitamin D3) [Vitamin D3] 50 mcg (2,000 unit) Capsule 50 mcg PO DAILY 0RF metformin 1,000 mg Tablet 1,000 mg PO BID Qty: 60 0RF Januvia 100 mg Tablet 100 mg PO DAILY Qty: 30 0RF gabapentin 300 mg capsule 300 mg PO BEDTIME 0RF lisinopril 40 mg tablet 40 mg PO DAILY 0RF insulin lispro [Humalog KwikPen Insulin] 100 unit/mL insulin pen 20 unit SUBCUT BID 0RF Rx Instructions: HOLD FOR BS <100 Lantus Solostar U-100 Insulin 100 unit/mL (3 mL) insulin pen 46 unit SUBCUT BID 0RF ofloxacin 0.3 % Drops 1 drp ophthalmic-Left QID 0RF amlodipine 5 mg Tablet 5 mg PO DAILY Qty: 30 0RF Protocol: Hold for SBP< HOLD for SBP < : 90 (DME) FreeStyle Lite Strips Strip See Rx Instructions .Route Qty: 50 0RF Rx Instructions: As directed
--- NOTE | 2021-10-31 07:30 | ED_ITS ---
HPI - General Adult General Chief complaint: General Medical Stated complaint: ABD PAIN,GEN WEAKNESS X'S 1 WEAK Time Seen by Provider: 10/31/21 07:20 Source: patient Mode of arrival: EMS History of Present Illness HPI narrative: THIS IS A 66 YEARS OLD PATIENT WITH HISTORY OF DIABETES PRESENTED TO THE EMERGENCY ROOM BY AMBULANCE COMPLAINING OF GENERALIZED WEAKNESS, PATIENT IS VERY POOR HISTORIAN HE HAS HISTORY OF DEMENTIA ACCORDING TO THE STEPDAUGHTER HE HAS NOT BEEN DRINKING FLUIDS FOR 3 DAYS THE HE DID NOT TAKE HIS ANY MEDICINE FOR 3 DAYS. PATIENT STATES THAT HE HAS NAUSEA AND ABDOMINAL PAIN Onset (ago): day(s) (3) Location: abdomen Radiation: non-radiation Severity: mild Quality: burning Pain Consistency: constant Relieving factors: none Exacerbating factors: none Associated symptoms: denies other symptoms Related Data Home Medications Medication Instructions Recorded Confirmed aspirin 81 mg tablet,delayed 81 mg PO DAILY 11/03/20 10/31/21 release atorvastatin 20 mg tablet 20 mg PO BEDTIME 11/03/20 10/31/21 brimonidine 0.2 % eye drops 1 drp OPHTHALMIC (EYE) BID 11/03/20 10/31/21 cholecalciferol (vitamin D3) 50 mcg PO DAILY 11/03/20 10/31/21 50 mcg (2,000 unit) capsule (Vitamin D3) escitalopram oxalate 20 mg 20 mg PO DAILY 11/03/20 10/31/21 tablet latanoprost 0.005 % eye drops 1 drp OPHTHALMIC-LEFT QPM 11/03/20 10/31/21 loratadine 10 mg tablet 10 mg PO DAILY 11/03/20 10/31/21 melatonin 3 mg tablet 6 mg PO BEDTIME 11/03/20 10/31/21 lisinopril 40 mg tablet 40 mg PO DAILY 03/01/21 10/31/21 insulin glargine 100 unit/mL 46 unit SUBCUT BID 07/11/21 10/31/21 (3 mL) subcutaneous pen (Lantus Solostar U-100 Insulin) insulin aspart U-100 100 20 unit SUBCUT BID 10/31/21 10/31/21 unit/mL (3 mL) subcutaneous pen (Novolog Flexpen U-100 Insulin aspart) Previous Rx's Medication Instructions Recorded sitagliptin 100 mg tablet (Januvia) 100 mg PO DAILY #30 tab 11/06/20 amlodipine 5 mg tablet 5 mg PO DAILY #30 tab 07/12/21 blood sugar diagnostic (FreeStyle #50 ea 08/14/21 Lite Strips) Allergies Allergy/AdvReac Type Severity Reaction Status Date / Time No Known Allergies Allergy Verified 11/07/20 17:45 Review of Systems Verdana 4l Review of Systems: Yes all other systems are reviewed and Verdana 4d are negative Verdana 4l Cardiovascular: Verdana 4d Cardiovascular: Verdana 4d Verdana 4d Reports no additional cardiovascular complaints Verdana 4l Respiratory: Verdana 4d Verdana 4d Respiratory: Verdana 4d Reports no additional respiratory complaints Verdana 4l Gastrointestinal: Verdana 4d Gastrointestinal: Verdana 4d Verdana 4d Reports heartburn and Reports vomiting Verdana 4l Musculoskeletal: Verdana 4d Musculoskeletal: Verdana 4d Verdana 4d Reports no additional musculoskeletal complaints Verdana 4l Neurologic: Verdana 4d Reports system reviewed and no additional complaints, except as documented Verdana 4l Endocrine: Verdana 4d Verdana 4d Endocrine: Verdana 4d Reports other (FLAT) [facility] Past Medical History Medical History (Updated 10/31/21 @ 11:49 by Mark Peñaloza MD) Dementia Essential hypertension Type 2 diabetes mellitus Social History Social History Household Members: None Household Members Other:: lives alone per stepdaughter Housing: Apartment Housing Other:: elderly apartments Do you presently have visiting nurse or other home services: Yes Alcohol intake: unknown Patient Tobacco Use Status: Never used Tobacco Use of substances other than those prescribed or required for medical reasons: Unknown Advance Directives: Yes Advance Directives on File: Yes Advance Directives Date on File: 10/28/20 service: No Current occupational status: disabled Physical Exam Verdana 4l Vital Signs: Verdana 4d Verdana 4d Vital Signs: Verdana 4d Verdana 4Bd Last Vital Signs Verdana 4d Manager [employer]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 4d [employer] New 4d Temp 98.2 F 10/31/21 09:56 Manager [employer] New 4d Pulse 86 10/31/21 10:00 Manager [employer] New 4d Resp 16 10/31/21 10:00 BP 170/79 H 10/31/21 09:56 Pulse Ox 96 10/31/21 10:00 BMI result Body Mass Index 28.3 Const: General: no acute distress Nutritional Appearance: well nourished HENMT: Head: Yes normal to inspection Face and sinus: Yes normal facial exam Mouth: Normal oral and palatal mucosa present Throat: Yes posterior oropharynx normal Neck: Neck: Yes normal visual inspection and Yes full ROM Chest: Chest palpation & inspection: normal inspection of the chest Resp: Effort & Inspection: normal respiratory effort Auscultation: clear to auscultation bilaterally Cardio: Jugular venous distension: no JVD Rate: regular rate Rhythm: regular rhythm GI: Inspection: Yes normal to inspection Palpation (GI): Soft to palpation, not firm, nontender, no guarding and not rigid Percussion: Yes normal to percussion Course Reevaluation(s) Reevaluation #1: Patient remained hemodynamically stable his pulse is 88 his respiration is 20. Blood work is consistent with a mild DKA he has small amount of acetone in his blood he is bicarb is 18 years with anion gap acidosis. I anticipate improvement with IV fluid the a insulin. I do not think this patient need intensive care at this point I anticipate admission to telemetry Time: 08:48 Reevaluation #2: The gap is now normalized patient is doing much better blood sugar trending down Medical Decision Making Lab Data Result diagrams: 10/31/21 07:32 10/31/21 11:11 Labs: Lab Results 10/31/21 10/31/21 10/31/21 Range/Units 07:20 07:32 07:32 WBC 13.6 H (4.8-10.8) X10*3/uL RBC 5.31 (4.60-5.80) X10*6/uL Hgb 16.0 (14.0-18.0) g/dl Hct 45.9 (42.0-52.0) % MCV 86.4 (80.0-98.0) fL MCH 30.1 (27.0-33.0) pg MCHC 34.9 (31.0-36.0) g/dl RDW 11.7 (11.0-16.0) % Plt Count 261 (160-400) X10*3/uL MPV 12.0 (9.4-12.4) fL Immature Gran % (Auto) 0.4 (0.0-0.4) % Neut % (Auto) 75.9 H (45-73) % Lymph % (Auto) 17.7 L (20-40) % Mora % (Auto) 5.2 (2-11) % Eos % (Auto) 0.5 (0-4) % Baso % (Auto) 0.3 (0-2) % Lymph # (Auto) 2.4 (1.2-4.9) X10*3/uL Mora # (Auto) 0.7 (0.1-1.2) X10*3/uL Eos # (Auto) 0.1 (0.0-0.4) X10*3/uL Baso # (Auto) 0.0 (0.0-0.2) X10*3/uL Abs Immat Gran (auto) 0.05 H (0.00-0.03) X10*3/uL Absolute Neuts (auto) 10.3 H (2.0-8.3) x10*3/uL Absolute Nucleated RBC 0.000 (0.0-0.012) X10*3/uL Nucleated RBC % (auto) 0.0 (0.0-0.2) /100WBC PT (9.9-13.0) SEC INR (0.9-1.1) APTT (24.1-38.0) SEC Sodium 130 L (135-145) mmol/L Potassium 5.2 H D (3.3-5.1) mmol/L Chloride 94 L (96-108) mmol/L Carbon Dioxide 18 L (22-29) mmol/L Anion Gap 23 H (12-20) BUN 43 H (9-16) mg/dL Creatinine 2.13 H (0.5-1.4) mg/dL Estim Creat Clear Calc 32.2 Estimated GFR 31 POC Glucose > 600 H* (60-115) mg/dL Random Glucose 654 H* (60-115) mg/dL Calcium 9.8 (8.4-10.2) mg/dL Total Bilirubin 1.1 H (0.0-1.0) mg/dL AST 14 (5-37) U/L ALT 22 (0-40) U/L Alkaline Phosphatase 75 D (39-117) U/L Troponin I High Sens (<3.5-35.0) ng/L Total Protein 7.4 (6.5-8.0) g/dL Albumin 4.2 (3.5-5.0) g/dL Urine Color Urine Appearance Urine pH (5.0-8.0) Ur Specific [place] (1.005-1.025) Urine Protein (NEG-TRACE) MG/DL Urine Glucose (UA) (NEG) MG/DL Urine Ketones (NEG) MG/DL Urine Blood (NEG) Urine Nitrite (NEG) Ur Leukocyte Esterase (NEG) Urine RBC (0) /HPF Urine WBC (0-4) /HPF Ur Squamous Epith Cells /LPF Urine Bacteria /LPF Urine Mucus /LPF Urine Yeast /HPF Urine Sperm Acetone, Qual (Negative) COVID-19 (KATINA) (Negative) COVID-19 Clin Com 10/31/21 10/31/21 10/31/21 Range/Units 07:32 07:32 07:32 WBC (4.8-10.8) X10*3/uL RBC (4.60-5.80) X10*6/uL Hgb (14.0-18.0) g/dl Hct (42.0-52.0) % MCV (80.0-98.0) fL MCH (27.0-33.0) pg MCHC (31.0-36.0) g/dl RDW (11.0-16.0) % Plt Count (160-400) X10*3/uL MPV (9.4-12.4) fL Immature Gran % (Auto) (0.0-0.4) % Neut % (Auto) (45-73) % Lymph % (Auto) (20-40) % Mora % (Auto) (2-11) % Eos % (Auto) (0-4) % Baso % (Auto) (0-2) % Lymph # (Auto) (1.2-4.9) X10*3/uL Mora # (Auto) (0.1-1.2) X10*3/uL Eos # (Auto) (0.0-0.4) X10*3/uL Baso # (Auto) (0.0-0.2) X10*3/uL Abs Immat Gran (auto) (0.00-0.03) X10*3/uL Absolute Neuts (auto) (2.0-8.3) x10*3/uL Absolute Nucleated RBC (0.0-0.012) X10*3/uL Nucleated RBC % (auto) (0.0-0.2) /100WBC PT 11.6 (9.9-13.0) SEC INR 1.0 (0.9-1.1) APTT 33.7 (24.1-38.0) SEC Sodium (135-145) mmol/L Potassium (3.3-5.1) mmol/L Chloride (96-108) mmol/L Carbon Dioxide (22-29) mmol/L Anion Gap (12-20) BUN (9-16) mg/dL Creatinine (0.5-1.4) mg/dL Estim Creat Clear Calc Estimated GFR POC Glucose (60-115) mg/dL Random Glucose (60-115) mg/dL Calcium (8.4-10.2) mg/dL Total Bilirubin (0.0-1.0) mg/dL AST (5-37) U/L ALT (0-40) U/L Alkaline Phosphatase (39-117) U/L Troponin I High Sens 7.5 (<3.5-35.0) ng/L Total Protein (6.5-8.0) g/dL Albumin (3.5-5.0) g/dL Urine Color Urine Appearance Urine pH (5.0-8.0) Ur Specific [place] (1.005-1.025) Urine Protein (NEG-TRACE) MG/DL Urine Glucose (UA) (NEG) MG/DL Urine Ketones (NEG) MG/DL Urine Blood (NEG) Urine Nitrite (NEG) Ur Leukocyte Esterase (NEG) Urine RBC (0) /HPF Urine WBC (0-4) /HPF Ur Squamous Epith Cells /LPF Urine Bacteria /LPF Urine Mucus /LPF Urine Yeast /HPF Urine Sperm Acetone, Qual (Negative) COVID-19 (KATINA) Negative (Negative) COVID-19 Clin Com See Note 10/31/21 10/31/21 10/31/21 Range/Units 08:17 08:52 09:59 WBC (4.8-10.8) X10*3/uL RBC (4.60-5.80) X10*6/uL Hgb (14.0-18.0) g/dl Hct (42.0-52.0) % MCV (80.0-98.0) fL MCH (27.0-33.0) pg MCHC (31.0-36.0) g/dl RDW (11.0-16.0) % Plt Count (160-400) X10*3/uL MPV (9.4-12.4) fL Immature Gran % (Auto) (0.0-0.4) % Neut % (Auto) (45-73) % Lymph % (Auto) (20-40) % Mora % (Auto) (2-11) % Eos % (Auto) (0-4) % Baso % (Auto) (0-2) % Lymph # (Auto) (1.2-4.9) X10*3/uL Mora # (Auto) (0.1-1.2) X10*3/uL Eos # (Auto) (0.0-0.4) X10*3/uL Baso # (Auto) (0.0-0.2) X10*3/uL Abs Immat Gran (auto) (0.00-0.03) X10*3/uL Absolute Neuts (auto) (2.0-8.3) x10*3/uL Absolute Nucleated RBC (0.0-0.012) X10*3/uL Nucleated RBC % (auto) (0.0-0.2) /100WBC PT (9.9-13.0) SEC INR (0.9-1.1) APTT (24.1-38.0) SEC Sodium (135-145) mmol/L Potassium (3.3-5.1) mmol/L Chloride (96-108) mmol/L Carbon Dioxide (22-29) mmol/L Anion Gap (12-20) BUN (9-16) mg/dL Creatinine (0.5-1.4) mg/dL Estim Creat Clear Calc Estimated GFR POC Glucose 470 H* (60-115) mg/dL Random Glucose (60-115) mg/dL Calcium (8.4-10.2) mg/dL Total Bilirubin (0.0-1.0) mg/dL AST (5-37) U/L ALT (0-40) U/L Alkaline Phosphatase (39-117) U/L Troponin I High Sens (<3.5-35.0) ng/L Total Protein (6.5-8.0) g/dL Albumin (3.5-5.0) g/dL Urine Color YELLOW Urine Appearance CLEAR Urine pH 5.5 (5.0-8.0) Ur Specific [place] 1.020 (1.005-1.025) Urine Protein 2+ H (NEG-TRACE) MG/DL Urine Glucose (UA) >=1000 H (NEG) MG/DL Urine Ketones 40 (NEG) MG/DL Urine Blood 1+ H (NEG) Urine Nitrite NEG (NEG) Ur Leukocyte Esterase NEG (NEG) Urine RBC 1-4 (0) /HPF Urine WBC 0-2 (0-4) /HPF Ur Squamous Epith Cells TRACE /LPF Urine Bacteria TRACE /LPF Urine Mucus TRACE /LPF Urine Yeast TRACE /HPF Urine Sperm NOTED Acetone, Qual Small H (Negative) COVID-19 (KATINA) (Negative) COVID-19 Clin Com 10/31/21 Range/Units 11:11 WBC (4.8-10.8) X10*3/uL RBC (4.60-5.80) X10*6/uL Hgb (14.0-18.0) g/dl Hct (42.0-52.0) % MCV (80.0-98.0) fL MCH (27.0-33.0) pg MCHC (31.0-36.0) g/dl RDW (11.0-16.0) % Plt Count (160-400) X10*3/uL MPV (9.4-12.4) fL Immature Gran % (Auto) (0.0-0.4) % Neut % (Auto) (45-73) % Lymph % (Auto) (20-40) % Mora % (Auto) (2-11) % Eos % (Auto) (0-4) % Baso % (Auto) (0-2) % Lymph # (Auto) (1.2-4.9) X10*3/uL Mora # (Auto) (0.1-1.2) X10*3/uL Eos # (Auto) (0.0-0.4) X10*3/uL Baso # (Auto) (0.0-0.2) X10*3/uL Abs Immat Gran (auto) (0.00-0.03) X10*3/uL Absolute Neuts (auto) (2.0-8.3) x10*3/uL Absolute Nucleated RBC (0.0-0.012) X10*3/uL Nucleated RBC % (auto) (0.0-0.2) /100WBC PT (9.9-13.0) SEC INR (0.9-1.1) APTT (24.1-38.0) SEC Sodium 135 (135-145) mmol/L Potassium 4.7 (3.3-5.1) mmol/L Chloride 103 (96-108) mmol/L Carbon Dioxide 19 L (22-29) mmol/L Anion Gap 18 (12-20) BUN 38 H (9-16) mg/dL Creatinine 1.72 H (0.5-1.4) mg/dL Estim Creat Clear Calc 39.9 Estimated GFR 40 POC Glucose (60-115) mg/dL Random Glucose 408 H* (60-115) mg/dL Calcium 9.1 D (8.4-10.2) mg/dL Total Bilirubin (0.0-1.0) mg/dL AST (5-37) U/L ALT (0-40) U/L Alkaline Phosphatase (39-117) U/L Troponin I High Sens (<3.5-35.0) ng/L Total Protein (6.5-8.0) g/dL Albumin (3.5-5.0) g/dL Urine Color Urine Appearance Urine pH (5.0-8.0) Ur Specific [place] (1.005-1.025) Urine Protein (NEG-TRACE) MG/DL Urine Glucose (UA) (NEG) MG/DL Urine Ketones (NEG) MG/DL Urine Blood (NEG) Urine Nitrite (NEG) Ur Leukocyte Esterase (NEG) Urine RBC (0) /HPF Urine WBC (0-4) /HPF Ur Squamous Epith Cells /LPF Urine Bacteria /LPF Urine Mucus /LPF Urine Yeast /HPF Urine Sperm Acetone, Qual (Negative) COVID-19 (KATINA) (Negative) COVID-19 Clin Com ECG Data Pacemaker model: nsr 87 NO ISCHEMIC CHANGES Critical Care Time Critical Care Time Critical Care Time: Yes Total Critical Care Time: 50 Attestation: DKA anion gap acidosis,positive acetone Discharge Plan Discharge Clinical Impression: DKA (diabetic ketoacidosis) Patient Disposition: Admitted As Inpatient
--- NOTE | 2021-10-31 07:33 | PC.NURSE ---
RN aware of poc HIGH OVER 600
[2021-10-31] MEDS: 0.9 % Sodium Chloride 1,000 ML 999 ML IVCONT ×2 (07:34→08:56)
[2021-10-31 07:36] LABS: Glucose, Whole Blood > 600 mg/dL (60-115)
[2021-10-31 07:38] LABS: MANUAL DIFF FLAG NO
--- NOTE | 2021-10-31 07:39 | PC.NURSE ---
pt is aox 3 speaking in full clear sentences. 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 pt is not cooperating with being changed into hospital clothing. pt is very abrasive and rude to this rn. pt not willing for education at this time. placed on monitor technician and iv placed/labs obtained. medicated per emar.
[2021-10-31] MEDS: Insulin Lispro 100 UNIT/ML 3 ML VIAL 12 UNIT SUBCUT (07:47)
[2021-10-31] MEDS: ondansetron HCL 4 MG/2 ML VIAL IVPUSH (07:47)
[2021-10-31 07:49] LABS: Prothrombin Time 11.6 SEC (9.9-13.0)
[2021-10-31 07:52] LABS: Partial Thromboplastin Time 33.7 SEC (24.1-38.0)
[2021-10-31 07:54] LABS: Basophils Percent Auto 0.3 % (0-2); COVID-19 Test Negative (Negative); Eosinophils Absolute Auto 0.1 X10*3/uL (0.0-0.4); Eosinophils Percent Auto 0.5 % (0-4); Hematocrit 45.9 % (42.0-52.0); Imm Gran Abs Auto 0.05 X10*3/uL (0.00-0.03); Imm Gran Pct Auto 0.4 % (0.0-0.4); Lymphocytes Absolute Auto 2.4 X10*3/uL (1.2-4.9); Lymphocytes Percent Auto 17.7 % (20-40); Mean Corpuscular HGB Conc 34.9 g/dl (31.0-36.0); Mean Corpuscular Hemoglobin 30.1 pg (27.0-33.0); Mean Corpuscular Volume 86.4 fL (80.0-98.0); Monocytes Absolute Auto 0.7 X10*3/uL (0.1-1.2); Monocytes Percent Auto 5.2 % (2-11); Neutrophils Absolute Auto 10.3 x10*3/uL (2.0-8.3); Neutrophils Percent Auto 75.9 % (45-73); Platelet Count 261 X10*3/uL (160-400); Red Blood Count 5.31 X10*6/uL (4.60-5.80); Red Cell Distribution Width 11.7 % (11.0-16.0); White Blood Count 13.6 X10*3/uL (4.8-10.8)
[2021-10-31 08:00] LABS: Troponin-I High Sensitivity 7.5 ng/L (<3.5-35.0)
[2021-10-31 08:06] LABS: Alanine Aminotransferase 22 U/L (0-40); Albumin Level 4.2 g/dL (3.5-5.0); Alkaline Phosphatase 75 U/L (39-117); Anion Gap 23 (12-20); Aspartate Amino Transferase 14 U/L (5-37); Bilirubin Total 1.1 mg/dL (0.0-1.0); Blood Urea Nitrogen 43 mg/dL (9-16); Calcium 9.8 mg/dL (8.4-10.2); Carbon Dioxide 18 mmol/L (22-29); Chloride 94 mmol/L (96-108); Creatinine Clr Calc Pharmacy 32.2; Estimated Glomerular Filt Rate 31; Glucose Random 654 mg/dL (60-115); Potassium 5.2 mmol/L (3.3-5.1); Sodium 130 mmol/L (135-145); Total Protein 7.4 g/dL (6.5-8.0)
[2021-10-31 08:37] LABS: Acetone, serum QL Small (Negative)
[2021-10-31 09:00] LABS: Appearance Urine CLEAR; Color Urine YELLOW; Glucose Urine UA >=1000 MG/DL (NEG); Leukocyte Esterase Urine NEG (NEG); Nitrite Urine NEG (NEG); PH 5.5 (5.0-8.0); UACC Culture Trigger NO; Urine Blood 1+ (NEG); Urine Ketones 40 MG/DL (NEG); Urine Protein 2+ MG/DL (NEG-TRACE)
[2021-10-31 09:10] LABS: Squamous Epithelial Cell Urine TRACE /LPF; WBC Urine 0-2 /HPF (0-4)
[2021-10-31 09:11] LABS: Bacteria Urine TRACE /LPF; Sperm Urine NOTED
[2021-10-31 09:12] LABS: Mucus Urine TRACE /LPF
[2021-10-31 09:56] VITALS: BP 170/79; PULSE 89; RESP 19; TEMP 36.8; O2SAT 98
[2021-10-31 10:00] VITALS: PULSE 86; RESP 16; O2SAT 96
--- NOTE | 2021-10-31 10:01 | PHA.MEDREC ---
Pharmacy Consult ? Medication Reconciliation Pharmacy has completed the medication reconciliation based on pharmacy info
[2021-10-31 10:03] LABS: Glucose, Whole Blood 470 mg/dL (60-115)
[2021-10-31] MEDS: Insulin Lispro 100 UNIT/ML 3 ML VIAL SUBCUT ×3 (10:58→23:33)
--- NOTE | 2021-10-31 11:07 | P.HPHOSP_ITS ---
History of Present Illness Date of Service: 10/31/21 Attending physician on admission: Luis Miguel Villasenor Chief Complaint: Nausea 66 year old man presenting to the ED with nausea and abdominal pain. He reported that this was ongoing for several days. He lives alone and had not taken his medication for 3 days and has not been drinking enough fluids. He was oriented to person and place but not time. He denied chest pain, shortness of breath, recent illness. Upon arrival to the ED his blod sugar was noted to be 654 with sodium of 130, potassium 5.2, anion gap 23 and creat 2.13. He was given 17 units of IV insulin and 2 liters of fluids and his lab work did improve. He will be admitted for further management of DKA. Review of Systems Verdana 4l Review of Systems: Verdana 4d Verdana 4d Denies any recent fever chills or decrease in appetite respiratory denies any shortness of breath coverage production cardiovascular denies chest pain gastrointestinal denies any dysphagia abdominal pain nausea vomiting or diarrhea genitourinarygenitourinary denies any dysuria frequency or hematuria musculoskeletal denies any joint pain or swelling neuropsych denies any weakness or seizures all other systems reviewed are negative [facility] Medical History (Updated 10/31/21 @ 11:49 by Mark Peñaloza MD) Dementia Essential hypertension Type 2 diabetes mellitus Social History Household Members: None Household Members Other:: lives alone per stepdaughter Housing: Apartment Housing Other:: elderly apartments Do you presently have visiting nurse or other home services: Yes Alcohol intake: unknown Patient Tobacco Use Status: Never used Tobacco Use of substances other than those prescribed or required for medical reasons: Unknown Advance Directives: Yes Advance Directives on File: Yes Advance Directives Date on File: 10/28/20 service: No Current occupational status: disabled Meds Allergies Allergy/AdvReac Type Severity Reaction Status Date / Time No Known Allergies Allergy Verified 11/07/20 17:45 Active Medications: Current Medications Pharmacy Consult (Consult Rx Perform Med Rec) 1 each MISCELLANE ONCE PRN PRN Reason: Consult order Home Medications Medication Instructions Recorded Confirmed Last Taken Type aspirin 81 mg 81 mg PO DAILY 11/03/20 10/31/21 08/13/21 History tablet,delayed release atorvastatin 20 20 mg PO BEDTIME 11/03/20 10/31/21 08/12/21 History mg tablet brimonidine 0.2 % 1 drp OPHTHALMIC 11/03/20 10/31/21 02/25/21 History eye drops (EYE) BID cholecalciferol 50 mcg PO DAILY 11/03/20 10/31/21 08/13/21 History (vitamin D3) 50 mcg (2,000 unit) capsule (Vitamin D3) escitalopram 20 mg PO DAILY 11/03/20 10/31/21 08/13/21 History oxalate 20 mg tablet latanoprost 0.005 1 drp 11/03/20 10/31/21 02/24/21 History % eye drops OPHTHALMIC-LEFT QPM loratadine 10 mg 10 mg PO DAILY 11/03/20 10/31/21 02/25/21 History tablet melatonin 3 mg 6 mg PO BEDTIME 11/03/20 10/31/21 08/12/21 History tablet lisinopril 40 mg 40 mg PO DAILY 03/01/21 10/31/21 08/13/21 History tablet insulin glargine 46 unit SUBCUT 07/11/21 10/31/21 08/13/21 History 100 unit/mL (3 BID mL) subcutaneous pen (Lantus Solostar U-100 Insulin) insulin aspart 20 unit SUBCUT 10/31/21 10/31/21 Unknown History U-100 100 unit/mL BID (3 mL) subcutaneous pen (Novolog Flexpen U-100 Insulin aspart) Physical Exam Verdana 4l Vital Signs and Narrative: Verdana 4d Verdana 4d Vital Signs: Verdana 4d Verdana 4Bd Last Vital Signs Verdana 4d Professor [employer] New 4d Professor [employer] New 4d Temp 98.2 F 10/31/21 09:56 Professor [employer] New 4d Pulse 86 10/31/21 10:00 Professor [employer] New 4d Resp 16 10/31/21 10:00 BP 170/79 H 10/31/21 09:56 Pulse Ox 96 10/31/21 10:00 BMI result Body Mass Index 28.3 Appearing in no acute distress head is normocephalic atraumatic eyes pupils are PERRLA sclera is anicteric mouth throat mucous membranes are intact and moist neck is supple no lymphadenopathy, no JVD noted lung sounds are clear to auscultation heart regular rate rhythm, clear S1, S2 positive bowel sounds, abdomen is soft, nontender neuro patient is alert x3, no focal deficits Results Labs CBC and Chem 7: 10/31/21 07:32 10/31/21 11:11 Labs: Laboratory Results - last 24 hr 10/31/21 10/31/21 10/31/21 07:20 07:32 07:32 MCV 86.4 MCH 30.1 MCHC 34.9 RDW 11.7 Plt Count 261 MPV 12.0 Immature Gran % (Auto) 0.4 Neut % (Auto) 75.9 H Lymph % (Auto) 17.7 L Campbell % (Auto) 5.2 Eos % (Auto) 0.5 Baso % (Auto) 0.3 Lymph # (Auto) 2.4 Campbell # (Auto) 0.7 Eos # (Auto) 0.1 Baso # (Auto) 0.0 Abs Immat Gran (auto) 0.05 H Absolute Neuts (auto) 10.3 H Absolute Nucleated RBC 0.000 Nucleated RBC % (auto) 0.0 PT INR APTT Anion Gap 23 H Estim Creat Clear Calc 32.2 Estimated GFR 31 POC Glucose > 600 H* Random Glucose 654 H* Calcium 9.8 Total Bilirubin 1.1 H AST 14 ALT 22 Alkaline Phosphatase 75 D Total Protein 7.4 Albumin 4.2 Urine Color Urine Appearance Urine pH Ur Specific [place] Urine Protein Urine Glucose (UA) Urine Ketones Urine Blood Urine Nitrite Ur Leukocyte Esterase Urine RBC Urine WBC Ur Squamous Epith Cells Urine Bacteria Urine Mucus Urine Yeast Urine Sperm Acetone, Qual COVID-19 (KATINA) COVID-19 Clin Com 10/31/21 10/31/21 10/31/21 07:32 07:32 08:17 MCV MCH MCHC RDW Plt Count MPV Immature Gran % (Auto) Neut % (Auto) Lymph % (Auto) [place] % (Auto) Eos % (Auto) Baso % (Auto) Lymph # (Auto) [place] # (Auto) Eos # (Auto) Baso # (Auto) Abs Immat Gran (auto) Absolute Neuts (auto) Absolute Nucleated RBC Nucleated RBC % (auto) PT 11.6 INR 1.0 APTT 33.7 Anion Gap Estim Creat Clear Calc Estimated GFR POC Glucose Random Glucose Calcium Total Bilirubin AST ALT Alkaline Phosphatase Total Protein Albumin Urine Color Urine Appearance Urine pH Ur Specific [place] Urine Protein Urine Glucose (UA) Urine Ketones Urine Blood Urine Nitrite Ur Leukocyte Esterase Urine RBC Urine WBC Ur Squamous Epith Cells Urine Bacteria Urine Mucus Urine Yeast Urine Sperm Acetone, Qual Small H COVID-19 (KATINA) Negative COVID-19 Clin Com See Note 10/31/21 10/31/21 08:52 09:59 MCV MCH MCHC RDW Plt Count MPV Immature Gran % (Auto) Neut % (Auto) Lymph % (Auto) [place] % (Auto) Eos % (Auto) Baso % (Auto) Lymph # (Auto) [place] # (Auto) Eos # (Auto) Baso # (Auto) Abs Immat Gran (auto) Absolute Neuts (auto) Absolute Nucleated RBC Nucleated RBC % (auto) PT INR APTT Anion Gap Estim Creat Clear Calc Estimated GFR POC Glucose 470 H* Random Glucose Calcium Total Bilirubin AST ALT Alkaline Phosphatase Total Protein Albumin Urine Color YELLOW Urine Appearance CLEAR Urine pH 5.5 Ur Specific [place] 1.020 Urine Protein 2+ H Urine Glucose (UA) >=1000 H Urine Ketones 40 Urine Blood 1+ H Urine Nitrite NEG Ur Leukocyte Esterase NEG Urine RBC 1-4 Urine WBC 0-2 Ur Squamous Epith Cells TRACE Urine Bacteria TRACE Urine Mucus TRACE Urine Yeast TRACE Urine Sperm NOTED Acetone, Qual COVID-19 (KATINA) COVID-19 Clin Com Imaging Radiologist's Impressions: Impressions Chest X-Ray 10/31/21 07:58 IMPRESSION: No acute disease. Abdomen/Pelvis CT 10/31/21 08:39 IMPRESSION: No CT evidence for acute intra-abdominal pathology. No evidence for bowel obstruction. Normal appendix. Moderate amount of stool in the colon. Stable appearance of 0.7 cm nonobstructive calculus in the mid to lower pole of the left kidney. Stable prostatomegaly. Assessment and Plan (1) DKA (diabetic ketoacidosis): Status: Acute Plan 66 year old man admitted with DKA secondary to missed medications for 3 days DKA with hx of diabetes mellitus anion gap 23, + acetone, resolved Received a total of 16 units of IV insulin in the ED and 2 liters of IV fluids Will continue sliding scale and ADA diet IV fluids Hyponatremia/hyperkalemia with hyperglycemia corrected sodium 139 potassium 5.2 Resolved with IV fluids and insulin follow [place]. secondary to DKA, hypovolemia IV fluids Hypertension stable continue home medications Hyperlipidemia continue aspirin and statin DVT prophylaxis with heparin Attending Dr. Villasenor full code Quality Stroke Does the patient have a stroke diagnosis?: No VTE Prior VTE?: No VTE Risk Level:: Medical - moderate - high VTE Device Contraindication: Treatment Not Indicated VTE Drug Contraindication: N/A - Med Ordered
--- NOTE | 2021-10-31 11:09 | PC.NURSE ---
pt verbally abusive to this rn and pct while attempting to change soiled linen. pt not able to be redirected. pt refusing to take off soiled pants. sheets changed.
[2021-10-31 11:44] LABS: Anion Gap 18 (12-20); Blood Urea Nitrogen 38 mg/dL (9-16); Calcium 9.1 mg/dL (8.4-10.2); Carbon Dioxide 19 mmol/L (22-29); Chloride 103 mmol/L (96-108); Creatinine Clr Calc Pharmacy 39.9; Estimated Glomerular Filt Rate 40; Glucose Random 408 mg/dL (60-115); Potassium 4.7 mmol/L (3.3-5.1); Sodium 135 mmol/L (135-145)
[2021-10-31] MEDS: 0.9 % Sodium Chloride 1,000 ML 125 ML IVCONT ×2 (12:17→23:34)
[2021-10-31 12:53] VITALS: BP 162/82; PULSE 91; RESP 18; TEMP 36.6; O2SAT 97
--- NOTE | 2021-10-31 17:52 | PC.NURSE ---
pt more comfortable with male staff. this rn made aware of pt wallet having a lot of johnson in it. pt refusing to let staff count or put money in safe. security aware as well.
[2021-10-31 18:03] LABS: Glucose, Whole Blood 308 mg/dL (60-115)
--- NOTE | 2021-10-31 19:21 | PC.NURSE ---
Assumed care of pt at 1900. Pt resting in bed, in NAD, awake and alert, even and non-labored resps. Awaiting inpatient bed assignment
[2021-10-31 19:40] VITALS: BP 177/88; PULSE 90; RESP 18; TEMP 36.5; O2SAT 98
--- NOTE | 2021-10-31 20:14 | PC.NURSE ---
Went to do belonging list,pt stated he had 4000.00 dollars on him. this pct and Rn Maninder counted and there is [phone] all johnson. pt then stated he wanted to keep 900.00 out for rent and in case he needed anything, I told pt its better if he locked it all up and when daughter comes tomorrow he can ask to take out money. So pt locked up all of it which was [phone].
--- NOTE | 2021-10-31 20:19 | PC.NURSE ---
I joined Roslyn KASPER at bedside to count the patients' johnson in order to place it in the hospital safe. Together we counted $5,519.
[2021-10-31 21:43] LABS: Glucose, Whole Blood 293 mg/dL (60-115)
[2021-10-31] MEDS: Melatonin 3 MG TABLET 6 MG PO (22:06)
[2021-10-31] MEDS: Atorvastatin Calcium 20 MG TABLET PO (22:06)
[2021-10-31] MEDS: Insulin Glargine,Hum.rec.anlog 100 UNIT/ML 10 ML VIAL 46 UNIT SUBCUT (22:07)
[2021-10-31 23:18] LABS: Glucose, Whole Blood 275 mg/dL (60-115)
[2021-11-01 05:39] VITALS: BP 170/81; PULSE 77; RESP 18; O2SAT 98
[2021-11-01 06:44] LABS: MANUAL DIFF FLAG NO
[2021-11-01 06:47] LABS: Basophils Percent Auto 0.3 % (0-2); Eosinophils Absolute Auto 0.2 X10*3/uL (0.0-0.4); Eosinophils Percent Auto 2.4 % (0-4); Hematocrit 42.4 % (42.0-52.0); Hemoglobin 14.6 g/dl (14.0-18.0); Imm Gran Abs Auto 0.02 X10*3/uL (0.00-0.03); Imm Gran Pct Auto 0.2 % (0.0-0.4); Lymphocytes Absolute Auto 2.8 X10*3/uL (1.2-4.9); Lymphocytes Percent Auto 30.2 % (20-40); Mean Corpuscular HGB Conc 34.4 g/dl (31.0-36.0); Mean Corpuscular Hemoglobin 30.2 pg (27.0-33.0); Mean Corpuscular Volume 87.6 fL (80.0-98.0); Mean Platelet Volume 11.3 fL (9.4-12.4); Monocytes Absolute Auto 0.9 X10*3/uL (0.1-1.2); Monocytes Percent Auto 9.1 % (2-11); Neutrophils Absolute Auto 5.4 x10*3/uL (2.0-8.3); Neutrophils Percent Auto 57.8 % (45-73); Platelet Count 243 X10*3/uL (160-400); Red Blood Count 4.84 X10*6/uL (4.60-5.80); Red Cell Distribution Width 11.8 % (11.0-16.0); White Blood Count 9.4 X10*3/uL (4.8-10.8)
[2021-11-01 07:04] LABS: Anion Gap 14 (12-20); Blood Urea Nitrogen 26 mg/dL (9-16); Calcium 8.7 mg/dL (8.4-10.2); Carbon Dioxide 21 mmol/L (22-29); Chloride 106 mmol/L (96-108); Creatinine Clr Calc Pharmacy 53.2; Estimated Glomerular Filt Rate 56; Glucose Random 199 mg/dL (60-115); Potassium 4.2 mmol/L (3.3-5.1); Sodium 137 mmol/L (135-145)
[2021-11-01 07:05] VITALS: BP 164/89; PULSE 78; RESP 16; TEMP 36.5; O2SAT 97
--- NOTE | 2021-11-01 07:10 | PC.NURSE ---
pt alert and oriented, skin appropriate for ethnicity, pt denies pain at this time, pt is eating breakfast pt awaiting room assignment
[2021-11-01 07:13] LABS: Glucose, Whole Blood 185 mg/dL (60-115)
[2021-11-01] MEDS: Insulin Lispro 100 UNIT/ML 3 ML VIAL SUBCUT (07:17)
[2021-11-01] MEDS: 0.9 % Sodium Chloride Flush 3 ML SYRINGE IVFLUSH (07:18)
--- NOTE | 2021-11-01 07:47 | PC.NURSE ---
report given to srikanth kirk
[2021-11-01] MEDS: 0.9 % Sodium Chloride 1,000 ML 125 ML IVCONT (08:33)
--- NOTE | 2021-11-01 08:35 | PC.NURSE ---
Pt received from main ER: Pt AOx4 and offers no complaints. Heart sounds normal and lungs clear. Pt abd soft and non-tender.
--- NOTE | 2021-11-01 09:11 | P.DS_ITS ---
DS: Providers Provider Date of Service: 11/01/21 Date of admission: 10/31/21 11:53 Primary care physician: Unknown Physician Attending physician on discharge: Maurice Blackwell Discharging clinician: Roopa Vernon DS: Diagnosis Discharge Diagnosis (1) DKA (diabetic ketoacidosis): Status: Acute DS: Summary Hospital Course Hospital Course: 66 year old man presenting to the ED with nausea and abdominal pain. He reported that this was ongoing for several days. He lives alone and had not taken his medication for 3 days and has not been drinking enough fluids. He was oriented to person and place but not time. He denied chest pain, shortness of breath, recent illness. Upon arrival to the ED his blod sugar was noted to be 654 with sodium of 130, potassium 5.2, anion gap 23 and creat 2.13. He was given 17 units of IV insulin and 2 liters of fluids and his lab work did improve. He will be admitted for further management of DKA. DKA with hx of diabetes mellitus anion gap 23, + acetone, resolved? Received a total of 16 units of IV insulin in the ED and 2 liters of IV fluids sliding scale and ADA diet continued Blood sugar now within normal limits encouraged to take all diabetic medications everyday as prescribed, continue low sugar diet and check blood sugars prior to insulin administration. Hyponatremia/hyperkalemia with hyperglycemia Resolved with IV fluids and insulin SUL[place]NA. secondary to DKA, hypovolemia Resolved with IV fluids Time Spent with Patient Time attestation: Total time spent providing and/or coordinating discharge services: Discharge coordination time: Greater than 30 minutes Quality: Stroke Does the patient have a stroke diagnosis?: No Physical Exam Verdana 4l Vital Signs: Verdana 4d Verdana 4d Vital Signs: Verdana 4d Verdana 4Bd Last Vital Signs Verdana 4d Courtesy Clerk New 4d Courtesy Clerk New 4d Temp 97.7 F 11/01/21 07:05 Courtesy Clerk New 4d Pulse 78 11/01/21 07:05 Courtesy Clerk New 4d Resp 16 11/01/21 07:05 BP 164/89 H 11/01/21 07:05 Pulse Ox 97 11/01/21 07:05 BMI result Body Mass Index 28.3 Appearing in no acute distress head is normocephalic atraumatic eyes pupils are PERRLA sclera is anicteric mouth throat mucous membranes are intact and moist neck is supple no lymphadenopathy, no JVD noted lung sounds are clear to auscultation heart regular rate rhythm, clear S1, S2 positive bowel sounds, abdomen is soft, nontender neuro patient is alert x3, no focal deficits DS: Data Data Completed and Pending Labs on day of discharge: Laboratory Results - last 24 hr 10/31/21 10/31/21 10/31/21 08:52 09:59 11:11 WBC RBC Hgb Hct MCV MCH MCHC RDW Plt Count MPV Immature Gran % (Auto) Neut % (Auto) Lymph % (Auto) [place] % (Auto) Eos % (Auto) Baso % (Auto) Lymph # (Auto) [place] # (Auto) Eos # (Auto) Baso # (Auto) Abs Immat Gran (auto) Absolute Neuts (auto) Absolute Nucleated RBC Nucleated RBC % (auto) Sodium 135 Potassium 4.7 Chloride 103 Carbon Dioxide 19 L Anion Gap 18 BUN 38 H Creatinine 1.72 H Estim Creat Clear Calc 39.9 Estimated GFR 40 POC Glucose 470 H* Random Glucose 408 H* Calcium 9.1 D Urine RBC 1-4 Urine WBC 0-2 Ur Squamous Epith Cells TRACE Urine Bacteria TRACE Urine Mucus TRACE Urine Yeast TRACE Urine Sperm NOTED 10/31/21 10/31/21 10/31/21 17:58 21:39 23:11 WBC RBC Hgb Hct MCV MCH MCHC RDW Plt Count MPV Immature Gran % (Auto) Neut % (Auto) Lymph % (Auto) [place] % (Auto) Eos % (Auto) Baso % (Auto) Lymph # (Auto) [place] # (Auto) Eos # (Auto) Baso # (Auto) Abs Immat Gran (auto) Absolute Neuts (auto) Absolute Nucleated RBC Nucleated RBC % (auto) Sodium Potassium Chloride Carbon Dioxide Anion Gap BUN Creatinine Estim Creat Clear Calc Estimated GFR POC Glucose 308 H 293 H 275 H Random Glucose Calcium Urine RBC Urine WBC Ur Squamous Epith Cells Urine Bacteria Urine Mucus Urine Yeast Urine Sperm 11/01/21 11/01/21 11/01/21 06:40 06:40 07:03 WBC 9.4 RBC 4.84 Hgb 14.6 Hct 42.4 MCV 87.6 MCH 30.2 MCHC 34.4 RDW 11.8 Plt Count 243 MPV 11.3 Immature Gran % (Auto) 0.2 Neut % (Auto) 57.8 Lymph % (Auto) 30.2 [place] % (Auto) 9.1 Eos % (Auto) 2.4 Baso % (Auto) 0.3 Lymph # (Auto) 2.8 [place] # (Auto) 0.9 Eos # (Auto) 0.2 Baso # (Auto) 0.0 Abs Immat Gran (auto) 0.02 Absolute Neuts (auto) 5.4 Absolute Nucleated RBC 0.000 Nucleated RBC % (auto) 0.0 Sodium 137 Potassium 4.2 Chloride 106 Carbon Dioxide 21 L Anion Gap 14 BUN 26 H Creatinine 1.29 Estim Creat Clear Calc 53.2 Estimated GFR 56 POC Glucose 185 H Random Glucose 199 H D Calcium 8.7 Urine RBC Urine WBC Ur Squamous Epith Cells Urine Bacteria Urine Mucus Urine Yeast Urine Sperm Discharge Plan Discharge Anticipated Discharge Date/Time: 11/01/21 09:08 Patient Disposition: Home, Self-Care Discharge Diagnosis: DKA Discharge Medications: Continued latanoprost 0.005 % Drops 1 drp ophthalmic-Left QPM 0RF atorvastatin 20 mg Tablet 20 mg PO BEDTIME 0RF melatonin 3 mg Tablet 6 mg PO BEDTIME 0RF aspirin 81 mg Tablet,Delayed Release (Dr/Ec) 81 mg PO DAILY 0RF brimonidine 0.2 % Drops 1 drp OPHTHALMIC (EYE) BID 0RF loratadine 10 mg Tablet 10 mg PO DAILY 0RF escitalopram oxalate 20 mg Tablet 20 mg PO DAILY 0RF cholecalciferol (vitamin D3) [Vitamin D3] 50 mcg (2,000 unit) Capsule 50 mcg PO DAILY 0RF Januvia 100 mg Tablet 100 mg PO DAILY Qty: 30 0RF lisinopril 40 mg tablet 40 mg PO DAILY 0RF Rx Instructions: PATIENT HASNT PICKED UP IN 6 MONTHS Lantus Solostar U-100 Insulin 100 unit/mL (3 mL) insulin pen 46 unit SUBCUT BID 0RF amlodipine 5 mg Tablet 5 mg PO DAILY Qty: 30 0RF Protocol: Hold for SBP< HOLD for SBP < : 90 (DME) FreeStyle Lite Strips Strip See Rx Instructions .Route Qty: 50 0RF Rx Instructions: As directed insulin aspart U-100 [Novolog Flexpen U-100 Insulin] 100 unit/mL (3 mL) insulin pen 20 unit subcut BID 0RF Discharge Orders: Discharge Order (Routine); Ordered 11/01/21 Ordered By: Roopa Vernno Diet: advance to usual diet Activity on Discharge: As tolerated Stand Alone Forms: Patient Portal Discharge page Care Plan Goals: Continue taking medications as prescribed Health Concerns: DKA Plan of Treatment: Please take your diabetic medication and insulin as prescribed everyday. Follow up with your primary care provider as needed Assessment: See discharge summary
--- NOTE | 2021-11-01 10:13 | PC.NURSE ---
Pt D/C from [facility]. Pt given D/C instructions and denies any questions. IV removed, pt changed into own clothing, and wheelchaired out to main hospital entrance to ride home.
--- NOTE | 2021-11-01 12:35 | MHC.CM.PN ---
PT REPORTS HE LIVES ALONE AND HAS NURSES THAT COME IN. PT DOES NOT KNOW THE AGENCY PT REPORTS BEING INDEPENDENT WITH AMBULATION HOWEVER HE IS VISUALLY IMPAIRED PT DOES NOT KNOW THE NAME OF HIS PCP BUT AGREES WHEN ASKED IF HE GOES TO THE [facility] PTS MEDICARE RIGHTS WERE REVIEWED, ORIGINAL LEFT AT BEDSIDE, COPY SENT TO [facility] PT WAS DISCHARGED HOME TODAY WITH RESUMPTION OF SERVICES CM CALLED ATUL ([phone]) AT [facility] TO CONFIRM PTS HOME SERVICES. 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 SHE REPORTS HE DID HAVE VNA SERVICES HOWEVER THAT AUTH HAS . SHE IS AWARE HE WILL DC HOME TODAY
== END 2021-11-01 16:14 | disposition home or self-care (01) | DRG 638 ==
LOC: HO.ED 11:49 → HO.EDOVER 12:05
PROVIDERS: Admitting Provider Nurse Practitioner Acute Care; Emergency Provider Emergency Medicine; Visit Provider Nurse Practitioner Acute Care
DX: E11.10 Type 2 diabetes mellitus with ketoacidosis without coma (principal); E87.0 Hyperosmolality and hypernatremia; N17.9 Acute kidney failure, unspecified; E87.1 Hypo-osmolality and hyponatremia; E86.1 Hypovolemia; E87.5 Hyperkalemia; I10 Essential (primary) hypertension; E78.5 Hyperlipidemia, unspecified; Z79.4 Long term (current) use of insulin; Z79.82 Long term (current) use of aspirin; Z79.899 Other long term (current) drug therapy
CPT/HCPCS: 36415; 71045; 74176; 80048; 80053; 81001; 82009; 82947; 84484; 85025; 85610; 85730; 87635; 93005; 96361; 96374; 99285; 99291; J2405

== ENCOUNTER 2022-02-07 17:38 | Emergency (ER) | payer MEDICARE, SELFPAY ==
--- NOTE | ~2022-02-07 | CT_ITS ---
EXAMINATION: CT BRAIN AND CT CERVICAL SPINE WITHOUT CONTRAST. CLINICAL INFORMATION: Status post fall. COMPARISON: None TECHNIQUE: 5 mm thin axial and reformatted 2 mm thin sagittal and coronal images of brain were obtained without contrast. Axial 3 mm thin and reformatted 2 mm thin sagittal coronal images of cervical spine were obtained. DLP [id number] FINDINGS: Brain: There is no acute intra-axial, extra-axial bleed, masses or midline shift. There is no acute infarction or lesion. Small lacunar infarction seen in the left basal ganglia and right thalamus. The lateral ventricles are symmetrical in size and configuration without enlargement. There is diffuse periventricular hypodensity in both cerebral hemispheres. Bone windows reveal no calvarial abnormality. There is no scalp soft tissue abnormality. Cervical spine: There is mild straightening of cervical lordosis. The vertebral heights, alignment and disc heights are normal. There is moderate superior hypertrophic enthesophytes along the C1-C2 alignment. The craniovertebral junction is normal. There is no visible acute fracture, dislocation or subluxation seen. The prevertebral and paravertebral soft tissues are normal. The thyroid lobes are symmetrical. The central trachea are widely patent. Visualized submandibular and parotid glands are symmetrical and normal. CT/CT head/brain wo con IMPRESSION: No acute intracranial process seen. Moderate cerebral volume loss with chronic small vessel ischemic changes There is no visible acute fracture, dislocation or subluxation in cervical spine. Mild straightening of cervical lordosis likely spasm. Degenerative enthesophytes along the C1-C2 alignment.
--- NOTE | ~2022-02-07 | XR_ITS ---
EXAMINATION: XR CHEST CLINICAL INFORMATION: Status post fall. Chest pain. COMPARISON: None TECHNIQUE: Frontal view of the chest was obtained. FINDINGS: No significant abnormality is noted involving the heart, lungs, mediastinum, bony thorax or soft tissues. XR/XR chest 1V IMPRESSION: Unremarkable chest exam.
--- NOTE | ~2022-02-07 | CT_ITS ---
EXAMINATION: CT BRAIN AND CT CERVICAL SPINE WITHOUT CONTRAST. CLINICAL INFORMATION: Status post fall. COMPARISON: None TECHNIQUE: 5 mm thin axial and reformatted 2 mm thin sagittal and coronal images of brain were obtained without contrast. Axial 3 mm thin and reformatted 2 mm thin sagittal coronal images of cervical spine were obtained. DLP [id number] FINDINGS: Brain: There is no acute intra-axial, extra-axial bleed, masses or midline shift. There is no acute infarction or lesion. Small lacunar infarction seen in the left basal ganglia and right thalamus. The lateral ventricles are symmetrical in size and configuration without enlargement. There is diffuse periventricular hypodensity in both cerebral hemispheres. Bone windows reveal no calvarial abnormality. There is no scalp soft tissue abnormality. Cervical spine: There is mild straightening of cervical lordosis. The vertebral heights, alignment and disc heights are normal. There is moderate superior hypertrophic enthesophytes along the C1-C2 alignment. The craniovertebral junction is normal. There is no visible acute fracture, dislocation or subluxation seen. The prevertebral and paravertebral soft tissues are normal. The thyroid lobes are symmetrical. The central trachea are widely patent. Visualized submandibular and parotid glands are symmetrical and normal. CT/CT cervical spine wo con IMPRESSION: No acute intracranial process seen. Moderate cerebral volume loss with chronic small vessel ischemic changes There is no visible acute fracture, dislocation or subluxation in cervical spine. Mild straightening of cervical lordosis likely spasm. Degenerative enthesophytes along the C1-C2 alignment.
--- NOTE | 2022-02-07 18:01 | ECG_ITS ---
Test Reason : GENERAL MEDICAL Blood Pressure : / mmHG Vent. Rate : 089 BPM Atrial Rate : 089 BPM P-R Int : 146 ms QRS Dur : 088 ms QT Int : 368 ms P-R-T Axes : 052 011 076 degrees QTc Int : 447 ms Normal sinus rhythm Nonspecific ST and T wave abnormality Borderline ECG When compared with ECG of 31-OCT-2021 07:25, No significant change was found Referred By: Phil Dukes Electronically Signed By:BO STEINBERG
[2022-02-07 18:04] VITALS: BP 170/92; PULSE 95; O2SAT 97
--- NOTE | 2022-02-07 18:07 | ED.FALL ---
HPI - Fall General Chief Complaint: Altered Mental Status Stated Complaint: FALL LAST NIGHT,NO LOC Time Seen by Provider: 02/07/22 17:53 Source: family Mode of arrival: EMS Limitations: altered mental status History of Present Illness HPI Narrative: Patient 66 years old lives alone history of diabetes hypertension legally blind right eye walks with cane apparently had the visiting nurse came in the morning 09:00 o'clock gave him insulin family tried to call him at around 02:00 p.m. but he did not answer so went to see him and found him on the floor his lunch was not open,coffee table was tripped over patient was semi responsive POC was 63 per EMS responded to p.o. glucose patient does not know what happened to him. Patient is incontinent of urine Related Data Home Medications Medication Instructions Recorded Confirmed aspirin 81 mg tablet,delayed 81 mg PO DAILY 11/03/20 10/31/21 release atorvastatin 20 mg tablet 20 mg PO BEDTIME 11/03/20 10/31/21 brimonidine 0.2 % eye drops 1 drp OPHTHALMIC (EYE) BID 11/03/20 10/31/21 cholecalciferol (vitamin D3) 50 50 mcg PO DAILY 11/03/20 10/31/21 mcg (2,000 unit) capsule (Vitamin D3) escitalopram oxalate 20 mg tablet 20 mg PO DAILY 11/03/20 10/31/21 latanoprost 0.005 % eye drops 1 drp OPHTHALMIC-LEFT QPM 11/03/20 10/31/21 loratadine 10 mg tablet 10 mg PO DAILY 11/03/20 10/31/21 melatonin 3 mg tablet 6 mg PO BEDTIME 11/03/20 10/31/21 lisinopril 40 mg tablet 40 mg PO DAILY 03/01/21 10/31/21 insulin glargine 100 unit/mL (3 46 unit SUBCUT BID 07/11/21 10/31/21 mL) subcutaneous pen (Lantus Solostar U-100 Insulin) insulin aspart U-100 100 unit/mL 20 unit SUBCUT BID 10/31/21 10/31/21 (3 mL) subcutaneous pen (Novolog Flexpen U-100 Insulin aspart) Previous Rx's Medication Instructions Recorded sitagliptin 100 mg tablet (Januvia) 100 mg PO DAILY #30 tab 11/06/20 amlodipine 5 mg tablet 5 mg PO DAILY #30 tab 07/12/21 blood sugar diagnostic (FreeStyle #50 ea 08/14/21 Lite Strips) Allergies Allergy/AdvReac Type Severity Reaction Status Date / Time No Known Allergies Allergy Verified 11/07/20 17:45 Review of Systems Review of Systems: Yes all other systems are reviewed and are negative [facility]LY [facility] Past Medical History Medical History Dementia Essential hypertension Type 2 diabetes mellitus Social History Social History Household Members: None Household Members Other:: lives alone per stepdaughter Housing: Apartment Housing Other:: elderly apartments Do you presently have visiting nurse or other home services: Yes Alcohol intake: unknown Patient Tobacco Use Status: Never used Tobacco Advance Directives: Yes Advance Directives on File: Yes Advance Directives Date on File: 10/28/20 service: No Current occupational status: disabled Physical Exam Vital Signs: Vital Signs: Last Vital Signs Temp 97.8 F 02/07/22 21:45 Pulse 102 H 02/07/22 23:55 Resp 18 02/07/22 23:55 BP 165/82 H 02/07/22 23:55 Pulse Ox 94 02/07/22 23:55 BMI result Body Mass Index 29.9 Appearance: Alert. Oriented X2. No acute distress. Eyes: PERRLA, No Nystagmus HEENT: Pharynx normal. Oral Mucosa moist atraumatic normocephalic Neck: Normal inspection. Neck supple. No midline tenderness CVS: Normal heart rate and rhythm. Pulses normal. Respiratory: No respiratory distress. Equal air entry bilateral, no wheezing/rales/rhonchi Abdomen: Soft and nontender. Bowel sounds are present, no mass palpable, no CVA tenderness Skin: Skin warm and dry. Normal skin color. Normal skin turgor. Extremities: No lower extremity edema. No calf tenderness Neuro: Oriented X 2. No motor deficit. No sensory deficit.No cerebellar signs , cranial nerves II-XII intact MDM - Fall MDM Narrative Medical decision making narrative: patient lives alone with diabetes was found on the floor workup showed slightly low glucose along with COVID likely the cause for weakness and fall workup so far negative chest x-ray negative for infiltrate head CT labs are stable family unable to take care of him patient unsteady on his feet will consult care team for placement Lab Data Attestation: I reviewed the patient's lab results. Result diagrams: 02/07/22 19:02/07/22 19: Labs: Lab Results 02/07/22 02/07/22 02/07/22 Range/Units 19:22 19:22 19:22 WBC 6.4 (4.8-10.8) X10*3/uL RBC 4.65 (4.60-5.80) X10*6/uL Hgb 14.0 (14.0-18.0) g/dl Hct 41.4 L (42.0-52.0) % MCV 89.0 (80.0-98.0) fL MCH 30.1 (27.0-33.0) pg MCHC 33.8 (31.0-36.0) g/dl RDW 12.7 (11.0-16.0) % Plt Count 190 (160-400) X10*3/uL MPV 10.9 (9.4-12.4) fL Immature Gran % (Auto) 0.3 (0.0-0.4) % Neut % (Auto) 67.7 (45-73) % Lymph % (Auto) 18.3 L (20-40) % [place] % (Auto) 13.3 H (2-11) % Eos % (Auto) 0.2 (0-4) % Baso % (Auto) 0.2 (0-2) % Lymph # (Auto) 1.2 (1.2-4.9) X10*3/uL [place] # (Auto) 0.9 (0.1-1.2) X10*3/uL Eos # (Auto) 0.0 (0.0-0.4) X10*3/uL Baso # (Auto) 0.0 (0.0-0.2) X10*3/uL Abs Immat Gran (auto) 0.02 (0.00-0.03) X10*3/uL Absolute Neuts (auto) 4.4 (2.0-8.3) x10*3/uL Absolute Nucleated RBC 0.000 (0.0-0.012) X10*3/uL Nucleated RBC % (auto) 0.0 (0.0-0.2) /100WBC Sodium 139 (135-145) mmol/L Potassium 4.2 (3.3-5.1) mmol/L Chloride 104 (96-108) mmol/L Carbon Dioxide 25 (22-29) mmol/L Anion Gap 14 (12-20) BUN 23 H (9-16) mg/dL Creatinine 1.44 H (0.5-1.4) mg/dL Estim Creat Clear Calc TNP Estimated GFR 49 Random Glucose 102 D (60-115) mg/dL Calcium 9.2 (8.4-10.2) mg/dL Total Bilirubin 0.5 (0.0-1.0) mg/dL AST 60 H (5-37) U/L ALT 101 H (0-40) U/L Alkaline Phosphatase 60 (39-117) U/L Total Creatine Kinase 664 H (38-174) U/L Troponin I High Sens 8.5 (<3.5-35.0) ng/L Total Protein 6.7 (6.5-8.0) g/dL Albumin 3.8 (3.5-5.0) g/dL COVID-19 ([facility]ATINA) (Negative) COVID-19 Clin Com 02/07/22 Range/Units 19:22 WBC (4.8-10.8) X10*3/uL RBC (4.60-5.80) X10*6/uL Hgb (14.0-18.0) g/dl Hct (42.0-52.0) % MCV (80.0-98.0) fL MCH (27.0-33.0) pg MCHC (31.0-36.0) g/dl RDW (11.0-16.0) % Plt Count (160-400) X10*3/uL MPV (9.4-12.4) fL Immature Gran % (Auto) (0.0-0.4) % Neut % (Auto) (45-73) % Lymph % (Auto) (20-40) % [place] % (Auto) (2-11) % Eos % (Auto) (0-4) % Baso % (Auto) (0-2) % Lymph # (Auto) (1.2-4.9) X10*3/uL [place] # (Auto) (0.1-1.2) X10*3/uL Eos # (Auto) (0.0-0.4) X10*3/uL Baso # (Auto) (0.0-0.2) X10*3/uL Abs Immat Gran (auto) (0.00-0.03) X10*3/uL Absolute Neuts (auto) (2.0-8.3) x10*3/uL Absolute Nucleated RBC (0.0-0.012) X10*3/uL Nucleated RBC % (auto) (0.0-0.2) /100WBC Sodium (135-145) mmol/L Potassium (3.3-5.1) mmol/L Chloride (96-108) mmol/L Carbon Dioxide (22-29) mmol/L Anion Gap (12-20) BUN (9-16) mg/dL Creatinine (0.5-1.4) mg/dL Estim Creat Clear Calc Estimated GFR Random Glucose (60-115) mg/dL Calcium (8.4-10.2) mg/dL Total Bilirubin (0.0-1.0) mg/dL AST (5-37) U/L ALT (0-40) U/L Alkaline Phosphatase (39-117) U/L Total Creatine Kinase (38-174) U/L Troponin I High Sens (<3.5-35.0) ng/L Total Protein (6.5-8.0) g/dL Albumin (3.5-5.0) g/dL COVID-19 ([facility]ATINA) Positive A (Negative) COVID-19 Clin Com See Note Discharge Plan Discharge Clinical Impression: COVID-19, Weakness, Fall, Hypoglycemia, CKD (chronic kidney disease) Patient Disposition: Still a Patient Prescriptions: No Action latanoprost 0.005 % Drops 1 drp ophthalmic-Left QPM 0RF atorvastatin 20 mg Tablet 20 mg PO BEDTIME 0RF melatonin 3 mg Tablet 6 mg PO BEDTIME 0RF aspirin 81 mg Tablet,Delayed Release (Dr/Ec) 81 mg PO DAILY 0RF brimonidine 0.2 % Drops 1 drp OPHTHALMIC (EYE) BID 0RF loratadine 10 mg Tablet 10 mg PO DAILY 0RF escitalopram oxalate 20 mg Tablet 20 mg PO DAILY 0RF cholecalciferol (vitamin D3) [Vitamin D3] 50 mcg (2,000 unit) Capsule 50 mcg PO DAILY 0RF Januvia 100 mg Tablet 100 mg PO DAILY Qty: 30 0RF lisinopril 40 mg tablet 40 mg PO DAILY 0RF Rx Instructions: PATIENT HASNT PICKED UP IN 6 MONTHS Lantus Solostar U-100 Insulin 100 unit/mL (3 mL) insulin pen 46 unit SUBCUT BID 0RF amlodipine 5 mg Tablet 5 mg PO DAILY Qty: 30 0RF Protocol: Hold for SBP< HOLD for SBP < : 90 (DME) FreeStyle Lite Strips Strip See Rx Instructions .Route Qty: 50 0RF Rx Instructions: As directed insulin aspart U-100 [Novolog Flexpen U-100 Insulin] 100 unit/mL (3 mL) insulin pen 20 unit subcut BID 0RF
[2022-02-07] MEDS: 0.9 % Sodium Chloride 1,000 ML 999 ML IV (19:03)
[2022-02-07 19:29] LABS: MANUAL DIFF FLAG NO
[2022-02-07 19:31] LABS: Basophils Percent Auto 0.2 % (0-2); Eosinophils Percent Auto 0.2 % (0-4); Hematocrit 41.4 % (42.0-52.0); Imm Gran Abs Auto 0.02 X10*3/uL (0.00-0.03); Imm Gran Pct Auto 0.3 % (0.0-0.4); Lymphocytes Absolute Auto 1.2 X10*3/uL (1.2-4.9); Lymphocytes Percent Auto 18.3 % (20-40); Mean Corpuscular HGB Conc 33.8 g/dl (31.0-36.0); Mean Corpuscular Hemoglobin 30.1 pg (27.0-33.0); Mean Platelet Volume 10.9 fL (9.4-12.4); Monocytes Absolute Auto 0.9 X10*3/uL (0.1-1.2); Monocytes Percent Auto 13.3 % (2-11); Neutrophils Absolute Auto 4.4 x10*3/uL (2.0-8.3); Neutrophils Percent Auto 67.7 % (45-73); Platelet Count 190 X10*3/uL (160-400); Red Blood Count 4.65 X10*6/uL (4.60-5.80); Red Cell Distribution Width 12.7 % (11.0-16.0); White Blood Count 6.4 X10*3/uL (4.8-10.8)
[2022-02-07 19:39] LABS: COVID-19 Test Positive (Negative)
[2022-02-07 19:49] LABS: Alanine Aminotransferase 101 U/L (0-40); Albumin Level 3.8 g/dL (3.5-5.0); Alkaline Phosphatase 60 U/L (39-117); Anion Gap 14 (12-20); Aspartate Amino Transferase 60 U/L (5-37); Bilirubin Total 0.5 mg/dL (0.0-1.0); Blood Urea Nitrogen 23 mg/dL (9-16); Calcium 9.2 mg/dL (8.4-10.2); Carbon Dioxide 25 mmol/L (22-29); Chloride 104 mmol/L (96-108); Estimated Glomerular Filt Rate 49; Glucose Random 102 mg/dL (60-115); Potassium 4.2 mmol/L (3.3-5.1); Sodium 139 mmol/L (135-145); Total Protein 6.7 g/dL (6.5-8.0)
[2022-02-07 19:51] LABS: Troponin-I High Sensitivity 8.5 ng/L (<3.5-35.0)
--- NOTE | 2022-02-07 20:30 | PC.NURSE ---
Addendum entered by Oanh Cameron 02/08/22 07:04: Report given to JOHN Beckett Addendum entered by Oanh Cameron 02/08/22 02:41: pt ripped off his IV, this is the second IV he took off. Dr. De La Cruz aware, pt ok to stay without IV per Dr. De La Cruz order Original Note: Report received from JOHN Matamoros. pt is alert and oriented x2.n pt unstable on his feet, unable to stand weight. incontinent of urine, bed cleaned and reposition
--- NOTE | 2022-02-07 21:00 | MHC.CM.ED ---
CM met with patient at request of Dr. De La Cruz. Negative medical work up. Pt fell. Very unsteady on his feet. Legally blind. Uses cane, walker. Lives alone. Has 10 hours/week [employer]ILITY AIR[employer] (daughter) and twice daily VNA through [facility]. HCP/daughter Neris Vance ([phone]). PCP Roslyn Vega ([facility] primary care, [place] Pt is COVID positive. PT pending. Daughter feels that her father may need LTC. Agreeable to STR if recommended by PT. Requests pt. not be referred to [facility] [place]. Daughter aware that placements may be difficult secondary to Covid diagnosis. Will refer locally per daughter's request. Unsure of pt covid vaccination status. CM to follow for d/c needs.
[2022-02-07 21:11] VITALS: BP 194/88; PULSE 99; RESP 23; TEMP 36.3; O2SAT 94
[2022-02-07 21:45] VITALS: BP 181/84; PULSE 91; RESP 16; TEMP 36.6; O2SAT 98
[2022-02-07 23:55] VITALS: BP 165/82; PULSE 102; RESP 18; O2SAT 94
[2022-02-08 00:53] VITALS: BMI 29.9
[2022-02-08 02:23] VITALS: BP 150/80; PULSE 88; RESP 20; O2SAT 93
[2022-02-08 02:48] LABS: Appearance Urine CLEAR; Color Urine YELLOW; Glucose Urine UA NEG (NEG); Leukocyte Esterase Urine NEG (NEG); Nitrite Urine NEG (NEG); PH 5.5 (5.0-8.0); Specific Gravity - Urine >= 1.030 (1.005-1.025); UACC Culture Trigger NO; Urine Blood 2+ (NEG); Urine Ketones 5 MG/DL (NEG); Urine Protein 2+ MG/DL (NEG-TRACE)
[2022-02-08 03:04] LABS: RBC Urine 0-2 /HPF (0); Squamous Epithelial Cell Urine TRACE /LPF; WBC Urine 0-2 /HPF (0-4)
[2022-02-08 03:05] LABS: Mucus Urine TRACE /LPF; Uric Acid Crystals Urine 3+ /LPF
[2022-02-08 04:38] VITALS: BP 152/78; PULSE 89; RESP 12; O2SAT 94
[2022-02-08 07:21] VITALS: BP 155/76; PULSE 90; RESP 12; O2SAT 97
[2022-02-08 10:52] VITALS: PULSE 78; RESP 18; O2SAT 95
--- NOTE | 2022-02-08 10:57 | MHC.CM.ED ---
Patient remains in ER. Per [facility] and [facility] patient is not active with their agencies. Per [facility], patient was d/c'd from their agency in June 2021. [facility], [facility], and [facility] are not able to offer a bed. [facility] able to offer a bed today. Attempted to reach patient's daughter/HCP, Neris via telephone at [phone]. Left voicemail requesting return telephone call. [facility] has been asked to go for ins auth. Continue to monitor for d/c needs.
--- NOTE | 2022-02-08 10:59 | PHA.MEDREC ---
Pharmacy Consult ? Medication Reconciliation Pharmacy has completed the medication reconciliation. Recieved list from [facility]. Prednisolone eye drop recently prescribed but not on [facility] medication list. Samaria Kruse, PharmD
--- NOTE | 2022-02-08 13:12 | MHC.CM.ED ---
Addendum entered by Joan Jaime 02/08/22 13:30: Attempted to reach patient's sonJosesito via telephone at [phone]. Left message requesting return telephone call. Original Note: Tried to speak to patient's daughterNeris again via telephone at [phone] in order to convey discharge plan. Continue to monitor for d/c needs.
[2022-02-08 13:16] VITALS: BP 171/81; PULSE 83; RESP 14; O2SAT 96
--- NOTE | 2022-02-08 14:06 | MHC.CM.ED ---
Insurance auth has been obtained by [facility]. Patient can leave at 230pm. [facility] booked[facility]. Patient, Sujit RN and Gini HAWKINS aware. Attempted to reach daughter again via telephone at [phone]. Left message explaining insurance has has been obtained for [facility] and patient will leave at 230pm. Also explained this the closest facility possible that accepts Covid positive patients. Next available Covid bed could [place] [address] away. CM contact info provided. Continue to monitor for d/c needs.
== END 2022-02-08 14:39 | disposition skilled nursing facility (03) ==
PROVIDERS: Emergency Provider Internal Medicine; PCP Internal Medicine Geriatric Medicine
DX: U07.1 COVID-19 (principal); R07.89 Other chest pain; E11.22 Type 2 diabetes mellitus with diabetic chronic kidney disease; M54.2 Cervicalgia; R51.9 Headache, unspecified; I12.9 Hypertensive chronic kidney disease with stage 1 through stage 4 chronic kidney disease, or unspecified chronic kidney disease; N18.9 Chronic kidney disease, unspecified; Z79.4 Long term (current) use of insulin; Z79.899 Other long term (current) drug therapy
CPT/HCPCS: 36415; 70450; 71045; 72125; 80053; 81001; 82550; 84484; 85025; 87635; 93005; 96360; 97162; 99284; 99285

== ENCOUNTER 2025-08-05 16:45 | Emergency (ER) | payer OTHER, SELFPAY ==
--- OUTSIDE RECORDS SUMMARY | 2023-03-24 06:22 | XMS_ITS | Continuity of Care Document ---
[facility] Address 1 [facility] [address] [place] [address] Phone Care Team Providers Care Pest Control Operator Name Role Phone Rolly ARANDA, Dejah Unavailable Unavailable Allergies, Adverse Reactions, Alerts Substance Reaction Status Criticality No Known Allergies Active No Inform ation No Known Allergies Active No Inform ation No Known Allergies Active No Inform ation Medications Medication Instructions Dosage Effective Dates (start - stop) Status Comments JANUVIA 100 MG TABLET TAKE 1 TABLET BY MOUTH EVERY DAY - Active Diabetic Shoes MISCELL Use daily - Active 1 pair diabetic shoes. Dx DM with PAD. duration 99 Pen Needle 31 gauge x 3/16 Use with insulin pens for 4 subcutaneous injection daily - Active lisinopril 40 mg tablet take 1 tablet by oral route every day 40 MG - Active Increase from 20mg VITAMIN D3 50 MCG (2,000 UNIT) TAKE 1 CAPSULE BY MOUTH EVERY DAY 1 capsule - Active ATORVASTATIN 20 MG TABLET TAKE 1 TABLET BY MOUTH EVERYDAY AT BEDTIME *STOP ZOCOR* 20 MG - Active BRIMONIDINE 0.2% EYE DROP 1 DROP TO EACH EYE TWICE DAILY - Active LATANOPROST 0.005% EYE DROPS PUT 1 DROP INTO LEFT EYE EVERY EVENING - Active Lantus Solostar U-100 Insulin 100 unit/mL (3 mL) subcutaneous pen INJECT 46 UNITS IN AM AND 46 UNITS IN PM - Active Humalog KwikPen (U-100) Insulin 100 unit/mL subcutaneous INJECT 20 Units BY SUBCUTANEOUS ROUTE BEFORE BREAKFAST AND DINNER, HOLD IF GLUCOSE UNDER 100 - Active GABAPENTIN 300 MG CAPSULE TAKE 1 CAPSULE BY MOUTH EVERYDAY AT BEDTIME 300 MG - Active LORATADINE 10 MG TABLET TAKE 1 TABLET BY MOUTH EVERY DAY 10 MG - Active escitalopram 20 mg tablet take 1 tablet by oral route every day 20 MG - Active melatonin 3 mg tablet take 2 tablet by oral route every bedtime 2 tablet - Active aspirin 81 mg tablet,delayed release take 1 tablet by oral route every day 81 MG - Active METFORMIN HCL 1,000 MG TABLET TAKE 1 TABLET BY MOUTH TWICE A DAY WITH MEALS - Active glucose 4 gram chewable tablet Take 1 tab by mouth for sugar <50. Repeat in 10 minutes if sugar still low. - Active fluticasone propionate 50 mcg/actuation nasal spray,suspension SPRAY 1 SPRAY INTO EACH NOSTRIL EVERY DAY in each nostril 50 MCG - Active Advance Directives Directive Yes / No Effective Date File Name No Information Encounters Encounter Description Practice Location Reason(s) For Visit Diagnoses Date Provider [facility], 1 [facility], [place], [place], [id number], tel:[phone] [place] No Information 3 Rolly Pond. [address] [place], [place], [id number], [place]. tel:[phone] [facility], 1 [facility], [place], [place], [id number], [place] tel:[phone] [place] No Information 2 Rolly Pond. [address] [place], [place], [id number], [place]. tel:[phone] [facility], 1 [facility] [place], [place], [place], [id number], tel:[phone] [place] Home safety/visi on loss (chief complaint) Vision loss of left eyeSelf-care deficit in patient living alone 1 Juvenal Nascimento. [address] [place], [place], [id number], [place]. tel:[phone] [facility], [address], [place], [place], [id number], [place] tel:[phone] [place] No Information 0 1 Sabi Santos. [address] [place], [place], [id number], [place]. tel:[phone] [facility], [address], [place], [place], [id number], [place] tel:[phone] [place] Difficulty in walkin g, not elsewhere classified 0 1 Sabi Santos. [address] [place], [place], [id number], [place]. tel:[phone] [facility], [address], [place], [place], [id number], [place] tel:[phone] [place] PHV (chief complaint) Vision loss of left eyeType 2 diabetes mellitus with hyperglycemia, with long-term current use of insulinLong term (current) use of insulin Jun-0 1 Juvenal Nascimento. [address] [place], [place], [id number], [place]. tel:[phone] [facility], [address], [place], [place], [id number], [place] tel:[phone] [place] No Information 3 1 Juvenal Nascimento. [address] [place], [place], [id number], [place]. tel:[phone] [facility], [address], [place], [place], [id number], [place] tel:[phone] [place] Encounter for rehabilitation evaluation 1 Shar Aburto. [address] [place], [place], [id number], [place]. tel:[phone] [facility], [address], [place], [place], [id number], [place] tel:[phone] [place] Encounter for rehabilitation evaluation 1 Rina Dinh. [address] [place], [address]. tel:[phone] [facility], [facility] [place], [place], [place], [id number], [place] tel:[phone] [place] No Information 1 Juvenal Nascimento. [address] [place], [place], [id number], [place]. tel:[phone] [facility], 1 [facility] [place], [place], [place], [id number], [place] tel:[phone] [facility] d/c (chief complaint) Type 2 diabetes mellitus with hyperglycemiaLong term (current) use of insulinOther symptoms and signs involving cognitive functions and awarenessHypertensive chronic kidney disease with stage 1 through stage 4 chronic kidney disease, or unspecified chronic kidney diseaseChronic kidney disease, stage 2 (mild) 1 Juvenal Nascimento. [address] [place], [place], [id number], [place]. tel:[phone] [facility], [address] [address], [place], [place], [id number], [place] tel:[phone] [facility] d/c (chief complaint) Type 2 diabetes mellitus with hyperglycemia, with long-term current use of insulinLong term (current) use of insulinCognitive impairmentHypertensive chronic kidney disease with stage 1 through stage 4 chronic kidney disease, or unspecified chronic kidney diseaseChronic kidney disease, stage 2 (mild) 1 Juvenal Nascimento. [address] [place], [place], [id number], [place]. tel:[phone] [facility], [facility] [address] [place] [address], [id number], [place] tel:[phone] [place] SNF admit (chief complaint) Type 2 diabetes mellitus with stage 2 chronic kidney disease, with long-term current use of insulinLong term (current) use of insulinChronic kidney disease, stage 2 (mild)Cognitive impairmentSmall vessel disease, cerebrovascular 1 Juvenal Christiansonn. [address] [place], [place], [id number], [place]. tel:[phone] [facility], [facility] [place], [place], [place], [id number], [place] tel:[phone] [place] No Information 1 Juvenal Christiansonn. [address] [place], [place], [id number], [place]. tel:[phone] [facility], [facility] [place], [place], [place], [id number], [place] tel:[phone] [place] No Information 1 Juvenalmello Christiansonn. [address] [place], [place], [id number], [place]. tel:[phone] [facility], 1 [facility] [place], [place], [place], [id number], [place] tel:[phone] [place] Biannual as HV (chief complaint) Hyperlipidemia, mixedType 2 diabetes mellitus with diabetic polyneuropathy, with long-term current use of insulinLong term (current) use of insulinType 2 diabetes mellitus with hyperglycemia, with long-term current use of insulinType 2 diabetes mellitus with stage 2 chronic kidney disease, with long-term current use of insulinVitamin D deficiencyBlindness of one eyeType 2 diabetes mellitus with proliferative retinopathy of left eye, with long-term current use of insulin, macular edema presence unspecified, unspecified proliferative retinopathy typePrimary open angle glaucoma of both eyes, indeterminate stagePhthisis bulbi, right eyeHypertensive chronic kidney disease with stage 1 through stage 4 chronic kidney disease, or unspecified chronic kidney diseaseChronic kidney disease, stage 2 (mild)MDD (major depressive disorder), recurrent, in partial remissionCognitive impairmentSmall vessel disease, cerebrovascularEncount er for health maintenance examination 1 Juvenal Nascimento. [address] [place], [place], [id number], [place]. tel:[phone] [facility], [address] [facility] [address] [place], [place], [place], [id number], [place] tel:[phone] [place] No Information January-0 1 Juvenal Azam. [address] [place], [place], [id number], [place]. tel:[phone] [facility], [address], [place], [place], [id number], [place] tel:[phone] [place] No Information 0 1 Juvenal Azam. [address] [place], [place], [id number], [place]. tel:[phone] [facility], [address], [place], [place], [id number], [place] tel:[phone] [place] No Information 1 Juvenal Azam. [address] [place], [place], [id number], [place]. tel:[phone] [facility], [address], [place], [place], [id number], [place] tel:[phone] [place] No Information 2 1 Juvenal Azam. [address] [place], [place], [id number], [place]. tel:[phone] [facility], [address], [place], [place], [id number], [place] tel:[phone] [place] No Information 1 1 Juvenal Azam. [address] [place], [place], [id number], [place]. tel:[phone] [facility], [address], [place], [place], [id number], [place] tel:[phone] [place] No Information 0 1 Juvenal Azam. [address] [place], [place], [id number], [place]. tel:[phone] [facility], [address], [place], [place], [id number], [place] tel:[phone] [place] No Information Dec-0 1 Juvenal Azam. [address] [place], [place], [id number], [place]. tel:[phone] [facility], [address] [facility] [address] [place], [place], [place], [id number], [place] tel:[phone] [place] No Information Nov-2 1 Juvenal Azam. [address] [place], [place], [id number], [place]. tel:[phone] [facility], [address] [facility] [address] [facility] [place], [place], [place], [id number], [place] tel:[phone] [place] No Information 2 1 Juvenal Azam. [address] [place], [place], [id number], [place]. tel:[phone] [facility], 1 [facility] [place], [place], [place], [id number], [place] tel:[phone] [place] Visual disturbance Nov-0 1 Juvenal Azam. [address] [place], [place], [id number], [place]. tel:[phone] [facility], [address] [facility] [address] [facility] [place], [place], [place], [id number], [place] tel:[phone] [place] PHV (chief complaint) Type 2 diabetes mellitus with hyperglycemia, with long-term current use of insulinLong term (current) use of insulinHypertensive chronic kidney disease with stage 1 through stage 4 chronic kidney disease, or unspecified chronic kidney diseaseChronic kidney disease, stage 2 (mild)Cognitive impairment 2 1 Juvenal Azam. [address] [place], [place], [id number], [place]. tel:[phone] [facility], [address] [facility] [address] [place] [address], [id number], [place] tel:[phone] [place] No Information 0 1 Juvenal Azam. [address] [place], [place], [id number], . tel:[phone] [facility], [address] [facility] [place], [place], [place], [id number], [place] tel:[phone] [place] No Information Jul-0 6 0 Juvenal Azam. [address] [place], [place], [id number], . tel:[phone] [facility], [address] [facility] [address] [place], [place], [place], [id number], [place] tel:[phone] [place] No Information Jun-2 8 0 Juvenal Azam. [address] [place], [place], [id number], [place]. tel:[phone] [facility], [address] [facility] [address] [facility] [place], [place], [place], [id number], [place] tel:[phone] [place] Encounter for rehabilitation evaluation 0 0 Shar Aburto. [address] [place], [place], [id number], [place]. tel:[phone] [facility], [address] [facility] [address] [place] [address], [id number], [place] tel:[phone] [place] No Information 2 0 0 Juvenal Azam. [address] [place], [place], [id number], . tel:[phone] [facility], [address] [place] [address], [id number], [place] tel:[phone] [place] SHOBHA (chief complaint)e xam (chief complaint) Type 2 diabetes mellitus with hyperglycemia, with long-term current use of insulinLong term (current) use of insulinHyperlipidemia, mixedType 2 diabetes mellitus with diabetic dermatitis, with long-term current use of insulinType 2 diabetes mellitus with stage 2 chronic kidney disease, with long-term current use of insulinChronic kidney disease, stage 2 (mild)Vitamin D deficiencyAcquired absence of teethBlindness of one eyePrimary open angle glaucoma of both eyes, indeterminate stageNon-proliferative diabetic retinopathy, both eyesHypertensive chronic kidney disease with stage 1 through stage 4 chronic kidney disease, or unspecified chronic kidney diseaseUrinary frequencyMDD (major depressive disorder), recurrent, in partial remissionGeneralized anxiety disorderCognitive impairmentPeripheral sensory neuropathy due to type 2 diabetes mellitusInsomnia, unspecified typeEncounter for health maintenance examinationBlepharitis of left upper eyelid, unspecified type Oct-2 0 0 Juvenal Azam. [address] [place], [place], [id number], [place]. tel:[phone] [facility], [address] [facility] [address] [facility] [place], [place], [place], [id number], [place] tel:[phone] [place] Encounter for rehabilitation evaluation 0 Theroux Allegra. [address] [place], [address]. tel:[phone] [facility], 1 [facility] [place], [place], [place], [id number], [place] tel:[phone] [place] No Information 0 Juvenal Azam. [address] [place], [place], [id number], [place]. tel:[phone] [facility], [address] [facility] [address] [facility] [place], [place], [place], [address], [place] tel:[phone] [place] Type 2 diabetes mellitus with hyperglycemia, with long-term current use of insulinLong term (current) use of insulin 0 Juvenal Azam. [address] [place], [place], [id number], [place]. tel:[phone] [facility], 1 [facility] [place], [place], [place], [address], [place] tel:[phone] [place] Follow Up of DM (chief complaint) Type 2 diabetes mellitus with hyperglycemia, with long-term current use of insulinLong term (current) use of insulinVitamin D deficiencyHyperlipidem ia, mixed 0 Juvenal Azam. [address] [place], [place], [id number], [place]. tel:[phone] [facility], [address] [facility] [place], [place], [place], [address], [place] tel:[phone] [place] Tlephonic biannual (chief complaint) Mixed hyperlipidemia due to type 2 diabetes mellitusLong term (current) use of insulinType 2 diabetes mellitus with diabetic dermatitis, with long-term current use of insulinType 2 diabetes mellitus with stage 2 chronic kidney disease, with long-term current use of insulinType 2 diabetes mellitus with hyperglycemia, with long-term current use of insulinVitamin D deficiencyAcquired absence of teethPhthisis bulbi, right eyeBlindness of one eyePrimary open angle glaucoma of both eyes, indeterminate stageNon-proliferative diabetic retinopathy, both eyesHypertensive chronic kidney disease with stage 1 through stage 4 chronic kidney disease, or unspecified chronic kidney diseaseChronic kidney disease, stage 2 (mild)Urinary frequencyMDD (major depressive disorder), recurrent, in partial remissionGeneralized anxiety disorderArthritisCogni tive impairmentPeripheral sensory neuropathy due to type 2 diabetes mellitusInsomnia, unspecified typeEncounter for health maintenance examination 0 Juvenal Nascimento. [address] [place], [place], [id number], [place]. tel:[phone] [facility], [address] [facility] [address] [facility] [place], [place], [place], [id number], [place] tel:[phone] [place] Encntr for general adult medical exam w/o abnormal findings 0 Juvenal Christiansonn. [address] [place], [place], [id number], [place]. tel:[phone] [facility], [address] [facility] [address] [place], [place], [place], [id number], [place] tel:[phone] [place] Hyperlipidemia, unspecified 0 Juvenal Azam. [address] [place], [place], [id number], [place]. tel:[phone] [facility], [address] [facility] [address] [facility] [place], [place], [place], [id number], [place] tel:[phone] [place] Diabetes mellitus treated with insulinType 2 diabetes w unsp diabetic rtnop w/o macular edema 0 Juvenal Azam. [address] [place], [place], [id number], [place]. tel:[phone] [facility], [address], [place], [place], [id number], [place] tel:[phone] [place] OFFICE VISIT (chief complaint) Type 2 diabetes mellitus treated with insulinLong term (current) use of insulin 0 Juvenal Azam. [address] [place], [place], [id number], [place]. tel:[phone] [facility], [address], [place], [place], [id number], [place] tel:[phone] [place] 3 week follow up Diabetes mellitus (chief complaint) Diabetes mellitus treated with insulinLong term (current) use of insulin 9 Juvenal Azam. [address] [place], [place], [address], [place]. tel:[phone] [facility], [address], [place], [place], [id number], [place] tel:[phone] [place] 2 week follow up (chief complaint) cleaner signs (current) use of insulinType 2 diabetes mellitus with hyperglycemia 9 Juvenal Azam. [address] [place], [place], [id number], [place]. tel:[phone] [facility], [address], [place], [place], [id number], [place] tel:[phone] [place] Type 2 diabetes w un sp diabetic rtnop w/o macular edema Oct-2 9 Khadra Calzada. [address] [place], [address]. tel:[phone] [facility], [address], [place], [place], [address], [place] tel:[phone] [place] Type 2 diabetes mellitus with diabetic polyneuropathy 2 9 Geraldine Mitchell. [address] [place], [address]. tel:[phone] [facility], [address] [facility] [address] [facility] [place], [place], [place], [id number], [place] tel:[phone] [place] Annual (chief complaint)I nterval [facility] Data (chief complaint)C hronic Conditions (chief complaint) Generalized anxiety disorderChronic kidney disease, stage 3 (moderate)Complete loss of teeth, unspecified cause, unspecified classHyperlipidemia, unspecifiedOther symptoms and signs involving cognitive functions and awarenessVitamin D deficiency, unspecifiedUnspecified glaucomaArthropathy, unspecifiedType 2 diabetes mellitus with mild nonproliferative diabetic retinopathy without macular edema, unspecified eyeType 2 diabetes mellitus with diabetic polyneuropathyOther chronic painMajor depressive disorder, recurrent, moderateOther specified symptoms and signs involving the digestive system and abdomenFrequency of micturitionBlindness, one eye, unspecified eyeEncounter for general adult medical exam w abnormal findingsHypertensive chronic kidney disease w stg 1-4/unsp chr kdnyType 2 diabetes mellitus with diabetic chronic kidney diseaseType 2 diabetes mellitus with hyperglycemiaLong term (current) use of insulin Jun- 9 Juvenal Nascimento. [address] [place], [place], [id number], [place]. tel:[phone] [facility], [address] [address], [place], [place], [address], [place] tel:[phone] [place] Type 2 diabetes mellitus with diabetic polyneuropathy 2 9 Tran Del Rioah Beth. [address] [place], [place], [id number]. tel:[phone] [facility], [facility] [place], [place], [place], [id number], [place] tel:[phone] [place] Type 2 diabetes mellitus with diabetic polyneuropathy Jun-0 9 Juvenal Nascimento. [address] [place], [place], [id number], [place]. tel:[phone] [facility], [address], [place], [place], [id number], [place] tel:[phone] [place] No Information May- 9 Juvenal Azam. [address] [place], [place], [id number], [place]. tel:[phone] [facility], [address], [place], [place], [id number], [place] tel:[phone] [place] No Information May- 9 Juvenal Azam. [address] [place], [place], [id number], [place]. tel:[phone] [facility], [address], [place], [place], [id number], [place] tel:[phone] [place] Diabetes- (chief complaint) Type 2 diabetes mellitus with diabetic polyneuropathy Sep- 9 Juvenal Azam. [address] [place], [place], [id number], [place]. tel:[phone] [facility], [address], [place], [place], [id number], [place] tel:[phone] [place] Follow up Diabetes mellitus (chief complaint) Type 2 diabetes mellitus with diabetic polyneuropathyHyperten sive chronic kidney disease w stg 1-4/unsp chr kdny 9 Juvenal Azam. [address] [place], [place], [id number], [place]. tel:[phone] [facility], [address], [place], [place], [id number], [place] tel:[phone] [place] DM (chief complaint) Type 2 diabetes mellitus with diabetic polyneuropathy 9 Juvenal Azam. [address] [place], [place], [id number], [place]. tel:[phone] [facility], [address], [place], [place], [id number], [place] tel:[phone] [place] Type 2 diabetes w un sp diabetic rtnop w/o macular edemaUnspecified glaucomaHyperlipidemia , unspecifiedHypertensiv e chronic kidney disease w stg 1-4/unsp chr kdny 9 Marnie Can. 101 [facility], [place], [id number]. tel:[phone] [facility], [address], [place], [place], [id number], [place] tel:[phone] [place] Type 2 diabetes w un sp diabetic rtnop w/o macular edema 9 Marnie Can. [address] [place], [place], [id number]. tel:[phone] [facility], 1 [facility] [address], [place], [place], [id number], tel:[phone] [place] Type 2 diabetes mellitus with diabetic polyneuropathy 9 Juvenal Nascimento. [address] [place] [address], [id number], . tel:[phone] [facility], [facility] [address], [place], [place], [id number], [place] tel:[phone] [place] Semi annual (chief complaint) Hypertensive chronic kidney disease w [facility] 1-4/unsp [facility] kdnyChronic kidney disease, stage 3 (moderate)cleaner signs (current) use of insulinType 2 diabetes mellitus with mild nonproliferative diabetic retinopathy without macular edema, unspecified eyeType 2 diabetes mellitus with diabetic polyneuropathyUnspecif ied glaucomaBlindness, one eye, unspecified eyeHyperlipidemia, unspecifiedMajor depressive disorder, recurrent, moderateGeneralized anxiety disorderComplete loss of teeth, unspecified cause, unspecified classArthropathy, unspecifiedOther chronic painOther symptoms and signs involving cognitive functions and awarenessFrequency of micturitionOther specified symptoms and signs involving the digestive system and abdomenVitamin D deficiency, unspecifiedObesity, unspecifiedType 2 diabetes w unsp diabetic rtnop w/o macular edemaDermatitis -201 9 Marnie Can. [address] [place], [place], [id number]. tel:[phone] [facility], [address] [facility] [address] [facility] [place], [place], [place], [id number], [place] tel:[phone] [place] Type 2 diabetes w un sp diabetic rtnop w/o macular edema Apr-0 9 Marnie Can. [address] [place], [place], [id number]. tel:[phone] [facility], [address] [facility] [address] [facility] [place], [place], [place], [id number], [place] tel:[phone] [place] Chest pain (chief complaint)s sepideh last night (chief complaint) Chest painHypertensive chronic kidney disease w stg 1-4/unsp chr kdnyHyperlipidemia, unspecifiedAbnormal weight gain Dec-0 - 9 Marnie Can. [address] [place], [place], [id number]. tel:[phone] [facility], 1 [facility] [place], [place], [place], [id number], [place] tel:[phone] [place] Chest pain Dec-0 9 Juvenal Nascimento. [address] [place], [place], [id number], [place]. tel:[phone] [facility], 1 [facility] [address], [place], [place], [id number], [place] tel:[phone] [place] Type 2 diabetes w un sp diabetic rtnop w/o macular edema Fe-2 9 Marnie Can. [address] [place], [place], [id number]. tel:[phone] [facility], [address] [facility] [address], [place], [place], [id number], [place] tel:[phone] [place] Depressive disorder Jul-0 8 Juvenalmello Christiansonn. [address] [place], [place], [id number], [place]. tel:[phone] [facility], [address] [facility] [address] [place], [place], [place], [id number], [place] tel:[phone] [place] Other chronic pain 8 Tran Shell Marni Campa. [address] [place], [place], [id number]. tel:[phone] [facility], [facility] [place], [place], [place], [id number], [place] tel:[phone] [place] Type 2 diabetes w un sp diabetic rtnop w/o macular edema 8 Khadra Calzada. 101 [facility], [place], [address]. tel:[phone] [facility], [facility] [place], [place], [place], [id number], [place] tel:[phone] [place] Annual (chief complaint) cleaner signs (current) use of insulinChronic kidney disease, stage 3 (moderate)Hyperlipidem ia, unspecifiedGeneralized anxiety disorderDepressive disorderOther disorders of peripheral nervous systemBlindness, one eye, unspecified eyeUnspecified glaucomaComplete loss of teeth, unspecified cause, unspecified classArthropathy, unspecifiedOther symptoms and signs involving cognitive functions and awarenessOther chronic painFrequency of micturitionInsomnia, unspecified 8 Marnie Can. [address] [place], [place], [id number]. tel:[phone] [facility], [address] [facility] [address] [place], [place], [place], [id number], [place] tel:[phone] [place] Other chronic pain 8 Juvenal Nascimento. [address] [place], [place], [id number], [place]. 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 [address] [place], [place], [id number]. tel:[phone] [facility], [facility] [place], [place], [place], [id number], [place] tel:[phone] [place] No Information 8 Juvenal Nascimento. [address] [place], [place], [id number], [place]. 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 [address] [place], [place], [id number], [place]. 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 [address] [facility] [address] [place], [place], [id number]. tel:[phone] [facility], [facility] [place], [place], [place], [id number], [place] tel:[phone] [place] Semi Annual (chief complaint) Type 2 diabetes w unsp diabetic rtnop w/o macular edemaLong term (current) use of insulinGeneralized anxiety disorderDepressive disorderBlindness, one eye, unspecified eyeUnspecified glaucomaOther disorders of peripheral nervous systemUnspecified visual lossOther symptoms and signs involving cognitive functions and awarenessDeficiency of other vitaminsArthropathy, unspecifiedOther chronic painFrequency of micturitionOther specified symptoms and signs involving the digestive system and abdomenHyperlipidemia, unspecifiedComplete loss of teeth, unspecified cause, unspecified class 8 Marnie Can. [address], [place], [place], [id number]. 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 101 [facility] [place], [place], [id number]. 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 [address] [place], [place], [id number]. tel:[phone] [facility], 1 [facility] [place], [place], [place], [id number], [place] tel:[phone] [place] Annual (chief complaint) Type 2 diabetes w unsp diabetic rtnop w/o macular edemaDepressive disorderGeneralized anxiety disorderHypertensive chronic kidney disease with stage 1 through stage 4 chronic kidney disease, or unspecified chronic kidney diseaseLong term (current) use of insulinBlindness, one eye, unspecified eyeUnspecified glaucomaMild cognitive impairment, so statedEncounter for general adult medical exam w abnormal findingsLocal infection of the skinType 2 diabetes mellitus with diabetic nephropathyOther disorders of peripheral nervous system 7 Juvenal Azam. [address] [place], [place], [id number], [place]. 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 [address] [place], [address]. tel:[phone] [facility], 1 [facility] [place], [place], [place], [id number], [place] tel:[phone] [place] wound on foot (chief complaint) Local infection of the skin Jun- 7 Marnie Can. [address] [facility] [address], [place], [place], [id number]. tel:[phone] [facility], 1 [facility] [place], [place], [place], [id number], [place] tel:[phone] [place] No Information Jun-0 7 Marnie Can. [address] [facility] [address] [place], [place], [id number]. tel:[phone] [facility], 1 [facility] [place], [place], [place], [id number], [place] tel:[phone] [place] No Information May-2 7 Juvenal Nascimento. [address] [place], [place], [id number], [place]. tel:[phone] [facility], [facility] [address] [place] [address], [id number], [place] tel:[phone] [place] Semi Annual (chief complaint) Type II DM with diabetic retinopathy without macular edemaUnspecified glaucomaHypertensive chronic kidney disease with stage 1 through stage 4 chronic kidney disease, or unspecified chronic kidney diseaseBlindness, one eye, unspecified eyeFrequency of micturitionDeficiency of other vitaminsDepressive disorderGeneralized anxiety disorderLong term (current) use of insulinOther chronic painOther disorders of peripheral nervous systemOther symptoms and signs involving cognitive functions and awareness 7 Marnie Can. [address] [facility] [address], [place], [place], [id number]. tel:[phone] [facility], [facility] [place], [place], [place], [id number], [place] tel:[phone] [place] Other shoulder lesions, unspecified shoulder Nov- 7 Tran Campa. [address] [place], [place], [id number]. tel:[phone] [facility], [address] [place] [address], [id number], [place] tel:[phone] [place] Follow Up of DM (chief complaint) Other shoulder lesions, unspecified shoulderBlindness, one eye, unspecified eyeType II DM with diabetic retinopathy without macular edemaHereditary and idiopathic neuropathy, unspecified 7 Juvenal Azam. [address] [place], [place], [id number], [place]. tel:[phone] [facility], [address] [facility] [place], [place], [place], [address], [place] tel:[phone] [place] Other shoulder lesions, unspecified shoulder 6 Juvenal Azam. [address] [place], [place], [id number], [place]. tel:[phone] [facility], [address] [facility] [place], [place], [place], [id number], [place] tel:[phone] [place] No Information 6 Tran Shell Marni Campa. [address] [place], [place], [id number]. tel:[phone] [facility], [address] [place] [address], [id number], [place] tel:[phone] [place] Annual (chief complaint) Type II DM with diabetic retinopathy without macular edemaUnspecified visual lossHypertensive chronic kidney disease with stage 1 through stage 4 chronic kidney disease, or unspecified chronic kidney diseaseOther specified mental disorders due to known physiological conditionDepressive disorderEncounter for general adult medical exam w abnormal findingsBlindness, one eye, unspecified eyeUnspecified glaucoma 6 Juvenal Azam. [address] [place], [place], [id number], [place]. tel:[phone] [facility], [address], [place], [id number], [place] tel:[phone] [place] pre-op exam (chief complaint) Other shoulder lesions, unspecified shoulderArthropathy, unspecified Dante- 6 Juvenal Azam. [address] [place], [place], [id number], [place]. tel:[phone] [facility], [address] [facility] [address], [place], [place], [id number], [place] tel:[phone] [place] Nurse Assessment (chief complaint) Bursitis of right shoulder 6 Binh Reynoso. [address], [place], [place], [address]. tel:[phone] [facility], [facility] [place], [place], [place], [id number], [place] tel:[phone] [place] No Information 6 Juvenalmello Christiansonn. [address] [place], [place], [id number], [place]. tel:[phone] [facility], [address] [facility] [address] [place], [place], [place], [id number], [place] tel:[phone] [place] semi annual (chief complaint) Hypertensive chronic kidney disease with stage 1 through stage 4 chronic kidney disease, or unspecified chronic kidney diseaseType 2 diabetes mellitus with diabetic nephropathyType 2 diabetes mellitus with mild nonproliferative diabetic retinopathy without macular edemaOther specified mental disorders due to known physiological conditionBursitis of right shoulderUnspecified glaucomaDepressive disorderTremorEncounte r for general adult medical exam w abnormal findings 6 Juvenal Azam. [address] [place], [place], [id number], [place]. tel:[phone] [facility], [address] [facility] [address] [place], [place], [place], [id number], [place] tel:[phone] [place] Coryza (chief complaint) Acute upper respiratory infection, unspecified 6 Juvenal Azam. [address] [place], [place], [id number], [place]. tel:[phone] [facility], [address], [place], [place], [address], [place] tel:[phone] [place] Nurse Assessment (chief complaint) No Information 0- 5 Juvenal Christiansonn. [address] [place], [place], [id number], [place]. tel:[phone] [facility], [address], [place], [place], [id number], [place] tel:[phone] [place] No Information 5 [facility] Marybel. [address] [place], [address]. tel:[phone] [facility], [address], [place], [place], [id number], [place] tel:[phone] [place] No Information 5 Juvenal Nascimento. [address] [place], [place], [id number], [place]. tel:[phone] [facility], [address], [place], [place], [id number], [place] tel:[phone] [place] Annual and chronic medical conditions (chief complaint) Type 2 diabetes mellitus with diabetic nephropathyBlindness, one eye, unspecified eyeUnspecified glaucomaType 2 diabetes mellitus with diabetic neuropathy, unspecifiedArthropathy , unspecifiedMild cognitive impairment, so statedEncounter for general adult medical exam w abnormal findings 5 Juvenal Nascimento. [address] [place], [place], [id number], [place]. tel:[phone] [facility], [address] [facility] [place], [place], [place], [id number], [place] tel:[phone] [place] No Information 2 2 5 Tran Campa. [address] [place], [place], [id number]. tel:[phone] [facility], [address], [place], [place], [id number], [place] tel:[phone] [place] DM and general follow up (chief complaint) Erectile dysfunctionUnspecified glaucomaDiabetes mellitus with renal manifestations, type II or unspecified type, not stated as uncontrolled 5 Juvenal Nascimento. [address] [place], [place], [id number], [place]. tel:[phone] [facility], [facility] [address] [place] [address], [id number], [place] tel:[phone] [place] Itchy eyes and sore throat (chief complaint) Diabetes mellitus with neurological manifestations, type II or unspecified type, not stated as uncontrolledAllergic rhinitisRotator cuff disorder 5 Derrick Cruz. [address] [place], [place], [id number]. tel:[phone] [facility], [facility] [address] [place] [address], [id number], [place] tel:[phone] [place] Diabetes with ophthalmic manifestations, type II or unspecified type, not stated as uncontrolled 5 Derrick Cruz. [address] [place], [place], [id number]. tel:[phone] [facility], [facility] [address] [place] [address], [id number], [place] tel:[phone] [place] semi annual (chief complaint)c hronic medical conditions (chief complaint) Diabetes mellitus with neurological manifestations, type II or unspecified type, not stated as uncontrolledCognitive impairmentProfound vision impairment, one eye, impairment level not further specifiedDepressive disorder, not elsewhere classifiedChronic kidney disease, Stage II (mild)Restless legs syndrome (RLS)Erectile dysfunctionUnspecified disorder of liverDiabetes with ophthalmic manifestations, type II or unspecified type, not stated as uncontrolled 5 Juvenal Nascimento. [address] [place], [place], [id number], [place]. tel:[phone] [facility], 1 [facility] [address] [place] [address], [id number], [place] tel:[phone] [place] DM and med adherence (chief complaint) Diabetes mellitus with neurological manifestations, type II or unspecified type, not stated as uncontrolledUnspecifie d disorder of liverRestless legs syndrome (RLS)HTNCognitive impairment 5 No Information [facility], [address] [facility] [address] [place] [address], [id number], [place] tel:[phone] [place] No Information 5 Derrick Crzu. [address], [place], [id number]. tel:[phone] [facility], [address] [facility] [address] [place] [address], [id number], [place] tel:[phone] [place] Diabetes mellitus wi th renal manifestations, type II or unspecified type, not stated as uncontrolled 5 Derrick Cruz. [address] [place], [id number]. tel:[phone] [facility], [address] [facility] [address] [place] [address], [id number], [place] tel:[phone] [place] dm (chief complaint)c hest pain (chief complaint) Diabetes mellitus with ophthalmic manifestations, type II or unspecified type, not stated as uncontrolledChest pain 5 Juvenal Nascimento. [address] [place], [place], [id number], [place]. tel:[phone] [facility], [facility] [address] [place] [address], [id number], [place] tel:[phone] [place] No Information 5 Derrick Cruz. [address], [place], [id number]. tel:[phone] [facility], [address] [facility] [address] [place] [address], [id number], [place] tel:[phone] [place] DM/elevated ALT (chief complaint) Unspecified disorder of liverDiabetes mellitus with neurological manifestations, type II or unspecified type, not stated as uncontrolled 5 No Information [facility], 1 [facility] [place], [place], [place], [id number], tel:[phone] [place] Nonproliferative diabetic retinopathy NOS 5 No Information [facility], 1 [facility] [place], [place], [place], [id number], tel:[phone] [place] Unspecified disorder of liverDiabetes mellitus with neurological manifestations, type II or unspecified type, not stated as uncontrolled 4 Derrick Cruz. [address], [place], [place], [id number]. tel:[phone] [facility], [address] [facility] [address] [place], [place], [place], [id number], tel:[phone] [place] No Information 4 No Information [facility], 1 [facility] [place], [place], [place], [address], tel:[phone] [place] post enrollment (chief complaint)c hronic conditions (chief complaint) Unspecified visual lossProfound vision impairment, one eye, impairment level not further specifiedUrinary frequencyAnxiety state, unspecifiedUnspecified glaucomaArthropathy, unspecified, site unspecifiedOther chronic painDizziness and giddinessDiabetes mellitus with neurological manifestations, type II or unspecified type, not stated as uncontrolledUnspecifie d idiopathic peripheral neuropathyChronic kidney disease, Stage II (mild)Hypertensive chronic kidney disease, unspecified, with chronic kidney disease stage I through stage IV, or unspecifiedDiabetes mellitus with renal manifestations, type II or unspecified type, not stated as uncontrolledDepressive disorder, not elsewhere classifiedAbnormal involuntary movementsUnspecified vitamin deficiencyNonprolifera tive diabetic retinopathy NOSDiabetes mellitus with ophthalmic manifestations, type II or unspecified type, not stated as uncontrolledUnspecifie d disorder of liverRoutine Medical ExamUnspecified hypertrophic and atrophic conditions of skin 4 No Information [facility], [address] [facility] [address], [place], [place], [id number], [place] tel:[phone] [place] Routine Medical ExamScreening examination for pulmonary tuberculosisDiabetes mellitus without mention of complication, type II or unspecified type, not stated as uncontrolledUrinary frequency 4 No Information [facility], [facility] [place], [place], [place], [id number], [place] tel:[phone] [place] Screening examinatio n for pulmonary tuberculosisRoutine Medical Exam 4 Derrick Cruz. [address] [place], [place], [id number]. tel:[phone] [facility], [facility] [place], [place], [place], [id number], [place] tel:[phone] [place] Intake visit (chief complaint) No Information 4 Derrick Cruz. [address], [place], [place], [id number]. tel:[phone] Family History Family Member Type Diagnosis Age At Onset No Information Immunizations Vaccine Date Status Comments Fluzone High-Dose administered Source: New Immunization Record COVID-19 Jaylan (J&J) administered [facility] e: Other Registry Zoster recombinant subunit administered S ource: New Immunization Record Tdap administered Source: Other R egistry PCV13 administered Source: Other R egistry Zoster recombinant subunit administered N ote: Given at [facility] on [email or web address] in [place] ; Source: Other Provider Fluzone High-Dose administered Note: Given at [facility] on [facility] in [place] ; Source: Other Provider Influenza, recombinant, injectable, quadrivalent, preservative free Flublok Quad administered Note: per ppt admini stered at [facility] ; Source: New Immunization Record Influenza, injectable, quadrivalent, preservative free, split virus, 3 years and older, Fluzone Quad Y administered Source: N ew Immunization Record pneumococcal conjugate vaccine, 13 valent administered Source: New Immuniza tion Record Influenza, injectable, quadrivalent, split virus, preservative free, Fluzone Intraderm Quad administered Source: New Imm unization Record Influenza, injectable, trivalent, split virus, preservative free, 3 years and older Afluria 7887-8859 administered Source: New Immu nization Record Influenza, injectable, split virus, preservative free, 3 years and older Afluria 2 -2015 administered Source: Other Provid er Tdap administered Source: New Imm unization Record PPV administered Source: New Imm unization Record Flu (split) (3 yrs or older) administered Note: had JUN 2014 ; Source: Source Unspecified Payers Payer name Insurance type Covered democrat ID Authoriza tion(s) [facility] 16 [id number] [facility] 16 [id number] [facility] 16 [id number] [facility] 16 [id number] [facility] 16 [id number] [facility] 16 [id number] [facility] 16 [id number] [facility] 16 [id number] [facility] 16 [id number] [facility] 16 [id number] [facility] 16 [id number] [facility] 16 [id number] Social History Type Description Quantity Date Captured Comments Sex Male Smoking Status No Information Chief Complaint And Reason For Visit No Information Plan Of Treatment Date Type Action Status Goal Influenza vaccine. Due on Oc due Goal GFR. Due on due Goal Foot exam. Due on due Goal Dilated eye exam. Due on Jun due Goal GFR. Due on due Goal Dilated eye exam. Due on Jun due Goal Foot exam. Due on due Goal Influenza vaccine. Due on Oc due Goal Dilated eye exam. Due on Jun due Goal GFR. Due on due Goal Foot exam. Due on due Goal Influenza vaccine. Due on Oc due Goal GFR. Due on due Goal Dilated eye exam. Due on Feb due Goal Foot exam. Due on due Goal Influenza vaccine. Due on Se due Goal Dilated eye exam. Due on Feb due Goal GFR. Due on due Goal Foot exam. Due on due Goal Influenza vaccine. Due on Se due Goal Influenza vaccine. Due on Se due Goal Foot exam. Due on due Goal Dilated eye exam. Due on Feb due Goal GFR. Due on due Goal Influenza vaccine. Due on Se due Goal Foot exam. Due on due Goal Dilated eye exam. Due on Feb due Goal GFR. Due on due Goal Influenza vaccine. Due on Se p due Goal GFR. Due on due Goal Dilated eye exam. Due on Feb due Goal Foot exam. Due on due Goal GFR. Due on due Goal Influenza vaccine. Due on Se due Goal Foot exam. Due on due Goal Dilated eye exam. Due on Feb due Goal Influenza vaccine. Due on Se p due Goal Dilated eye exam. Due on January due Goal GFR. Due on due Goal Foot exam. Due on due Goal GFR. Due on due Goal Influenza vaccine. Due on Se p due Goal Dilated eye exam. Due on January due Goal Foot exam. Due on due Goal Foot exam. Due on due Goal GFR. Due on due Goal Dilated eye exam. Due on January due Goal Influenza vaccine. Due on Se due Goal Dilated eye exam. Due on Dec due Goal Influenza vaccine. Due on Se due Goal Foot exam. Due on due Goal GFR. Due on due Goal Dilated eye exam. Due on Dec due Goal Foot exam. Due on due Goal GFR. Due on due Goal Influenza vaccine. Due on Se due Goal Dilated eye exam. Due on Dec due Goal GFR. Due on due Goal Influenza vaccine. Due on Se p due Goal Foot exam. Due on due Goal Dilated eye exam. Due on Nov due Goal Influenza vaccine. Due on Se due Goal GFR. Due on due Goal Foot exam. Due on due Goal Dilated eye exam. Due on Oct due Goal GFR. Due on due Goal Influenza vaccine. Due on Se due Goal Foot exam. Due on due Goal GFR. Due on due Goal Foot exam. Due on due Goal Dilated eye exam. Due on Oct due Goal Influenza vaccine. Due on Se due Goal Foot exam. Due on 0 due Goal Influenza vaccine. Due on Se due Goal Dilated eye exam. Due on Jul due Goal GFR. Due on due Goal Foot exam. Due on 0 due Goal Dilated eye exam. Due on Jun due Goal GFR. Due on due Goal Influenza vaccine. Due on Se due Goal Dilated eye exam. Due on Jun due Goal Foot exam. Due on 0 due Goal GFR. Due on due Goal Influenza vaccine. Due on Se due Goal Influenza vaccine. Due on Se due Goal GFR. Due on due Goal Foot exam. Due on 0 due Goal Dilated eye exam. Due on Jun due Goal Influenza vaccine. Due on No due Goal GFR. Due on due Goal Foot exam. Due on 0 due Goal Dilated eye exam. Due on Jun due Goal GFR. Due on due Goal Influenza vaccine. Due on No due Goal Dilated eye exam. Due on May due Goal Foot exam. Due on 0 due Goal Hemoglobin A1C. Due on due Goal Influenza vaccine. Due on No due Goal Dilated eye exam. Due on Jul due Goal Foot exam. Due on 8 due Goal GFR. Due on due Goal Influenza vaccine. Due on due Goal Dilated eye exam. Due on Jul due Goal GFR. Due on due Goal Foot exam. Due on 8 due Goal Influenza vaccine. Due on No due Goal Dilated eye exam. Due on Jul due Goal Foot exam. Due on 8 due Goal GFR. Due on due Goal Influenza vaccine. Due on due Goal Foot exam. Due on 8 due Goal Dilated eye exam. Due on Jul due Goal GFR. Due on due Goal Influenza vaccine. Due on No due Goal GFR. Due on due Goal Foot exam. Due on due Goal Dilated eye exam. Due on Jul due Goal Influenza vaccine. Due on No due Goal GFR. Due on due Goal Foot exam. Due on due Goal Dilated eye exam. Due on Jul due Goal Foot exam. Due on due Goal Dilated eye exam. Due on Jul due Goal Influenza vaccine. Due on No due Goal GFR. Due on due Goal Foot exam. Due on due Goal Influenza vaccine. Due on No due Goal GFR. Due on due Goal Dilated eye exam. Due on Jul due Goal Influenza vaccine. Due on No due Goal GFR. Due on due Goal Dilated eye exam. Due on Jul due Goal Foot exam. Due on due Goal GFR. Due on due Goal Dilated eye exam. Due on Jul due Goal Influenza vaccine. Due on No due Goal Foot exam. Due on due Goal Dilated eye exam. Due on Jul due Goal Influenza vaccine. Due on No due Goal Foot exam. Due on due Goal GFR. Due on due Goal Influenza vaccine. Due on No due Goal GFR. Due on due Goal Foot exam. Due on due Goal Dilated eye exam. Due on Jul due Goal Influenza vaccine. Due on No due Goal Foot exam. Due on due Goal Dilated eye exam. Due on Jul due Goal GFR. Due on due Goal Dilated eye exam. Due on Jul due Goal Influenza vaccine. Due on No due Goal Foot exam. Due on due Goal GFR. Due on due Goal Dilated eye exam. Due on Jul due Goal GFR. Due on due Goal Influenza vaccine. Due on No due Goal Foot exam. Due on due Goal GFR. Due on due Goal Influenza vaccine. Due on No due Goal Foot exam. Due on due Goal Dilated eye exam. Due on Jul due Goal GFR. Due on due Goal Influenza vaccine. Due on No due Goal Dilated eye exam. Due on Jul due Goal Foot exam. Due on due Goal Foot exam. Due on due Goal Dilated eye exam. Due on Jul due Goal Influenza vaccine. Due on No due Goal GFR. Due on due Goal Foot exam. Due on due Goal GFR. Due on due Goal Influenza vaccine. Due on No due Goal Dilated eye exam. Due on Jul due Goal Influenza vaccine. Due on No due Goal Foot exam. Due on due Goal GFR. Due on due Goal Dilated eye exam. Due on Jul due Goal GFR. Due on due Goal Influenza vaccine. Due on No due Goal Foot exam. Due on due Goal Dilated eye exam. Due on Jul due Goal Dilated eye exam. Due on Jul due Goal GFR. Due on due Goal Influenza vaccine. Due on No due Goal Foot exam. Due on due Goal Influenza vaccine. Due on No due Goal Dilated eye exam. Due on Jul due Goal Urine microalbumin. Due on due Goal Foot exam. Due on due Goal GFR. Due on due Goal Foot exam. Due on due Goal Dilated eye exam. Due on Jul due Goal Urine microalbumin. Due on due Goal GFR. Due on due Goal Influenza vaccine. Due on No due Goal Influenza vaccine. Due on No due Goal Urine microalbumin. Due on due Goal GFR. Due on due Goal Foot exam. Due on due Goal Dilated eye exam. Due on Jul due Goal Dilated eye exam. Due on Jul due Goal Urine microalbumin. Due on due Goal Foot exam. Due on due Goal GFR. Due on due Goal Influenza vaccine. Due on No due Goal Influenza vaccine. Due on due Goal Dilated eye exam. Due on Jul due Goal Foot exam. Due on due Goal GFR. Due on due Goal Influenza vaccine. Due on due Goal GFR. Due on due Goal Foot exam. Due on due Goal Dilated eye exam. Due on Jul due Goal Foot exam. Due on due Goal Dilated eye exam. Due on Jul due Goal Influenza vaccine. Due on No due Goal GFR. Due on due Goal Foot exam. Due on due Goal Dilated eye exam. Due on Jul due Goal Influenza vaccine. Due on No due Goal GFR. Due on due Goal GFR. Due on due Goal Influenza vaccine. Due on No due Goal Dilated eye exam. Due on Jul due Goal Foot exam. Due on due Goal Influenza vaccine. Due on No due Goal Foot exam. Due on due Goal Dilated eye exam. Due on Jul due Goal GFR. Due on due Goal GFR. Due on due Goal Foot exam. Due on 8 due Goal Dilated eye exam. Due on Jul due Goal Influenza vaccine. Due on No due Goal Dilated eye exam. Due on Jul due Goal Foot exam. Due on 8 due Goal Influenza vaccine. Due on No due Goal GFR. Due on due Goal Dilated eye exam. Due on Jul due Goal Influenza vaccine. Due on No due Goal GFR. Due on due Goal GFR. Due on due Goal Influenza vaccine. Due on No due Goal Dilated eye exam. Due on Jul due Goal Lipid panel. Due on due Goal Dilated eye exam. Due on Jul due Goal GFR. Due on due Goal Lipid panel. Due on due Goal Influenza vaccine. Due on No due Goal GFR. Due on due Goal Influenza vaccine. Due on No due Goal Lipid panel. Due on due Goal Dilated eye exam. Due on Jul due Goal Lipid panel. Due on due Goal Influenza vaccine. Due on No due Goal GFR. Due on due Goal Dilated eye exam. Due on Jul due Goal Lipid panel. Due on due Goal Dilated eye exam. Due on Jul due Goal GFR. Due on due Goal Dilated eye exam. Due on Jul due Goal GFR. Due on due Goal Lipid panel. Due on due Goal GFR. Due on due Goal Dilated eye exam. Due on Jul due Goal Dilated eye exam. Due on Jul due Goal GFR. Due on due Goal Foot exam. Due on due Goal GFR. Due on due Goal Dilated eye exam. Due on Jul due Goal GFR. Due on due Goal Dilated eye exam. Due on Jul due Goal Foot exam. Due on due Goal GFR. Due on due Goal Influenza vaccine. Due on due Goal Dilated eye exam. Due on Jul due Goal Foot exam. Due on due Goal Dilated eye exam. Due on Jul due Goal Foot exam. Due on due Goal GFR. Due on due Goal GFR. Due on due Goal Foot exam. Due on due Goal Dilated eye exam. Due on Jul due Goal Foot exam. Due on due Goal Dilated eye exam. Due on Jul due Goal GFR. Due on due Goal Dilated eye exam. Due on Jul due Goal GFR. Due on due Goal Foot exam. Due on 6 due Goal Dilated eye exam. Due on Jul due Goal GFR. Due on due Goal GFR. Due on due Goal GFR. Due on due Goal GFR. Due on due Goal Influenza vaccine. Due on Oc due Goal GFR. Due on due Goal GFR. Due on due Goal Influenza vaccine. Due on due Goal GFR. Due on due Goal GFR. Due on due Goal GFR. Due on due Goal GFR. Due on due Referral Ordered: Referrals: Retina Specialist. Evaluate and treat Appointment date/timeframe: 12/02/2020 ordered Referral Ordered: Referrals: Gastroenterology. Evaluate and treat. Diagnostic testing Appointment date/timeframe: 05/19/2020 ordered Referral Referred To: Dr Albert Ordered: Referrals: Cardiology. Dr Albert. Follow-up and Treat Appointment date/timeframe: 11/18/2019 ordered Referral Referred To: [place] Ordered: Referrals: Cardiology. [place]. Location: [facility]. Follow-up and Treat Appointment date/timeframe: 11/07/2019 ordered Referral Ordered: Referrals: Dermatology. Location: [facility]. Consult Appointment date/timeframe: 03/12/2019 ordered Referral Referred To: Maureen Ordered: Referrals: Podiatry. Maureen. Follow-up and Treat ordered Referral Referred To: Andrew Ordered: Referrals: Ophthalmology. Andrwe. Follow-up and Treat Appointment date/timeframe: 04/09/2019 ordered Referral Ordered: Referrals: Cardiology. Location: [facility]. Evaluate and treat Appointment date/timeframe: 02/14/2019 ordered Referral Ordered: Referrals: Dermatology. Consult ordered Referral Referred To: [facility] Ordered: Referrals: Dentistry. [facility]. Consult ordered Referral Ordered: Referrals: Social Work. Follow-up and Treat ordered Referral Referred To: Physical Therapy Ordered: Referrals: Physical Therapy. Evaluate and treat ordered Referral Referred To: Occupational Therapy Ordered: Referrals: Occupational Therapy. Evaluate and treat ordered Referral Referred To: Dr Morales Ordered: Referrals: Ophthalmology. Dr Morales. Follow-up and Treat Appointment date/timeframe: 08/25/2016 ordered Referral Referred To: [facility] Ordered: Referrals: Orthopedic Surgery. [facility] Surgery Appointment date/timeframe: 03/25/2016 ordered Referral Ordered: MRI JOINT UPR EXTREM W/O DYE Right Appointment date/timeframe: 02/19/2016 ordered Referral Referred To: [facility] Ordered: Referrals: Orthopedic Surgery. [facility]. Evaluate and treat Appointment date/timeframe: 01/26/2016 ordered Referral Ordered: Referrals: Dentistry. Evaluate and treat ordered Referral Referred To: [facility] Ordered: Referrals: Dentistry. [facility]. Evaluate and treat ordered Referral Referred To: Dr Morales Ordered: Referrals: Ophthalmology. Dr Morales. Evaluate and treat Appointment date/timeframe: 09/22/2015 ordered Referral Referred To: Occupational Therapy Ordered: Referrals: Occupational Therapy ordered Referral Ordered: ELECTROCARDIOGRAM, COMPLETE Appointment date/timeframe: ordered Referral Referred To: Andrew Ordered: Referrals: OphthalmologyMagan Morales Appointment date/timeframe: 08/15/2014 ordered Referral Ordered: Referrals: Dentistry. Consult Appointment date/timeframe: 1 Month ordered Future Order: Lab Order BASIC ME TABOLIC PANEL W/EGFR ([id number]), Scheduled for: Ordered Future Order: Lab Order HEMOGLOB IN A1c ([id number]), Scheduled for: Ordered Future Order: Lab Order VITAMIN D-OH ([id number]), Scheduled for: Ordered Future Order: Lab Order LIPID PA ANUJM ([id number]), Scheduled for: Ordered Future Order: Lab Order MICROALB UMIN, RANDOM URINE (W/CREATININE) ([id number]), Scheduled for: Ordered History Of Present Illness Encounter Date Complaint History Of Prese nt Illness Home safety/vision loss Patient was seen with primary RN, social media editor, social work agriculture internship. Patient was seen in his home due to concerns about his safety in view of his low vision, recent falling out with stepdaughter who was the only support. The patient attributes the falling out to the stepdaughter's treatment of her mother, the accuracy of this is unclear.The patient reports that he is able to see shadows, as he reported the other day. He reports he is able to navigate his way around the apartment fairly well. I was able to locate his flip phone (among 2 other forms that did not work). The flip phone does not have service however he was able to locate the 9 and the one on the keypad and I explained that even though there is no service 911 with still work. He also reports he has pull cords in the event of emergency.Patient initially expressed willingness to consider emergency respite given his vision. Subsequently, he became far less enthusiastic about it and it remains very unclear that he would consider it. He is, at the moment at least, open to receiving homemaker to assist with food preparation and perhaps cleaning the apartment. That being said, he has historically had difficulty with this.He knows that he has an upcoming appointment for surgery on the left eye. He is uncertain how he will get there. We told him that we could provide transportation although less clear how he would negotiate to the van and to the appointment, he would likely need an escort.He reports his only difficulty is food. We saw him at approximately 1140 and he indicated that he ate lunch ready. He indicated that he went across the street and purchased a sandwich, the accuracy of this is unclear although there is in fact a deli across the street. When asked how he would negotiate such things as the pain, he indicates that the bank is just down the block (there is in fact a bank roughly 2-1/2 blocks away although unclear to me if that is what he was referring to).He feels that he is able to toilet, dress and do the like independently. Has twice daily VNA for insulin/medsAM FSG 104ROS: Limited contextuallyNo vision in the right which is chronic, low vision in the leftNo dysphagiaDoes not spontaneously endorse pain, chest pain, shortness of breath or GI issues although not explored at lengthExam:LimitedUnshaven, which is out of character for him. In [facility] able to negotiate getting to the door and around the department without too much difficultyAs aforementioned, was able to locate 911 on the phone.Speech was fluentInsight and judgment impaired.His gait is slightly asymmetric, overall fairly steady V Patient is seen today for post hospital visit. The patient went to the [place] [facility] on 06/19. He went there is seemingly for loss of vision in his left eye. This is superimposed on long-standing blindness in the right eye. The precise circumstances surrounding development of the vision loss are a bit murky. He alludes to having hit his head, bumping into a wall however, it is unclear whether that preceded his loss of vision or was a consequence thereof. He had no other acute complaints.In the ER CT of head showed nothing acute. Ultrasound reportedly showed no retinal detachment. IOP was reportedly 15 He was discharged home.Stepdaughter indicates that when patient was seen by Dr. Morales yesterday he was referred back to retina specialist who he will be seeing on the .His stepdaughter has been helping him in view of his vision loss. She kindly brought him in today. The patient is devoid of any complaints aside from his vision. He has been receiving VNA services for insulin management although misses many of them. Sugars have been highly variable, which is long-standing but obviously worse when he misses insulin as VNA cannot locate him or get into the building to assist him.ROS:No headacheMood fairVision as have her mentionNo dysphasiaNo neck painNo chest pain or palpitationsNo shortness of breath or coughNo abdominal complaints of any kind, no nausea/vomiting or diarrheaNo urinary complaintsNo pain complaintsExamination:Vital signs as belowWell-developed, middle-aged gentleman who is in no distressHe is in a cephalic and atraumaticOD phitisisAble to see minimally on the right, was able to count fingers, that being said, struggled to navigate hallwayHeart sounded to be regular with S1 and S2. No murmur rub or gallopLungs clear bilaterally without adventitious breath soundsAbdomen is soft, nontender nondistendedExtremities are without clubbing, cyanosis or edema. He has hairless legs and suggestion of arteriopathy although feet are well perfused. He has no open lesions although scarring from previous lesions.Speech is fluent. Facial symmetry is preserved. He moves all extremities. Gait is perhaps minimally asymmetric however dominant issue is his inability to see where he is going. There is no tremor.Insight and judgment are impaired, specifically he has a great deal of difficulty appreciating the gravity of the situation. His sense of how much help he needs is impaired. Mood seems baseline. SNF d/c Patient was seen today for prison facility discharge. Patient was admitted to [facility] on 03/05 after a stay at [facility] from 03/01-03/05. He was admitted with DKA. All of this in the context of apparent medication nonadherence. The patient had VNA in place once a day with plans to escalate it to twice daily however regrettably he became ill before this occurred. TheThe patient was felt to have significant debility was in the hospital and was discharged to rehab. While there was some gait instability initially, the level of debility documented in the hospital did not appear to be evident. Gait improved somewhat although does not appear to be quite at baseline, which is somewhat confusing as there was no specific insult that should have caused alteration in gait. His CT of head during hospitalization did not show anything acute, no MRI was done.The patient was continued on his home dose of insulin and sugars have been quite variable in the senior care but generally far better controlled than they have been historically.Multiple conversations with the patient who has perceived no deficit and does not feel he has any issues that require assistance. The patient has historically been very reluctant to allow us to speak to family and in fact obscured the fact that he had family locally. This remained the case.I have obtained health care proxy naming his stepdaughter as his proxy. I have activated his proxy. I have informed the proxy of this. I have had one phone conversation last week, a conversation bedside last Monday with the healthcare proxy and her mother (who is a fairly prominent figure in the patient's life) and spoke to the healthcare proxy again this morning. They understand the risk in him being home. It is their strong preference that he be in a more supervised setting. The patient's siblings, with whom we have no contact, have apparently urged him to do so and he has adamantly refused. There is no clear rationale articulated however his insight and judgment are clearly impaired. He does not recognize his executive dysfunction and has memory impairment.We have discussed risk mitigation with the healthcare proxy. The 2 major risks identified are medications and driving. There is certainly residual fall risk. The patient ostensibly is amenable to twice daily VNA, although the stability of this remains to be seen. The healthcare proxy understands that medications would be in a locked box and she may need to consent to this. With regard to driving, concern is his executive dysfunction as well as his vision. He therefore has not had an accident that I am aware of. We will need to discuss with the family report to Registry of motor vehicles requesting evaluation. Referral for driving evaluation may be prudentAside from management of his diabetes, his prison facility stay was fairly unremarkable. There were no medical complications. Medications are largely unchanged.ROS:Patient denies any complaintsStable chronic vision lossNo dysphasiaNo chest pain or palpitationsNo shortness of breath or coughNo GI complaintsNo urinary complaintsHe feels his ambulation is fineNo pain complaintsExam:Well-developed, middle-aged gentleman in no acute distressBlood pressure was 110/76, pulse 76, respiratory rate 16, Sat 98%RA, temp 36.1NormocephalicRight eye opacityMucosal membranes decently hydratedHeart sounded to be regular, no definitive murmurLungs clear bilaterally without adventitious breath soundsAbdomen protuberant, soft, nontenderExtremities without clubbing, cyanosis or edemaHe was transiently slightly lightheaded when he stood quickly. His gait was not quite at baseline however functional. Once he started walking he was quite stable, turn was fair. He did appear to brush against the door frame as he walks through it. Speech was fluent. Facial symmetry appeared preserved. He recognized me easily.On 03/08 labs showed WBC of 7.8, hemoglobin 14.5, platelets of 246. Sodium was 136, potassium 4.2, chloride 99, bicarb 31, BUN was 19 and creatinine of 1.06 with estimated GFR greater than 60. Glucose was 246On 03/15 WBC was 6.8, hemoglobin 15.2, platelets 310. Sodium was 138, potassium 4.9, chloride 103, bicarbonate 32, BUN 15, creatinine 1.08 again with estimated GFR greater than 60 and glucose of 190 SNF d/c In error. Tayo garner on wrong day SNF admit Patient is seen today for admission at prison facility. Patient was admitted here for ongoing care in the wake of hospitalization at [facility]. The patient was at [facility] from 03/01-03/05. Of note, the patient came to the facility on 03/05 however was assigned to the wrong care team and therefore we did not come to know of his presence till 03/06.The patient apparently activated his Lifeline on 03/01. He was found poorly responsive. He was given Narcan, unclear if there is any response. He was taken to the ER where he was found to be in DKA, AK I. The patient was given 2 L of IV fluid, started on insulin drip and admitted to the ICU. His sensorium was altered. It was not felt that there was evidence of sepsis.He was hemodynamically stable. WBC was 12.4, he was hemoconcentrated with a hemoglobin of 17. Venous pH was 7.2. Potassium was 5.7. Creatinine was 2.5. Lactate was 2.5. Glucose was 684. The lab data somewhat difficult to follow. It does not appear that he had evidence of infection on UA. There was proteinuria. Urine toxicology appears negative chest x-ray was unremarkable.CT of head showed atrophy, chronic small vessel disease. Straightening of cervical lordosis. Ventral spondylosis mid to lower cervical spine In the ICU he was found to be somewhat agitated he was given Haldol on one occasion. AK I was felt to be due to volume depletion/DKA. AK resolved with rehydration. His DKA resolved. There had been a plan to discharge him on the however he was hyperglycemic and he was held until the . At some point he declined to go however ultimately did go.The patient developed significant physical debility which was not consistent with his baseline. His function was such that rehab felt he needed rehab. Again at some point he refused but ultimately acquiesced.By way of background, this is his second admission for DKA. After his past admission we instituted VNA daily. In spite of that it is clear that he is not managing his medications adequately. Plan was to initiate twice daily VNA however, this was not able to be instituted prior to his rehospitalization.Discharge medications are as follows and reconciled ith pre exiiting meds: Latanoprost 1 drop left eye every eveningLipitor 20 mg at bedtimeMelatonin 6 mg at bedtimeAspirin 81 mgBrimonidine eyedropsLoratadineesCitalopram 20 mg dailyVitamin D 2000 units daily Metformin 1000 mg twice daily gabapentin 300 mg at bedtime Januvia 100 mgLantus appears to be 46 units twice daily, there was some confusion about this on the admissionLisinopril was seemingly resumed at a dose of 40 mg dailyFlonaseI do not see Humalog on medication discharge list although it does appear on another list at his home doseThe patient currently denies any complaints. He is uncertain why he is at the senior care. It is unclear if he has much by way of recollection of the hospital. I told him that he was nearly unconscious and had significant diabetes complications. I explained that his sugar was 688. He was initially quite incredulous and told me that it was wrong however, after I told her I would be happy to share the medical records from the hospital with him he said that it is conceivable he missed some medication and that he was human. I acknowledge that he was human, that we all air however I told him of my concern that he is wound up in the hospital, specifically ICU twice in the past several months. I told him I had concerns about his ability to manage medication and that I would very much like to have more familial involvement.As has been the case for as long as I have known him, he repeatedly reassures me that everything is fine, he is not having any difficulty. He tells me he has no family yet I pointed out that he has a son locally as well as an unofficial stepdaughter. He tells me that his son is entirely uninvolved and that his stepdaughter just wants to get into his personal business . I told him that while I understood his perspective about privacy, and I have no specific agenda, I did tell him that with regard to his medical conditions I was significantly concerned that he needed a bit more help. He remained fairly adamant that he did not want to have a meeting with all of his family.He denies any physical complaints. He had no recollection of having been screened by physical therapy and having a hard time ambulating in the hospital. He tells me he is eating and drinking well here. He does not proceeded to be any difficulty with his ambulation.ROS: Globally negativeNo headache, no lightheadednessHe denies any acute vision changeHe denies any dysphasiaHe denies any chest pain or palpitationsHe denies any shortness of breath or coughHe denies any abdominal complaintsHe denies any urinary complaintsHe denies any pain complaintsHe says his mood is fineExamination:Well-developed, middle-aged to older gentleman lying in bed in no acute distressRespiratory rate 14, afebrile, BP variable most recent in the low 140s systolically, pulse 70s, room air oxygen saturation in the mid 90sHe is slightly less kempt than usual however not been deeply unkemptHe is normocephalic and appears atraumaticThe right eye is chronically opacifiedHe is able to easily recognize meMucous membranes seem decently hydratedNo obvious JVDHeart somewhat distant, regular, no dominant murmurLungs clear bilaterally without adventitious breath soundsAbdomen is slightly protuberant, soft and nontenderExtremities are without clubbing, cyanosis or edemaHe has multiple healed scars to his lower extremitiesHe is awake, alert, conversant.His insight and judgment remain very poor although not seemingly acutely changed. Difficult to say if his memory is any worseHe was able to stand from the bed fairly easily, he little did promptly and there was near loss of balance although once he started going he was stable. turn was problematic for himFingerstick glucose data reviewed. As was the case while he was in the hospital and is highly variable. There are highs as high as the 500s on Monday evening, although I think he might have been getting less Lantus. More recent fingersticks as high as 400 however was 140 this morning. -2020 Biannual as HV As the patient m issed 2 appointments in clinic, I went to see him at his home. Regrettably, his phone is apparently not working again making it essentially impossible to call him. His phone previously was not working however his stepdaughter made efforts and got him a new phone however, their circumstances are not entirely clear to me he is again incommunicado.The patient had 2 ER visits, both at [facility] in October. During the first 1 he had a fall. A diagnosis of UTI was made. The patient went home and continued to do poorly at which time he was readmitted to the hospital with confusion and DKA. It was fairly apparent that he was doing very poorly with medication.His stepdaughter reached out to us. Tentative plan was to enlist additional help however, family we have not all connected and the patient has nixed the idea of familial involvement. In point of fact, prior to us serendipitously becoming aware of them he had not told us that he had any family locally. He apparently has a son and a woman who is technically his stepdaughter but very involved. He again remains profoundly avoidant on the topic of talking about them and dismisses any suggestion that involvement would be to his benefit.We did place VNA. Even so, the success in keeping medication straight has been somewhat variable. He frequently will take medications off schedule or omit medications. Currently, primary nurse has worked with the VNA to try to have a lock box and put out 1 day at a time. His acceptance of this remained uncertain.The patient denies any complaints whatsoever. He reports that all is well, in his usual manner. He does medications are going well. He says driving is going well. He says that he has no specific complaints. He indicates that he has adequate food in the house. Review of recent sugars shows them to be quite variable.In general, he is consistent and often questions the credentials/complements of those caring for him. He seemingly fired his retina specialist as he was dissatisfied with wait and he questioned the quality of their lasersSocial history:He tells me he has 4 children, please see above for additional detailsHe does not smokeHe does not drink alcoholHe lives alone, most recentlyDegree of involvement with the mother of his son locally is unclear to me although, past suggestion is that she is quite involved PHV Patient is seen today, for a somewhat delayed post hospital visit. Delay was due to a combination of difficulty reaching the patient, his reluctance to come in, multiple snow days among other factors.The patient's history is somewhat limited and it is difficult to say how much of it is volitional and how much of it is due to memory impairment.The patient was in the ER at [place] on 10/30, as best I can tell. He reportedly fell, sustained abrasions to his lower extremities, I believe a diagnosis of UTI was also made. The patient was discharged. His primary nurse tried to reach him a number of times. She was unable to locate him after initial contact however was assured by staff at his building that they had seen him and that he was doing well. In point of fact, the patient was admitted to [facility] on 11/03 due to encephalopathy, weakness, DKA with associated acute kidney injury and hyperkalemia. It would appear that all of this was in the context of him not adhering to his medication regimen. Based upon evaluation of the PCN in the home previously it was clear that he was not picking up medications with regularity and plan had been for VNA/delivery of his medications. The precise duration of his nonadherence/omission of medications and precisely what he is omitting (seemingly VIELKA inhibitor, seemingly insulin, likely others) is a bit unclearComplicating issues is the fact that the patient lives alone, reportedly is illiterate and certainly has a degree of cognitive impairment in addition to poor vision. He has hidden the fact that he has a son, stepdaughter and friend (the mother of his son) locally. He never acknowledged having any family. He remains unenthusiastic about involving them although it is abundantly clear to most that he needs the assistance. We only came to know of the situation as the caseworker protective services at [facility] referred the daughter to us to get a glucometer.In the hospital the patient was admitted to the ICU. He was treated with fluids, IV insulin. She is hoping natremia, gap acidosis were present. The patient was apparently referred to the chemical laboratory assistant at [facility]. Of note on the day of discharge blood pressures documented as being 191/88.CBC was fairly unremarkable on the , hemoglobin was 13.9On day of discharge BUN was 14 and creatinine was 0.95. Estimated GFR was 76. Hemoglobin A1c was 12. LFTs were normal. Urine from admission had trace protein.Chest x-ray had no acute infiltrate theDischarge medications were amlodipine 5 mg daily (new)-he has not received this.Donepezil 10 mg daily (reported as continued, but not on our list)Latanoprost eyedropsAtorvastatin 20 mg at bedtimeMelatonin 6 mg at bedtimeAspirin 81 mg dailyBrimonidine eyedropsLoratadine 10 mg dailyEscitalopram 20 mg dailyCholecalciferol 2000 units dailyLisinopril 20 mg dailyMetformin thousand milligrams twice dailyHumalog 16 units twice daily (was on 20 units on our list)Januvia 100 mg dailyLantus Solostar 46 units twice dailyThe patient was connected with the VNA.VNA med list is reviewed. This is essentially identical to our pre-existing med list and does not include amlodipine. Blood pressures are documented as being in the 130sThe patient reports he feels great. He does not acknowledge any major difficulties with hospitalization. It is unclear whether he recognizes how ill he was. He feels that he does not instantly need VNA. He says that he does not eat his family to function daily. He says I do not have dementia .ROS:Denies headache, cognitive change, lightheadednessStable poor vision, blind in 1 9No dysphasia or oral painNo chest pain or palpitationsNo cough, dyspneaNo nausea, vomiting, diarrhea, constipation, abdominal painDenies dysuria, incontinenceDenies any painExamination:Well-developed, middle-aged gentleman in no acute distressChronically opacified right eyeMucous membranes seem decently hydratedHeart sounds to be regular, no obvious murmurLungs clear bilaterally without adventitious breath soundsAbdomen is grossly soft, nontender nondistendedExtremities are without clubbing, cyanosis or edemaThere are healed abrasions to left lower exam of the predominantly and to lesser extent the right lower extremityPatient is awake, alert and attentiveHe is at baseline cognitive statusHe is ambulatory, speech is fluent, he moves all extremities exam Exam:Well-develo ped, middle-aged gentleman in no acute distressHe is normocephalicRight eye is opacified, left upper blepharitis somewhat redundant/edematous. I do not see any lesion. Left sclera is chronically injected. Pupil reactiveSlight cerumen bilaterallyNasopharynx clearOropharynx clear, edentulous, has dentures inNo obvious cervical adenopathy, no obvious thyroid enlargement, no obvious JVD, somewhat thick neckHeart sounds to be regular with S1-S2. Suspect faint systolic murmurLungs clear bilaterally without adventitious breath soundsAbdomen is grossly soft, nontender nondistended. He appears to have gained some weightExtremities are without clubbing, cyanosis or edema.Dorsalis pedis pulses are present bilaterally. He is insensate to monofilament in the feet.There are healed/scarred lesions to lower extremities bilaterally from his diabetic dermatitis. I see no active lesions.Patient is awake, alert and attentive. No attention to internal stimuli. No obvious hallucinations. Mood and affect are congruent.Facial symmetry appears preserved. He is able to move all extremities with good strength. There is no obvious tremor. There is stocking hypoesthesia, difficult to say if there is a glove hypoesthesia. Speech is fluent. Slightly stiff gait SHOBHA Patient is seen today for biannual. He is unaccompanied. There is no source of ancillary history. All are wearing appropriate PPE. All conditions are chronic and stable unless otherwise indicated.The patient has had no hospitalizations, ER visits or change in functional status.The patient reports that all of his sugars are high. He does not bring a log. He says that his lowest that he recalls was 170. Highest sugars have been in the 400s. Most are in the 200s to 300s. He reports adherence with his medication regimen. He continues to report that his diet/eating times are somewhat irregular. It is not at all clear that he adheres with any particular restrictions. His sleep schedule is variable.He does report he has some right knee discomfort. He says that occasionally gives way although he has not fallen. We discussed the possibilities of what it could be as well as the fact that sometimes physical therapy to strengthen quadriceps may be helpful. He is adamantly opposed to having a physical therapy. He is amenable to checking an x-ray although says that the discomfort is sporadic.He reports that he scratched his left eyelid yesterday. He reports that it started getting somewhat better. It is not pruritic. It is not painful. It is something simply aware of. He says that is not affecting his vision at all.I asked him if he has been socializing at all. He suggests that he gets himself into trouble when he talks other people so he is currently laying somewhat low. I asked him if he spoke with his brother he indicated he did not because he no longer has a phone. He reports he is being charged $50 a month. I spoke with social work will kindly gave him information about safe [facility] phone which I gave to him.He indicated that he tends to be hungry. I asked him if he had adequate food. He indicated that he had food stamps and that he had to shop. He suggested he has no difficulty with this. He was somewhat vague with regard to answer my question as to whether he enjoys cooking. He declined to consider Mom's meals or Meals on Wheels. I reiterated that we are willing to try to help him in the event that he has food insecurity but that ultimately we would need him to tell us so we can help.Social history:, lives alone, denies alcohol, smoking/substancesFamily history: Largely noncontributory Follow Up of DM Recent hemoglobi n A1c was 13.5. I brought the patient in to discuss this. In advance of meeting him I called his pharmacy as it appeared that had been quite a while since he last had insulin pen needles. The pharmacy tells me they last dispensed needles in May. Admittedly, his insulin had decreased in frequency and is possible he had a stockpile however, this is very concerning.The patient did not bring his glucometer however did bring glucose logs which are being entered by nursing. The glucose logs suggest excellent glycemic control, very much at odds with his hemoglobin A1c. The patient is devoid of any complaints. He says he feels well.I asked them what he is doing by way of insulin regimen. He tells me that he is taking 48 units of Lantus once a day. He is to be taking it twice a day. He tells me that he is taking Humalog 20 units (was supposed to be on 16) twice daily before breakfast and dinner. He insists he is taking the Januvia and metformin as well.We discussed his lipid results as well as his vitamin D. He suggests he is taking his medications with regularity. His vitamin D is low extensively on the thousand units a day of vitamin D and his lipids are suboptimal extensively on simvastatin 20 mg. Coincidentally I received a medication from [facility] that his adherence with his antidepressant is suspect.I asked him if he had his glucometer and he indicated it is not working consistently despite the fact that he has logs. In addition, he documented results of blood sugar for that does not exist. Nursing tells me that he historically has been very reluctant to bring in his glucometer.ROS: LimitedNo acute illnessNo change in visionNo current chest painNo shortness of breathNo GI complaintsNo urinary complaintsExam: LimitedWell-developed, middle-aged gentleman in no acute distressHe is normocephalic and atraumaticRight eye is chronically opacifiedHis speech is fluentHe moves all extremitiesHe is ambulatory without difficultiesHe has no significant peripheral edemaHe has multiple old scars to arms Tlephonic biannual The patient e ncountered today occurred during the COVID 19 crisis/federally declared stage of Public health emergency and need for social distancing via telephone (no access to video) with the patient's verbal consent. I personally spoke to the participant. There is no ancillary historianStart time: 13:14 End time::31The participant physical location:His homeThe provider's physical location:Provider's homeParticipant's Covid 19 status:Not knownCovid 19 exposure status:No specific concerns, dwells in communityThe patient is reasonably trying to maintain social distancing measuresAll problems are chronic and stable unless otherwise notedThe patient, who is a challenged historian under the best of circumstances, remains so via telephone. Globally, he reports he is doing well. He has no specific concerns regarding illness I could be associated with coronavirus. He says he is doing his best to be safe. He is functioning independently. He is driving, shopping, managing medications and the like. As is generally case, he is very vague on details.Reports he has had no hypoglycemia. Suggest that his low sugars are in the range of 80 and up. He says that most of his sugars are not decreased [place] either, generally not exceeding 200 although they do on occasion. States he feels well and continues to use his diabetic medications, as best I can tell correctlyHe reports his software quality engineer canceled his appointment and will be rescheduling it. He has not seen podiatry and some wild but perceives no difficulty with his feet currently. He reports that he has no open areas to either leg or foot.Social history: He denies any alcohol use, smoking or other substance use. He lives alone. Next of kin is his brother in [place].Fhx: N/c at this junctureFunctional history: Again, there is no ancillary history however he reports he is fully independent.ROS:Se belowAdditional data:EKG October 2019: Nonspecific T-wave abnormalities have replaced inverted T-waves in lateral leads.Cardiology follow-up October. In essence, suggestion is that his highly atypical chest pain was not felt to be significant. Recommendation was for continued aspirin, BP control, diabetes control, lipid control.SE labs reviwed. OFFICE VISIT Patient was seen for limited diabetic follow-up. I do not have very recent fingerstick glucose logs. He reports the lowest he recalls 140. He reports maxes approximately 200. He has had no hypoglycemic episodes that he recalls. He has no other specific complaints. He indicates that he would like to have his blood work checked for liver cancer . He is concerned of this due to his exposure to variety of medications. I explained that there is no specific tests of that nature but that liver function tests are being done.ROS:No headacheNo acute vision changeNo chest painNo shortness of breathNo abdominal complaintsNo urinary complaintsNo pain complaintsExam:Limited examWell-developed, middle-aged gentleman in no acute distressBlind in the right eyeAnictericExtremities there is no obvious peripheral edemaHe is awake, alert and attentiveSpeech is fluentHe walks easily. 3 week follow up Diann jassonanibal mellitus Patient seen for very limited visit.He reports she is doing well. Reports he ran out of Humalog briefly during . He is picking up more today. Seemed to be unable to refill it himself. He reports no hypoglycemia. Suggested sugars are overall well controlled. I subsequently got to see the logs he gave to nursing. In general, his control is fairly good. There was 1 fingerstick of 70. Most were in the 100s. Few excursions on the high side either.He is quite satisfied with his managementExam quite limitedI'll developed gentleman in no acute distressBlind in one eye, sclera contralateral eye is chronically injectedAwake, alert and attentiveAmbulatory without any difficultySpeech fluentMoves all extremities with good strength- 2 week follow up Patient is seen for close follow-up for diabetes management. The patient with a long history of brittle diabetes as well as variable adherence to prescribed regimen likely predicated upon cognitive impairment although may be other rationale as well.I asked the patient to telemetry when he is taking. He indicates he is taking the Humalog a.m. and p.m., he says that he varies the dose from 15-20 units. He is taking the Lantus 46 units in the morning and in the evening. He is taking metformin twice daily. He suggest that he may be taking Januvia more than prescribed, I again reiterated that it is once a day only.He reports lowest blood sugar that he recalls to be 80. He says he is averaging in the 130s to 150s. He reports one high glucose of 201, he does not recall having had any in the 300s and 400s. He did not have his logs on glucometer today.He has no other complaintsLimited examination:Well-developed middle-aged gentleman in no acute distressBlind in the right eyeHe is awake alert and attentiveFacial symmetry is preservedSpeech is fluentMoves all extremities with good strength.He was socially appropriateHe stands from the chair easily and ambulates without any difficulty Interval [facility] Data Interval [facility] d jakub:EKG 04/19/19. Sinus rhythm. T-wave abnormality, consider lateral ischemia.Cardiology consult of 04/18/19-Dr. Taurus Martin pain syndrome not felt to be consistent with symptomatic coronary artery disease. That having been said obviously underlying coronary disease is not excluded. Annual Annual exam for gentleman with long-standing, somewhat brittle diabetes. He also has quite unusual ideations with regard to his healthcare in general and diabetes specifically. There is no ancillary historian and while he is adamantly opposed to it, there may well be a cognitive component of the challenges he is facing. There has been historical ambiguity about his ability to manage symptoms. That having been said, he recalls some things with great granular detail. As best we can tell he appears to be fully functional independently. He lives alone. He drives.The bulk of the time was spent discussing his diabetes. My colleague took him off short acting insulin due to concerns about his ability to manage his as well as hypoglycemic episodes. He has been set against that idea. In my opinion, he has repeatedly seemed to demonstrate poor ability to manage medications in spite of the fact that he protests the contrary. As such we have tried a variety of oral medications which she has not taken according to plan. We have increased his Lantus which has not resulted in improvement in blood glucose control and in fact may be worse.Describes burning nocturnal leg pain. None by day.He has not been hospitalized in recent years. He has had no ER visits. He has had no falls.Aside from the diabetes he feels that he is in regular shape. He is reasonably physically active. He does not have pain. He only has vision one eye. He has no other complaints.He was seen by cardiology earlier in the year due to highly atypical chest pain. Cardiology did not feel that the chest pain related to coronary disease although they would be unsurprised if he has coronary disease.He presents glucose log that has very poorly controlled glucose, but also highly variable with lows in the 140s and high is in excess of 400s Chronic Conditions *See Chronic Conditions HPI Diabetes- Patient is seen for relatively brief follow-up. He is being seen at frequent intervals to try to get a handle on his diabetes which has been brittle likely for decades. In recent weeks I added Good and took him off his sulfonylurea. Of note, temps have been made to take him off his sulfonylurea years ago however he was resistant to this. He presents today with fingersticks from the 30th 2 today. A.m. fingersticks range from 159-500. Evening fingersticks range from 107-386. The bulk are in the 2 and 300s. There are some that are in the 100s.The patient does not feel unwell in any way. He continues to perseverate about somewhat unusual things such as appendicoliths. I told him to best my knowledge there is no clear linkage between them and diabetes and furthermore I told him that is not something that one would typically look for. I explained symptoms of appendiceal inflammation, which she does not have.He continues to be somewhat perplexed about the addition of various medications, often suggesting that the milligrams and the units should be added. He wondered if the use of generic metformin was the issue. I don't have a wonderful sense of his diet though his eating pattern to have always been somewhat unusual.ROS: He does not feel acutely ill in any wayNo chest painNo shortness of breathNo acute GI complaintsNo urinary complaintsVital signs are notedWell-developed, middle-aged gentleman in no acute distressHe is blind in the right eyeThe left sclera is chronically injected, without changeMucous membranes seem decently hydrated Extremities are without clubbing, cyanosis or edemaHe is awake, alert and generally attentive Follow up Diabetes mellitus Patient is seen today for close follow-u p of his diabetes. He began Januvia approximately one week ago. He thinks he may observe the although he is uncertain about it. In addition, he tells me that he has been quite nonadherent sometimes taking 2 tablets as he feels that it is more appropriate. As usual, he mixes nomenclature and feels that he is not receiving enough milligrams" of insulin. Perseverates about the Humalog and other relatively non-factual observations.He reports that afternoon/evening appetite may be decreased somewhat. That having been said, his fingersticks remain wildly variable. Evenings range from a low of 170 to high of 440. Mornings are more consistently high but even there there is variability from the high 100s to the mid 300s.He reports that he is adherent with his insulin. He is not reporting any lightheadedness currently. He does report that he had some discomfort across the dorsum of his feet last week but is entirely resolved.ROS: Not acutely ill in any mannerEating and drinking normally, albeit somewhat irregularly which is his normNo chest painNo shortness of breathNo GI complaintsNo urinary complaintsPhysical examination:Vital signs are notedWell-developed, middle-aged gentleman in no acute distressHe is blind in one eye, the sclera of the other significantly injected again, without significant changeHe is normocephalicMucous membranes seem decently hydratedHe has no significant peripheral edemaHe is awake, alert and attentive. He is ambulatory without a deviceHis insight and judgment are likely somewhat impaired. His recollection of details is somewhat impairedData:FSG examined DM Patient, niya salomon in the past, who has been followed by my colleague for some years. He has to see me. We discussed his diabetes. In spite of excellent inconsistent work my colleague he has been dissatisfied. Of note, historically his insight and judgment with regard to his diabetes has been relatively poor.He remains upset that his short acting insulin was stopped, this in spite of the fact that he is having significant variation, and clearly has demonstrated, even today, that he has significant difficulty keeping track of medications. He makes mention of the fact that he was somewhat dizzy last night. He brought all his medications and and had 2 bottles of lisinopril. It would appear he may have been taking both. He could not keep track of medications that were stopped startedHe continues a sulfonylurea despite fairly high dose insulin. I made mention of the fact that he had insisted that he be resumed when I attempted to stop at some years ago. I explained this all again so that it may be comprehensible on the basis of physiology and sites of action.Reports very little by way of acute issues. He is fingersticks indicate a dose variability with mani fingersticks in the 60s. The high end of the ranges sometimes in the 300s and occasionally 400.He reports he is seeing ophthalmology. His eating schedule remain somewhat erratic.ROS:No headachesNo acute vision changeNo dysphagiaNo current chest painNo shortness of breathNo acute GI complaintsNo acute urinary complaints no pain complaintsExam:Vital signs were done and he is not orthostaticHe is normocephalicHe is blind in the left eyeMucous membranes are decently hydratedNo obvious JVDDifficult to say if there is any fullness of the thyroidHeart sounds to be regular with S1 and S2. No definitive murmurLungs are clear bilaterally without adventitious breath soundsAbdomen was soft, nontender pneumonectomies are without clubbing or cyanosis. There is no significant pitting edemaPatient symmetry is preserved. Speech is fluent. Muscular strength is very good in all extremitiesHe ambulates without difficulty.He is awake, alert, attentive. His recollection of some details is impaired. Semi annual 63 year old male seen in the clinic for his Baldo-Annual Evaluation and review of Chronic Conditions. [facility] [place] [place].He enrolled with [employer] in 2013.In the past 6 months he has not needed evaluation inthe ED, has not been hospitalized or had any reported falls.Seen bu Dr. Morales for vision evaluation 02/14/2017. Has an appointment for February 28, 2019Seen by Dr. Reddy for podiatry . Last record is dated 2015-needs f/uCardiology Last visit on record is from 2015. Has an appointment with Dr. Cunha BS on 02/14/2019 at 10 am. Ppt expeerienced an episode of chestpain this past month with stable ECG tracing. No further episodes of chest pain have been reproted.Has full dentures. No concernsImmunizations on file include:Influenza vaccine administered 07/26/2018Pneumococcal series is completeTetanus vaccine administered 12/12/2014Healthcare proxy on record completed 01/12/2016 lists Enrrique Arevalo as the primary healthcare agent and Maribell Arevalo the alternate healthycare agent. [place] MOLST document dated 08/19/2014 indicates preferences for Fule Code status with short term interventions for ventilation, dialysis, artificial nutrition and hydration. no interim changes.Goals are for improved blood sugar control, to have less anxiety and to have cardiology follow up Chest pain The patient pres ents with a complaint of Chest pain. The symptom(s) began gradually. The problem occurs intermittently. It generally lasts 1 Day. The pain is in the left chest. The patient describes the pain as tightness. The pain does not radiate to the back, flank, or groin. The patient denies chest pain, diaphoresis, dyspnea, nausea, palpitations and vomiting. Relevant history for this patient includes diabetes, hypertension and obesity but excludes recent travel. The symptoms are aggravated by anxiety and exertion but not aggravated by inspiration, position, liquids or medications. The patient had a response to lying down and did not respond to antacid, change in position, medication or oxygen. The Chest pain is associated with weight gain. The patient denies any abdominal pain, claudication, chronic cough, dependent edema, dyspnea on exertion, generalized weakness, headache, hemoptysis or lightheadedness. since last night 63 year old winnie e seen in the clinic for reprot of left side-ed chest pain with onset last night.Denies any diaphoesis, radiation, nausea, vomiting, or cough.describing the sensation as tighness Rates the discomfort at 4/10.Has not ever used nitroglycerine in the past. Annual 63 year old male seen today for his Annual Evaluation and review od Chronic Conditions. [facility] [place] [place] He enrolled with [employer] in July of 2014. No Bangladeshi speaking appliance line assembler is present for this encounter. Brought NICKY Aden RN into the visit to assist with insulin teaching and plan of care.No ED visits, hospitalizations or reported falls in the past 6 months.No recent visit notes for 2018.Will see if vision visit from Dr. Morales can be obtained-Ppt reports that he did see Dr. Morales January or February of 2018Immunizations on file include:Due for seasonal influenza vaccine-is open to receiving this vaccine todayPneumococcal series is completeTdap administered 12/12/2014Healthcare proxy dated 07/20/2016 lists Emma Frost as his primary healthcare agentMA MOLST document completed 08/19/2014 indicates preferences for Full Code status.Most urgent concern is the ppt's blood glucoseReview of Home Blood glucose logs 06/01/2018-07/01/2018Fasting values range between 62-673Mcc-xprys values range between 26-645Afw-regvhh values range between 62-274Bedtime vvalues reange between 75-326EklE8z ranges2/217=9.6%; 01/25/17=10.2%; 08/24/17=11.3%; 01/15/18= 11.8%; 04/09/18=10.6%; 06/19/18= 11.1%Attempted to make changes to medications 06/13/18 with a Humalog SS and Lantus 40 units, continued glyburide 10 mg BID and metformin 1000 mg BID.Ppt reported that he will not use the sliding scale insulin. Had been on a unit dosing of Humalog 30 units in AM and 30 units in PM. Had been on Lantus 30 units BID Semi Annual 62 year old male seen today in the clinic for his Semi-Annual Evaluation and review of Chronic Conditions. Mr. Arevalo resides in the community independently in [place], [place]. He enrolled with [employer] in July of 2014.Over the past 6 months he has not had any need to go to the ED or hospital. He also reprots that he has had not any falls in the past 6 months.Last dental visit on file is from December 2014. Ppt has full dentures. We are aware that his last visit was 10/2017. Will request recordsLast podiatry visit on file id from July 2016-was seen by Dr. Aguirre Is on the schedule fro 01/23/18ees Dr. Morales for his glaucoma. Has an appointment 02/13/18Immunizations on file include:Influenza vaccine administered 06/14/2017PPV-23 administered 11/2014; needs PCV-13Tdap administered 11/2014Health care proxy on file completed 07/20/2016 indicates that Emma Frost is his primary and only healthcare agent.[place] SANCHEZ document dated 08/19/2014 indicates preferences for Full Code status with short term trials of dialysis, artificial nutrition and hydration.His goals are to remain as independent as possible. Annual SurbveyPrakash watson about visionIncrease le [facility]-fSg 97,52 240Patient is seen today for annual evaluation. He had been scheduled to see my nurse practitioner colleague, who follows him primarily however, for unclear reasons decided he wished to see me. He implied he wished to discuss sensitive topics however raised none.He is a somewhat challenged historian with a fair amount of circumlocution. There is no source of ancillary history. He has thankfully been quite well. There have been no hospitalizations, no falls and no functional status change. He is not visit in the ER to the best of our knowledge.He is worried about his vision, as he has site in only the left eye. He does not feel there has been any acute change. Tells me he is seeing the software quality engineer in the near future. He sees them typically every 3-6 months. He does wonder if he needs new shoes. He vaguely mentions being off balance at times which she thinks may relate issues. He does note that he is having skin lesions that he is classically had to his legs. Unclear if there is a an uptake and all are currently epithelialized/healed.He circumlocutions with regard to dentition. At one point indicates he thinks he might need his dentures adjusted. Then says he does not need anything currently and was not anxious to be referred to dental at [facility].With regard to his diabetes, he describes very little by way of hypoglycemia. He suggest that he rarely has a sugar over 200. He does describe some hypoglycemic episodes, with sugars perhaps in the 50s. He is not able to give me a very consistent story when these occur. Similarly his ability to provide an accurate history of eating pattern and the like is poor as it has been for as long as I have known him.He reports no issues with driving. He does not have pain. He feels is functionally independent and nothing has changed in this regard. He had one point asked about hepatitis and I told them that we had checked for in 2015. He is somewhat oddly inquired about the possibility of him having AIDS. He tells me he has not been sexually active in the past 2 years, since the of his . I told him that we could certainly offer him testing if he so desired, he did not.As is often the case for him, he offer somewhat unusual inquiries about how it is my blood and other specific inquiries regarding his medications which were a bit out of the ordinary but fairly typical for him.It is very hard to get a sense of his social engagement. He does have a son with grandchildren in the [place] area. He says he gets to see them periodically, suggesting perhaps not as likely as would like.He denies current smoking or alcohol use.Advanced directives were reviewed with him. There has been no interval change. He has very hard time articulating what would represent a quality of life to him to guide decision-making. He reiterated his brother and [id number] as his healthcare proxies. wound on foot Old healing area on the dorsum of the left foot approximately 2 cm in diameter. Central depression with scab covering the center. Ppt denies pain.States lesion has been there for 3 weeks.States he has had these inthe past as he scratches the skin and at times a lesion develops.ROS:Non-painful, old furuncle with central depressionNo surround erythema or warmth. AfebrileFeet are not excessively dry or scaleyAble to bear full weight on both LE. Gait is not affected.PE:Alert, cooperativeVerbal responses are approrpriateNo discomfort with palpation of the area.Lesion measures approximately 2 cm in diameter, central depression covered with a scab. No purulent drainage noted.No surrounding erythema or warmth. Semi Annual 61 year old male here for his Semi-Annual evaluation and review of Chronic Conditions.mild disabilities teacher is her for this visit to assist with conversation and accuracy information.Mr. Arevalo lives independently in the community. He drives himself to appointments.Mr. Arevalo enrolled in July 2014.No report of ED or hospitalizations in the past 6 months.No reported falls in the past 6 months.Last dental visit recorded was 01/01/2015-states thathis dentures ( upper and lower plates) are peeling. Will referr for dental services.Seen by podiatry 08/16/16een by ortho for right shoulder issues 01/26/2016Seen by Dr. Morales 08/15/2014, has an appointment 01/27/2017. Has glasses, is not wearing them at this visit.Immunizations are up to date.Influenza vaccine administered 07/28/2016. Pneumovax 12/12/2014. Tdap 12/12/2014.HCP on file dated 07/20/2016 listing Emma Frost as his health care agent, Maribell Arevalo as his alternate..[place] MOLST form on file dated 08/19/2014 indicating preferences for Full Code status, with short term use of dialysis, artificial nutrition and IV hydration. Follow Up of DM Patient is seen today for routine follow-up. He has relatively few complaints. He never completed lab work requested at last visit.He reports that range of motion in the right shoulder is somewhat limited in internal rotation (best I can tell). He does not have significant pain. Functionally he is doing well. He has no difficulty with abduction. Seems to have intact external rotation. Specifically mentions difficulty reaching behind his back.Reports several-day history of occasionally coughing or choking on his own saliva. No difficulty with food.Diabetes remained highly variable. He reports mani glucose of 58. Some as high as 300. He did include glucometer and nursing is kindly interrogating it.He would like to be seen for shoes. He reports some discomfort with current shoes. Of note, he is not wearing therapeutic shoes. Annual Patient is seen today for annual examination. There is no ancillary historian.The patient continues to live independently. He has had no known falls. He has had no hospitalizations. There have been no clear medical changes. There is always been some degree of ambiguity. Regrettably, he lost his in the past year. She often provided a degree of ancillary history regarding diabetes and other issues.He has absolutely no complaints. He contends that everything is going well. He is having no trouble driving by his report. He is eating regularly. He denies any pain or other specific complaints. When asked, he does acknowledge he thinks he is overdue for ophthalmology. He inquired regarding colonoscopy which I initially thought maybe to however, does not appear to be due till 2019.He reports fingersticks are highly variable. They range from the high 50s to 200s and 300s. He suggests most cluster in the 100 to low 200s. He is overdue for A1c.Denies daytime fatigue. No desire to be evaluated for OSAHad right shoulder surgery. Feeling much better pre-op exam Informed today t [facility] would like to perform right rotator cuff repair on March 29. We have been asked to provide preoperative risk stratification. [facility] Per my discussion with casting machine control board operator it is to be under general anesthesia.Patient says he is aware of the plan for the surgery. He has been told previously that he must have someone at home and that he may not drive. He initially told me that he does not need someone to drive him home. I told him that that was not negotiable and that the directives from orthopedic surgery as well as [facility] mandate that he not drive and that he have someone with him for the day after surgery. He repeatedly assures me that he does have someone drive him and will stay with him.Patient reports several previous surgery was his left shoulder. He is not aware of any personal or familial history of difficulty with anesthesia. He does not have history of excess bleeding.He is a very challenging historian. He ambulates quite easily about the facility, drives and shops for himself. As best I can tell he is able to perform 4 mets, or greater, of activity but again it is extremely difficult to tell. He denies any dyspnea. He denies any chest pain. He describes himself is extremely fit.He denies any current infectious symptoms. He reports he is at his functional baseline. He reports variable but relative euglycemia with sugar this morning reportedly 74.Past medical history: As belowNot known to have PORTER but cannot excludePast surgical history: As aboveMedications: As belowAllergies: DeniesFamily history: Not particularly relevant but no history of anesthesia complications or bleeding diathesisROS: No headacheChronic vision disturbanceNo difficulty hearingNo dysphagiaNo chest painNo shortness of breathNo abdominal complaintsNo dysuriaNo current pain aside from right shoulder.Physical examination:Well-developed, well-nourished middle-aged gentleman in no acute distressVital signs as belowNormocephalicChronic changes to both eyes with right eye being opacified, left chronically injectedMucous membranes are moist, he has a rather large tongue and difficult posterior view.No oral lesionsNeck is quite broad. No definitive adenopathy or massHeart sounds are irregular with S1 and S2. I don't hear a murmurLungs are clear to auscultation bilaterally without adventitious breath soundsAbdomen is grossly soft, nontender and nondistended. There is abdominal protuberance which I believe to be adiposity and not mass or fluidExtremities are without clubbing, cyanosis or edema.He has multiple healed skin lesions to extremities.He is awake and alert attentive. There is otherwise been some concern regarding cognitive abilities however he functions independently drives, lives by himself. He has largely able to tell me his medication doses or at least specifically insulin.There is preserved facial symmetry, speech is fluent, he moves all extremities.EKG attached:To my eyes, sinus rhythm, normal rate, normal axis, normal intervals. No definitive LVH. T wave inversion in aVL. Nonspecific ST flattening in lateral leads. Has appearance of retrograde P in V1, I am unclear as to the significanceLabs: Will attached to faxed documentWBC 6.1, hemoglobin 15.4, platelets 225, normal differentialLFTs normal. Sodium 134, BUN 14, creatinine 1.1, glucose 236INR 1 Nurse Assessment Associated symp toms include medication reconciliation. Seen this date for medication reconciliation per SE protocol. Reviewed all medicaitons in med module against what is in his prefilled medi assistant media planner. Discrepancy noted for the vitamin D3. Currently 400 IU in mediplanner. To have increase in dose to 1000 IU. Called [facility] to confirm medication will be changed for this month's delivery. States Ppt will be receiving the increase dosage starting tomorrow. Also other medicaiton outside of mediplanner accounted for. Ppt aware that medications will be here tomorrow for pickup per his request. semi annual Patient is seen today for semiannual evaluation. There is no source of ancillary history as his several months ago. He has not been hospitalized in the interim. He has not had any medical complications or known falls in the interim. He has historically been very difficult to obtain clear answers with regard to his medical conditions.He has a limited number of symptoms that he attributes to medication in spite of the fact that nothing has changed. His perception is that this may be medication effect. He historically has somewhat unusual attribution's.Patient reports he has had dry mouth. He believes is having this for several months. He suspects is related to medications. It is unclear precisely what precipitates this or if anything ameliorated.Patient is a long history of developing wounds predominantly on his extremities. It is of unclear precisely what precipitates these. He generally will pick at them and that they have scarred. He has not had open lesions to his arms or legs for quite a while. He does present today with a healing lesion to his abdomen. He said it began several weeks ago. He picked that up. He feels it is now healing.He wears dentures. He feels he needs some attended to. He would like to see the dentist.He reports that he is occasionally depressed although he does not describe depressive symptoms per se. He cites as an example what he feels was perceived as inappropriate conversation with staff. He frames in the context of a cold from norms. He suggest that any perceived the sexist or racist comments are not meant as such.Right eye is blind. He wonders why there is erythema to his left eye although it is not clear if there is any change. He says he sees well from the eye. He has seen ophthalmology and is due again to see them in several months.He has persistence of right shoulder pain. He has complained of this in the past. He has difficulty abducting the shoulder. In the past is indicated only in the morning and he did not wish to be seen by specialist or have additional evaluation. He now asks about seeing orthopedics. I told him it is quite reasonable and they likely could offer an injection of the shoulder. He indicates he would not want an injection. I told him then medication may not make sense to see orthopedics however he would like to see them and would contemplate offered modalities.With regard to his diabetes he says that he ran out of long acting insulin several days ago. He says he has not had any significant hypoglycemia as of late. He also suggested most sugars are well controlled although says in the past several days he has had some in the 300s. Tae Patient approach ed me iin the becker and complained of a variety of symptoms as such taken to the clinic and seen.He reports one to one half days of symptoms of increased tearing, posttussive headache, sense of tickle in his throat and perhaps sore throat. He has vague sense of feeling febrile. He has a nonproductive cough.He is not short of breath. He is able to eat. He is not having new chest pain. He does not have any GI intolerance. He doesn't have diarrhea.He complains of right shoulder pain which he suggested getting worse. That having been said, once I offered him referral to orthopedist he said that the pain is only present in the morning and did not wish to do anything about it.ROS:Headache, predominantly posttussiveWatery eyes, some of this antedates current illnessNo dysuriaBounds of ROS as aboveSays his sugars are well controlledPE:VS belowWell-developed In no acute distressNormocephalic, no real temporal pain to palpation.Right eye is entirely opacifiedLeft eye has chronic scleral erythema.There does not appear to be overt excess lacrimation.Nasal mucosa is erythematous and dry bilaterallyTympanic memories are intact bilaterally without acute findingsOropharynx may have minimal erythema but however there is no exudate.There is no cervical adenopathy, very thick neckHeart sounds to be regular with S1 and S2. I don't hear a murmur pretty wellLungs are surprisingly clear. There is no wheeze. There are no rales. Air movement is quite good bilaterally.Abdomen is protuberant, overall softExtremities are free of cyanosis or edema, I rather doubt clubbingHe appears to be at his neuropsychiatric baseline. Nurse Assessment Associated symp toms include discussion regarding zostavax. Ppt states that he has never had any issue with shingles and would prefer at this time not to receive any immunization to guard against it. Annual and chronic medical conditions At times quite cryptic 60-year-old clotilde chan who comes in today for annual examination and to address chronic medical conditions. Since the recent of his he has no ancillary historian. He is at times somewhat guarded and even when his was alive in providing some ancillary history is exceedingly difficult to know what is actually taking place (sleep, medications, ability to care for self, fingersticks etc.)He reports that overall he is doing quite well. He says he is coping with the of his . He seems to be very socially engaged including occasional arguably inappropriate offers towards female staff members at [facility]. He asks about seeing ophthalmology which he appears to be due for. Consults have been placed over the summer however has not yet transpired. He also has somewhat esoteric questions she was checking his appendix and wondering if his diabetes affects his appendix. He did appropriately ask about his renal function which I told him had improved by creatinine measurement at least. He was agreeable to seeing the dentist although he has full dentures he feels the need to be adjusted. He in general has no other acute complaints. He asked about colonoscopy. We were able to locate his colonoscopy report from 2008 with recommendation for 10 year follow-up. I shared this with him.He does complain of right shoulder pain/limited range of motion when he awakens. This resolves with movement. He does not have excess discomfort by day. As best I can tell he does not take anything for the pain. It does not impact his ability to function.ROS:No headaches. Highly variable sleep patterns which I truly can't get an answer about. No depression. Hearing well. No dysphasia. 4 dentures. No neck pain. No known thyroid difficulties. No chest pain or significant dyspnea on exertion. No cough or hemoptysis. No abdominal complaints. No nausea or vomiting or diarrhea. No dysuria or prostatism. He does say that someone had once noted a bump on his left testicle. Patient has known ED. No leg pain or cramping. No claudication. No skin breakdown.Medication adherence is unclear. He does not write down his finger sticks. He does imply that they are highly variable with some lows and many highs. He continues to take the current insulin regimen and suggest that he is taking the glipizide which I had favored stopping but he insisted on taking, indicating that he develops significant glycemic dyscontrol with cessation.PHYSICAL EXAM:Well-developed, well-nourished middle-aged gentleman who is in no distress. He declined to disrobe for examination. He is normocephalic and atraumatic. OD is completely opacified and he has most vision to recognize light. OS appears to be intact. Extraocular movements are present. Sclera is only slightly injected which is entirely unchanged. Hard to quantify his vision. He was reading handout when I entered the room however at other times is told staff he can't read it due to his vision. Nares are patent. Tympanic membranes are intact bilaterally and look normal. His neck is rather thick. I do not feel distinct adenopathy or thyroid enlargement however the overall appearance could suggest goiter. No JVD is evident.Heart is regular with S1 and S2. I do not hear a murmur.Lungs are clear to auscultation bilaterally without adventitious breath sounds.Abdomen is soft, nontender, somewhat obese. Distinct organomegaly is not feltGU exam reveals uncircumcised phallus. There is a subtle area of nodularity to the lateral aspect of the left testicle. It is unclear to me if this is epididymal or not. (By his report a small mass or nodule has been present for many years). Extremities reveal no clubbing, cyanosis or edema.Please see diabetic exam above-surprisingly has excellent sensation to monofilament.Skin examination reveals a regular areas of hyperpigmentation to the dorsal arms. He has had multiple open skin areas in the past however currently all are closed and at places he is scarred/hyperpigmented. Legs are entirely devoid of hair. Surprisingly, dorsalis pedis pulses well felt.MSK: Appears to have intact range of motion in the right shoulder. Overall, no deformity, no synovitis or joint deformity. No kyphosis. Gait appears fairly normal.Neurologically the patient is awake, alert, attentive. Receptive and expressive speech are intact. He moves all 4 extremities. Strength is good. Facial symmetry appears to be intact aside from asymmetry of his eyes obviously.Psychiatrically the patient is extremely hard to gauge. He does not endorse depression or anxiety. He at times is somewhat tangential to slightly odd lines of questioning. There is no current evidence of attention to internal stimuli. He has in the past endorsed unusual dreams with implication time being that they are somewhat prophetic (06/05). At other times he describes somewhat nightmarish dreams that were disturbing to him but did not wish to speak of them. He appears adequately organized to come to appointments as scheduled and otherwise engage in his daily life as best I can tell. DM and general follow up Please see communication note from yesterday. This appointment was scheduled prior to me knowing I would have the opportunity to speak in yesterday. We did not specifically address diabetes today.He says that overall he is coping reasonably well with the loss of his . Interestingly, he asked my colleague several weeks ago regarding sildenafil, asks me yesterday and asked again today. He reports he does not currently have a partner however would like to be ready. He reports it has been quite a while since he has been able to maintain a spontaneous erection. Of note, we previously checked testosterone level found to be somewhat low. He has had diabetes for close to 30 years. Control is suboptimal.He does not have active chest pain and does not take nitrates. He reports that he is not able to afford sildenafil. He feels that it is necessary for function and self-esteem/self-worth and function in a potential new relationship.He reports somewhat dry lips and mouth at times. He wonders as to the possible cause of that. I told him I was not entirely certain. I did explain some of his medications could be causative but there is nothing definitive.He denies any other complaints. He says he is still sleeping somewhat erratically. He is eating. Weight is maintained. He has no chest pain. He has no dyspnea. He has no GI complaints. He has no urinary complaints. He has not been having swelling. He apparently had a bee sting to the forehead (2 and 1 to the cheek).I asked about close family locally. He says he has a cousin. He does he has extensive family all over . He reports he is one of 21 children. He says there is extensive family in [place] and [place] and around here although he previously contradicted that. Itchy eyes and sore throat Seen due to complaints of itchy eyes, ru nny nose and throat irritation. He reports that symptoms began approximately 4 days ago. No significant headache, fever or appreciable malaise. He reports that his eyes are runny and somewhat itchy. He feels that his nose is running. While he is not explicit in describing it, he gives an impression that there is postnasal drip. He reports that the right side of his throat feels somewhat irritated.He reports he is using his 's saline and seemingly Benadryl. He has not had appreciable relief. He says that saline is burning his throat as well. He reports he is able to swallow well, is eating and drinking well.He reports that he continues to have trouble with his right shoulder. He reports significant stiffness when he awakens in the morning. Initially he suggests that he has pain through the day however later said that is not the case. He only has pain when lying on it and when he first awakens. He has minimal left knee pain at times.He reports his fingersticks are generally in the 70 to 120s. He does report he has some quite high and suggests that he had several quite low ones. As usual, he is very sparse with details. Tells me he is taking 30 units twice a day of insulin, not the 40 in the morning as prescribedAgain very scant with details however suggest that his sleeping pattern has not changed appreciably. He is rather circumspect as to whether he is taking the melatonin. He says it did not help great deal. Still has jumpiness in his legs. It is unclear whether this is nocturnal only. Still has very vivid dreams which he believes to be from God and as such she is not inclined to try to abolish them. chronic medical conditions Seen for semi annual exam. I was able to speak to his briefly before meeting with him. He circumlocutes a fair amount and getting linear, coherent answers/hx is a challenge. reports he is sleeping no better with melatonin, still with disruption of sleep/wake. Memory impaired, she noted he made appreciable error at the bank. sasindhu she believed sugars are high.He reports sugars very variable. Seemed uncertain if he was back on sulfonurea, at one point saying sugars were high as I took him off. I reminded him we resumed it weeks ago. Reports sugars are often high, but also reports some lows in the 50s. Says these lows typically when he is active. At one point says he is dizzy at times when sugar is at that level. He suggests that it is the only time he is dizzy .Says he is not dreaming as before.Denies any falls, no hospitalizations known. No MVCWonders esoteric questions such as why he developed DM, wants to know if his bones are crumbling . reports that driving has been OK.C scope -Dr Prajapati 2005 and 2008, unclear if any later semi annual DM and med adherence Pt seen ailyn e weeks back. Discussed with team. Appreciable ambiguity re: what he is taking. RADHA Guerra and I have met with Ppt and his , Tatyana.He is able to offer moderate amt of history but also somewhat tangenetial with many digressions. is able to offer a very coheent narrative.Current DM regimen is Lantus 30 units twice daily, humalog 30 u twice daily, metformin 1 gm BID and glyburide 10mg BID. Of note, his sleep wake cycle are reveresed so there is appreciable variability with meal times. He resumed glyburide due to high glucoses (300s) when off this.He reportsa he has been told he has type 2 DM. He has had this for ~40yrs, was slender when began. Strong FHx DM.He talks about his concern delta: renal fucntion, yet was very unethused re: change in antihypertensiveHe notes that he has vivid dreams, talking to mother, who is long . Please see previous notes re: long hx of premonitions . Apaprently declined to see psych in past, treated for depression by PCP. I asked re: manic symptoms earlier in life, she did not beleive so.He sleeps verty poorly. Sleeps by day, awake bulk of night. He takes sinemet at night. describes sleep movement d/o that is clearly far more than RLS. He has violent movemrnt off all limbs (suggestion of REM sleep d/o) notes that memory has been deterioatrating for years, he also mentions mempory trouble. She says he often doesn't listen to her. dm Initial visit fo r me with this very pleasant gent who is somewhat limited in providing very accurate and consistent hx. He is seen today to follow up his sugars. Last A1c, at enrollment, very poorly controlled (10.5). He reports a ~40 yr hx of fairly brittle DM. Reports adherence to meds, which do not match our med list entirely (primarily the insulin dosing). He says he eats regularly, but unsure what raises his glucose. He initially said he checks sugar only when he feels he needs to eat, later suggested he does it twice a day consistently. FSG reviewed on paper and glucometer. Was hypo this AM to 50s, as high as 300s, though many in reasonable range chest pain The patient pres ents with a complaint of chest pain. It generally lasts 3 Minutes. The pain is in the Left chest vs L shoulder. The patient describes the pain as pinch. The pain does not radiate to the back, flank, or groin. The patient denies diaphoresis, dyspnea, fatigue, nausea, palpitations and vomiting. The patient denies any aggravating factors. The patient denies any associated symptoms. The patient denies any abdominal pain. Extremely vague. Denies exertional symptoms. No associated symptoims. Unclear what provokes or relieves. Short duration. He minimizes. Says no pressure", no dyspnea. Sugegsts no ESPARZA, no CP. Cannot quant how far he can walk. Alludes to lightheadedness but very unclear on details. Suggests not r/t CP. DM/elevated ALT DMLengthy discus yenni with Denis about his elevated HgbA1C and management of diabetes. Denis states he just wants a pill to curb his appetite. Says he likes to eat what he likes to eat. Knows his level has been high but he is taking a medication that protects his kineys (Lisinopril). Discussed that the VIELKA will help some but that he is already exhibiting sings of kidney damage b/c of +microalbuminuria and that the best thing he can do is eat more consistently (per past Endocrine notes pt with hx of not eating consistenly) and to get his DM under better control. Suggested a food diary so that we could see what was causing his high sugars and pt stated he would not be compliant with it. Agrees to do logs. Is concerned about his kidneys so agrees to modify things a bit and to try to be better about what he eats (says he does not need to see a Ob Tech b/c already knows what is bad for him). Goal will be to reduce his HgbA1C some (unable to give me his goal) in the next couple months.Elevate ALTPt denies much alcohol use. Will occasionlly have one beer. Not even weekly, though one time recently had 4 beers which he never does but thinks that might have affected his liver. Does not use Acetaminophen b/c they don't do much for me anyway . chronic conditions Pertinent neg atives include weight loss. post enrollment Pt in for post e nrollment. No specific complaints today. Lives with his , Tatyana, who is also a participant here. Mentions impotence as a problem but does not want medication. Wants to know what else can be done. Also wants MRI of head as a preventative measure in case . No specific complaints of headaches, though has occasional h/a which isn't bad and no night time waking with headache. Tylenol relieves it. No other neuro complaint. Wants prostate exam by male MD.Note from previous intake visit:59-year-old ppt in for intake with his who is also in for intake. Likes to be called Denis . Patient lives with his in senior housing. One fall within 90 days but no injury. Left knee gives out at times. No assistive devices. pre-fills med box for him and he says he doesn't forget to take his medications though seems to disagree at times with ppt. Not very clear about his use of insulin or in checking his sugars. states sometimes he takes his insulin without eating. Both feel he has some short-term memory loss. Receives Meals on Wheels Monday through Monday and [employer] delivers two times a week. He doesn't use stove because of poor vision. cooks a little bit on the stove. Ppt still drives despite poor vision and stating he misses the glass when he pours liquid into a glass. They deny any wandering issues or getting lost. He drives only locally and claims no accidents. No known drug allergies. Never hospitalized and no recent ER visits. Used to have chemical laboratory assistant doctor but MD refused to continue seeing ppt because he owed him $40 which ppt/ claims they paid. Has not seen a dentist in years. Has full dentures. No difficulty chewing and swallowing but does state he has trouble talking and chewing at the same time because he chokes. Denies incontinence but says he has a lot of frequency. Body sores on lower extremities and sometimes upper which heal on their own but ppt also self treats per . Puts all kinds of things on the sores , says. Denies chronic pain although does have occasional aches and pains relieved with Tylenol. No alcohol or drug history and smoked only for one year years ago and pack would last him a week. PMH: depression, no therapy, on SSRI. Anxiety, premonitions that both state are incredibly accurate including the 911 destruction of the twin towers, denies actual hallucinations, has tremors and, although Parkinson's was questioned, no formal diagnosis. Glaucoma diabetes for more than 35 years (on insulin), arthritis, hypertension, muscle spasms, chronic pain, chronic dizziness, blind right eye, poor vision left, diabetic wounds, impotence. Surg hx: Left rotator cuff tear. Nine surgeries to eyes last one two years ago and they say no more surgeries planned. Intake visit 59-year-old ppt in for intake with his who is also in for intake. Likes to be called Denis . Patient lives with his in senior housing. One fall within 90 days but no injury. Left knee gives out at times. No assistive devices. pre-fills med box for him and he says he doesn't forget to take his medications though seems to disagree at times with ppt. Not very clear about his use of insulin or in checking his sugars. states sometimes he takes his insulin without eating. Both feel he has some short-term memory loss. Receives Meals on Wheels Monday through Monday and [employer] delivers two times a week. He doesn't use stove because of poor vision. cooks a little bit on the stove. Ppt still drives despite poor vision and stating he misses the glass when he pours liquid into a glass. They deny any wandering issues or getting lost. He drives only locally and claims no accidents. No known drug allergies. Never hospitalized and no recent ER visits. Used to have chemical laboratory assistant doctor but MD refused to continue seeing ppt because he owed him $40 which ppt/ claims they paid. Has not seen a dentist in years. Has full dentures. No difficulty chewing and swallowing but does state he has trouble talking and chewing at the same time because he chokes. Denies incontinence but says he has a lot of frequency. Body sores on lower extremities and sometimes upper which heal on their own but ppt also self treats per . Puts all kinds of things on the sores , says. Denies chronic pain although does have occasional aches and pains relieved with Tylenol. No alcohol or drug history and smoked only for one year years ago and pack would last him a week. PMH: depression, no therapy, on SSRI. Anxiety, premonitions that both state are incredibly accurate including the 911 destruction of the twin towers, denies actual hallucinations, has tremors and, although Parkinson's was questioned, no formal diagnosis. Glaucoma diabetes for more than 35 years (on insulin), arthritis, hypertension, muscle spasms, chronic pain, chronic dizziness, blind right eye, poor vision left, diabetic wounds, impotence. Surg hx: Left rotator cuff tear. Nine surgeries to eyes last one two years ago and they say no more surgeries planned. Instructions Date Instruction Sharon vogel Patient with many de cades of relatively poorly controlled and often labile diabetes. He has been reluctantly receiving [facility] support for his insulin and other medications since February due to the fact that it is apparent that he could not manage this independently. Regrettably, he either is not able to be found or [facility] cannot get in to see him roughly 1/4 of the time. This obviously contributes to poor glycemic control. He has very little insight into his difficulties and refuses to consider any alternative living venue including stepdaughter/assisted living/moving to [place] with family etc. no change in his medical regimen-We have communicated with [facility] and to the family to make sure that [facility] knows where he is and they can reach him with as much regularity as possible- Related to Type 2 diabetes mellitus with hyperglycemia, with long-term current use of insulin Patient with many de cades of relatively poorly controlled and often labile diabetes. He has been reluctantly receiving [facility] support for his insulin and other medications since February due to the fact that it is apparent that he could not manage this independently. Regrettably, he either is not able to be found or [facility] cannot get in to see him roughly 1/4 of the time. This obviously contributes to poor glycemic control. He has very little insight into his difficulties and refuses to consider any alternative living venue including stepdaughter/assisted living/moving to [place] with family etc. no change in his medical regimen-We have communicated with [facility] and to the family to make sure that [facility] knows where he is and they can reach him with as much regularity as possible- Related to FDC (current) use of insulin Patient with long-st anding right eye blindness, developed acute vision loss on or about 06/19. Was seen in the [place] ER. Was discharged home. Seen by primary software quality engineer yesterday. Precise diagnosis is not clear to me as of yet. He will be seeing retina specialist (whom he previously was seeing but fired without establishing care with Dr. Vasquez who Dr Crum kindly referred him to)-Stepdaughter has indicated she will take him to the retina specialist on the -Supportive care by them and what of her home care as possible in the interim-Medications via [facility] previously close his case, they will be informed of his change in status and increased risk Related to Vision loss of left eye Please see vision problem above. Related to Self-care deficit in patient living alone Patient with long h istory of right eye blindness. Acute to subacute loss of vision in the left eye. Seen in the ER roughly a week and a half ago without acute findings and no evidence of retinal detachment. Was seen by general maintenance technician and noted to have bleeding intraocularly, unclear to me if retinal or otherwise. The patient is scheduled for procedure with retina on 07/01, all the above per his stepdaughter.The primary challenge at the moment is the patient's debility related to his vision. He has consistently shown absolutely no insight into his deficits antedating this and still seems to under appreciate the magnitude of the challenges. When discussing potential emergency respite he wonders where his things will go. Of note, his stepdaughter described similar rather concrete thinking and inability to change strategies and recognize reality is on the ground.I have previously appointed healthcare proxy and determined lack of decisional capacity with regard to matters of significance with regard to his health care. The patient was seen by Adult Protective Services who apparently felt he did have capacity. From paperwork on the table and appears they may have seen him again as my social work colleagues kindly made another referral.-Food was provided by the team, his ability to negotiate its preparation is somewhat unclear however food that can be repaired in the microwave was provided in addition to sandwich options-We will explore the possibility of emergency respite-We will aim to have home care, unclear if this will prove feasible or if he will be able to tolerated as he has not in the past-Team is working on figuring out details of his getting to ophthalmology on the seventh Related to Vision loss of left eye Patient with very lo ng-standing and fairly brittle diabetes. Complicating the matter is his relatively poor adherence with education regimen, I believe predicated upon cognitive impairment and perhaps some unusual beliefs. His regimen is not perhaps optimal however he has been very resistant to changes aside from increases in Lantus. He is also resistant to the idea of going to endocrinology for additional thoughts. He is currently managed on insulin, DPP 4 and Metformin. He has not had overt hypoglycemia however he has been hospitalized with DKA twice in the past several months, again it appears to be solely on the basis of non-adherence..-Continue Lantus 46 units twice daily-For now, continue Humalog 20 units before breakfast and dinner-Inessaia 100 mg-Metformin twice daily, 1000 mg-[facility]NA will control medications-He is not a pump candidateTwice daily VNA to assure medication adherence Related to Type 2 diabetes mellitus with hyperglycemia Hypertension is well controlled. He is on lisinopril 40 mg daily. I am not sure that vital signs in the institution are particularly predictive as his environment and diet are well controlled.-Follow blood pressure-May need to back off on lisinopril if blood pressure is too low or if he is symptomatic. Related to Hypertensive chronic kidney disease with stage 1 through stage 4 chronic kidney disease, or unspecified chronic kidney disease Patient with very lo ng-standing and fairly brittle diabetes. Complicating the matter is his relatively poor adherence with education regimen, I believe predicated upon cognitive impairment and perhaps some unusual beliefs. His regimen is not perhaps optimal however he has been very resistant to changes aside from increases in Lantus. He is also resistant to the idea of going to endocrinology for additional thoughts. He is currently managed on insulin, DPP 4 and Metformin. He has not had overt hypoglycemia however he has been hospitalized with DKA twice in the past several months, again it appears to be solely on the basis of non-adherence..-Continue Lantus 46 units twice daily-For now, continue Humalog 20 units before breakfast and dinner-Januvia 100 mg-Metformin twice daily, 1000 mg-VNA will control medications-He is not a pump candidateTwice daily VNA to assure medication adherence Related to cleaner signs (current) use of insulin Patient with a long history of somewhat unusual ideations, slight disinhibition. Degree of overall literacy and specifically health literacy is a bit unclear. He has been very guarded in allowing us to speak to ancillary sources. His insight and judgment are significantly impaired and specifically his insight into his deficits is limited. He is often dismissive and questions the professional credentials when he is dissatisfied (questions if VNA nurses are really nurses, told the retina specialist that his laser was inadequate).To confirm my personal impression based upon years of examination as well as the cognitive testing we have done here I asked that OT at the facility perform additional cognitive testing. Both of their testing suggested that he needs a significant assistance if not 24 hour supervision.-Activate healthcare proxy-Healthcare proxy and the team are well aware that he will remain resistant to many things and that healthcare proxy activation alone will not force him to do anything specifically.-I believe this will be ongoing negotiation Related to Other symptoms and signs involving cognitive functions and awareness Patient did have acu te kidney injury during hospitalization. Renal function improved. He was discharged on lisinopril.--avoid nephrotoxins-Dose medications accordingly-Continue VIELKA inhibition for renal protection Related to Chronic kidney disease, stage 2 (mild) Patient did have acu te kidney injury during hospitalization. Renal function improved. He was discharged on lisinopril.--avoid nephrotoxins-Dose medications accordingly-Continue VIELKA inhibition for renal protection Related to Chronic kidney disease, stage 2 (mild) Hypertension is well controlled. He is on lisinopril 40 mg daily. I am not sure that vital signs in the institution are particularly predictive as his environment and diet are well controlled.-Follow blood pressure-May need to back off on lisinopril if blood pressure is too low or if he is symptomatic. Related to Hypertensive chronic kidney disease with stage 1 through stage 4 chronic kidney disease, or unspecified chronic kidney disease Patient with a long history of somewhat unusual ideations, slight disinhibition. Degree of overall literacy and specifically health literacy is a bit unclear. He has been very guarded in allowing us to speak to ancillary sources. His insight and judgment are significantly impaired and specifically his insight into his deficits is limited. He is often dismissive and questions the professional credentials when he is dissatisfied (questions if VNA nurses are really nurses, told the retina specialist that his laser was inadequate).To confirm my personal impression based upon years of examination as well as the cognitive testing we have done here I asked that OT at the facility perform additional cognitive testing. Both of their testing suggested that he needs a significant assistance if not 24 hour supervision.-Activate healthcare proxy-Healthcare proxy and the team are well aware that he will remain resistant to many things and that healthcare proxy activation alone will not force him to do anything specifically.-I believe this will be ongoing negotiation Related to Cognitive impairment Patient with very lo ng-standing and fairly brittle diabetes. Complicating the matter is his relatively poor adherence with education regimen, I believe predicated upon cognitive impairment and perhaps some unusual beliefs. His regimen is not perhaps optimal however he has been very resistant to changes aside from increases in Lantus. He is also resistant to the idea of going to endocrinology for additional thoughts. He is currently managed on insulin, DPP 4 and Metformin. He has not had overt hypoglycemia however he has been hospitalized with DKA twice in the past several months, again it appears to be solely on the basis of non-adherence..-Continue Lantus 46 units twice daily-For now, continue Humalog 20 units before breakfast and dinner-Januvia 100 mg-Metformin twice daily, 1000 mg-VNA will control medications-He is not a pump candidateTwice daily VNA to assure medication adherence Related to Type 2 diabetes mellitus with hyperglycemia, with long-term current use of insulin Patient with very lo ng-standing and fairly brittle diabetes. Complicating the matter is his relatively poor adherence with education regimen, I believe predicated upon cognitive impairment and perhaps some unusual beliefs. His regimen is not perhaps optimal however he has been very resistant to changes aside from increases in Lantus. He is also resistant to the idea of going to endocrinology for additional thoughts. He is currently managed on insulin, DPP 4 and Metformin. He has not had overt hypoglycemia however he has been hospitalized with DKA twice in the past several months, again it appears to be solely on the basis of non-adherence..-Continue Lantus 46 units twice daily-For now, continue Humalog 20 units before breakfast and dinner-Januvia 100 mg-Metformin twice daily, 1000 mg-VNA will control medications-He is not a pump candidateTwice daily VNA to assure medication adherence Related to cleaner signs (current) use of insulin MRI noting 2013 sh ows white matter abnormalities as well as lacunar infarctions.-Continue aspirin, blood pressure control and lipid control Related to Small vessel disease, cerebrovascular History of somewhat unusual ideations, this has been far more quiescent since the of his or at the very least he is not enunciating it. He has small vessel disease and lacunar infarctions. His executive function is impaired and his insight and judgment are notably so. His memory is also somewhat impaired but perhaps less so. Low educational attainment and poor literacy may exaggerate his deficits however, I am concerned that his cognitive impairment likely rises to the level of dementia and furthermore is impacting his well-being. Capacity determination here is challenging.-I will ask OT at the facility if they have any ability to do additional cognitive testing-I truly believe it is in his best interest to involve family, he is not particularly keen on this, as aforementioned will need to involve team, possibly Psych Related to Cognitive impairment Baseline renal funct ion with estimated GFR in the 60s. Patient did have acute kidney injury with a creatinine rise to 2.4 in the context of DKA/volume depletion. Discharge summary indicates that he recovered function and was discharged on his VIELKA inhibitor at full dose-Lab work should be pending from this morning-Proceed accordingly Related to Chronic kidney disease, stage 2 (mild) Currently Lantus 46 units twice daily and Humalog 20 units twice daily in addition to oral agents Related to FDC (current) use of insulin 66-year-old gentlema n now in rehab after hospitalization with DKA. This is his second hospitalization with DKA and several months. The patient has a very long history of labile diabetes with complications. I do believe that his diabetes quite brittle and even in the hospital, as well as the senior care, his sugars have been highly variable. Further complicating matters is some degree of intransigence regarding medications as well as quite impaired insight, judgment and memory. There may be literacy issues as well.-For now continue Lantus 46 units twice daily, I asked that [facility] verify that he is getting 46 units and not 30 as mentioned at one point-Continue Humalog 20 units with breakfast and dinner-Will need additional glucose data-Will need twice daily VNA if he is to remain at home-I believe he would benefit from more supervised setting however, he is fairly adamant that he will not do so-Significant complication that he does not want his family involved yet in the absence of any insight or judgment this is rather challenging. I will discuss with team and likely medical record assistant Related to Type 2 diabetes mellitus with stage 2 chronic kidney disease, with long-term current use of insulin He did not complete ordered cologuard, has not been willing to do colonoscopy (last I know of 2008)PSA was 2.1 in Sep 2019, he would like to check itIt appears he is largely up-to-date with immunizations perhaps with the exception of the second novel coronavirus vaccination although I am not sure if it is accurate.See AD template Related to Encounter for health maintenance examination MRI brain 2013 shows periventricular white matter abnormalities consistent with small vessel ischemic disease. There is suggestion of old lacunar infarctions in the bilateral basal ganglia. In the context of diabetes this arteriopathy is unsurprising-Maximize vascular risk factor control-May be a contributor or primary etiology of his cognitive impairment Related to Small vessel disease, cerebrovascular Long-standing histor y of somewhat unusual beliefs and executive dysfunction. His was quite helpful to him before her . He actually functions at a level higher than his testing might suggest which may reflect education or poor literacy. Ultimately, the etiology of this is somewhat difficult to know with certainty. MRI of brain in 2014 did show lacunar infarctions and small vessel disease. Given his decades of diabetes vasculopathy is certainly the most likely etiology of his somewhat spotty deficits although difficult to be definitive.-I absolutely feel he needs family involvement although very difficult to say if he is lacking capacity and we ignore his preferences. There is no articulated logic to not involving his family although again, it is my perception that he overestimates his abilities.-We will monitor -Modify vascular risk factors as best we can-His B12 and TSH were acceptable-I do not think that repeat neuroimaging will change very much -I am skeptical regarding addition of acetylcholinesterase inhibitor and/or Namenda Related to Cognitive impairment Given his general te ndency towards obfuscation and lack of ancillary history, it is extremely difficult to gauge his mood state. He denies any current significant depression. He is currently on escitalopram 20 mg daily.-No medication changes Related to MDD (major depressive disorder), recurrent, in partial remission Most recent estimate d GFR was 67 in October. He did have transient acute kidney injury during hospitalization. He does have albuminuria.-Just increased to maximal dose VIELKA inhibitor-Repeat measurement of creatinine and roughly 2-3 weeks-Check on urine microalbumin at the same time-Goal is to control hypertension and diabetes better Related to Chronic kidney disease, stage 2 (mild) Blood pressure histo rically variable. When he was at [facility] he was discharged on amlodipine due to hypertension however, when seen in follow-up was not on amlodipine and was actually normotensive to on the low side. Currently sole antihypertensive is lisinopril 20 mg daily. His blood pressure is not adequately controlled.-Maximize lisinopril to 40 mg daily-Check labs in 2-3 weeks, if tolerated will continue. 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 Morales. Remains on brimonidine 0.2 mg twice daily and latanoprost 1 drop in the left eye every evening Related to Primary open angle glaucoma of both eyes, indeterminate stage Patient is blind in the right eye from traumatic injury many years ago. OS has proliferative diabetic retinopathy. Is followed by retina practice in [place] however, he expressed his satisfaction and they have transferred his care to . Will need to make arrangements for him to be seen as well as sort out details of coverage Related to Type 2 diabetes mellitus with proliferative retinopathy of left eye, with long-term current use of insulin, macular edema presence unspecified, unspecified proliferative retinopathy type Right eye blind from traumatic i njury Related to Blindness of one eye Patient was somewhat long-standing vitamin D deficiency. He is currently on 2000 units daily. The most recent vitamin D level was acceptable in the 30s Related to Vitamin D deficiency See ckd below Related to Type 2 diabetes mellitus with stage 2 chronic kidney disease, with long-term current use of insulin Sugars remain highly variable. Sugars as high as 455 in the past month. Conversely, has sugars in the 60s although few and far between.-No change in the diabetic management currently, may consider increasing a.m. and decreasing p.m. Lantus Related to Type 2 diabetes mellitus with hyperglycemia, with long-term current use of insulin Patient has some dys esthesias and an element of sensory neuropathy. He is on 300 mg of nocturnal gabapentin for same symptoms. It is somewhat difficult to say if it is helpful.-No change in gabapentin, continue 300 mg at bedtimeWith regard to the diabetes, he has been brittle for decades. Further complicating his management is cognitive impairment and lack of willingness to allow assistance as well as difficulty in getting assistance. There is often data deficits with regard to what his medications truly are. His most recent hemoglobin A1c was 10.9 in July. Goal hemoglobin A1c of approximately 7-8 although unclear if this is achievable-Continue with ophthalmology-As best I can tell he has not seen podiatry in years, he does not perceive there to be any reason to do so.-For now, continue Januvia 100 mg daily, metformin 1 g twice daily, Humalog 20 units before breakfast and dinner, Solostar Lantus 46 units twice daily.-He is not amenable to going to an chemical laboratory assistant-Continue lisinopril for albuminuria Related to FDC (current) use of insulin Patient has some dys esthesias and an element of sensory neuropathy. He is on 300 mg of nocturnal gabapentin for same symptoms. It is somewhat difficult to say if it is helpful.-No change in gabapentin, continue 300 mg at bedtimeWith regard to the diabetes, he has been brittle for decades. Further complicating his management is cognitive impairment and lack of willingness to allow assistance as well as difficulty in getting assistance. There is often data deficits with regard to what his medications truly are. His most recent hemoglobin A1c was 10.9 in July. Goal hemoglobin A1c of approximately 7-8 although unclear if this is achievable-Continue with ophthalmology-As best I can tell he has not seen podiatry in years, he does not perceive there to be any reason to do so.-For now, continue Januvia 100 mg daily, metformin 1 g twice daily, Humalog 20 units before breakfast and dinner, Solostar Lantus 46 units twice daily.-He is not amenable to going to an chemical laboratory assistant-Continue lisinopril for albuminuria Related to Type 2 diabetes mellitus with diabetic polyneuropathy, with long-term current use of insulin Most recent lipid pa anjum in July showed LDL of 53, HDL 37, triglycerides of 226 and total cholesterol of 118. That is on atorvastatin 20 mg. I think LDL is reasonable. Triglycerides per se do not mandate additional therapy although there has been some mix data about esterified fish oils.-No change in Lipitor 20 mg daily Related to Hyperlipidemia, mixed As previously noted, the patient performs quite poorly on tests of cognition. He functions dated today at a level that seems better than his testing may suggest that this may relate to education, vision or other. He has will fully obscured the fact that he has local family. I believe that his insight and judgment are significantly impaired. While he can certainly make some decisions he would benefit from support as evidenced by his nonadherence with medications resulting in severe health outcomes. It is a bit difficult to overcome his reluctance to involve his family. I do not understand his motivation per se. I do believe that he overestimates his cognitive abilities.-I will speak with my social work colleague as well as primary nurse. Strong bias is to convene a group meeting with him and his son/stepdaughter at the very least. Related to Cognitive impairment Patient with long-st anding stage II chronic kidney disease on the basis of diabetes and hypertension. He does have albuminuria. His diabetic control is abysmal. His blood pressure control historically has been quite good although was poor towards the end of his hospitalization of late although I do wonder if that was related to volume-See hypertension management above. Plan to avoid hypoperfusion as well as hypertension-See diabetes management under DM with hyperglycemia. Related to Chronic kidney disease, stage 2 (mild) Patient had acute ki dney injury while in DKA however, most recent estimated GFR still is in stage II with reported result of 72. In the hospital, he was significantly hypertensive on day of discharge and was similarly discharged on amlodipine 5 mg in addition to his standing and lisinopril. Looking at medication list from [facility]NA does not appear he is getting the amlodipine however, blood pressure today is quite low. He is entirely asymptomatic.-Labs today-I have asked VNA to check blood pressures daily for several days-I have asked VNA to verify that he is not on amlodipine currently. Related to Hypertensive chronic kidney disease with stage 1 through stage 4 chronic kidney disease, or unspecified chronic kidney disease See Dm regimen under DM with hyperglycemia Related to FDC (current) use of insulin Patient has had brit tle control for as long as I have known him and his suggestion is that he has had it lifelong. Even when his was alive he had significant brittleness. Regrettably, height is never entirely clear if he is taking medications for instructions. He can often verbalize it but not always. In this case he was far from forthcoming and apparently had not been taking medications resulting in admission with DKA and hemoglobin A1c of 12. His hemoglobin A1c has varied over time but never been wonderful despite addition of adjuvants.The meter today was not properly calibrated to date however, assuming they were contiguous days his control remained extremely variable as high as in the 300s, no overt hypoglycemia. The date was reset by my MA colleague.-I am certainly open to him seeing endocrinology, assuming he will do so. He has historically never been agreeable to do so-For now, continue Januvia 100 mg, metformin twice daily, Humalog 20 units twice daily and Lantus 46 units twice daily Related to Type 2 diabetes mellitus with hyperglycemia, with long-term current use of insulin Slight swelling of l eft upper blepharitis. He believes that he scratched himself. I am uncertain if that is indeed the case. His vision is seemingly unaffected.-Erythromycin ophthalmic for several days-To call me or ophthalmology for change in vision Related to Blepharitis of left upper eyelid, unspecified type He has not been enth usiastic about colonoscopy. I will try to offer: Guard. PSA has been done and is unremarkable.Discuss shingrix-ASA given DM Related to Encounter for health maintenance examination This is not a promin ent complaint of his. Historically his sleep Cycle has been highly variable. He is on gabapentin 300 mg although not for sleep. She remains on melatonin 6 mg although I am not certain how often he is taking that.-No change in plan Related to Insomnia, unspecified type Patient has some sen rose neuropathy and historically has had some dysesthesias. He often feels that his feet are cold in the absence of obvious circulatory cause.-Continue gabapentin 300 mg at bedtime for nocturnal symptoms Related to Peripheral sensory neuropathy due to type 2 diabetes mellitus Patient performs chantale rly poorly on MOCA. His ability to navigate, essentially independently in the world actually exceeds what I might expect from his degree of impairment on testing. I am not entirely sure how to account for this. Furthermore, the precise etiology of his cognitive impairment is not clear to me. Statistically, it is likely to be on the basis of small vessel disease/vascular. His B12 is normal. His thyroid function is normal. Difficult to exclude obstructive sleep apnea. He certainly will not consider using a CPAP. I do not think medications are impairing him.-Continue to try to support, his lack of available social resources challenging.-He has never been willing for me to speak with his brother in [place] Related to Cognitive impairment Patient has historic ally been fairly rigid and had unusual believes however, I have not explicitly heard anxiety aside from apparently concerned over his finances. As such, difficult for me to say if he is better by virtue of SSRI or not-Continue escitalopram 20 mg due to mood disorder and potentially with benefit for his anxiety Related to Generalized anxiety disorder Patient remains on e scitalopram 20 mg. He does not endorse current depressive symptoms. He is fairly socially isolated. He cannot speak to his brother currently due to not having a phone, apparently driven by financial factors-Social work kindly provided him with information about safe link phone-Would not taper escitalopram at this time Related to MDD (major depressive disorder), recurrent, in partial remission Unclear to me if thi s is driven by hyperglycemia or some degree of autonomic dysfunction. PSA is acceptable-Monitor Related to Urinary frequency Patient with stage I I chronic kidney disease and significant proteinuria due to hypertension and diabetes. Please see diabetic management above. Please see CKD management under stage II chronic kidney disease.With regard to his hypertension his lying blood pressure is higher than I would like however there is nearly a 30 point orthostatic drop when he stands. This is likely due to diabetic autonomic dysfunction. He is currently on lisinopril 20 mg daily. I am somewhat reluctant to increase the lisinopril given this.-We will have him see nephrology given heavy burden of proteinuria/albuminuria Related to Hypertensive chronic kidney disease with stage 1 through stage 4 chronic kidney disease, or unspecified chronic kidney disease Patient with backgro und diabetic retinopathy in both eyes. He is followed by ophthalmology at close intervals. Due to see them next month.-Controlled diabetes-Routine ophthalmology follow-up Related to Non-proliferative diabetic retinopathy, both eyes Has essentially no s ight in the right eye due to traumatic injury many years ago Related to Blindness of one eye Remains on brimonidi ne 0.2% one drop to each eye twice daily. He has follow-up with ophthalmology next month. Related to Primary open angle glaucoma of both eyes, indeterminate stage Patient has full den tures and does not describe any difficulty masticating Related to Acquired absence of teeth Most recent evaluati on of his vitamin D level showed it to be low. His vitamin D supplementation was increased to 2000 units. Will check it with next hemoglobin A1c Related to Vitamin D deficiency Please see diabetes management under type 2 diabetes with hyperglycemia and long-term use of insulin.With regard to his diabetic chronic kidney disease, CKD is actually stage II however there is heavy proteinuria. The patient is on 20 mg of lisinopril. His blood pressure is variable inasmuch as it slightly above goal when he is lying however drops significantly making increase in the lisinopril questionable.-I will discuss with him in 2 weeks but would favor referring him to nephrology given the heavy albuminuria Related to Type 2 diabetes mellitus with stage 2 chronic kidney disease, with long-term current use of insulin Please see diabetes management under type 2 diabetes with hyperglycemia and long-term use of insulin.With regard to his diabetic chronic kidney disease, CKD is actually stage II however there is heavy proteinuria. The patient is on 20 mg of lisinopril. His blood pressure is variable inasmuch as it slightly above goal when he is lying however drops significantly making increase in the lisinopril questionable.-I will discuss with him in 2 weeks but would favor referring him to nephrology given the heavy albuminuria Related to Chronic kidney disease, stage 2 (mild) Please see diabetic management under type 2 diabetes with hyperglycemia and long-term use of insulin.With regard to his dermatitis, he does not currently have any open areas or particularly active areas. I do not think there is any specific lesion or lesions to treat.-Controlled diabetes Related to Type 2 diabetes mellitus with diabetic dermatitis, with long-term current use of insulin Far and away, this g kainleman greatest challenge has been long-standing, quite brittle diabetes. Thankfully he is not having hypoglycemia at these days however, still remains significant hypoglycemic. There has been a trend towards improvement from his worst. Part of the challenge is significant data deficit with regard to what is actually transpiring. He is rather inflexible. He does not perceive any cognitive deficit and is not open to receiving more assistance. He reports that he knows his insulin and seems to however, the regularity with which he is taking it, his diet and other factors remain uncertain. Of note, his diabetes was poorly controlled even when his was alive and very involved in his care.-Given overall trend of fingersticks that are high (largely based upon his word of mouth as I do not have hard data) as well as his A1c will increase his Lantus from 46 units twice daily to 52 units twice daily-No change in the short acting Humalog which is risky but his strong preference and not unreasonable.-Continue metformin thousand milligrams twice daily, I have warned him that in the event of poor oral intake or GI illness he should stop this-Januvia 100 mg daily-Large print, bolded medication list given regarding medication changes and his medications in general-He seemed to express some interest in CGM however, I am not sure he has the cognitive wherewithal. Will check in with him in several weeks Related to Type 2 diabetes mellitus with hyperglycemia, with long-term current use of insulin Lantus increased 52 units twice dailyHumalog 20 units twice daily with a meal Related to FDC (current) use of insulin Lipid panel in February showed LDL to be 111, triglycerides 290s. The patient was changed from simvastatin 20 mg to atorvastatin 20 mg.-We will repeat lipid panel in roughly 3 months-Goal LDL from my perspective is under 70 although argument could be made either way-Triglycerides should improve with glycemic control and in point of fact have been far worse in the past Related to Hyperlipidemia, mixed LDL not adeqautely c ontrolled-Change simva 20mg to atorva 20mg Related to Hyperlipidemia, mixed Level low at 25, will incr to 20 00 units Related to Vitamin D deficiency Hemoglobin A1c is 13 .5. His glucose log is entirely inconsistent with this. While it is possible there was significant reservoir, he has not picked up needles for his insulin syringes since May according to the pharmacy. He has been picking up his insulin consistently. He indicates that he is taking his Lantus once daily as opposed to twice daily. There is clearly long-standing cognitive difficulty. I am unable to reconcile his glucose results of his hemoglobin A1c. I am uncertain if there is difficulty checking his sugars, injecting his insulin or if he is doing so at all.-I am reaching out to nursing leadership to see about available nursing resources-I given him a written/typed schedule of his diabetic medications-We will repeat A1c in 3 months-I would be happy to see him back again sooner however given the divided between the data is presenting and objective data I'm not sure that will be helpful. I believe that solving the mystery of what is actually transpiring in his home will be the humphries to improving his glycemic control. Related to Type 2 diabetes mellitus with hyperglycemia, with long-term current use of insulin Hemoglobin A1c is 13 .5. His glucose log is entirely inconsistent with this. While it is possible there was significant reservoir, he has not picked up needles for his insulin syringes since May according to the pharmacy. He has been picking up his insulin consistently. He indicates that he is taking his Lantus once daily as opposed to twice daily. There is clearly long-standing cognitive difficulty. I am unable to reconcile his glucose results of his hemoglobin A1c. I am uncertain if there is difficulty checking his sugars, injecting his insulin or if he is doing so at all.-I am reaching out to nursing leadership to see about available nursing resources-I given him a written/typed schedule of his diabetic medications-We will repeat A1c in 3 months-I would be happy to see him back again sooner however given the divided between the data is presenting and objective data I'm not sure that will be helpful. I believe that solving the mystery of what is actually transpiring in his home will be the humphries to improving his glycemic control. Related to FDC (current) use of insulin -We did not have a p articularly robust discussion today given the distance and medium. He has historically has not been desirous of much. Preventative care including colonoscopy. PSA is as aforementioned. He has not had a DEXA although I'm not certain that I will be a high priority for me.-At next visit will approach regarding cologuard-offer shingrix and PPV 23 repeat now that he is 64 Related to Encounter for health maintenance examination Very hard to get goo d Hx. No clear PORTER. Longstanding hx of unusual sleep patterns-Same 3mg melatonin Related to Insomnia, unspecified type Reports symptoms con sistent with diabetic neuropathy. His last performance with monofilament was actually fairly intact. He notes nocturnal pain and paresthesias.-He is deriving benefit from current gabapentin and will continue 300 mg at bedtime Related to Peripheral sensory neuropathy due to type 2 diabetes mellitus Wall history of some what unusual believes however beyond that has evidence of cognitive impairment on testing. I do wonder about educational level and other factors as his testing seems to be worse than his day-to-day performance although he has demonstrated significant impairment in taking medications at times. His memory is seemingly impaired however, insulin and judgment are more impaired. Heretofore he seems to be managing this community however I do have concerns and he has no close supports locally. He has been reluctant to allow me to speak to his brother.-Continue close observation and support to the degree possible-We will continue to see if it is okay to speak with his brother for any ancillary history.-The exact nature of his local informal supports is unclear-This may relate to small vessel disease but not definitive Related to Cognitive impairment History of right rot ator cuff tendinopathy which was surgically repaired. He does not endorse significant other arthritis currently.-Observation Related to Arthritis Denies current anxie ty symptoms. Uncertain if he is just not candid about it or is improved on current SSRI-Continue escitalopram 20 mg daily Related to Generalized anxiety disorder He denies any curren t depressive symptoms. He is on escitalopram 20 mg daily-Continue same-Would not taper at this juncture Related to MDD (major depressive disorder), recurrent, in partial remission Not currently a prom inent complaint. His PSA has risen from 1.4 to 2.1 from 2015 to last year..-Work on diabetes which may be the major cause of his frequency. Related to Urinary frequency Stage II chronic kid juan r disease with most recent EGFR being 82. That having been said has a fair amount of albuminuria. This is on the basis of diabetes and hypertension.-Hypertension is controlled, continue lisinopril, may increase if blood pressure allows-Diabetes is poorly controlled and has been for many years, strive to tighten control-Repeat microalbumin-Consider SGLT2-Low threshold to send him to nephrology although he tends to be reluctant to go see other physicians Related to Chronic kidney disease, stage 2 (mild) Hypertension has bee n well controlled on lisinopril alone.-Goal SBP as close to 120s possible and tolerated. Diastolic roughly 70.-Continue lisinopril, when next week and get a blood pressure may escalate this-Please see management of chronic kidney disease which is stage II under chronic kidney disease section Related to Hypertensive chronic kidney disease with stage 1 through stage 4 chronic kidney disease, or unspecified chronic kidney disease The left eye is repo rted as preproliferative.-Continue ophthalmology follow-up at close intervals-Please see Dm with CKD for DM management plan Related to Non-proliferative diabetic retinopathy, both eyes Bilateral glaucoma h owever as he is blind in the right eye this is less relevant as he does not have any pain or other symptoms. He is being treated with latanoprost in the left eye 1 drop every evening in addition to brimonidine 0.2% twice daily in the left . As aforementioned he follows with ophthalmology with regularity.-Continue same drops-Ophthalmology follow-up as soon as pandemic allows Related to Primary open angle glaucoma of both eyes, indeterminate stage Blind in right eye d ue to trauma. Sees ophthalmology regularly. 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 This is due to to reported trauma-No need to treat pressures in this eye-He sees ophthalmology (Dr. 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 Able to eat well. Related to Acquired absence of teeth Wall history of bayron min D deficiency. He remains on 1000 units a day. His last level was in the mid 20s which arguably is still a bit low. We will recheck and increase repletion if needed Related to Vitamin D deficiency September hemoglobin A 1c was 11.2. As aforementioned, this is slightly improved but obviously still well above goal which is under 8 and ideally even lower. His glucose readings do not correlate very well with the A1c. I am skeptical about his use of a CGM machine.-Continue Januvia 100 mg dailyContinue metformin thousand milligrams twice dailyContinue insulin Lantus 46 units twice dailyContinue Humalog 16 units before breakfast and dinner-Follow fingersticks and adjust-Repeat A1c Related to Type 2 diabetes mellitus with hyperglycemia, with long-term current use of insulin Roughly 40 year hist ory of diabetes, purportedly type II. He has historically been quite poorly controlled. He is generally quite labile. Furthermore, his comprehension of the medication regimen is suspect. The abdomen sent, even when his was alive and was quite helpful, his diabetes is very brittle. He is not inclined to go to endocrine. Most recent hemoglobin A1c was 11.2 which was actually improved but is obviously abysmal he has multiple complications including dermatitis, chronic kidney disease, ocular complications and neuropathy at least.CKD is stage II but with significant albuminuria please see management below-Repeat A1c and microalbumin-No change in insulin at the moment however may need to increaseContinue Januvia 100mg daily-Continue metformin 1000 mg twice dailyInsulin is as aforementionedLisinopril 20 mg daily for renal protectionCould consider SGLT2-Suspect adequate RF for ASA, Cardio in agreement Related to Type 2 diabetes mellitus with stage 2 chronic kidney disease, with long-term current use of insulin Patient with long-st anding history of sporadic macules predominantly to leg but also to chest. He often has picked at these and they have often bled. This has actually been quite a bit better of late. Saw dermatology who did not feel this needed any additional evaluation-Control diabetes, please see diabetes with chronic kidney disease-Observed skin findings and treat as needed Related to Type 2 diabetes mellitus with diabetic dermatitis, with long-term current use of insulin Insulin Lantus 46 un its twice daily. Humalog 16 units before breakfast and dinner. Related to cleaner signs (current) use of insulin Most recent lipids o ne year ago show LDL to be well controlled on simvastatin 20 mg. HDL is slightly low at 32 and triglycerides were in the 340s. I suspect the triglycerides reflect poor diabetic control.-Repeat lipids-Same simvastatin 20 mg/day for now Related to Mixed hyperlipidemia due to type 2 diabetes mellitus DM is well-controlle d diabetes is well-controlled by his report of fingersticks. He has no hypoglycemia.-Continue current insulin regimen-Await labs Related to Type 2 diabetes mellitus treated with insulin DM is well-controlle d diabetes is well-controlled by his report of fingersticks. He has no hypoglycemia.-Continue current insulin regimen-Await labs Related to cleaner signs (current) use of insulin see above Related to cleaner signs (current) use of insulin Will continue same d oage. All my previous caveats stand re: concern for mgmt in face of cognitive state Related to Diabetes mellitus treated with insulin Dm remains poorly co ntrolled, HTN reasonably controlled-Continue current antihypertensives-We will adjust insulin to resume Humalog at a very low dose. I suspect this is a poor choice however he is very intent on doing this and to be very candid adjustments in the long-acting insulin and addition of other oral agents have not been successful of late-He declines to go to endocrinology-Sees ophthalmology-Should see podiatry with regularity-On VIELKA inhibitor-Follow A1c, microalbumin Related to Type 2 diabetes mellitus with hyperglycemia OD blind due to inju ry, reportedly, has reg Ophtho f/u Related to Blindness, one eye, unspecified eye Likley due to glucos e diuresis. Prostatic hypertrophy could be a component as well.-Controlled diabetes-Not finding this to be terribly burdensome at the moment-We'll discuss PSA testing separately Related to Frequency of micturition Highly likely to be hepatic steatosis.-Follow periodically-May consider ultrasound eventually-May need to consider change in statin although derangement is fairly mild Related to Other specified symptoms and signs involving the digestive system and abdomen He does not currentl y endorse depression, is on SSRI. He is very difficult to gauge. Certainly was far more depressed after the of his .-We will continue SSRI for now.-Could consider tapering in the future Related to Major depressive disorder, recurrent, moderate Trial of gabapentin for the lower extremity pain as aforementioned Related to Other chronic pain Variable reports abo ut sensory function over time. He actually did well with monofilament with me however does clearly reports symptoms that seem almost certainly to be diabetic neuropathy. He has nocturnal pain which is nearly pathognomonic for this. It is bothersome to him-Trial gabapentin HS Related to Type 2 diabetes mellitus with diabetic polyneuropathy Longstanding poor Dm control-Ophtho f/u-Strve for Dm control Related to Type 2 diabetes mellitus with mild nonproliferative diabetic retinopathy without macular edema, unspecified eye Appears to be OA, hillman d GURJIT shaw and I think some of his debiity relates to RC-Supportive care, fully independent in ADLs Related to Arthropathy, unspecified Continue current med ications-Close follow-up with ophthalmology Related to Unspecified glaucoma On therapy Related to Vitam in D deficiency, unspecified Appears to have impa ired judgement/some impairement in executive function. MMSE abnormal. He is from a chance notion that he might have any degree of impairment. In the absence of any significant support system this puts him at significant risk.-Try to minimize vascular risk factors however given his long-standing diabetes this is challenging-At high risk of adverse drug events and on high risk medication such as insulin. I did not see an immediate solution to this. He will obviously not except significant help given his perception about self-efficacy Related to Other symptoms and signs involving cognitive functions and awareness Has dentures that ap pear to fit him reasonably well Related to Complete loss of teeth, unspecified cause, unspecified class On statin therapy, c onceivably could need to escalate dose however LFTs are ready abnormal. May need to rotate to a different agentReevaluate lipids once diabetes under better control Related to Hyperlipidemia, unspecified Dm remains poorly co ntrolled, HTN reasonably controlled-Continue current antihypertensives-We will adjust insulin to resume Humalog at a very low dose. I suspect this is a poor choice however he is very intent on doing this and to be very candid adjustments in the long-acting insulin and addition of other oral agents have not been successful of late-He declines to go to endocrinology-Sees ophthalmology-Should see podiatry with regularity-On VIELKA inhibitor-Follow A1c, microalbumin Related to Chronic kidney disease, stage 3 (moderate) Not complaining of a nxiety today. Is on SSRI for depression and this may be helpful for anxiety as well.-No medication change-Monitor Related to Generalized anxiety disorder Ppt has had a weight chris over thepast 6-8 months. Blood glucose, lipids are medically managed. Encouraged ppt to orestes Bangl[place]hi speaking diabetes group offered at [facility] with SW and Core Baker. Related to Obesity, unspecified Vitamin D deficiency . Takes Vitamin D-3 1000 international units daily. Labs today to monitor efficacy. Related to Vitamin D deficiency, unspecified Labs ordered today t o monitor. No ABdominal pain or fullness. No RUQ tenderness. Related to Other specified symptoms and signs involving the digestive system and abdomen Denies symptom burde n of BPH. No incontinence. Will continue to monitor. Related to Frequency of micturition MoCa perfromed today essentially unchanged. No concern for dementia at this time. AGe -related cognitive decline worse with anxiety. Related to Other symptoms and signs involving cognitive functions and awareness DM peripheral neurop athy gretaer onthe left than the right. No recent reports of falls. Therapy to evaluate and make recommendations for functional maintenance. Related to Other chronic pain Primarily left knee and leg. Does not want any medications. Therapy will evaluate fro possible interventions.strengthening. Related to Arthropathy, unspecified No recent reports of increase in depressive symptoms. Does have issues with anxiety-worries about finances. Reports that he is able to purchase food. Taking citalopram 40mg daily. No changes at this time. Related to Generalized anxiety disorder Has full dentures. S een by [facility]. No difficulty with chewing or swallowing reported. Will continue to monitor. Related to Complete loss of teeth, unspecified cause, unspecified class 07/2018 cholesterol levels were better. TGY down from 646 to 243. Samples are non-fasting. Total cholesterol was 132; LDL 64. COntinues on simvastatin labs ordered today to monitor. Related to Hyperlipidemia, unspecified No recent reports of increase in depressive symptoms. Does have issues with anxiety-worries about finances. Reports that he is able to purchase food. Taking citalopram 40mg daily. No changes at this time. GDS score was 2=no depression Related to Major depressive disorder, recurrent, moderate No chsnges reported by ppt. Has f/u appointmnt with Dr. Morales 02/28/2019 Related to Blindness, one eye, unspecified eye Continue with dialy brimonidine drops. Follow up with Dr. Morales 02/2019 Related to Unspecified glaucoma Describes left knee to foot numbness and tingling/burning. Therapy will do assessment of functinal sense and sensation deficit. Glucose needs to be under better control overall. Labs ordered today to monitor. Related to Type 2 diabetes mellitus with diabetic polyneuropathy Last HgbA1c was 10.2 % 10/2018. Last record of eye evaluation in the chart is from 2016. Has an appointmnet with Dr. Mayorga February 28, 2019. PCN working with ppt on blood glucose monitoring. Working with division supervisor and diabetes group Related to Type 2 diabetes mellitus with mild nonproliferative diabetic retinopathy without macular edema, unspecified eye Ppt continues on berta ly glipizide 10 mg; metformin 1000 mg BID; Lantus 40 units in the AM. Needs podiatry f/u Related to FDC (current) use of insulin Continue on lisinopr il 20 mg daily, simvastatin 20 mg daily, metformin, Lantus and glipizide. Labs ordered today to monitor. Related to Chronic kidney disease, stage 3 (moderate) Check ferritinfollow LFTs, may need to change statins if risingMay need to image if still rising Related to Unspecified disorder of liver -Will check testoste keesha level re: ED but also given sleep disturbance and other manifestations-Will get garo CASTELLANO do HELGA at future visit Related to Erectile dysfunction May try aricept addition Related to Restless legs syndrome (RLS) Repeat labsMay titrate aceI furt her Related to Chronic kidney disease, Stage II (mild) Same SSRI fro now Related to Dep ressive disorder, not elsewhere classified Optho f/u due in several months Related to Profound vision impairment, one eye, impairment level not further specified -Await MMSE-May get neuroimaging, thoiugh I suspect yield to be low Related to Cognitive impairment I favor increasing A m lantus to 40 units-Continue to try to get a sense of FSG via [id number] in UTDOptarpan UTDMicroalb present, is ON ACEBP control a bit better, notb postural but I do not want to overetreat Related to Diabetes mellitus with neurological manifestations, type II or unspecified type, not stated as uncontrolled -Check B12-May get n euroimaging-Will discuss HIV/RPR with him-Will be seeing Ophtho in several mo, will need to giveb careful cinsideration to ability to drive Related to Cognitive impairment -BP for next 4 SE da ys-If consistently high, will likley maximize ACEI Related to HTN -Sugegsted he try of f the single Sinemet tab he is staking daily, I am concerned re: potenatil neuropsyc effects-While it did not work in past, suggested mealtonin. It may help with sleep cycle dysregulation and has among the better evidence in REM SD rx.- said she would procure this-Trial of aricept may be indicated, some case reports of it being helpful with lseep d/o and he seems to be developing cog impairement Related to Restless legs syndrome (RLS) -Hep b/c serology-[place] onitor LFTs-May need US if rise continues-May need alternate statin trial Related to Unspecified disorder of liver -Will resume the gly buride as he was raking before (I think addidn insulin is more logical however he is fairly wedded to the sulfonure)-Insulin dosing adjusted in med list to reflect waht he is taking-Asked to check FSG BID at home however, given his irreg sleep and eating schedule, hard to know what it will reflect-Aim for a1c Q3mo Related to Diabetes mellitus with neurological manifestations, type II or unspecified type, not stated as uncontrolled -Will obtain EKG at next visit-Monitor lipids-Continue ASA Related to Chest pain -Asked to stop glybu ride (on fair dose insulin, likely little utility)-Asked to consistently check FSG twice daily-A1cf/u 2 weeks Related to Diabetes mellitus with ophthalmic manifestations, type II or unspecified type, not stated as uncontrolled Review logs. Adjust insulin if possible. Cont with education. Pt agreeing to small steps and will need to follow his goals as long as educated on risks. Related to Diabetes mellitus with neurological manifestations, type II or unspecified type, not stated as uncontrolled checking ALT today Related to Un specified disorder of liver Educate re not picki ng at skin and risk of infection especially with DM. Monitor. Related to Unspecified hypertrophic and atrophic conditions of skin Refer to Optho. Pt karin Morales as someone he would like to see. Related to Nonproliferative diabetic retinopathy NOS Vit D level to be dr garcia (ordered previously). Related to Unspecified vitamin deficiency Referred to Podiatry Related to Diabetes mellitus with neurological manifestations, type II or unspecified type, not stated as uncontrolled on VIELKA. Related to Chron ic kidney disease, Stage II (mild) PHQ9 ordered. Related to Depre ssive disorder, not elsewhere classified PVR's ordered. Prost ate exam by Dr Bruce 08/08. Related to Urinary frequency Refer to Optho Related to Profo und vision impairment, one eye, impairment level not further specified Assessments Type Assessment Date No Information Goals Health Concern Goal Type Priority Status Date Denis is at risk for alteration in mood related to depression and anxiety. Sharlenes mood will remain stable as evidenced of self report and staff observation through the next review period in July 2021. Patient Goal Continued 6 Denis is at risk for functional decline related to poorly controlled diabetes, depression, glaucoma, bursitis, chronic knee pain and resistive to going to specialty appointments. Denis will remain living in the community with support from [facility] through next review in July 2021. Patient Goal Continued 6 Denis is at risk for complications related to diabetes. Denis will not experience any medical complications or hospitalizations, related to diabetes and A1C will be reduced or remain stable, as determined by the provider, through next review in July 2021. Patient Goal Complete 8 Denis is at risk for falls related to tremors, history of lower extremity weakness, hx of falls, and decreased vision Denis will not experience any fall related injuries through next review in July 2021. Patient Goal Entered in error 6 Denis has impaired visual acuity due to glaucoma in left eye and right eye blindness. Denis's vision will not worsen through the next review in July 2021. Patient Goal Complete 6
--- NOTE | ~2025-08-05 | CT_ITS ---
CLINICAL HISTORY: trauma, fall head injury CT head without contrast Comparison: None provided Findings: No intra-axial mass, midline shift, hydrocephalus, or acute hemorrhage. Moderate atrophy-like change or white matter disease. There is no sinus or mastoid fluid. The orbits are within normal limits. There is no acute fracture. IMPRESSION: 1. No acute intracranial findings specifically, no acute intracranial hemorrhage. 2.Moderate atrophy-like change or white matter disease. This document has been electronically signed by: Jing Vinson MD on 08/05/2025 22:58:19
[2025-08-05 17:04] VITALS: BP 138/74; BP 146/78; PULSE 72; PULSE 74; RESP 18; TEMP 36.4; O2SAT 97; O2SAT 99; BMI 27.4
--- OUTSIDE RECORDS SUMMARY | 2025-08-05 17:33 | XMS_ITS ---
Author Organization [facility] Care Team Providers Care Food Dehydrator Operator Name Role Phone Jany Maurilio Unavailable Unavailable Allergies and adverse reactions No Known Allergies Care Team Name Role Address Phone Organization Dates Maurilio Carmichael PCP [address] [place], [place], [address], [place] (Office): : [facility] 07/12/2021 - 07/27/2021 Mental Status Section Date Assessment Total Score Description 07/27/2021 BIMS 15 cognitively int act CAM 0 No delirium ind icated PHQ-9 01 minimal depress ion 07/19/2021 BIMS 07 severe cognitiv e impairment CAM 0 No delirium ind icated PHQ-9 08 mild depression Insurance Providers Problems Problem # Description Date of onset Resolved Date Code CodeSystem Concern Status 1 ACUTE KIDNEY FAILURE, UNSPECIFIED 07/12/[address] active 2 BLINDNESS RIGHT EYE CATEGORY 5, BLINDNESS LEFT EYE CATEGORY 4 07/12/[address] active 3 CHRONIC KIDNEY DISEASE, UNSPECIFIED 07/12/[address] active 4 OTHER LACK OF COORDINATION 07/12/[address] active 5 TYPE 2 DIABETES MELLITUS WITH HYPEROSMOLARITY WITHOUT NONKETOTIC HYPERGLYCEMIC-HYPERO SMOLAR COMA ([facility]) 07/12/[address] active 6 UNSTEADINESS ON FEET 07/12/[address] active 7 DEMENTIA IN OTHER DISEASES CLASSIFIED ELSEWHERE, UNSPECIFIED SEVERITY, WITHOUT BEHAVIORAL DISTURBANCE, PSYCHOTIC DISTURBANCE, MOOD DISTURBANCE, AND ANXIETY 03/06/[address] active 8 ESSENTIAL (PRIMARY) HYPERTENSION 03/06/[address] active 9 HYPERLIPIDEMIA, UNSPECIFIED 03/06/[address] active 10 HYPO-OSMOLALITY AND HYPONATREMIA 03/06/[address] active 11 TYPE 2 DIABETES MELLITUS WITH KETOACIDOSIS WITHOUT COMA 03/06/[address] active 12 UNSPECIFIED ABNORMALITIES OF GAIT AND MOBILITY 03/05/[address] active Reason for Referral No Reasons for Referral Entered Social History Social History Observation Description Start Date End Date Code Code System Current Smoking Status Tobacco smoking consumption unknown 236852061 SNOMED CT Sex Assigned At Male 1955 [address]602-7 [facility] Gender Identity Sexual Orientation Vital Signs Code Code System Vitals Name Values and Units Timing Information 68565-9 [facility] Pain Level Value=0.0 07/28/2021 2339-0 LOINC Blood Sugar Dhkku=911.0 Units=mg/dL 07/27/2021 9279-1 [facility] Respiratory Rate Value=18.0 Units=/m in 07/21/2021 8462-4 LOINC Blood Pressure-Diastolic Value=83 Un its=mmHg 07/21/2021 8480-6 LOINC Blood Pressure-Systolic Nvsgc=004 Un its=mmHg 07/21/2021 8310-5 [facility] Body Temperature Value=97.2 Units= F 07/21/2021 8867-4 LOINC Heart rate Value=82.0 Units=/min 26786-5 LOINC O2 % BldC Oximetry Value=98.0 Units= % 07/21/2021 25929-7 LOINC Weight Zoqts=557.0 Units=Lbs 8302-2 LOINC Height Value=64.0 Units=Inches 03/12/2021
--- OUTSIDE RECORDS SUMMARY | 2025-08-05 17:33 | XMS_ITS | Data Portability ---
Author Organization [facility], Main Office Address [address] [facility] [address] [place] [address] Care Team Providers Care Head Teacher Name Role Phone [facility] OTHER Assessment No assessment recorded. Plan of Treatment Reminders Order Date Submit Date Provider Last Modified By Organization Details Last Modified Time Details Appointments None record ed. Lab None record ed. Referral None record ed. Procedures None record ed. Surgeries None record ed. Imaging None record ed. Medication Orders None record ed. Patient TargetsNo targets recorded. Patient InstructionsNo instructions recorded. Reason for Referral None Reported. Problems Name Problem SNOMED Code Status Onset Date Resolution Date Notes Provider Name and Address Organization Details Recorded Time Hyperosmolar non-ketotic state due to diabetes mellitus 697756995 Active 2020 Kathleen Petrangel o null, [facility] 11:48:31 Fall Active 2020 Kathleen Petrangel o null, [facility] 11:48:38 Type 2 diabetes mellitus 72492182 Active 2020 Kathleen Petrangel o null, [facility] 11:48:48 Dementia 66646075 Active 2020 Kathleen Petrangel o null, [facility] 11:49:04 Chronic kidney disease 542816937 Active 2020 Kathleen Petrangel o [facility], [facility] 11:49:17 Hyponatremia 51659376 Active 2020 Kathleen Petrangel o null, [facility] 12:04:15 Glaucoma 48251024 Active 2020 Kathleen Petrangel o null, [facility] 12:12:06 Hypertensive disorder 43405338 Active 2020 Kathleen Petrangel o null, [facility] 12:13:48 Mixed anxiety and depressive disorder 241534638 Active 2020 Kathleen Petrangel o null, [facility] 12:15:19 Hyperlipidemia 45192274 Active 2020 Kathleen Petrangel o null, [facility] 12:15:49 Insomnia 378985756 Active 2020 Kathleen Petrangel o null, [facility] 12:16:39 Seasonal allergic rhinitis 332991067 Active 2020 Kathleen Petrangel o null, [facility] 12:17:35 Problem Notes None recorded. Medical Equipment None Reported. Allergies No known drug allergies Vitals Date Recorded Respiratory rate Body temperature Heart rate Oxygen saturation Oxygen saturation in Arterial blood by Pulse oximetry Systolic And Diastolic Provider Name and Address Organization Details Last Updated DateTime 18 /min 97.3 [degF] 87 /min 96 % 96 % 155/88 mm[Hg] Kathleen Vegaangel [facility] 09:21:19 Date Recorded Body temperature Heart rate Oxygen saturation Oxygen saturation in Arterial blood by Pulse oximetry Systolic And Diastolic Provider Name and Address Organization Details Last Updated DateTime 97.3 [degF] 87 /min 96 % 96 % 155/85 mm[Hg] Brenda Gregory MD [address] [place] [address], [address], [place], [address], [facility] 05:30:15 Date Recorded Respiratory rate Body temperature Heart rate Oxygen saturation Oxygen saturation in Arterial blood by Pulse oximetry Systolic And Diastolic Provider Name and Address Organization Details Last Updated DateTime 18 /min 97.3 [degF] 87 /min 96 % 96 % 155/88 mm[Hg] Kathleen Petrangel o [facility] 19:52:00 Date Recorded Respiratory rate Body temperature Heart rate Oxygen saturation Oxygen saturation in Arterial blood by Pulse oximetry Systolic And Diastolic Provider Name and Address Organization Details Last Updated DateTime 1 18 /min 97.2 [degF] 82 /min 98 % 98 % 158/83 mm[Hg] Kathleen Guillermina mendoza [facility] 14:37:44 Date Recorded Respiratory rate Body temperature Heart rate Oxygen saturation Oxygen saturation in Arterial blood by Pulse oximetry Systolic And Diastolic Provider Name and Address Organization Details Last Updated DateTime 1 18 /min 97.2 [degF] 82 /min 98 % 98 % 158/83 mm[Hg] Kathleen Guillermina [facility] 08:41:37 Social History Question Answer Notes LastModified by Organizat ion Details LastModified Time Tobacco Smoking Status Never Smoker Kathleen Crum [facility] 07/14/2021 11:51:12 Do You Have A Medical Power Of Display Coordinator? Yes Neris Vance Information not available 07/14/2021 Has Tobacco Cessation Counseling Been Provided? No Information not available 07/14/2021 Sex: Unknown Functional Status Question Answer Note LastModified by Organization D etails LastModified Time Do you or have you ever used any other forms of tobacco or nicotine? No Information not available 07/14/2021 What is your level of alcohol consumption? None Information not available 07/14/2021 Mental Status None recorded. Family History Nothing Reported Notes:n/c Medical History No medical history recorded. Past Encounters Encounter ID Performer Location Encounter Start Date Encounter Closed Date Diagnosis/Indication Diagnosis SNOMED-CT Code Diagnosis ICD10 Code Diagnosis IMO Codes Diagnosis Note [id number] [facility] [address] [address] 07/14/2021 09:20:34 07/16/2021 12:57:31 Hyperosmolar non-ketotic state due to diabetes mellitus 205074267 E11.00 Pt presented to ER with BS over 600; reports not taking insulin for 5 days - with increased thirst and urinary frequency also with dizziness and sallie insulin gtt in hospitalmo nitor blood sugarsprov gamal education on importance of taking medsPT/OT eval and tx Fall W19.XXXA dizziness caused fall ? d/t HHS; no LOC, no apparent injurysafe ty precaution sPT/OT eval and tx Type 2 shavon betes mellitus 86676670 E11.9 known noncomplia nce with meds at timeslispr ol sliding scalelantu s 46 units bidmetform in 1000mg bidjanuvia 100mg dailymonit or blood sugars TID AC and QHSmonitor for s/s of hyper/hypo glycemia Dementia 89823312 F03.90 supportive care - expect declinemon itor mood and behavior - pleasant todaypsych prn Chronic ki dney disease 994564513 N18.9 baseline cr 1.1 - today 1.18avoid nephrotoxi c meds as ablemonito r labs prn Hyponatremia 87674880 E8 7.1 Na+ 131 then 135 in hospital - today 134bmp mondaytren d bmps Glaucoma 96393442 H40.9 brimonodin e 1gtt both eyes bidlatanop john 1gtt left eye qhsoxyflox acin 1gtt left eye QIDmonitor for s/s Hypertensive disorder 38 334109 I10 lisinopril 40mg dailyamlod ipine 5mg dailymonit or bpsmonitor labs prn Mixed anxi ety and depressive disorder 389624343 F41.8 escitalopr am 20mg dailymonit or mood and behaviorps h prn Hyperlipidemia 23498567 E78.5 atorvastat in 20mg qhsASA 81mg dailymonit or labs prn Insomnia 963502776 G47.0 0 melatonin 3mg qhsgabapen tin 300mg qhsmonitor sleep pattern Seasonal a llergic rhinitis 309164646 J30.2 claritin 10mg dailymonit or for s/s [id number] Brenda Gregory MD [address] [place] [address] 07/16/2021 05:28:29 07/19/2021 11:41:29 Dementia 78773011 F02.80 will monitor and support as he adjusts to facilityPa quang has not been able to manage at home with outpatient supports. May need to transition to LTC. Hyperlipidemia 39260620 E78.49 atorvastat in 20 mg dailywill monitor Hypertensive disorder 38 952337 I10 lisinopril 40 mg dailyamlod ipine 5 mg dailywill monitor Mixed anxi ety and depressive disorder 346380595 F41.8 escitalopr am 20 mg dailywill monitor Type 2 shavon betes mellitus 13600274 E11.65 Humalog 20U bidLantus 46U dailymetfo rmin 1000 mg bidASA 81 mg dailyJanuv ia 100 mg dailygabap entin 300 mg at hs for neuropathy will monitor Asthenia 71632116 R53.1 PT/OTwill monitor and support as needed [id number] KATHLEEN CRUM [address] [place] [address] 07/19/2021 15:40:35 07/21/2021 11:13:26 Dementia 02797673 F02.80 supportive careexpect declinepsy ch prn? LTC as pt has had a hard time maintainin g outptmonit or mood and behavior Hyperlipidemia 45099521 E78.49 atorvastat in 20 mg dailymonit or labs prn Hypertensive disorder 38 349671 I10 lisinopril 40 mg dailyamlod ipine 5 mg dailymonit or bps and need to adjust medsmonito r labs prn Mixed anxi ety and depressive disorder 294504377 F41.8 escitalopr am 20 mg dailymonit or mood and behaviorps [facility] prn Type 2 shavon betes mellitus 80086525 E11.65 Humalog 20U bidLantus 46U dailymetfo rmin 1000 mg bidASA 81 mg dailyJanuv ia 100 mg dailygabap entin 300 mg at hs for neuropathy monitor for s/s of hyper/hypo glycemiabl ood sugars QID AC - BS labile Asthenia 91445128 R53.1 PT/OT eval and txsafety precaution s [id number] KATHLEEN CRUM [address] [place] [address] 07/22/2021 08:56:19 08/02/2021 11:59:59 Dementia 58794400 F02.80 supportive care outptexpec t declinepsy ch prn outptmonit or mood and behavior outpt Hyperlipidemia 93232190 E78.49 atorvastat in 20 mg dailymonit or labs prn outpt Hypertensive disorder 38 058622 I10 lisinopril 40 mg dailyamlod ipine 5 mg dailymonit or bps and need to adjust meds outptmonit or labs prn outpt Mixed anxi ety and depressive disorder 477300343 F41.8 escitalopr am 20 mg dailymonit or mood and behavior outptpsych prn outpt Type 2 shavon betes mellitus 68324881 E11.65 Humalog 20U bidLantus 46U bidmetform in 1000 mg bidASA 81 mg dailyJanuv ia 100 mg dailygabap entin 300 mg at hs for neuropathy monitor for s/s of hyper/hypo glycemia outptblood sugars QID AC - BS labile - f/u with PCP to determine POC Asthenia 88321425 R53.1 [facility] Chronic ki dney disease 529952672 N18.9 baseline cr 1.1 - today 1.18 - bun/cr creeping up; ? if pt refused labs today - no results found; recommend f/u with PCP and nephrology to trend labsavoid nephrotoxi c meds as ablemonito r labs prn outpt [id number] KOLTON EWING [address] [place] [address] 07/26/2021 13:34:51 07/28/2021 09:05:11 Dementia 38483668 F02.80 supportive care outptexpec t declinepsy ch prn outptmonit or mood and behavior outpt Hyperlipidemia 14999957 E78.49 atorvastat in 20 mg dailymonit or labs prn outpt Hypertensive disorder 38 549830 I10 lisinopril 40 mg dailyamlod ipine 5 mg dailymonit or bps and need to adjust meds outptmonit or labs prn outpt Mixed anxi ety and depressive disorder 730540426 F41.8 escitalopr am 20 mg dailymonit or mood and behavior outptpsych prn outpt Type 2 shavon betes mellitus 03714803 E11.65 Humalog 20U bidLantus 46U bidmetform in 1000 mg bidASA 81 mg dailyJanuv ia 100 mg dailygabap entin 300 mg at hs for neuropathy monitor for s/s of hyper/hypo glycemia outptblood sugars QID AC - BS labile - f/u with PCP to determine POCrecomme nd f/u with endocrinol ogist as well Asthenia 75488565 R53.1 PT/OT outpt - progressed [facility] at [facility] precaution s outpt Chronic ki dney disease 644428178 N18.9 baseline cr 1.1 - today 1.18 - bun/cr creeping up; ? if pt refused last lab draw; no results foundrecom mend f/u with PCP and nephrology to trend labsavoid nephrotoxi c meds as ablemonito r labs prn outpt Health Concerns Section Related Observation LastModified by Organization Detai ls LastModified Time None Recorded Concern Status LastModified by Organization Details LastModified Time None Recorded Advance Directives Directive None Recorded Payers Insurance Date Sequence Insurance Name Policy Number Policy Tate Covered Member ID Tate Member ID Guarantor Name 07/26/2021 1 [facility] PRIOR TO 12/24/2022 - DUAL ELIGIBLE (MEDICARE REPLACEMENT/AD VANTAGE - HMO) Ludwin Arevalo [id number] Ludwin Arevalo 07/14/2021 1 [facility] (MEDICARE REPLACEMENT HMO) Ludwin Arevalo [id number] Ludwin Arevalo 07/14/2021 1 [place] [facility] Ludwin Arevalo [id number] Ludwin Arevalo Notes Date Note Type Note Provider Name and Address Organization Details Recorded Time 07/14/2021 text/html Pt is being seen for a telemed initial intake today. Pt was recently admitted to [facility] for HHS. He has hx of being non complaint with meds. Of note, he was seen at [facility] in Oct and February with DKA and in april for hypoglycemia. Per paperwork pt was seen for dizziness and s/p fall. He reported not taking his insulin for 5 days because his HOUSE CARPENTER did not show up. He reported increased thirst urinary frequency. While there he was given 4L IV fluids and started on insulin gtt and sent to ICU. Labs revealed hyponatremia at 131, K+ 5.6. Pt stablized with labs back to baseline and he was sent to [facility] for continued care and rehab. Today he is sitting up in his wheelchair. He is A&Ox3 but forgetful at times. He reports that he is blind in his right eye. His left eye is injected and he reports that his eye Dr. told him he needed surgery because he has a slow bleed behind his eye. He denies any CP, SOB, GI upset. He continues to c/o some dizziness but it waxes and wanes. He states it does not interfere with his ability to ambulate at this time. Nsg offers no concerns. PMH: DMII, CKD (baseline creat 1.1), dementia, DKA, HHS, hyponatremia, glaucoma, HTN, anxiety/depression, HLD, insomnia Kathleen alcocer [facility] 07/14/2021 12:19:54 07/16/2021 text/html ROS as noted in the HPI This 66 year old man was admitted to [facility] on 07/12/21 for rehab and continued care. Medical history is remarkable for DM, CKD, cognitive impairment, complete blindness right eye, legally blind left eye Patient presented to ER at [facility] on 07/11/21 complaining of dizziness which led to a fall. He fell onto outstretched hands and did not hit his head on the ground. He denied LOC. Patient stated he had been without insulin for 5 days because nurse that gives him his insulin did not show up. He had increased thirst and increased urinary frequency. In ER his vital signs were remarkable only for elevated BP. He was afebrile, pulse 96, BP194/93, RR 20, O2 sat 96% on RA. He was in NAD; physical examination was unremarkable. CBC remarkable only for high hemoglobin. Sodium was 131, potassium 5.6, bicarb 22, cr/BUN 2.0/34, random glucose 782. Patient was given 4L of NS and started on an insulin drip. Within 3 hours sodium was up to 135, cr/BUN 1.7/32, potassium down to 4.7, bicarb 22, glucose 620. Of note patient has had several other [facility] admissions over the last year. He was admitted in October and in February 2021 with DKA. He had an ER visit for hypoglycemia in April 2021. Patient lives alone in elderly housing. No signed MOLST seen in [facility] chart today. Brenda Gregory MD [address], [address], [place], [address], [place] [employer] 07/16/2021 10:25:36 07/19/2021 text/html ROS as noted in the HPI Pt being seen for a telemed acute rounding visit today, Pt is found sleeping in bed. He is easily arousable. He offers no complaints. Followed up with nsg and no concerns from their standpoint. Pt denies any CP, SOB, GI upset. Blood sugars noted to be labile. VSS. Kathleen alcocer [facility] [employer] [facility] 07/19/2021 20:00:33 07/22/2021 text/html Pt being seen for a telemed acute rounding visit today. He is anticipated to go home tomorrow. He was originally admitted to [facility] for HHS. He has hx of being non complaint with meds. Of note, he was seen at [facility] in Oct and February with DKA and in april for hypoglycemia. Per paperwork pt was seen for dizziness and s/p fall. He reported not taking his insulin for 5 days because his HOUSE CARPENTER did not show up. He reported increased thirst urinary frequency. While there he was given 4L IV fluids and started on insulin gtt and sent to ICU. Labs revealed hyponatremia at 131, K+ 5.6. He is found sleeping soundly in his bed. He is NAD. Spoke with nsg who reports no issues or concerns that prohibit his from discharging. His stay at [facility] has been uneventful. His bun/cr have been creeping up. He has known hx of CKD. ? if pt refused labs today as no results found. Recommend f/u with nephrology and PCP to trend labs. Ok to d/c home with meds and services. PMH: DMII, CKD (baseline creat 1.1), dementia, DKA, HHS, hyponatremia, glaucoma, HTN, anxiety/depression, HLD, insomnia Addendum: pt was anticipated to go home but dtr called upon discharge stating she did not have the means to care for him at this time. ? new discharge date. Kathleen alcocer [employer] 08/02/2021 10:15:25 07/26/2021 text/html Pt is being seen for a telemed discharge today. He is anticipated to be discharged tomorrow. Pt was originally seen at [facility] for HHS. He had multiple admission for DKA and hypoglycemia. Of note, he is known to be non complaint with his medication regimen. He was also evaluated for fall d/t dizziness. He reported not taking his insulin for 5 days because his HOUSE CARPENTER did not show up. In the hospital he was given 4L IV fluids and started on insulin gtt. He was found to be hyponatremic at 131, K+ of 5.6. Labs were corrected and he was sent to [facility] for continued care and rehab. His stay at [facility] has been uneventful. He was supposed to be discharged last week but was unable to d/t his dtr not being able to care for him; apparently she had to work. Pt has been compliant with med regimen while here. Blood sugars have been labile but suspecting this is his baseline. Recommend f/u with his [facility] former upon d/c as well as PCP. Today he is found lying in his bed with his sunglasses on. He tesha any CP, SOB, GI upset, or dizziness. He feels ready to go home. He states he has help at home. He worked with PT and did well. Ok to d/c home with meds and services. PMH: DMII, CKD (baseline creat 1.1), dementia, DKA, HHS, hyponatremia, glaucoma, HTN, anxiety/depression, HLD, insomnia Kathleen [facility]ocer [place] [facility] 07/27/2021 08:52:20
--- OUTSIDE RECORDS SUMMARY | 2025-08-05 17:33 | XMS_ITS | Clinical Summary ---
Author Organization [facility] Address [address] [place] [address] Care Team Providers Care Lay Ups Assembler Name Role Phone Nacny Meza MD Primary Care Provider [phone] Social History Tobacco Use Types Packs/Day Years Used Date Smoking Tobacco: Never Assessed Sex and Gender Information Value Date Recorded Sex Assigned at Not on file Legal Sex Male 9:18 AM EST Gender Identity Not on file Sexual Orientation Not on file Last Filed Vital Signs Vital Sign Reading Time Taken Comments Blood Pressure - - Pulse - - Temperature - - Respiratory Rate - - Oxygen Saturation - - Inhaled Oxygen Concentration - - Weight 85.8 kg (189 lb 3.2 oz) 01/25/2016 3:36 P M EDT Height 167.6 cm (5' 6 ) 01/25/2016 3:36 PM EDT Body Mass Index 30.54 01/25/2016 3:36 PM EDT Plan of Treatment Health Maintenance Due Date Last Done Comments Hepatitis C Screening 1955 DTaP/Tdap/Td (1 - Tdap) 1972 Pneumococcal 50+ years (1 of 1 - PCV) 2004 Zoster (Shingrix) (1 of 2) 2004 COVID-19 Vaccine ( - 2024-2 6 season) 2025 Influenza (#1) 2025 RSV (1 - 1-dose 75+ series) 2029 Abdominal Aorta Imaging Discontinued HPV Vaccine (No Doses Required) Completed Hep A Aged Out No longer eligi ble based on patient's age to complete this topic Hep B Aged Out No longer eligi ble based on patient's age to complete this topic Hib Aged Out No longer eligi ble based on patient's age to complete this topic Meningococcal ACWY Aged Out No longer eligible based on patient's age to complete this topic Zoster (Zostavax) Discontinued Insurance [facility] [employer] Care Teams Lay Ups Assembler Relationship Specialty Start Date End Date Nancy Meza MD [address] [facility] [place] [address] PCP - General Internal Medicine 07/26/14
[2025-08-05 20:00] VITALS: BP 138/74; PULSE 74; RESP 18; TEMP 36.4; O2SAT 97
--- NOTE | 2025-08-05 21:00 | ED.GENADULT ---
HPI - General Adult General Chief complaint: Fall Stated complaint: Fall h/s, BGL 321, BP 146/78, GCS 15 Time Seen by Provider: 08/05/25 21:00 History of Present Illness ED Provider: Selene SANTIAGO narrative: The patient is a 70-year-old male who says that he was outside of his house when he slipped and fell. He says that he tripped on his slippers. He landed on his face. Bystanders called 911. There was no loss of consciousness. The patient says that he is legally blind. He is not on blood thinners. He landed primarily on his outstretched hands in his face. He seemed to have some swelling to his lower lip. He does not have any neck pain or pain with moving his neck. Related Data Home Medications ?Medication ?Instructions ?Recorded ?Confirmed aspirin 81 mg tablet,delayed 81 mg PO DAILY 11/03/20 02/08/22 release atorvastatin 20 mg tablet 20 mg PO BEDTIME 11/03/20 02/08/22 brimonidine 0.2 % eye drops 1 drp ophthalmic (eye) BID 11/03/20 02/08/22 cholecalciferol (vitamin D3) 50 50 mcg PO DAILY 11/03/20 02/08/22 mcg (2,000 unit) capsule (Vitamin D3) escitalopram oxalate 20 mg tablet 20 mg PO DAILY 11/03/20 02/08/22 latanoprost 0.005 % eye drops 1 drp ophthalmic-Left QPM 11/03/20 02/08/22 loratadine 10 mg tablet 10 mg PO DAILY 11/03/20 02/08/22 melatonin 3 mg tablet 6 mg PO BEDTIME 11/03/20 02/08/22 lisinopril 40 mg tablet 40 mg PO DAILY 03/01/21 02/08/22 insulin glargine 100 unit/mL (3 46 unit subcut BID 07/11/21 02/08/22 mL) subcutaneous pen (Lantus Solostar U-100 Insulin) insulin aspart U-100 100 unit/mL 20 unit subcut BID 10/31/21 02/08/22 (3 mL) subcutaneous pen (Novolog FlexPen U-100 Insulin aspart) docusate sodium 100 mg capsule 1 cap PO DAILY 02/08/22 02/08/22 gabapentin 300 mg capsule 1 cap PO DAILY 02/08/22 02/08/22 metformin 1,000 mg tablet 1 tab PO BID 02/08/22 02/08/22 ofloxacin 0.3 % eye drops 1 drp QID 02/08/22 02/08/22 prednisolone acetate 1 % eye 1 drp ophthalmic-Left QID 02/08/22 02/08/22 drops,suspension sennosides 8.6 mg tablet (senna) 2 tab PO BEDTIME 02/08/22 02/08/22 Previous Rx's ?Medication ?Instructions ?Recorded sitagliptin phosphate 100 mg 100 mg PO DAILY #30 tabs 11/06/20 tablet (Januvia) amlodipine 5 mg tablet 5 mg PO DAILY #30 tabs 07/12/21 blood sugar diagnostic (FreeStyle #50 ea 08/14/21 Lite Strips) acetaminophen 500 mg capsule 1,000 mg (2 x 500 mg) PO Q8H PRN 08/05/25 fever or pain #14 caps Allergies Allergy/AdvReac Type Severity Reaction Status Date / Time No Known Allergies Allergy Verified 08/05/25 17:09 Review of Systems Review of Systems: Yes all other systems are reviewed and are negative [facility] Past Medical History Medical History Dementia Essential hypertension Type 2 diabetes mellitus Social History Social History Household Members: None Household Members Other:: lives alone per stepdaughter Housing: Apartment Housing Other:: elderly apartments Do you presently have visiting nurse or other home services: Yes Alcohol intake: never 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 Patient Tobacco Use Status: Never used Tobacco Advance Directives Date on File: 10/28/20 service: No Current occupational status: disabled Physical Exam ED Vital Signs: Vital Signs - 24 hr 08/05/25 17:04 08/05/25 20:00 08/05/25 20:00 Temperature 97.6 F 97.6 F 97.6 F Pulse Rate 74 74 74 Respiratory Rate 18 18 18 Blood Pressure 138/74 138/74 138/74 Pulse Oximetry 97 97 97 Oxygen Delivery Method Room Air 08/05/25 21:36 Temperature 98.5 F Pulse Rate 74 Respiratory Rate 16 Blood Pressure 139/81 Pulse Oximetry 95 Oxygen Delivery Method Room Air BMI result Body Mass Index 27.4 Const Other: the patient is a somewhat frail looking elderly man who was lying on the hospital stretcher in a cervical collar. He had abrasions to the face and some swell of swelling. He was awake and alert and did not seem in acute distress otherwise however. HENMT Other: The patient has abrasions to the nose and the skin around the nose and the lips. He has swelling of the right upper lip. There is no intraoral laceration. There is no external skin full-thickness laceration. There are no apparent dental injuries. The patient has good jaw excursion. No trismus. No marked soft tissue swelling of the face aside from his right upper lip. Eyes Other: Pupils are round equal, conjunctivae are clear, extraocular movements intact. No periocular trauma. Neck Other: No posterior midline C-spine tenderness. No pain with range of motion of the neck. The patient seems to have a normal level of alertness and a normal mental status. I felt the C-spine was clinically clear. Chest Other: No chest wall tenderness Resp Effort & Inspection: normal respiratory effort Auscultation: clear to auscultation bilaterally Cardio Rate: regular rate Rhythm: regular rhythm Heart sounds: S1 normal heart sound present and S2 normal heart sound present GI Other: Abdomen is soft and nontender Back/Spine/Pelvis Other: no midline vertebral tenderness in the back Skin Other: the patient has some facial abrasions and a swollen right upper lip. He has some minor abrasions to the palms of the hands. Neuro Other: The patient seems somewhat old and frail but is awake and alert with a normal mental status. Cranial nerves 2-12 are intact. He moves his extremities symmetrically and appropriately. No obvious focal neurological deficit. Extrem Other: No deformities to the extremities. He is moving all the joints of his extremities easily and well. Some minor abrasions to the hands but no full-thickness injuries or soft tissue swelling. Medications Administered Discontinued Medications Generic Name Dose Route Start Last Admin Trade Name Freq PRN Reason Stop Dose Admin Acetaminophen 975 mg 08/05/25 23:36 08/05/25 23:50 Acetaminophen 325 Mg Tablet PO 08/05/25 23:37 975 mg ONCE ONE Administration Bacitracin 1 appl 08/05/25 23:32 08/05/25 23:50 Bacitracin Oint 0.9 Gm Packet TOPICAL 08/05/25 23:33 1 appl ONCE ONE Administration Protocol Medical Decision Making Medical Decision Making [facility] Narrative: The patient is a 70-year-old male who was not on anticoagulation who sustained what sounds like a mechanical fall when he tripped on his slippers. He landed falling on his face. He has facial abrasions and lip swelling but no findings to make me think that he has underlying facial fractures. His C-spine is clinically clear. He lives alone. A head CT is negative. His wounds were cleaned and dressed with bacitracin. Labs are unremarkable. EKG unremarkable. The patient feels well enough to go home and he was eager to go home. He should return if worse and otherwise follow up with his regular doctor. Lab Data 08/05/25 22:35 08/05/25 22:35 Labs: Lab Results 08/05/25 Range/Units 22:35 WBC 12.1 H (4.8-10.8) X10*3/uL RBC 5.27 (4.60-5.80) X10*6/uL Hgb 16.0 (14.0-18.0) g/dl Hct 47.7 (42.0-52.0) % MCV 90.5 (80.0-98.0) fL MCH 30.4 (27.0-33.0) pg MCHC 33.5 (31.0-36.0) g/dl RDW 12.2 (11.0-16.0) % Plt Count 220 (160-400) X10*3/uL MPV 10.6 (9.4-12.4) fL Immature Gran % (Auto) 0.5 H (0.0-0.4) % Neut % (Auto) 66.3 (45-73) % Lymph % (Auto) 21.5 (20-40) % Mccormick % (Auto) 8.5 (2-11) % Eos % (Auto) 2.7 (0-4) % Baso % (Auto) 0.5 (0-2) % Lymph # (Auto) 2.6 (1.2-4.9) X10*3/uL Mccormick # (Auto) 1.0 (0.1-1.2) X10*3/uL Eos # (Auto) 0.3 (0.0-0.4) X10*3/uL Baso # (Auto) 0.1 (0.0-0.2) X10*3/uL Abs Immat Gran (auto) 0.06 H (0.00-0.03) X10*3/uL Absolute Neuts (auto) 8.0 (2.0-8.3) x10*3/uL Absolute Nucleated RBC 0.000 (0.0-0.012) X10*3/uL Nucleated RBC % (auto) 0.0 (0.0-0.2) /100WBC Sodium 140 (135-145) mmol/L Potassium 4.2 (3.3-5.1) mmol/L Chloride 108 (96-108) mmol/L Carbon Dioxide 22 (22-29) mmol/L Anion Gap 14 (12-20) BUN 25 H (9-16) mg/dL Creatinine 1.56 H (0.5-1.4) mg/dL Estim Creat Clear Calc 42.4 Estimated GFR 44 Random Glucose 138 H (60-115) mg/dL Calcium 9.3 (8.4-10.2) mg/dL Total Bilirubin 0.4 (0.0-1.0) mg/dL Direct Bilirubin 0.1 (0.0-0.5) mg/dL AST 28 (5-37) U/L ALT 41 H (0-40) U/L Alkaline Phosphatase 65 (39-117) U/L Total Protein 6.9 (6.5-8.0) g/dL Albumin 4.1 (3.5-5.0) g/dL Ethyl Alcohol < 10 mg/dL Discharge Plan Discharge Clinical Impression: Head injury, Fall, Abrasion of face, Abrasion of hand Patient Disposition: Home, Self-Care Instructions: Abrasion (ED) Additional Instructions: You has a abrasions to the skin of your face and of your hands. You have some bruising to your lips. You do not seem to have any dangerous injuries today. You will probably be sore tomorrow. You may use acetaminophen as needed for pain. Please continue your other regular medications. Please follow up soon with your regular doctor. Return to the emergency room if significantly worse Prescriptions: New acetaminophen 500 mg capsule 1,000 mg PO Q8H PRN (Reason: fever or pain) Qty: 14 0RF No Action latanoprost 0.005 % Drops 1 drp ophthalmic-Left QPM atorvastatin 20 mg Tablet 20 mg PO BEDTIME melatonin 3 mg Tablet 6 mg PO BEDTIME aspirin 81 mg Tablet,Delayed Release (Dr/Ec) 81 mg PO DAILY brimonidine 0.2 % Drops 1 drp OPHTHALMIC (EYE) BID loratadine 10 mg Tablet 10 mg PO DAILY escitalopram oxalate 20 mg Tablet 20 mg PO DAILY cholecalciferol (vitamin D3) [Vitamin D3] 50 mcg (2,000 unit) Capsule 50 mcg PO DAILY Januvia 100 mg Tablet 100 mg PO DAILY Qty: 30 0RF lisinopril 40 mg tablet 40 mg PO DAILY Rx Instructions: PATIENT HASNT PICKED UP IN 6 MONTHS Lantus Solostar U-100 Insulin 100 unit/mL (3 mL) insulin pen 46 unit SUBCUT BID amlodipine 5 mg Tablet 5 mg PO DAILY Qty: 30 0RF Protocol: Hold for SBP< HOLD for SBP < : 90 (DME) FreeStyle Lite Strips Strip See Rx Instructions .Route Qty: 50 0RF Rx Instructions: As directed insulin aspart U-100 [Novolog FlexPen U-100 Insulin] 100 unit/mL (3 mL) insulin pen 20 unit subcut BID sennosides [senna] 8.6 mg tablet 2 tab PO BEDTIME prednisolone acetate 1 % drops,suspension 1 drp ophthalmic-Left QID metformin 1,000 mg tablet 1 tab PO BID docusate sodium 100 mg capsule 1 cap PO DAILY gabapentin 300 mg capsule 1 cap PO DAILY ofloxacin 0.3 % drops 1 drp QID Referrals: Gayle Moe MD [Primary Care Provider, Medical] Erica Alvarez MD [Physician, Internal Medicine] Interventions: ED Discharge Assessment Last Done: 08/06/25 00:05 Discharge Date/Time: 08/05/25 23:59 Print Language: Maltese
--- NOTE | 2025-08-05 21:32 | ECG_ITS ---
Test Reason : fall Blood Pressure : */* mmHG Vent. Rate : 76 BPM Atrial Rate : 76 BPM P-R Int : 178 ms QRS Dur : 88 ms QT Int : 422 ms P-R-T Axes : 44 -2 104 degrees QTcB Int : 474 ms Normal sinus rhythm T wave abnormality, consider lateral ischemia Abnormal ECG When compared with ECG of 07-Feb-2022 19:03, No significant change was found Referred By: Walter Morton Electronically Signed By: AISHA UP MD
[2025-08-05 21:36] VITALS: BP 139/81; PULSE 74; RESP 16; TEMP 36.9; O2SAT 95
--- NOTE | 2025-08-05 22:20 | PC.NURSE ---
pt refused to allow me to draw any labs. Notified Dr Watson
[2025-08-05 22:52] LABS: Hematocrit 47.7 % (42.0-52.0); Hemoglobin 16.0 g/dl (14.0-18.0); Imm Gran Abs Auto 0.06 X10*3/uL (0.00-0.03); Imm Gran Pct Auto 0.5 % (0.0-0.4); Lymphocytes Absolute Auto 2.6 X10*3/uL (1.2-4.9); MANUAL DIFF FLAG NO; Mean Corpuscular HGB Conc 33.5 g/dl (31.0-36.0); Mean Corpuscular Hemoglobin 30.4 pg (27.0-33.0); Mean Corpuscular Volume 90.5 fL (80.0-98.0); NRBC Abs Auto 0.000 X10*3/uL (0.0-0.012); NRBC Pct Auto 0.0 /100WBC (0.0-0.2); Platelet Count 220 X10*3/uL (160-400); Red Blood Count 5.27 X10*6/uL (4.60-5.80); White Blood Count 12.1 X10*3/uL (4.8-10.8)
[2025-08-05 23:27] LABS: Alanine Aminotransferase 41 U/L (0-40); Albumin Level 4.1 g/dL (3.5-5.0); Alkaline Phosphatase 65 U/L (39-117); Anion Gap 14 (12-20); Aspartate Amino Transferase 28 U/L (5-37); Blood Urea Nitrogen 25 mg/dL (9-16); Calcium 9.3 mg/dL (8.4-10.2); Carbon Dioxide 22 mmol/L (22-29); Chloride 108 mmol/L (96-108); Creatinine Clr Calc Pharmacy 42.4; Estimated Glomerular Filt Rate 44; Potassium 4.2 mmol/L (3.3-5.1); Sodium 140 mmol/L (135-145); Total Protein 6.9 g/dL (6.5-8.0)
--- NOTE | 2025-08-05 23:33 | PC.NURSE ---
spoken nw/pt daughter Neris who will be on the way to pick him up
[2025-08-06 00:05] VITALS: BP 139/81; PULSE 74; RESP 16; TEMP 36.9; O2SAT 95
== END 2025-08-05 23:59 | disposition home or self-care (01) ==
PROVIDERS: Emergency Provider Emergency Medicine; PCP Internal Medicine
DX: S09.90XA Unspecified injury of head, initial encounter (principal); S00.511A Abrasion of lip, initial encounter; S60.512A Abrasion of left hand, initial encounter; S60.511A Abrasion of right hand, initial encounter; W18.30XA Fall on same level, unspecified, initial encounter; Y93.L9 Activity, other outdoor activity; Y92.009 Unspecified place in unspecified non-institutional (private) residence as the place of occurrence of the external cause; R94.31 Abnormal electrocardiogram [ECG] [EKG]; F03.90 Unspecified dementia, unspecified severity, without behavioral disturbance, psychotic disturbance, mood disturbance, and anxiety; I10 Essential (primary) hypertension; E11.9 Type 2 diabetes mellitus without complications; Z79.899 Other long term (current) drug therapy; Z79.4 Long term (current) use of insulin
CPT/HCPCS: 36415; 70450; 80048; 80076; 80307; 85025; 93005; 99284; 99285

== ENCOUNTER → 2025-08-05 21:32 | Outpatient (BNV) | payer OTHER, SELFPAY | PROVIDERS: Emergency Provider Emergency Medicine; PCP Internal Medicine; Visit Provider Internal Medicine Cardiovascular Disease | DX: R94.31 Abnormal electrocardiogram [ECG] [EKG] (principal); Z04.3 Encounter for examination and observation following other accident | CPT/HCPCS: 93010 ==

== ENCOUNTER → 2025-08-05 21:32 | Outpatient (BNV) | payer OTHER, SELFPAY | PROVIDERS: Emergency Provider Emergency Medicine; PCP Internal Medicine; Visit Provider Student in an Organized Health Care Education/Training Program | DX: S09.90XA Unspecified injury of head, initial encounter (principal); Z04.3 Encounter for examination and observation following other accident | CPT/HCPCS: 70450 ==